=== PATIENT | female | born 1975 | race African-American/Black ===

== ENCOUNTER 2019-04-13 11:36 | Emergency (ER) | payer OTHER, SELFPAY ==
--- NOTE | ~2019-04-13 | CT_ITS ---
EXAMINATION: CT brain wo con EXAM DATE: 04/13/2019 12:35 INDICATION: Left-sided paresthesia and headache. Dizziness. TECHNIQUE: Spiral CT of the head was performed without contrast. Axial, coronal and sagittal images were reviewed. The dose-length product (DLP) for this examination was 605.33 mGy-cm. The exposure w as tailored according to patient size, and iterative reconstruction (ASIR) was used as additional dos e reduction technique. Comparison is made to prior examination from 03/28/2015. FINDINGS: There is no acute intraparenchymal hemorrhage. No evidence of intraparenchymal brain mass lesion. No evidence of acute infarction. There is no mass effect or midline shift. The ventricles are normal in size. There are no extra-axial collections. There are no acute calvarial fractures. T he orbits are unremarkable. Soft tissue is unremarkable. The visualized sinuses and mastoid air elizabeth ls are well aerated. IMPRESSION: 1. Normal head CT examination. Reviewed, dictated and finalized at location B. UTIVE CHEF
--- NOTE | ~2019-04-13 | XR_ITS ---
EXAMINATION: XR chest 2V EXAM DATE: 04/13/2019 12:55 INDICATION: Visual problems. TECHNIQUE: Frontal and lateral projections of the chest obtained and reviewed. There is no prior franci dy for comparison. FINDINGS: The lungs are clear. There are no pleural effusions. The cardiomediastinal silhouette is within normal limits. There is no pneumothorax suspected. The bones and soft tissues are unremarkab le. There are cholecystectomy clips. IMPRESSION: Normal chest x-ray exam. Reviewed, dictated and finalized at location B. 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
[2019-04-13 11:40] VITALS: BP 198/127; PULSE 92; RESP 18; TEMP 36.3; O2SAT 100
--- NOTE | 2019-04-13 11:57 | ED.NEUROSD ---
HPI - Neuro Symptoms/Deficit General Chief Complaint: Neuro Symptoms/Deficit Stated Complaint: Dizzy Time Seen by Provider: 04/13/19 11:48 Source: patient and RN notes reviewed Mode of arrival: ambulatory Limitations: no limitations History of Present Illness HPI Narrative: Pt is a 43 y/o female who presents to the ED with c/o feeling funny starting this morning. She notes that she began feeling dizzy while driving to work this morning. Pt states that she later developed a lt sided headache and blurred vision while at work. She notes that her heart began racing soon after these symptoms started. Pt also reports tingling in her hands, numbness in the lt side of her face, and difficulty swallowing, but denies any CP or vomiting. She states that she was able to drive to the ED and walk in under her own power. Pt notes that her grandson has recently had a cold, and states that she has had recent sinus/throat congestion. She notes that her father suffered from a CVA, and states that she is concerned she may be currently having a stroke. Onset (ago): hour(s) (several) History of same: No Quality: numb and tingling Associated symptoms: headaches (lt sided) and other (dizziness; numbness in lt side of face; tingling in hands; palpitations; difficulty swallowing; blurry vision; sinus/throat congestion) Related Data Home Medications Medication Instructions Recorded Confirmed lorazepam 04/13/19 oxycodone-acetaminophen 04/13/19 Allergies Allergy/AdvReac Type Severity Reaction Status Date / Time levofloxacin Allergy Unknown Verified 03/05/18 09:40 Review of Systems Review of Systems: Narrative: CONSTITUTIONAL: Denies fever, chills, or sweats. EYES: Denies redness or discharge. Reports blurry vision. ENT: Denies rhinorrhea, sore throat, or otalgia. Reports difficulty swallowing and sinus/throat congestion. CARDIOVASCULAR: Denies chest pain or edema. Reports palpitations. RESPIRATORY: Denies cough or dyspnea. GASTROINTESTINAL: Denies abdominal pain, nausea, vomiting, or diarrhea. NEUROLOGIC: Reports lt sided headache, numbness in lt side of face, tingling in hands, and dizziness. Denies weakness. All systems reviewed & are unremarkable except as noted in HPI and below PMFSH Past Medical History Medical History History of frequent headaches UTI (urinary tract infection) Surgical History Surgical History History of hysterectomy Hx of cholecystectomy Hx of tubal ligation Family History Family History (Updated 04/13/19 @ 12:16 by Demetri Dimas) Father Hypertension Family history of coronary artery disease Family history of cardiovascular disease Cerebrovascular accident Mother Hypertension Sibling Family history of malignant neoplasm of breast in first degree relative Other Family history of arthritis Social History Social History Smoking status: Never smoker Alcohol intake: never Comments PCP is Dr. Smith. Exam Narrative: Exam Narrative: GENERAL: Tearful, well-nourished, and in no acute distress. HEAD: Normocephalic, atraumatic. EYES: PERRLA and EOMI. ENT: Nares clear, no rhinorrhea or epistaxis. Mucous membranes moist. NECK: Supple. CHEST: Clear to auscultation. No respiratory distress. HEART: Regular rate and rhythm. No murmur heard. Normal peripheral pulses. ABDOMEN: Soft, nontender, nondistended, normal active bowel sounds. EXTREMITIES: Normal range of motion. No edema. SKIN: Warm, dry, no rash. Neuro: Finger to nose intact bilaterally. EOMs intact without nystagmus. No facial droop/asymmetry noted bilaterally. Grimace intact. Intact sensation in face. Hearing intact bilaterally. Shoulder shrug intact. Strength 5/5 bilateral upper extremities. Strength 5/5 bilateral lower extremities. Reflexes 2+ patellar. Heel to daugherty intact bilaterally. Romberg negative. Amb
--- NOTE | 2019-04-13 12:02 | ECG_ITS ---
Measurements Intervals [place] Rate: 57 P: 48 [place]: 167 QRS: 3 QRSD: 78 T: 0 QT: 418 QTc: 410 Interpretive Statements SINUS BRADYCARDIA WITH MARKED SINUS ARRHYTHMIA POSSIBLE LEFT ATRIAL ENLARGEMENT BORDERLINE ST ABNORMALITY- INFERIOR LEADS BORDERLINE ECG Electronically Signed On 04-13-2019 14:08:09 [facility] [employer] by Helio Amos D.O.
[2019-04-13] MEDS: SODIUM CHLORIDE 0.9% IV 1,000 ML 999 ML IV CONT (12:19)
[2019-04-13] MEDS: ASPIRIN 325 MG TABLET PO (12:19)
[2019-04-13 12:47] LABS: Basophils Percent Auto 0.3 % (0.2-1.2); Eosinophils Absolute Auto 0.1 K/mm3 (0-0.3); Eosinophils Percent Auto 0.8 % (0-4.4); Hemoglobin 12.8 g/dL (12.0-15.0); Immature Granulocyte Absolute 0.01 K/mm3 (0.00-0.031); Immature Granulocyte Percent A 0.2 % (0-0.5); Lymphocytes Absolute Auto 1.43 K/mm3 (0.9-3.2); Lymphocytes Percent Auto 22.6 % (18.3-44.2); Mean Corpuscular Hemoglobin 27.7 pg (26-34); Mean Corpuscular Volume 86.6 fl (80-100); Mean Platelet Volume 9.9 fl (7.4-10.4); Monocytes Absolute Auto 0.4 K/mm3 (0.1-0.6); Monocytes Percent Auto 5.5 % (2.6-8.5); Neutrophils Absolute Auto 4.5 K/mm3 (1.3-6.7); Neutrophils Percent Auto 70.6 % (45.5-73.1); Platelet Count Result 326 k/mm3 (150-375); Red Blood Count 4.62 M/mm3 (4.2-5.4); Red Cell Distribution Width 14.3 % (11.5-14.5); White Blood Count 6.3 K/mm3 (4.5-10.0)
[2019-04-13 12:58] LABS: INR 0.9
[2019-04-13 12:59] LABS: Partial Thromboplastin Time 28.1 SECONDS (22.3-36.8)
[2019-04-13 13:00] LABS: Blood Urea Nitrogen 13 mg/dL (7-17); Calcium 9.2 mg/dL (8.4-10.2); Carbon Dioxide 28 mmol/L (22-30); Chloride 101 mmol/L (98-107); Estimated CRCL calculation 99 ml/min; Estimated Glomerular Filt Rate > 60; Glucose 85 mg/dL (65-105); Potassium 3.4 mmol/L (3.4-5.0); Sodium 138 mmol/L (137-145)
[2019-04-13 13:01] VITALS: BP 132/81; PULSE 60; RESP 17; O2SAT 100
[2019-04-13 13:11] LABS: Troponin I < 0.012 ng/mL (0.000-0.034)
[2019-04-13 14:01] VITALS: BP 126/81; PULSE 58; RESP 10; O2SAT 99
[2019-04-13 15:01] VITALS: BP 134/78; PULSE 57; RESP 16; O2SAT 100
== END 2019-04-13 15:30 | disposition home or self-care (01) ==
PROVIDERS: Emergency Provider Emergency Medicine; PCP Emergency Medicine
DX: G45.9 Transient cerebral ischemic attack, unspecified (principal); Z87.440 Personal history of urinary (tract) infections; R00.1 Bradycardia, unspecified; R94.31 Abnormal electrocardiogram [ECG] [EKG]
CPT/HCPCS: 36415; 70450; 71046; 80048; 84484; 85025; 85610; 85730; 93005; 96360; 99284; A9270; J7030

== ENCOUNTER 2019-05-14 15:07 | Outpatient (CLI) | payer OTHER, SELFPAY ==
--- NOTE | 2019-05-14 | ECHO_ITS ---
Patient Info Name: Apoorva Harry Age: 44 years : 1975 Gender: Female Ht: 64 in Wt: 262 lbs BSA: 2.38 m2 HR: 71 bpm BP: 120 / 81 mmHg Technical Quality: Good Exam Date: 05/14/2019 3:40 PM Exam Location: [facility] Patient Status: Outpatient Admit Date: 05/14/2019 Staff Ordering Physician: Santana Smith MD Nightclub Manager: Enedina Washington RDCS Attending Provider: Santana Smith MD Referring Physician: Luis FITZPATRICK; Exam Type: CA echo doppler color flow Study Info Indications - ABN EKG Complete two-dimensional, color flow and Doppler transthoracic echocardiogram is performed. Summary 1. Left ventricular chamber dimension is normal. 2. Left ventricular systolic function is normal, estimated at 60-65%. 3. The left ventricular diastolic function is normal. 4. E/e' 6 is not elevated. 5. There is trace mitral valve regurgitation. 6. There is trace tricuspid valve regurgitation. 7. No pulmonary hypertension, estimated pulmonary arterial systolic pressure is 27 mmHg. Left Ventricle E/e' 6 is not elevated. Left ventricular chamber dimension is normal. Left ventricular systolic function is normal, estimated at 60-65%. The left ventricular diastolic function is normal. Right Ventricle Right ventricular chamber dimension is normal. Right ventricular systolic function is normal. Left Atria Left atrial chamber dimension is normal. Right Atria Right atrial chamber dimension is normal. Aortic Valve The aortic valve is trileaflet. There is no aortic valve stenosis. There is no aortic valve regurgitation. Pulmonic Valve There is no pulmonic regurgitation. Mitral Valve There is no mitral valve stenosis. There is trace mitral valve regurgitation. Tricuspid Valve There is trace tricuspid valve regurgitation. No pulmonary hypertension, estimated pulmonary arterial systolic pressure is 27 mmHg. Pericardium/Pleural There is no pericardial effusion. Inferior Vena Cava Normal inferior vena cava with >50% collapse upon inspiration consistent with normal right atrial pressure, 5 mmHg. Aorta The aortic root size at the sinus of Valsalva is normal. Left Ventricular Outflow Tract Name Value Normal LVOT 2D LVOT Diameter 2.0 cm LVOT Doppler LVOT Peak Gradient 4 mmHg LVOT Mean Gradient 3 mmHg LVOT VTI 22 cm LVOT VTI/AV VTI Ratio 0.9 LVOT Stroke Volume 71 ml LVOT CO 14.3 l/min LVOT CI 6.0 l/min/m2 Pulmonic Valve Name Value Normal PV Doppler PV Peak Gradient 3 mmHg Mitral Valve Name Value
== END 2019-05-14 15:08 | disposition home or self-care (01) ==
PROVIDERS: PCP Emergency Medicine; Visit Provider Emergency Medicine
DX: R94.31 Abnormal electrocardiogram [ECG] [EKG] (principal)
CPT/HCPCS: 93306

== ENCOUNTER 2019-10-26 14:00 | Emergency (ER) | payer OTHER, SELFPAY ==
--- NOTE | ~2019-10-26 | XR_ITS ---
XR chest 1V portable DATE: 10/26/2019 15:04 INDICATION: Palpitations. Weakness. TECHNIQUE: Portable AP chest on 10/26/2019 at 1504 hours COMPARISON: 04/13/2019 PA and lateral chest FINDINGS: Normal heart size. No hilar or mediastinal enlargement. No pulmonary infiltrate or consolid ation, pleural effusion or pulmonary vascular congestion or pneumothorax. There is degenerative spurring and mild dextro scoliosis of the thoracolumbar spine. IMPRESSION: No active cardiopulmonary disease Reviewed, dictated and finalized at location A.
--- NOTE | ~2019-10-26 | CT_ITS ---
EXAMINATION: CTA brain carotid EXAM DATE: 10/26/2019 16:14 INDICATION: Slurred speech. TECHNIQUE: Noncontrast head CT. Spiral CTA of the carotid arteries was performed with intravenous i njection 100 cc of Omnipaque 350. Axial, coronal, sagittal reformatted images reviewed. Additional r eformatted images created on dedicated 3-D workstation. NASCET comparable standard used to assess th e degree of arterial stenosis. Spiral CT angiogram cerebral arteries performed with the same intrave nous injection of contrast. Source images of the brain CTA transferred to dedicated workstation for 3 -D rotational image creation. Coronal, sagittal maximum intensity pixel images also reviewed. The d ose-length product (DLP) for this examination was 1617.11 mGy-cm. The exposure was tailored accordi ng to patient size, and iterative reconstruction (ASIR) was used as additional dose reduction techniq ue. Comparison is made to prior examination from 04/13/2019. FINDINGS: There is no carotid plaque or stenosis on either side. There is no carotid or vertebral ba silar arterial dissection or fibromuscular dysplasia. There are no cerebral artery aneurysms. There i s symmetric cerebral artery arborization. The sagittal, transverse and sigmoid sinuses enhance normal ly, no venous sinus thrombosis. Internal cerebral veins also enhance normally. There is no acute intraparenchymal hemorrhage. No evidence of intraparenchymal brain mass lesion. N o evidence of acute infarction. There is no mass effect or midline shift. There is no obstructive hyd rocephalus suspected. There are no extra-axial collections. There are no calvarial acute fractures. Incidental note made of mildly enlarged appearing symmetric extraocular muscles with sparing of the s uperior rectus. Possible thyroid associated orbitopathy. Consider checking thyroid functions. IMPRESSION: 1. No cervical arterial dissection or cerebral artery aneurysm. No carotid stenosis. 2. Borderline enlarged, symmetric extraocular muscle size, possible thyroid associated orbitopathy. Reviewed, dictated and finalized at location A. IMPRESSION: 1. No cervical arterial dissection or cerebral artery aneurysm. No carotid nan nosis. 2. Borderline enlarged, symmetric extraocular muscle size, possible thyroid as sociated orbitopathy.
[2019-10-26 14:11] VITALS: BP 165/87; PULSE 100; RESP 18; O2SAT 100
--- NOTE | 2019-10-26 14:16 | ECG_ITS ---
Measurements Intervals [place] Rate: 102 P: 51 [place]: 157 QRS: -1 QRSD: 81 T: 25 QT: 339 QTc: 442 Interpretive Statements SINUS TACHYCARDIA POSSIBLE LEFT ATRIAL ENLARGEMENT LEFT VENTRICULAR HYPERTROPHY AND ST-T CHANGE INFERIOR INFARCT, AGE INDETERMINATE BORDERLINE ST ABNORMALITY- HIGH LATERAL LEADS ABNORMAL ECG Electronically Signed On 10-26-2019 14:26:25 CDT by Helio Amos D.O.
[2019-10-26 15:04] LABS: Basophils Percent Auto 0.2 % (0.2-1.2); Eosinophils Absolute Auto 0.1 K/mm3 (0-0.3); Eosinophils Percent Auto 0.9 % (0-4.4); Hematocrit 37.6 % (37.0-47.0); Hemoglobin 12.4 g/dL (12.0-15.0); Immature Granulocyte Absolute 0.02 K/mm3 (0.00-0.031); Immature Granulocyte Percent A 0.2 % (0-0.5); Lymphocytes Absolute Auto 1.31 K/mm3 (0.9-3.2); Lymphocytes Percent Auto 15.3 % (18.3-44.2); Mean Corpuscular Hemoglobin 28.1 pg (26-34); Mean Corpuscular Volume 85.3 fl (80-100); Mean Platelet Volume 10.2 fl (7.4-10.4); Monocytes Absolute Auto 0.4 K/mm3 (0.1-0.6); Monocytes Percent Auto 4.6 % (2.6-8.5); Neutrophils Absolute Auto 6.7 K/mm3 (1.3-6.7); Neutrophils Percent Auto 78.8 % (45.5-73.1); Platelet Count Result 240 k/mm3 (150-375); Red Blood Count 4.41 M/mm3 (4.2-5.4); White Blood Count 8.6 K/mm3 (4.5-10.0)
--- NOTE | 2019-10-26 15:05 | ED.ARRPALP ---
HPI - Arrhythmia/Palpitations General Chief Complaint: Arrhythmia/Palpitations Stated Complaint: dizziness/heart racing Time Seen by Provider: 10/26/19 14:18 Source: patient Mode of arrival: ambulatory Limitations: no limitations History of Present Illness HPI narrative: This patient is 44 year old female who present for evaluation of episodes of heart racing. Patient states she was preparing to make something to eat when she developed shaking all over. She also felt her heart racing and dizziness. She states then developed epigastric abdominal pain. 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 Amos, and she was told to perform some vagal manuveurs. She did not feel any better so she came to the ER. Her states that during this episode she appeared to be stuttering her speech for 2 minutes PAtient had no focal weakness. She denies chest pain or sob. She was started on metoprolol 25 mg last month after she had a holter monitor in place. She has also been started on lorazepam as she has previous similar episodes thought to be panic attacks. Related Data Home Medications Medication Instructions Recorded Confirmed irbesartan 150 mg tablet 150 mg PO DAILY 09/06/19 09/15/19 lorazepam 1 mg tablet 1 mg PO DAILY PRN 09/06/19 09/15/19 oxycodone-acetaminophen 10 mg-325 1 tablet PO Q6H PRN 09/06/19 09/15/19 mg tablet topiramate 50 mg tablet 50 mg PO DAILY tablet 09/06/19 09/15/19 Allergies Allergy/AdvReac Type Severity Reaction Status Date / Time levofloxacin Allergy Unknown Unknown Verified 09/15/19 11:23 Review of Systems Review of Systems: All systems reviewed & are unremarkable except as noted in HPI and below Constitutional: Constitutional: Denies chills and Denies fever(s) ENT: Reports dizziness Cardiovascular: Cardiovascular: Denies chest pain and Reports rapid heart rate Respiratory: Respiratory: Denies cough and Denies dyspnea Gastrointestinal: Gastrointestinal: Reports abdominal pain, Denies diarrhea, Denies nausea and Denies vomiting Psychiatric: Psychiatric: Reports anxiety PMFSH Family History Family History (Updated 04/13/19 @ 12:16 by Demetri Dimas) Father Hypertension Family history of coronary artery disease Family history of cardiovascular disease Cerebrovascular accident Mother Hypertension Sibling Family history of malignant neoplasm of breast in first degree relative Other Family history of arthritis Social History Social History Smoking status: Never smoker Alcohol intake: never Exam Const: General: no acute distress and alert Orientation/consciousness: patient oriented x3 HENMT: Head: normocephalic and atraumatic Ears: TM's normal bilaterally Face and sinus: sinuses nontender and face symmetric Mouth: Yes Normal oral and palatal mucosa present, Yes lip normal and Yes oropharynx normal Throat: tonsils normal and uvula midline Eyes: Conjunctivae: conjunctivae normal Pupils: Equal, round and reactive pupils present EOM: EOMs intact bilaterally Neck: Neck: no lymphadenopathy Chest: Chest palpation & inspection: normal inspection of the chest Resp: Effort & Inspection: normal respiratory effort, no retractions and no use of accessory muscles Auscultation: clear to auscultation bilaterally Cardio: Rate: regular rate Rhythm: regular rhythm Heart sounds: no murmurs GI: Inspection: non-distended GI Palp: Yes Soft to palpation, No Tenderness to palpation present (GI), No Guarding due to palpation present (GI) and No Rigid due to palpation Auscultation: normal bowel sounds Back/Spine/Pelvis: Back: no CVA tenderness Skin: General skin exam: normal color Rashes: no rashes Neuro: General: patient oriented x3, moves all extremities, no meningeal signs, no focal motor deficits and CN's II-XI intact bilaterally Cranial nerves: Yes Nystagmus not present Speech: normal speech Gait exam (Neuro): Norm
[2019-10-26 15:08] LABS: Alanine Aminotransferase 15 U/L (4-35); Albumin Level 4.4 g/dL (3.5-5.1); Alkaline Phosphatase 58 U/L (38-126); Anion Gap 9 mmol/L (8-16); Aspartate Amino Transferase 23 U/L (14-36); Bilirubin,Total 0.4 mg/dL (0.2-1.3); Blood Urea Nitrogen 9 mg/dL (7-17); Calcium 9.4 mg/dL (8.4-10.2); Carbon Dioxide 25 mmol/L (22-30); Chloride 101 mmol/L (98-107); Estimated CRCL calculation 78 ml/min; Estimated Glomerular Filt Rate 60; Glucose 114 mg/dL (65-105); Lipase 77 U/L (23-300); Potassium 3.7 mmol/L (3.4-5.0); Sodium 135 mmol/L (137-145)
[2019-10-26 15:12] LABS: Prothrombin Time 12.7 Seconds (11.1-14.7)
[2019-10-26 15:13] LABS: Partial Thromboplastin Time 26.8 SECONDS (22.3-36.8)
[2019-10-26 15:19] LABS: Troponin I < 0.012 ng/mL (0.000-0.034)
[2019-10-26 16:27] VITALS: BP 132/82; PULSE 61; RESP 14; O2SAT 100
[2019-10-26 17:18] VITALS: BP 126/73; PULSE 64; RESP 13; O2SAT 100
[2019-10-26 18:33] VITALS: BP 121/78; PULSE 64; RESP 18; O2SAT 99
== END 2019-10-26 18:34 | disposition home or self-care (01) ==
PROVIDERS: Emergency Provider General Practice; PCP Emergency Medicine
DX: R00.2 Palpitations (principal); F98.5 Adult onset fluency disorder; R00.0 Tachycardia, unspecified; R94.31 Abnormal electrocardiogram [ECG] [EKG]; I51.7 Cardiomegaly
CPT/HCPCS: 36415; 70496; 70498; 71045; 80053; 83690; 83735; 84443; 84484; 85025; 85610; 85730; 93005; 99284; Q9967

== ENCOUNTER 2020-03-01 13:40 | Outpatient (CLI) | payer OTHER, SELFPAY ==
--- NOTE | ~2020-03-01 | MM_ITS ---
EXAMINATION: MM screening cassidy BI w demetri HISTORY: Screening mammogram, family history of breast cancer in her sister. TECHNIQUE: Craniocaudal and mediolateral oblique 3-D tomosynthesis images were obtained and synthetic 2-D images were generated. CAD analysis was submitted and interpreted. COMPARISON: 10/15/2018, 03/05/2018, 01/08/2018, 11/20/2016 BREAST PARENCHYMAL COMPOSITION: There are scattered areas of fibroglandular density. FINDINGS: There is no evidence of suspicious mass, calcification, or architectural distortion to sugg est malignancy in either breast. There has been no suspicious interval change. IMPRESSION: 1. No mammographic evidence of malignancy. 2. Recommend routine screening mammography in one year. BI-RADS Category 1: Negative Reviewed, dictated and finalized at location A. ELECTRICIAN
== END 2020-03-01 13:41 | disposition home or self-care (01) ==
LOC: ANHIMG 13:41
PROVIDERS: PCP Emergency Medicine; Visit Provider Emergency Medicine
DX: Z12.31 Encounter for screening mammogram for malignant neoplasm of breast (principal)
CPT/HCPCS: 77063; 77067

== ENCOUNTER → 2020-04-22 06:47 | Outpatient (CLI) | payer OTHER, SELFPAY ==
[2020-04-23 00:17] LABS: SARS-CoV-2 RNA PCR Negative
== END ==
PROVIDERS: PCP Emergency Medicine; Visit Provider Emergency Medicine
DX: B34.9 Viral infection, unspecified (principal); Z20.822 Contact with and (suspected) exposure to COVID-19
CPT/HCPCS: C9803; U0003; U0005

== ENCOUNTER 2020-06-12 14:31 | Emergency (ER) | payer OTHER, SELFPAY ==
--- NOTE | ~2020-06-12 | XR_ITS ---
EXAMINATION: XR chest 2V DATE: 06/12/2020 19:24 INDICATION: Lightheadedness. TECHNIQUE: Frontal and lateral views of the chest were obtained. COMPARISON: Chest single view 10/26/2019 FINDINGS: The chest demonstrates clear lungs without pneumonia, pleural effusion, or pneumothorax. Th e heart size is normal. Surgical clips in the right upper quadrant are likely from cholecystectomy. IMPRESSION: 1. No acute cardiopulmonary disease. Reviewed, dictated and finalized at location A.
--- NOTE | ~2020-06-12 | CT_ITS ---
EXAMINATION: CT brain wo con DATE: 06/12/2020 19:09 INDICATION: Right-sided headache. Dizziness. TECHNIQUE: Computed tomography (CT) of the head was performed without intravenous contrast. The mA wa s adjusted according to patient size. Iterative reconstruction technique was employed. The dose-lengt h product was 605.33 mGy-cm. COMPARISON: Head CT 10/26/2019 FINDINGS: There is no intracranial hemorrhage, acute infarction, or abnormal intracranial mass lesion . The ventricles are normal in size. The paranasal sinuses are clear. The mastoid air cells are jamie l. IMPRESSION: 1. Normal brain. Reviewed, dictated and finalized at location A. IMPRESSION: 1. Normal brain.
[2020-06-12 15:31] VITALS: BP 142/83; PULSE 84; RESP 16; TEMP 36.1; O2SAT 100
[2020-06-12 16:42] LABS: Basophils Percent Auto 0.4 % (0.2-1.2); Eosinophils Absolute Auto 0.1 K/mm3 (0-0.3); Eosinophils Percent Auto 1.2 % (0-4.4); Hematocrit 39.1 % (37.0-47.0); Hemoglobin 12.7 g/dL (12.0-15.0); Immature Granulocyte Absolute 0.03 K/mm3 (0.00-0.031); Immature Granulocyte Percent A 0.3 % (0-0.5); Lymphocytes Percent Auto 17.1 % (18.3-44.2); Mean Corpuscular HGB Conc 32.5 g/dl (32-36); Mean Corpuscular Hemoglobin 28.2 pg (26-34); Mean Corpuscular Volume 86.7 fl (80-100); Mean Platelet Volume 9.4 fl (7.4-10.4); Monocytes Absolute Auto 0.5 K/mm3 (0.1-0.6); Neutrophils Absolute Auto 7.1 K/mm3 (1.3-6.7); Platelet Count Result 299 k/mm3 (150-375); Red Blood Count 4.51 M/mm3 (4.2-5.4); Red Cell Distribution Width 14.2 % (11.5-14.5); White Blood Count 9.4 K/mm3 (4.5-10.0)
[2020-06-12 17:13] LABS: Erythrocyte Sedimentation Rate 25 mm/hr (0-20)
[2020-06-12 18:41] VITALS: BP 141/91; PULSE 73; RESP 20; O2SAT 99
--- NOTE | 2020-06-12 18:50 | ECG_ITS ---
Measurements Intervals [place] Rate: 62 P: 23 [place]: 167 QRS: 2 QRSD: 76 T: -6 QT: 395 QTc: 402 Interpretive Statements SINUS RHYTHM WITH SINUS ARRHYTHMIA LOW QRS VOLTAGE IN PRECORDIAL LEADS BORDERLINE ST-T WAVE ABNORMALITY- INFERIOR LEADS BORDERLINE ECG Electronically Signed On 06-13-2020 7:05:26 CDT by Helio Amos D.O.
--- NOTE | 2020-06-12 19:09 | ED.HA ---
HPI - Headache General Chief Complaint: Headache Stated Complaint: headache x1 week Time Seen by Provider: 06/12/20 18:35 Source: patient Mode of arrival: ambulatory Limitations: no limitations History of Present Illness HPI Narrative: This is a 45 year old female that presents to the ER for headache x 1 week. Reports left sided headache that is pounding in nature. Reports she does have history of migraines. Also reports lightheadedness. She took an oxycodone for headache with little relief. Denies fever, stiff neck, chest pain, shortness of breath, vomiting, numbness or weakness. Related Data Home Medications Medication Instructions Recorded Confirmed irbesartan 150 mg tablet 150 mg PO DAILY 09/06/19 12/15/19 lorazepam 1 mg tablet 1 mg PO DAILY PRN 09/06/19 12/15/19 oxycodone-acetaminophen 10 mg-325 1 tablet PO Q6H PRN 09/06/19 12/15/19 mg tablet topiramate 50 mg tablet 50 mg PO DAILY tablet 09/06/19 12/15/19 Allergies Allergy/AdvReac Type Severity Reaction Status Date / Time levofloxacin Allergy Unknown Unknown Verified 12/15/19 10:07 Review of Systems Review of Systems: Narrative: CONSTITUTIONAL: Denies fever EYES: Denies visual changes CARDIOVASCULAR: Denies chest pain, or edema. RESPIRATORY: Denies dyspnea. GASTROINTESTINAL: Denies vomiting NEUROLOGIC: Reports headache. Denies numbness, or weakness. All systems reviewed & are unremarkable except as noted in HPI and below PMFSH Past Medical History Medical History (Updated 06/12/20 @ 21:10 by Nuha Renee PA-C) History of frequent headaches UTI (urinary tract infection) Surgical History Surgical History History of hysterectomy Hx of cholecystectomy Hx of tubal ligation Family History Family History (Updated 04/13/19 @ 12:16 by Demetri Dimas) Father Hypertension Family history of coronary artery disease Family history of cardiovascular disease Cerebrovascular accident Mother Hypertension Sibling Family history of malignant neoplasm of breast in first degree relative Other Family history of arthritis Social History Social History Smoking status: Never smoker Alcohol intake: never Exam Narrative: Exam Narrative: GENERAL: Well-appearing, obese, and in no acute distress. HEAD: Normocephalic, atraumatic. EYES: PERRLA and EOMI. ENT: Nares clear, no rhinorrhea or epistaxis. Mucous membranes moist. Oropharynx without tonsillar hypertrophy exudate or other lesions. Bilateral TMs pearly medina non-bulging NECK: Supple. No adenopathy or masses. No carotid bruits or JVD CHEST: Clear to auscultation. No respiratory distress. No wheezes rales or rhonchi HEART: Regular rate and rhythm. No murmur heard. Normal peripheral pulses. EXTREMITIES: Normal range of motion. No edema. Strength equal in bilateral upper and lower extremities (5/5) SKIN: Warm, dry, no rash. NEURO: No focal deficits. Alert and oriented x3. Cranial nerves II through XII grossly intact. Normal [id number] PSYCH: Normal mood and affect Course Vital Signs Vital signs: Vital Signs Temperature 97 F L 06/12/20 15:31 Pulse Rate 84 06/12/20 15:31 Respiratory Rate 16 06/12/20 15:31 Blood Pressure 142/83 H 06/12/20 15:31 Pulse Oximetry 100 06/12/20 15:31 Temperature 97 F L 06/12/20 15:31 Pulse Rate 63 06/12/20 20:46 Respiratory Rate 20 06/12/20 18:41 Blood Pressure 120/81 06/12/20 20:46 Pulse Oximetry 99 06/12/20 18:41 MDM - Headache MDM Narrative Medical decision making narrative: Patient presents the emergency department with headache. Was also reporting dizziness. Does have history of migraines. She is afebrile and nontoxic-appearing. She is neurologically intact. CBC and metabolic panel without concerning findings. CT scan of the brain is normal and chest x-ray without acute cardiopulmonary findings. EKG without co
[2020-06-12 19:22] LABS: Anion Gap 5 mmol/L (8-16); Blood Urea Nitrogen 13 mg/dL (7-17); Calcium 9.1 mg/dL (8.4-10.2); Carbon Dioxide 29 mmol/L (22-30); Chloride 104 mmol/L (98-107); Estimated CRCL calculation 77 ml/min; Estimated Glomerular Filt Rate > 60; Glucose 94 mg/dL (65-105); Potassium 4.6 mmol/L (3.4-5.0); Sodium 138 mmol/L (137-145)
[2020-06-12] MEDS: diphenhydrAMINE HCl INJ 50 MG/ML VIAL 25 MG IV PUSH (19:51)
[2020-06-12] MEDS: METOCLOPRAMIDE HCL INJ 10 MG/2 ML VIAL IV PUSH (19:52)
[2020-06-12] MEDS: KETOROLAC 30 MG/ML VIAL (*BKC) IV PUSH (19:52)
[2020-06-12] MEDS: SODIUM CHLORIDE 0.9% IV 1,000 ML 999 ML IV CONT (19:52)
[2020-06-12 20:42] VITALS: BP 128/66; PULSE 61
[2020-06-12 20:43] VITALS: BP 123/62; PULSE 68
[2020-06-12 20:46] VITALS: BP 120/81; PULSE 63
[2020-06-12 21:27] VITALS: BP 136/81; PULSE 69; RESP 16; O2SAT 100
== END 2020-06-12 21:31 | disposition home or self-care (01) ==
PROVIDERS: Emergency Medicine; Physician Assistant; Emergency Provider Emergency Medicine; PCP Emergency Medicine
DX: R51.9 Headache, unspecified (principal); Z87.440 Personal history of urinary (tract) infections
CPT/HCPCS: 36415; 70450; 71046; 80048; 85025; 85652; 86140; 93005; 96361; 96365; 96375; 99284; J0131; J1200; J1885; J2765; J7030

== ENCOUNTER 2021-03-10 17:51 | Emergency (ER) | payer OTHER, SELFPAY ==
[2021-03-10 18:01] VITALS: BP 128/86; PULSE 75; RESP 16; TEMP 35.8; O2SAT 99
[2021-03-10 20:23] VITALS: BP 121/73; PULSE 78; RESP 18; O2SAT 99
[2021-03-10 20:26] LABS: Basophils Percent Auto 0.3 % (0.2-1.2); Hemoglobin 13.9 g/dL (12.0-15.0); Lymphocytes Absolute Auto 1.14 K/mm3 (0.9-3.2); Lymphocytes Percent Auto 34.5 % (18.3-44.2); Mean Corpuscular HGB Conc 33.1 g/dl (32-36); Mean Corpuscular Hemoglobin 28.4 pg (26-34); Mean Corpuscular Volume 85.7 fl (80-100); Monocytes Absolute Auto 0.4 K/mm3 (0.1-0.6); Monocytes Percent Auto 11.2 % (2.6-8.5); Neutrophils Absolute Auto 1.8 K/mm3 (1.3-6.7); Platelet Count Result 202 k/mm3 (150-375); Red Cell Distribution Width 14.1 % (11.5-14.5); White Blood Count 3.3 K/mm3 (4.5-10.0)
[2021-03-10] MEDS: MORPHINE SULFATE (*CRX) 4 MG/ML INJ IV PUSH (20:26)
[2021-03-10] MEDS: ONDANSETRON INJ 4 MG/2 ML VIAL IV PUSH (20:27)
[2021-03-10 21:01] LABS: Alanine Aminotransferase 39 U/L (4-35); Albumin Level 4.5 g/dL (3.5-5.1); Alkaline Phosphatase 63 U/L (38-126); Anion Gap 5 mmol/L (8-16); Aspartate Amino Transferase 46 U/L (14-36); Bilirubin,Total 0.4 mg/dL (0.2-1.3); Blood Urea Nitrogen 8 mg/dL (7-17); Calcium 9.3 mg/dL (8.4-10.2); Carbon Dioxide 30 mmol/L (22-30); Chloride 100 mmol/L (98-107); Estimated CRCL calculation 85 ml/min; Estimated Glomerular Filt Rate > 60; Glucose 96 mg/dL (65-110); Lipase 140 U/L (23-300); Potassium 3.6 mmol/L (3.4-5.0); Sodium 135 mmol/L (137-145)
--- NOTE | 2021-03-10 21:33 | ED.GENADULT ---
HPI - General Adult General Chief complaint: Abdominal Pain Stated complaint: chills/abd pain Time Seen by Provider: 03/10/21 20:03 History of Present Illness HPI narrative: Patient is a 45-year-old female who presents ER with epigastric discomfort. Ongoing for the last 2 days. Loss of appetite and reports everything tastes like rocks. She believes she is lost small as well. No vomiting or diarrhea. Pain is not worsened with eating or drinking. Occasional chills. Not vaccinated against Covid. No known exposures. Related Data Home Medications Medication Instructions Recorded Confirmed irbesartan 150 mg tablet 150 mg PO DAILY 09/06/19 01/01/21 lorazepam 1 mg tablet 1 mg PO DAILY PRN 09/06/19 01/01/21 oxycodone-acetaminophen 10 mg-325 1 tablet PO Q6H PRN 09/06/19 01/01/21 mg tablet topiramate 50 mg tablet 50 mg PO DAILY tablet 09/06/19 01/01/21 Allergies Allergy/AdvReac Type Severity Reaction Status Date / Time levofloxacin Allergy Unknown Unknown Verified 02/19/21 15:10 Review of Systems Review of Systems: All systems reviewed & are unremarkable except as noted in HPI and below Constitutional: Constitutional: Reports chills, Denies fever(s) and Denies weakness ENT: Denies nasal congestion and Denies sore throat Comments: Loss of taste and smell Cardiovascular: Cardiovascular: Denies chest pain and Denies radiating jaw, neck or arm pain Gastrointestinal: Gastrointestinal: Reports abdominal pain, Denies diarrhea, Reports nausea and Denies vomiting PMF Past Medical History Medical History (Updated 03/10/21 @ 22:44 by Fidencio Jack MD) BMI greater than 40 History of frequent headaches Left knee DJD Left knee pain UTI (urinary tract infection) Surgical History Surgical History History of hysterectomy Hx of cholecystectomy Hx of tubal ligation Family History Family History Father Hypertension Family history of coronary artery disease Family history of cardiovascular disease Cerebrovascular accident Mother Hypertension Sibling Family history of malignant neoplasm of breast in first degree relative Other Family history of arthritis Social History Social History Smoking status: Never smoker Alcohol intake: never Exam Narrative: GENERAL: Well-appearing, well-nourished, and in no acute distress. HEAD: Normocephalic, atraumatic. CHEST: Clear to auscultation. No respiratory distress. HEART: Regular rate and rhythm. Normal peripheral pulses. ABDOMEN: Soft, nontender, nondistended. EXTREMITIES: Normal range of motion. No edema. NEURO: Alert and oriented x3. PSYCH: Normal mood and affect. Course Course Emergency Course: Patient feels improved with antiemetics and morphine. Swabbeds for Covid. Patient without reproducible tenderness in the abdomen. Patient has no flank pain or urinary symptoms that are concerning for kidney stone. Discharge home. Vital Signs Vital signs: Vital Signs Temperature 96.5 F L 03/10/21 18:01 Pulse Rate 75 03/10/21 18:01 Respiratory Rate 16 03/10/21 18:01 Blood Pressure 128/86 03/10/21 18:01 Pulse Oximetry 99 03/10/21 18:01 Temperature 96.5 F L 03/10/21 18:01 Pulse Rate 78 03/10/21 20:23 Respiratory Rate 18 03/10/21 20:23 Blood Pressure 121/73 03/10/21 20:23 Pulse Oximetry 99 03/10/21 20:23 Medical Decision Making Vital Signs Vital Signs: Vital Signs Temperature 96.5 F L 03/10/21 18:01 Pulse Rate 75 03/10/21 18:01 Respiratory Rate 16 03/10/21 18:01 Blood Pressure 128/86 03/10/21 18:01 Pulse Oximetry 99 03/10/21 18:01 Temperature 96.5 F L 03/10/21 18:01 Pulse Rate 78 03/10/21 20:23 Respiratory Rate 18 03/10/21 20:23 Blood Pressure 121/73 03/10/21 20:23 Pulse Oximetry 99 03/10/21 20:23 Lab Data Result diagra
[2021-03-10 21:37] LABS: Add Urine Microscopic? YES; Appearance Urine Clear (Clear); Bilirubin Urine Negative (Negative); Blood Urine Negative (Negative); Color Urine Yellow (Yellow); Glucose Urine UA Negative (Negative); Ketones Urine Negative (Negative); Leukocyte Esterase Ur Negative LEU/UL (Negative); Mucus Urine Few /lpf; Nitrate Urine Negative (Negative); Protein Urine 1+ mg/dL (Negative); Specific Grav Ur 1.028 (1.001-1.035); Squamous Epithelial Cell Urine Few /hpf (Few); WBC Urine 0-3 /hpf
[2021-03-10 23:17] VITALS: BP 132/78; PULSE 80; RESP 16; O2SAT 99
[2021-03-11 17:04] LABS: SARS-CoV-2 RNA PCR Positive
== END 2021-03-10 23:19 | disposition home or self-care (01) ==
PROVIDERS: Emergency Provider Emergency Medicine; PCP Emergency Medicine
DX: U07.1 COVID-19 (principal)
CPT/HCPCS: 36415; 80053; 81001; 81025; 83690; 85025; 86769; 96374; 96375; 99284; C9803; J2270; J2405; U0003; U0005

== ENCOUNTER 2021-06-06 09:39 | Outpatient (CLI) | payer OTHER, SELFPAY ==
--- NOTE | ~2021-06-06 | MM_ITS ---
EXAMINATION: MM screening cassidy BI w demetri HISTORY: Screening mammogram TECHNIQUE: Craniocaudal and mediolateral oblique 3-D tomosynthesis images were obtained and synthetic 2-D images were generated. CAD analysis was submitted and interpreted. COMPARISON: 03/01/2020 bilateral screening mammogram 10/15/2018 and 03/05/2018 diagnostic right mammogram and limited right breast ultrasound 01/08/2018, 11/20/2016 bilateral screening mammogram examinations BREAST PARENCHYMAL COMPOSITION: There are scattered areas of fibroglandular density. FINDINGS: There is no evidence of suspicious mass, calcification, or architectural distortion to sugg est malignancy in either breast. There has been no suspicious interval change. IMPRESSION: 1. No mammographic evidence of malignancy. 2. Recommend routine screening mammography in one year. BI-RADS Category 1: Negative Reviewed, dictated and finalized at location A.
== END 2021-06-06 09:40 | disposition home or self-care (01) ==
LOC: ANHIMG 09:41
PROVIDERS: PCP Emergency Medicine; Visit Provider Emergency Medicine
DX: Z12.31 Encounter for screening mammogram for malignant neoplasm of breast (principal)
CPT/HCPCS: 77063; 77067

== ENCOUNTER 2022-01-30 08:15 | Outpatient (CLI) | payer BC, OTHER, SELFPAY ==
[2022-01-30 09:10] LABS: Alanine Aminotransferase 19 U/L (6-35); Albumin Level 4.4 g/dL (3.5-5.1); Alkaline Phosphatase 62 U/L (38-126); Anion Gap 8 mmol/L (8-16); Aspartate Amino Transferase 21 U/L (14-36); Bilirubin,Total 0.4 mg/dL (0.2-1.3); Blood Urea Nitrogen 10 mg/dL (7-17); Calcium 9.1 mg/dL (8.4-10.2); Carbon Dioxide 26 mmol/L (22-30); Chloride 105 mmol/L (98-107); Cholesterol 219 mg/dL (0-200); Estimated Glomerular Filt Rate > 60; Glucose 95 mg/dL (65-110); HDL Direct 68 mg/dL; Sodium 139 mmol/L (137-145); Triglycerides 100 mg/dL (<150)
[2022-01-30 09:21] LABS: LDL Cholesterol Direct 86 mg/dL
== END 2022-01-30 08:16 | disposition home or self-care (01) ==
LOC: ANHLAB 08:16
PROVIDERS: PCP Emergency Medicine; Visit Provider Internal Medicine Cardiovascular Disease
DX: I10 Essential (primary) hypertension (principal)
CPT/HCPCS: 36415; 80053; 80061

== ENCOUNTER 2022-02-21 09:41 | Outpatient (CLI) | payer BC, OTHER, SELFPAY ==
--- NOTE | 2022-02-21 09:43 | EST_ITS ---
Patient Info Name: Apoorva Harry Age: 46 years : 1975 Gender: Female Ht: 64 in Wt: 260 lbs BSA: 2.37 m2 Exam Date: 02/21/2022 10:03 AM Exam Location: [facility] Stress Patient Status: Outpatient Admit Date: 02/21/2022 Staff Ordering Physician: Helio Amos DO Attending Provider: Helio Amos DO Exercise Technologist: Ann Saez RDCS Exercise Physician: Helio Amos DO Exam Type: CA stress test treadmill Study Info Indications R00.2 - Palpitations A treadmill exercise stress test was performed. Summary 1. 1. Negative Mani exercise stress test for ischemic ST changes by ECG criteria. 2. 2. Reduced functional capacity, achieving 7 METs of workload. 3. 3. Baseline hypertension with hypertensive response to exercise. 4. 4. Appropriate HR response to exercise. 5. 5. Appropriate HR recovery at 1 minute post exercise. 6. 6. No imaging with stress testing. 7. 7. Patient informed of the above results. Protocol: Mani Stress ECG Details Stage: REST Duration (min): 0 min : 46 sec Speed (mph): 0.0 Grade (%): 0 HR (bpm): 59 SBP (mmHg): 156 DBP (mmHg): 80 METS: --- Stage: REST Duration (min): 3 min : 8 sec Speed (mph): 0.0 Grade (%): 0 HR (bpm): 85 SBP (mmHg): 156 DBP (mmHg): 80 METS: --- Stage: STAGE 1 Duration (min): 1 min : 0 sec Speed (mph): 1.7 Grade (%): 10 HR (bpm): 116 SBP (mmHg): 156 DBP (mmHg): 80 METS: --- Stage: STAGE 1 Duration (min): 2 min : 0 sec Speed (mph): 1.7 Grade (%): 10 HR (bpm): 126 SBP (mmHg): 156 DBP (mmHg): 80 METS: --- Stage: STAGE 1 Duration (min): 3 min : 0 sec Speed (mph): 1.7 Grade (%): 10 HR (bpm): 136 SBP (mmHg): 156 DBP (mmHg): 80 METS: --- Stage: STAGE 2 Duration (min): 1 min : 0 sec Speed (mph): 2.5 Grade (%): 12 HR (bpm): 148 SBP (mmHg): 156 DBP (mmHg): 80 METS: --- Stage: STAGE 2 Duration (min): 2 min : 0 sec Speed (mph): 2.5 Grade (%): 12 HR (bpm): 152 SBP (mmHg): 208 DBP (mmHg): 69 METS: --- Stage: STAGE 2 Duration (min): 2 min : 0 sec Speed (mph): 2.5 Grade (%): 12 HR (bpm): 152 SBP (mmHg): 208 DBP (mmHg): 69 METS: --- Stage: RECOVERY Duration (min): 0 min : 59 sec Speed (mph): 0.0 Grade (%): 0 HR (bpm): 106 SBP (mmHg): 177 DBP (mmHg): 87 METS: --- Stage: RECOVERY Duration (min): 1 min : 59 sec Speed (mph): 0.0 Grade (%): 0 HR (bpm): 99 SBP (mmHg): 177 DBP (mmHg): 87 METS: --- Stage: RECOVERY Duration (min): 2 min : 59 sec Speed (mph): 0.0 Grade (%): 0 HR (bpm): 107 SBP (mmHg): 153 DBP (mmHg): 83 METS: --- Stage: RECOVERY Duration (min): 3 min : 59 sec Speed (mph): 0.0 Grade (%): 0 HR (bpm): 97 SBP (mmHg): 153 DBP (mmHg): 83 METS: --- Stage:
== END 2022-02-21 09:42 | disposition home or self-care (01) ==
LOC: ANHCARD 09:43
PROVIDERS: PCP Emergency Medicine; Visit Provider Internal Medicine Cardiovascular Disease
DX: R00.2 Palpitations (principal)
CPT/HCPCS: 93017

== ENCOUNTER 2022-09-26 07:26 | Outpatient (CLI) | payer BC, OTHER, SELFPAY ==
--- NOTE | ~2022-09-26 | MM_ITS ---
EXAMINATION: MM screening cassidy BI w demetri HISTORY: Screening mammogram TECHNIQUE: Craniocaudal and mediolateral oblique 3-D tomosynthesis images were obtained and synthetic 2-D images were generated. CAD analysis was submitted and interpreted. COMPARISON: 06/06/2021, 03/01/2020 bilateral screening mammogram examinations BREAST PARENCHYMAL COMPOSITION: There are scattered areas of fibroglandular density. FINDINGS: There is no evidence of suspicious mass, calcification, or architectural distortion to sugg est malignancy in either breast. There has been no suspicious interval change. IMPRESSION: 1. No mammographic evidence of malignancy. 2. Recommend routine screening mammography in one year. BI-RADS Category 1: Negative Reviewed, dictated and finalized at location A.
== END 2022-09-26 07:27 | disposition home or self-care (01) ==
LOC: ANHIMG 07:27
PROVIDERS: PCP Emergency Medicine; Visit Provider Emergency Medicine
DX: Z12.31 Encounter for screening mammogram for malignant neoplasm of breast (principal)
CPT/HCPCS: 77063; 77067

== ENCOUNTER 2023-07-28 07:31 | Emergency (ER) | payer BC, OTHER, SELFPAY ==
--- NOTE | ~2023-07-28 | US_ITS ---
EXAMINATION: US venous doppler [facility] DATE: 07/28/2023 08:23 INDICATION: Lower limb swelling TECHNIQUE: Grayscale ultrasound images without and with compression and Doppler ultrasound images of the left lower extremity veins were obtained. COMPARISON: FINDINGS: The visualized portions of left common femoral vein, profunda (deep) femoral vein, femoral vein, popl iteal vein, peroneal veins, posterior tibial veins, gastrocnemius vein and greater saphenous vein are patent. IMPRESSION: 1. No deep venous thrombosis in the left lower limb. Reviewed, dictated and finalized at location B.
--- NOTE | ~2023-07-28 | XR_ITS ---
EXAMINATION: XR chest 2V DATE: 07/28/2023 08:11 INDICATION: Shortness of breath. Dizziness and chest pressure. TECHNIQUE: PA and lateral views of the chest were obtained. COMPARISON: Chest radiograph dated 06/12/2020 FINDINGS: The lungs remain clear with no focal airspace opacities, pulmonary edema, pleural effusion or pneumot horax. The cardiomediastinal silhouette is normal. Mild thoracic spondylosis. Cholecystectomy clips r ight upper quadrant. IMPRESSION: 1. No acute cardiopulmonary disease. Reviewed, dictated and finalized at location B.
[2023-07-28 07:31] VITALS: BP 129/79; PULSE 94; RESP 16; TEMP 36.8; O2SAT 100
--- NOTE | 2023-07-28 07:45 | ECG_ITS ---
SEE SCANNED COPY FOR CONFIRMED REPORT MTDD
[2023-07-28 08:16] LABS: Basophils Percent Auto 0.9 % (0.2-1.2); Eosinophils Absolute Auto 0.1 K/mm3 (0-0.3); Eosinophils Percent Auto 2.1 % (0-4.4); Hematocrit 41.8 % (37.0-47.0); Hemoglobin 13.2 g/dL (12.0-15.0); Lymphocytes Percent Auto 38.9 % (18.3-44.2); Mean Corpuscular HGB Conc 31.6 g/dl (32-36); Mean Corpuscular Volume 88.6 fl (80-100); Mean Platelet Volume 9.9 fl (7.4-10.4); Monocytes Absolute Auto 0.3 K/mm3 (0.1-0.6); Monocytes Percent Auto 6.4 % (2.6-8.5); Neutrophils Absolute Auto 2.3 K/mm3 (1.3-6.7); Neutrophils Percent Auto 51.7 % (45.5-73.1); Platelet Count Result 222 k/mm3 (150-375); Red Blood Count 4.72 M/mm3 (4.2-5.4); Red Cell Distribution Width 14.1 % (11.5-14.5); White Blood Count 4.4 K/mm3 (4.5-10.0)
--- NOTE | 2023-07-28 08:17 | ED.SOB ---
HPI - SOB/Dyspnea General Chief Complaint: Arrhythmia/Palpitations Stated Complaint: sob, Time Seen by Provider: 07/28/23 07:33 Source: patient, EMS, RN notes reviewed and old records reviewed Mode of arrival: EMS Limitations: no limitations History of Present Illness HPI Narrative: This is a 48 year old female with history of hypertension, PSVT, anxiety who presents for evaluation of shortness of breath. She states this morning she woke up to get ready for work. She states she woke up with more left knee pain than normal. She chronically has knee pain. She also reports left arm didn't feel right. She reports walking around to see if her symptoms would improve and she noticed that her heart was racing. Then she developed shortness of breath. She take lorazepam and sat down to see if her symptoms would improve, and her called 911. EMS reports patient had a pulse that felt irregular and they saw PVCs on the monitor. PAtient reports her symptoms have now resolved. On review of her chart, she has history of SVT and she was being followed by Dr. Amos for SVT. She was also taking metoprolop at that time. Related Data Home Medications Medication Instructions Recorded Confirmed irbesartan 150 mg tablet 150 mg PO DAILY 09/06/19 01/30/22 lorazepam 1 mg tablet (Ativan) 1 mg PO DAILY PRN 09/06/19 01/30/22 oxycodone-acetaminophen 10 mg-325 1 tablet PO Q6H PRN 09/06/19 01/30/22 mg tablet (Percocet) topiramate 50 mg tablet (Topamax) 50 mg PO DAILY 09/06/19 01/30/22 Allergies Allergy/AdvReac Type Severity Reaction Status Date / Time levofloxacin Allergy Unknown Unknown Verified 07/28/23 07:44 Review of Systems Constitutional: Constitutional: Denies weakness Cardiovascular: Cardiovascular: Denies syncope, Reports rapid heart rate, Denies irregular heart rhythm, Reports leg edema (left) and Reports dyspnea Respiratory: Respiratory: Denies chest congestion, Denies hemoptysis, Denies excessive phlegm production and Reports dyspnea Gastrointestinal: Gastrointestinal: Denies abdominal pain, Denies hematochezia, Denies diarrhea and Denies vomiting Genitourinary: Genitourinary: Denies hematuria and Denies dysuria Musculoskeletal: Musculoskeletal: Reports arthralgias (left knee pain chronic), Denies joint swelling, Denies loss of height and Denies muscle weakness Neurologic: Reports dizziness, Denies syncope, Denies focal weakness and Denies weakness PMFSH Past Medical History Medical History BMI greater than 40 History of frequent headaches Left knee DJD Left knee pain Right shoulder pain UTI (urinary tract infection) Surgical History Surgical History History of hysterectomy Hx of cholecystectomy Hx of tubal ligation Family History Family History Father Hypertension Family history of coronary artery disease Family history of cardiovascular disease Cerebrovascular accident Mother Hypertension Sibling Family history of malignant neoplasm of breast in first degree relative Other Family history of arthritis Social History Social History Smoking status: Never smoker Alcohol intake: never Substance use: never Living arrangements: with family Gender identity (if verbalized by the patient): Female Exam Const: General: no acute distress and alert Nutritional Appearance: well nourished Orientation/consciousness: patient oriented x3 Limitations: no limitations HENMT: Head: normal to inspection Eyes: EOM: EOMs intact bilaterally Resp: Effort & Inspection: normal respiratory effort Auscultation: clear to auscultation bilaterally Cardio: Rate: regular rate Rhythm: regular rhythm Heart sounds: no murmurs GI: GI Palp: Yes Soft to palpation, No Tenderness to palpation prese
[2023-07-28 08:26] LABS: Alanine Aminotransferase 25 U/L (6-35); Albumin Level 4.8 g/dL (3.5-5.1); Alkaline Phosphatase 66 U/L (38-126); Anion Gap 7 mmol/L (4-12); Aspartate Amino Transferase 32 U/L (14-36); Bilirubin,Total 0.8 mg/dL (0.2-1.3); Blood Urea Nitrogen 11 mg/dL (7-17); Carbon Dioxide 28 mmol/L (22-30); Chloride 102 mmol/L (98-107); Estimated Glomerular Filt Rate > 60; Glucose 82 mg/dL (65-110); Magnesium 2.2 mg/dL (1.6-2.3); Potassium 3.5 mmol/L (3.4-5.0); Sodium 137 mmol/L (137-145)
[2023-07-28 08:27] LABS: Prothrombin Time 13.9 Seconds (11.1-14.7)
[2023-07-28 08:28] LABS: Partial Thromboplastin Time 28.4 Seconds (22.3-36.8)
[2023-07-28 08:36] LABS: D Dimer 0.39 ug/mL (<0.48)
[2023-07-28 08:38] LABS: NT Pro B Type Natriuretic Pept 68 pg/mL (19.9-100); Troponin I < 0.012 ng/mL (0.000-0.034)
[2023-07-28 09:15] VITALS: BP 117/85; PULSE 61; RESP 16; O2SAT 100
[2023-07-28 10:45] VITALS: BP 103/76; PULSE 56; RESP 16; O2SAT 97
[2023-07-28 11:23] VITALS: BP 113/71; PULSE 60; RESP 16; O2SAT 100
[2023-07-28 11:24] VITALS: PULSE 60
[2023-07-28 11:56] LABS: Troponin I < 0.012 ng/mL (0.000-0.034)
[2023-07-28 12:25] VITALS: BP 112/79; PULSE 60; RESP 16; O2SAT 100
== END 2023-07-28 12:35 | disposition home or self-care (01) ==
PROVIDERS: Emergency Provider General Practice; PCP Emergency Medicine
DX: R00.2 Palpitations (principal); M25.562 Pain in left knee; G89.29 Other chronic pain; I10 Essential (primary) hypertension; F41.9 Anxiety disorder, unspecified; M17.12 Unilateral primary osteoarthritis, left knee; Z87.440 Personal history of urinary (tract) infections; Z90.710 Acquired absence of both cervix and uterus; Z90.49 Acquired absence of other specified parts of digestive tract; R94.31 Abnormal electrocardiogram [ECG] [EKG]
CPT/HCPCS: 36415; 71046; 80053; 83735; 83880; 84484; 85025; 85380; 85610; 85730; 93005; 93971; 99284

== ENCOUNTER 2024-04-12 15:22 | Outpatient (CLI) | payer BC, SELFPAY ==
[2024-04-12 15:54] LABS: Basophils Percent Auto 0.3 % (0.2-1.2); Eosinophils Absolute Auto 0.1 K/mm3 (0-0.3); Eosinophils Percent Auto 0.7 % (0-4.4); Hematocrit 39.3 % (37.0-47.0); Hemoglobin 12.8 g/dL (12.0-15.0); Immature Granulocyte Absolute 0.02 K/mm3 (0.00-0.031); Immature Granulocyte Percent A 0.3 % (0-0.5); Lymphocytes Absolute Auto 1.45 K/mm3 (0.9-3.2); Lymphocytes Percent Auto 21.7 % (18.3-44.2); Mean Corpuscular HGB Conc 32.6 g/dl (32-36); Mean Corpuscular Hemoglobin 28.9 pg (26-34); Mean Corpuscular Volume 88.7 fl (80-100); Mean Platelet Volume 9.7 fl (7.4-10.4); Monocytes Absolute Auto 0.3 K/mm3 (0.1-0.6); Monocytes Percent Auto 4.9 % (2.6-8.5); Neutrophils Absolute Auto 4.8 K/mm3 (1.3-6.7); Neutrophils Percent Auto 72.1 % (45.5-73.1); Platelet Count Result 192 k/mm3 (150-375); Red Blood Count 4.43 M/mm3 (4.2-5.4); White Blood Count 6.7 K/mm3 (4.5-10.0)
[2024-04-12 15:56] LABS: Add Urine Microscopic? NO; Appearance Urine Clear (Clear); Bilirubin Urine Negative (Negative); Blood Urine Negative (Negative); Color Urine Yellow (Yellow); Glucose Urine UA Negative (Negative); Ketones Urine Trace mg/dL (Negative); Leukocyte Esterase Ur Negative LEU/UL (Negative); Nitrate Urine Negative (Negative); Protein Urine Negative (Negative); Specific Grav Ur 1.033 (1.001-1.035); Urobilinogen Urine 0.2 mg/dL (<2.0); pH Urine 5.5 (5.0-9.0)
[2024-04-12 16:09] LABS: Albumin Level 4.4 g/dL (3.5-5.1); Anion Gap 6 mmol/L (4-12); Blood Urea Nitrogen 11 mg/dL (7-17); Calcium 9.3 mg/dL (8.4-10.2); Carbon Dioxide 29 mmol/L (22-30); Chloride 102 mmol/L (98-107); Estimated Glomerular Filt Rate > 60; Glucose 75 mg/dL (65-110); Potassium 4.3 mmol/L (3.4-5.0); Sodium 137 mmol/L (137-145)
--- OUTSIDE RECORDS SUMMARY | 2024-04-12 16:14 | XMS_ITS | Continuity of Care Document ---
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 Name Role Phone Santana Smith MD Unavailable Unavailable Allergies, Adverse Reactions, Alerts Substance Reaction Status Criticality levofloxacin Active No Information Medications Medication Instructions Dosage Effective Dates (start - stop) Status Comments Ativan 1 mg tablet take 1 tablet by oral route every day at night as needed - Active PRN for anxiety, avoid driving or operate machines Percocet 10 mg-325 mg tablet take 1 tablet by oral route every 6 hours as needed as needed 1.00 tablet - Active PRN for pain, avoid driving or operate machines naloxone 0.4 mg/mL injection syringe inject 1 milliliter by IM route over once, may repeat at 2 to 3 minute intervals as needed as needed - Active PRN for OD Procedures Procedure Date OFFICE/OUTPATIENT VISIT, EST OFFICE/OUTPATIENT VISIT, EST PREV VISIT, EST, AGE 40-64 OFFICE/OUTPATIENT VISIT, EST OFFICE/OUTPATIENT VISIT, EST OFFICE/OUTPATIENT VISIT, EST OFFICE/OUTPATIENT VISIT, EST OFFICE/OUTPATIENT VISIT, EST OFFICE/OUTPATIENT VISIT, EST OFFICE/OUTPATIENT VISIT, EST OFFICE/OUTPATIENT VISIT, EST OFFICE/OUTPATIENT VISIT, EST OFFICE/OUTPATIENT VISIT, EST OFFICE/OUTPATIENT VISIT, EST OFFICE/OUTPATIENT VISIT, EST OFFICE/OUTPATIENT VISIT, EST OFFICE/OUTPATIENT VISIT, EST OFFICE/OUTPATIENT VISIT, EST OFFICE/OUTPATIENT VISIT, EST OFFICE/OUTPATIENT VISIT, EST OFFICE/OUTPATIENT VISIT, EST PREV VISIT, EST, AGE 40-64 Sep- OFFICE/OUTPATIENT VISIT, EST OFFICE/OUTPATIENT VISIT, EST OFFICE/OUTPATIENT VISIT, EST OFFICE/OUTPATIENT VISIT, EST OFFICE/OUTPATIENT VISIT, EST OFFICE/OUTPATIENT VISIT, EST OFFICE/OUTPATIENT VISIT, EST OFFICE/OUTPATIENT VISIT, EST OFFICE/OUTPATIENT VISIT, EST OFFICE/OUTPATIENT VISIT, EST OFFICE/OUTPATIENT VISIT, EST OFFICE/OUTPATIENT VISIT, EST OFFICE/OUTPATIENT VISIT, EST -2021 PREV VISIT, EST, AGE 40-64 OFFICE/OUTPATIENT VISIT, EST OFFICE/OUTPATIENT VISIT, EST OFFICE/OUTPATIENT VISIT, EST OFFICE/OUTPATIENT VISIT, EST OFFICE/OUTPATIENT VISIT, EST OFFICE/OUTPATIENT VISIT, EST OFFICE/OUTPATIENT VISIT, EST OFFICE/OUTPATIENT VISIT, EST OFFICE/OUTPATIENT VISIT, EST OFFICE/OUTPATIENT VISIT, EST OFFICE/OUTPATIENT VISIT, EST OFFICE/OUTPATIENT VISIT, EST OFFICE/OUTPATIENT VISIT, EST OFFICE/OUTPATIENT VISIT, EST OFFICE/OUTPATIENT VISIT, EST OFFICE/OUTPATIENT VISIT, EST OFFICE/OUTPATIENT VISIT, EST OFFICE/OUTPATIENT VISIT, EST OFFICE/OUTPATIENT VISIT, EST OFFICE/OUTPATIENT VISIT, EST OFFICE/OUTPATIENT VISIT, EST PREV VISIT, EST, AGE 40-64 OFFICE/OUTPATIENT VISIT, EST OFFICE/OUTPATIENT VISIT, EST OFFICE/OUTPATIENT VISIT, EST OFFICE/OUTPATIENT VISIT, EST OFFICE/OUTPATIENT VISIT, EST OFFICE/OUTPATIENT VISIT, EST OFFICE/OUTPATIENT VISIT, EST OFFICE/OUTPATIENT VISIT, EST OFFICE/OUTPATIENT VISIT, EST OFFICE/OUTPATIENT VISIT, EST OFFICE/OUTPATIENT VISIT, EST OFFICE/OUTPATIENT VISIT, EST PREV VISIT, EST, AGE 40-64 OFFICE/OUTPATIENT VISIT, EST OFFICE/OUTPATIENT VISIT, EST OFFICE/OUTPATIENT VISIT, EST OFFICE/OUTPATIENT VISIT, EST OFFICE/OUTPATIENT VISIT, EST OFFICE/OUTPATIENT VISIT, EST OFFICE/OUTPATIENT VISIT, EST OFFICE/OUTPATIENT VISIT, EST OFFICE/OUTPATIENT VISIT, EST OFFICE/OUTPATIENT VISIT, EST OFFICE/OUTPATIENT VISIT, EST OFFICE/OUTPATIENT VISIT, EST OFFICE/OUTPATIENT VISIT, EST OFFICE/OUTPATIENT VISIT, EST OFFICE/OUTPATIENT VISIT, EST OFFICE/OUTPATIENT VISIT, EST PREV VISIT, EST, AGE 40-64 OFFICE/OUTPATIENT VISIT, EST OFFICE/OUTPATIENT VISIT, EST OFFICE/OUTPATIENT VISIT, EST OFFICE/OUTPATIENT VISIT, EST OFFICE/OUTPATIENT VISIT, EST OFFICE/OUTPATIENT VISIT, EST OFFICE/OUTPATIENT VISIT, EST PREV VISIT, EST, AGE 40-64 OFFICE/OUTPATIENT VISIT, EST OFFICE/OUTPATIENT VISIT, EST OFFICE/OUTPATIENT VISIT, EST OFFICE/OUTPATIENT VISIT, EST OFFICE/OUTPATIENT VISIT, EST OFFICE/OUTPATIENT VISIT, EST OFFICE/OUTPATIENT VISIT, EST OFFICE/OUTPATIENT VISIT, EST OFFICE/OUTPATIENT VISIT, EST OFFICE/OUTPATIENT VISIT, EST OFFICE/OUTPATIENT VISIT, EST OFFICE/OUTPATIENT VISIT, EST OFFICE/OUTPATIENT VISIT, EST PREV VISIT, EST, AGE 40-64 OFFICE/OUTPATIENT VISIT, EST OFFICE/OUTPATIENT VISIT, EST OFFICE/OUTPATIENT VISIT, EST OFFICE/OUTPATIENT VISIT, EST OFFICE/OUTPATIENT VISIT, EST OFFICE/OUTPATIENT VISIT, EST PREV VISIT, EST, AGE 40-64 OFFICE/OUTPATIENT VISIT, EST OFFICE/OUTPATIENT VISIT, EST OFFICE/OUTPATIENT VISIT, EST OFFICE/OUTPATIENT VISIT, EST OFFICE/OUTPATIENT VISIT, EST PREV VISIT, EST, AGE 18-39 OFFICE/OUTPATIENT VISIT, EST OFFICE/OUTPATIENT VISIT, EST OFFICE/OUTPATIENT VISIT, NEW Advance Directives Directive Yes / No Effective Date File Name No Information Encounters Encounter Description Practice Location Reason(s) For Visit Diagnoses Date Provider Providers Copied on Encounter OFFICE/OUTPA TIENT VISIT, [facility], [address], [address], [place] tel:[phone] [facility] pain (chief complaint)in somnia1 (chief complaint) Chronic pain syndromeGeneraliz ed anxiety disorder - 5 Luis Dillon. [address], [address] , [place]. tel:[phone] OFFICE/OUTPA TIENT VISIT, [facility], [address], [address], [place] tel:[phone] [facility] pain (chief complaint)in somnia1 (chief complaint) Generalized anxiety disorderChronic pain syndrome 4 Luis Dillon. [address], [place], [place], [address] , [place]. tel:[phone] PREV VISIT, EST, AGE 40-64 [facility] [place], [address], [place], [place], [address], [place] tel:[phone] [facility] physical (chief complaint) Encounter for general adult medical examination without abnormal findings 4 Luis Dillon. [address], [place], [place], [address] , [place]. tel:[phone] OFFICE/OUTPA TIENT VISIT, EST [facility] [place], [address], [place], [place], [address], [place] tel:[phone] [facility] pain (chief complaint) Primary OA of left kneeGeneralized anxiety disorder Dec- 4 Luis Dillon. [address], [place], [place], [address] , [place]. tel:[phone] OFFICE/OUTPA TIENT VISIT, EST [facility] [place], [address], [place], [place], [address], [place] tel:[phone] [facility] pain (chief complaint)an xiety1 (chief complaint) Primary OA of left kneeGeneralized anxiety disorder 4 Luis Dillon. [address], [place], [place], [address] , [place]. tel:[phone] OFFICE/OUTPA TIENT VISIT, EST [facility] [place], [address], [place], [place], [address], [place] tel:[phone] [facility] pain (chief complaint)an xiety1 (chief complaint) Generalized anxiety disorderPrimary OA of left knee Nov- 4 Luis Dillon. [address], [place], [place], [address] , [place]. tel:[phone] OFFICE/OUTPA TIENT VISIT, [facility], [address], [place], [place], [address], [place] tel:[phone] [facility] [place] pain (chief complaint)an xiety1 (chief complaint)ashley mbago1 (chief complaint) Generalized anxiety disorderEncntr screen mammogram for malignant neoplasm of breastPrimary OA of left kneeLumbago with sciatica, left side 4 Luis Dillon. [address], [place], [place], [address] , [place]. tel:[phone] OFFICE/OUTPA TIENT VISIT, [facility], [address], [place], [place], [address], [place] tel:[phone] [facility] [place] pain (chief complaint)an xiety1 (chief complaint) Generalized anxiety disorderPrimary OA of left knee 4 Luis Dillon. [address], [place], [place], [address] , [place]. tel:[phone] OFFICE/OUTPA TIENT VISIT, [facility], [address], [place], [place], [address], [place] tel:[phone] [facility] vein1 (chief complaint)pa in (chief complaint)an xiety1 (chief complaint) Primary OA of left kneeGeneralized anxiety disorderAsymptoma tic varicose veins of legEncntr screen mammogram for malignant neoplasm of breast 4 Luis Santana. [address], [place], [place], [address] , [place]. tel:[phone] OFFICE/OUTPA TIENT VISIT, [facility], [address], [place], [place], [address], [place] tel:[phone] [facility] [place] pain (chief complaint)an xiety1 (chief complaint) Primary OA of left kneeGeneralized anxiety disorder 4 Luis Santana. [address], [place], [place], [address] , [place]. tel:[phone] OFFICE/OUTPA TIENT VISIT, [facility], [address], [place], [place], [address], [place] tel:[phone] [facility] [place] knee pain1 (chief complaint)an xiety1 (chief complaint)ba ck pain1 (chief complaint) Primary OA of left kneeGeneralized anxiety disorderMuscle spasm of back Jun-2 4 Luis Dillon. [address], [place], [place], [address] , [place]. tel:[phone] OFFICE/OUTPA TIENT VISIT, [facility], [address], [place], [place], [address], [place] tel:[phone] [facility] pain (chief complaint)in somnia1 (chief complaint)ba ck pain1 (chief complaint) Chronic pain syndromeGeneraliz ed anxiety disorderMuscle spasm of backEncounter for screening for malignant neoplasm of colon Jun-0 4 Luis Dillon. [address], [place], [place], [address] , [place]. tel:[phone] OFFICE/OUTPA TIENT VISIT, [facility], [address], [place], [place], [address], [place] tel:[phone] [facility] [place] knee pain1 (chief complaint)in somnia1 (chief complaint)we ight loss1 (chief complaint)ba ck pain1 (chief complaint) Chronic pain syndromeGeneraliz ed anxiety disorderMuscle spasm of backAbnormal weight loss Apr- 4 Luis Dillon. [address], [place], [place], [address] , [place]. tel:[phone] OFFICE/OUTPA TIENT VISIT, [facility], [address], [place], [place], [address], [place] tel:[phone] [facility] pain (chief complaint)an xiety1 (chief complaint) Chronic pain syndromeGeneraliz ed anxiety disorder Mar- 4 Luis Dillon. [address], [place], [place], [address] , [place]. tel:[phone] OFFICE/OUTPA TIENT VISIT, [facility], [address], [place], [place], [address], [place] tel:[phone] [facility] pain (chief complaint)ba ck pain1 (chief complaint)an xiety1 (chief complaint) Chronic pain syndromeGeneraliz ed anxiety disorderMuscle spasm of back 0 4 Luis Dillon. [address], [place], [place], [address] , [place]. tel:[phone] OFFICE/OUTPA TIENT VISIT, [facility], [address], [place], [place], [address], [place] tel:[phone] [facility] pain (chief complaint)pa in (chief complaint)an xiety1 (chief complaint) Chronic pain syndromeGeneraliz ed anxiety disorder 3 Luis Dillon. [address], [place], [place], [address] , [place]. tel:[phone] OFFICE/OUTPA TIENT VISIT, [facility], [address], [place], [place], [address], [place] tel:[phone] [facility] pain (chief complaint)in somnia1 (chief complaint) Chronic pain syndromeGeneraliz ed anxiety disorder 3 Luis Dillon. [address], [place], [place], [address] , [place]. tel:[phone] OFFICE/OUTPA TIENT VISIT, [facility], [address], [place], [place], [address], [place] tel:[phone] [facility] pain (chief complaint) Chronic pain syndrome 3 Luis Dillon. [address], [place], [place], [address] , [place]. tel:[phone] OFFICE/OUTPA TIENT VISIT, [facility], [address], [place], [place], [address], [place] tel:[phone] [facility] pain (chief complaint)in somnia1 (chief complaint)we ight loss1 (chief complaint)GE RD1 (chief complaint) Abnormal weight lossChronic pain syndromePrimary insomniaGERD w/o esophagitisExcess brad and redundant skin and subcutaneous tissue 3 Luis Hutchinson [address], [place], [place], [address] , [place]. tel:[phone] OFFICE/OUTPA TIENT VISIT, EST [facility] [place], [address], [place], [place], [address], [place] tel:[phone] [facility] [place] GERD1 (chief complaint)in somnia1 (chief complaint)pa in1 (chief complaint)we ight loss1 (chief complaint) Abnormal weight lossChronic pain syndromeGeneraliz ed anxiety disorderGERD w/o esophagitisBariat cayetano surgery status 3 Luis Hutchinson [address], [place], [place], [address] , [place]. tel:[phone] OFFICE/OUTPA TIENT VISIT, EST [facility] [place], [address], [place], [place], [address], [place] tel:[phone] [facility] [place] insomnia1 (chief complaint)kn ee pain1 (chief complaint)GE RD1 (chief complaint)sk in flap1 (chief complaint) Chronic pain syndromeAbnormal weight lossGERD w/o esophagitisGenera lized anxiety disorderInconclus brad mammogram 3 Luis Hutchinson [address], [place], [place], [address] , [place]. tel:[phone] PREV VISIT, EST, AGE 40-64 [facility] [place], [address], [place], [place], [address], [place] tel:[phone] [facility] [place] physical (chief complaint) Encounter for general adult medical exam w abnormal findingsAbnormal weight lossGERD w/o esophagitisProtei nuriaTension headacheChronic pain syndromeGeneraliz ed anxiety disorder 3 Luis Dillon. [address], [place], [place], [address] , [place]. tel:[phone] OFFICE/OUTPA TIENT VISIT, [facility], [address], [place], [place], [address], [place] tel:[phone] [facility] [place] insomnia1 (chief complaint)pa in (chief complaint)pr oteinuria1 (chief complaint)we ight loss1 (chief complaint) ProteinuriaAbnorm al weight lossChronic pain syndromePrimary insomniaGERD w/o esophagitis Mitch-0 3 Luis Dillon. [address], [place], [place], [address] , [place]. tel:[phone] OFFICE/OUTPA TIENT VISIT, [facility], [address], [place], [place], [address], [place] tel:[phone] [facility] [place] GERD (chief complaint)GE RD1 (chief complaint)in somnia1 (chief complaint)pa in1 (chief complaint)we ight loss1 (chief complaint) Chronic pain syndromeAbnormal weight lossPrimary insomniaGERD w/o esophagitisBariat cayetano surgery status 3 Luis Dillon. [address], [place], [place], [address] , [place]. tel:[phone] OFFICE/OUTPA TIENT VISIT, [facility], [address], [place], [place], [address], [place] tel:[phone] [facility] [place] weight loss1 (chief complaint)in somnia1 (chief complaint)kn ee pain1 (chief complaint)HT N (chief complaint)GE RD1 (chief complaint) GERD w/o esophagitisBariat cayetano surgery statusChronic pain syndromePrimary insomniaEssential (primary) hypertensionEncou nter for oth screening for malignant neoplasm of breast Jun-0 3 Luis Dillon. [address], [place], [place], [address] , [place]. [phone] OFFICE/OUTPA TIENT VISIT, [facility], [address], [place], [place], [address], [place] tel:[phone] [facility] [place] HTN (chief complaint)in somnia1 (chief complaint)ch ronic pain1 (chief complaint)he adache1 (chief complaint) Essential (primary) hypertensionMigra ine without aura, not intractable, without status migrainosusPrimar y insomniaBariatric surgery statusChronic pain syndrome 3 Luis Dillon. [address], [place], [place], [address] , [place]. tel:[phone] OFFICE/OUTPA TIENT VISIT, [facility], [address], [place], [place], [address], [place] tel:[phone] [facility] [place] HTN (chief complaint)an xiety1 (chief complaint)pa in (chief complaint)H pylori1 (chief complaint) H. pylori as the cause of diseases classified elsewhereMigraine without aura, not intractable, without status migrainosusPrimar y insomniaEssential (primary) hypertensionAbnor mal weight gain 3 Luis Dillon. [address], [place], [place], [address] , [place]. tel:[phone] OFFICE/OUTPA TIENT VISIT, [facility], [address], [place], [place], [address], [place] tel:[phone] [facility] [place] pain (chief complaint)an xiety1 (chief complaint)H pylori1 (chief complaint) Primary insomniaMigraine without aura, not intractable, without status migrainosusAbnorm al weight gainH. pylori as the cause of diseases classified elsewhere 3 Luis Dillon. [address], [place], [place], [address] , [place]. tel:[phone] OFFICE/OUTPA TIENT VISIT, [facility], [address], [place], [place], [address], [place] tel:[phone] [facility] [place] HTN (chief complaint)HT N (chief complaint)pa in1 (chief complaint) Essential (primary) hypertensionMigra ine without aura, not intractable, without status migrainosusPrimar y insomniaAbnormal weight gain 2 Luis Dillon. [address], [place], [place], [address] , [place]. tel:[phone] OFFICE/OUTPA TIENT VISIT, [facility], [address], [place], [place], [address], [place] tel:[phone] [facility] [place] headache1 (chief complaint)in somnia1 (chief complaint)HT N (chief complaint) Primary insomniaMigraine without aura, not intractable, without status migrainosusEssent ial (primary) hypertensionAbnor mal weight gain 2 Luis Dillon. [address], [place], [place], [address] , [place]. tel:[phone] OFFICE/OUTPA TIENT VISIT, [facility], [address], [place], [place], [address], [place] tel:[phone] [facility] [place] headache1 (chief complaint)in somnia1 (chief complaint) Primary insomniaMigraine without aura, not intractable, without status migrainosus 2 Luis Dillon. [address], [place], [place], [address] , [place]. tel:[phone] OFFICE/OUTPA TIENT VISIT, [facility], [address], [place], [place], [address], [place] tel:[phone] [facility] headache1 (chief complaint)in somnia1 (chief complaint) Migraine without aura, not intractable, without status migrainosusPrimar y insomniaAbnormal weight gain 2 Luis Dillon. [address], [place], [place], [address] , [place]. tel:[phone] OFFICE/OUTPA TIENT VISIT, [facility], [address], [place], [place], [address], [place] tel:[phone] [facility] headache1 (chief complaint)in somnia1 (chief complaint)HT N (chief complaint)we ight gain1 (chief complaint) Primary insomniaMigraine without aura, not intractable, without status migrainosusAbnorm al weight gainEssential (primary) hypertension 2 Luis Hutchinson [address], [place], [place], [address] , [place]. tel:[phone] OFFICE/OUTPA TIENT VISIT, EST [facility] [place], [address], [place], [place], [address], [place] tel:[phone] [facility] [place] headache1 (chief complaint)in somnia1 (chief complaint) Migraine without aura, not intractable, without status migrainosusPrimar y insomnia 2 Luis Hutchinson [address], [place], [place], [address] , [place]. tel:[phone] PREV VISIT, EST, AGE 40-64 [facility] [place], [address], [place], [place], [address], [place] tel:[phone] [facility] [place] physical (chief complaint) Encounter for general adult medical examination without abnormal findings 2 Luis Hutchinson [address], [place], [place], [address] , [place]. tel:[phone] OFFICE/OUTPA TIENT VISIT, EST [facility] [place], [address], [place], [place], [address], [place] tel:[phone] [facility] headache1 (chief complaint)sh oulder pain1 (chief complaint)in somnia1 (chief complaint) Pain in right shoulderInsomniaM igraine 2 Lusi Hutchinson [address], [place], [place], [address] , [place]. tel:[phone] OFFICE/OUTPA TIENT VISIT, EST [facility] [place], [address], [place], [place], [address], [place] tel:[phone] [facility] pain (chief complaint)in somnia1 (chief complaint)sh oulder1 (chief complaint)HT N (chief complaint) Pain in right shoulderEssential (primary) hypertensionPrima ry insomniaMigraine without aura, not intractable, without status migrainosus Jun- 2 Luis Dillon. [address], [place], [place], [address] , [place]. tel:[phone] OFFICE/OUTPA TIENT VISIT, [facility], [address], [place], [place], [address], [place] tel:[phone] [facility] pain1 (chief complaint)in somnia1 (chief complaint)sh oulder pain1 (chief complaint) MigraineInsomniaP ain in right shoulder May-3 2 Luis Dillon. [address], [place], [place], [address] , [place]. tel:[phone] OFFICE/OUTPA TIENT VISIT, [facility], [address], [address], [place] tel:[phone] [facility] [place] headache1 (chief complaint)in somnia1 (chief complaint) InsomniaMigraine May-0 2 Luis Dillon. [address], [place], [place], [address] , [place]. tel:[phone] OFFICE/OUTPA TIENT VISIT, [facility], [address], [address], [place] tel:[phone] [facility] [place] shoulder pain1 (chief complaint)he adache1 (chief complaint)in somnia1 (chief complaint) MigraineInsomniaP ain in right shoulder Feb-0 2 Luis Dillon. [address], [place], [place], [address] , [place]. tel:[phone] OFFICE/OUTPA TIENT VISIT, [facility], [address], [place], [place], [address], [place] tel:[phone] [facility] [place] COVID1 (chief complaint)he adache1 (chief complaint)in somnia1 (chief complaint) MigraineInsomniaC OVID-19Encounter for oth screening for malignant neoplasm of breast 2 Luis Dillon. [address], [place], [place], [address] , [place]. tel:[phone] OFFICE/OUTPA TIENT VISIT, [facility], [address], [place], [address], [place] tel:[phone] [facility] [facility] headache1 (chief complaint)in somnia1 (chief complaint) MigraineInsomnia 1 Luis Dillon. [address], [place], [place], [address] , [place]. tel:[phone] OFFICE/OUTPA TIENT VISIT, [facility], [address], [place], [place], [address], [place] tel:[phone] [facility] headache1 (chief complaint)in somnia1 (chief complaint)hT N (chief complaint)we ight1 (chief complaint) MigraineGeneraliz ed anxiety disorderEssential (primary) hypertensionPain in left kneeObesity 1 Luis Dillon. [address], [place], [place], [address] , [place]. tel:[phone] OFFICE/OUTPA TIENT VISIT, [facility], [address], [place], [place], [address], [place] tel:[phone] [facility] headache1 (chief complaint)in somnia1 (chief complaint) InsomniaMigraine 1 Luis Dillon. [address], [place], [place], [address] , [place]. tel:[phone] OFFICE/OUTPA TIENT VISIT, [facility], [address], [place], [place], [address], [place] tel:[phone] [facility] headache1 (chief complaint)in somnia1 (chief complaint)HT N (chief complaint) MigraineInsomniaE ssential (primary) hypertensionAbnor mal weight gain 1 Luis Dillon. [address], [place], [place], [address] , [place]. tel:[phone] OFFICE/OUTPA TIENT VISIT, [facility], [address], [place], [place], [address], [place] tel:[phone] [facility] [place] headache1 (chief complaint)in somnia1 (chief complaint) MigraineInsomnia 1 Luis Dillon. [address], [place], [place], [address] , [place]. tel:[phone] OFFICE/OUTPA TIENT VISIT, [facility], [address], [address], [place] tel:[phone] [facility] headache1 (chief complaint)an xiety1 (chief complaint)sl eep apnea1 (chief complaint)we ight gain1 (chief complaint) Abnormal weight gainGeneralized anxiety disorderMigraineS leep apnea 1 Luis Hutchinson [address], [address], [place], [place], [address] , [place]. tel:[phone] OFFICE/OUTPA TIENT VISIT, [facility], [address] [place], [address], [place] tel:[phone] [facility] headache1 (chief complaint)an xiety1 (chief complaint) Generalized anxiety disorderMigraine 1 Luis Dillon. [address], [place], [place], [address] , [place]. tel:[phone] OFFICE/OUTPA TIENT VISIT, [facility], [address] [place], [address], [place] tel:[phone] [facility] headache1 (chief complaint)an xiety1 (chief complaint)HT N (chief complaint) MigraineGeneraliz ed anxiety disorderEssential (primary) hypertension 1 Luis Dillon. [address], [place], [place], [address] , [place]. tel:[phone] OFFICE/OUTPA TIENT VISIT, [facility], [address], [place], [place], [address], [place] tel:[phone] [facility] [place] headache1 (chief complaint)an xiety1 (chief complaint)he adache1 (chief complaint)pa lpitation1 (chief complaint) MigraineGeneraliz ed anxiety disorderPalpitati ons 1 Luis Dillon. [address], [place], [place], [address] , [place]. tel:[phone] OFFICE/OUTPA TIENT VISIT, [facility], [address], [place], [place], [address], [place] tel:[phone] [facility] [place] facial rash (chief complaint) Allergic contact eczema 1 Luis Dillon. [address], [place], [place], [address] , [place]. tel:[phone] OFFICE/OUTPA TIENT VISIT, [facility], [address], [place], [place], [address], [place] tel:[phone] [facility] [place] headache1 (chief complaint)an xiety1 (chief complaint) MigraineGeneraliz ed anxiety disorder 1 Luis Dillon. [address], [place], [place], [address] , [place]. tel:[phone] OFFICE/OUTPA TIENT VISIT, [facility], [address], [place], [place], [address], [place] tel:[phone] [facility] [place] headache1 (chief complaint)an xiety1 (chief complaint) Generalized anxiety disorderMigraine 1 Luis Dillon. [address], [place], [place], [address] , [place]. tel:[phone] OFFICE/OUTPA TIENT VISIT, [facility], [address], [place], [place], [address], [place] tel:[phone] [facility] [place] sob (chief complaint) Viral infectionDyspnea 1 Luis Dillon. [address], [place], [place], [address] , [place]. tel:[phone] OFFICE/OUTPA TIENT VISIT, EST [facility] [place], [address], [place], [place], [address], [place] tel:[phone] [facility] [place] headache1 (chief complaint)an xiety1 (chief complaint)HT N (chief complaint) MigraineGeneraliz ed anxiety disorderEssential (primary) hypertension 1 Luis Dillon. [address], [place], [place], [address] , [place]. tel:[phone] OFFICE/OUTPA TIENT VISIT, EST [facility] [place], [address], [place], [place], [address], [place] tel:[phone] [facility] [place] headache1 (chief complaint)an xiety1 (chief complaint) Generalized anxiety disorderMigraine 0 Luis Dillon. [address], [place], [place], [address] , [place]. tel:[phone] PREV VISIT, EST, AGE 40-64 [facility] [place], [address], [place], [place], [address], [place] tel:[phone] [facility] [place] physical (chief complaint) Encounter for general adult medical examination without abnormal findings 0 Luis Dillon. [address], [place], [place], [address] , [place]. tel:[phone] OFFICE/OUTPA TIENT VISIT, EST [facility] [place], [address], [place], [place], [address], [place] tel:[phone] [facility] headache1 (chief complaint)an xiety1 (chief complaint)sl eep apnea1 (chief complaint) MigraineGeneraliz ed anxiety disorderSleep apnea 0 Luis Dillon. [address], [place], [place], [address] , [place]. tel:[phone] OFFICE/OUTPA TIENT VISIT, [facility], [address], [place], [place], [address], [place] tel:[phone] [facility] headache1 (chief complaint)an xiety1 (chief complaint)sl eep apnea1 (chief complaint)ma mmo (chief complaint) MigraineSleep apneaGeneralized anxiety disorderEncounter for oth screening for malignant neoplasm of breast 0 Lius Dillon. [address], [place], [place], [address] , [place]. tel:[phone] OFFICE/OUTPA TIENT VISIT, [facility], [address], [place], [place], [address], [place] tel:[phone] [facility] [place] palpitation1 (chief complaint)he adache1 (chief complaint)sl eep apnea1 (chief complaint)an xiety1 (chief complaint) Sleep apneaPalpitations MigraineEssential (primary) hypertensionGener alized anxiety disorder 0 Luis Dillon. [address], [place], [place], [address] , [place]. tel:[phone] OFFICE/OUTPA TIENT VISIT, [facility], [address], [place], [place], [address], [place] tel:[phone] [facility] [place] palpitation1 (chief complaint)sl eep apnea1 (chief complaint)an xiety1 (chief complaint)he adache1 (chief complaint) MigraineSleep apneaPalpitations Generalized anxiety disorder 0 Luis Dillon. [address], [place], [place], [address] , [place]. tel:[phone] Referring Provider: Santana Smith [address], [place], [place], [address]. tel:[phone] OFFICE/OUTPA TIENT VISIT, [facility], [address], [place], [place], [address], [place] tel:[phone] [facility] headache1 (chief complaint)an xiety1 (chief complaint)sl eep apnea1 (chief complaint)pa lpitation1 (chief complaint) Sleep apneaPalpitations Generalized anxiety disorderMigraine 0 Luis Dillon. [address], [place], [place], [address] , [place]. tel:[phone] Referring Provider: Jayy Mclean [address], [place], [place], [address]. tel:[phone] OFFICE/OUTPA TIENT VISIT, [facility], [address], [place], [place], [address], [place] tel:[phone] [facility] [place] headache1 (chief complaint)an xiety1 (chief complaint)sl eep apnea1 (chief complaint)pa lpitation1 (chief complaint) HeadacheSleep apneaGeneralized anxiety disorderPalpitati onsEssential (primary) hypertension 0 Luis Dillon. [address], [place], [place], [address] , [place]. tel:[phone] Referring Provider: Jayy Mclean [address], [place], [place], [address]. tel:[phone] OFFICE/OUTPA TIENT VISIT, [facility], [address], [place], [place], [address], [place] tel:[phone] [facility] [place] headache1 (chief complaint)an xiety1 (chief complaint)sl eep apnea (chief complaint)HT N (chief complaint) HeadacheEssential (primary) hypertensionGener alized anxiety disorderSleep apnea Jun-3 0 Luis Dillon. [address], [place], [place], [address] , [place]. tel:[phone] Referring Provider: Jayy Mclean [address], [place], [place], [address]. tel:[phone] OFFICE/OUTPA TIENT VISIT, [facility], [address], [place], [place], [address], [place] tel:[phone] [facility] [place] anxiety1 (chief complaint)he adache1 (chief complaint) Generalized anxiety disorderHeadacheF atigue May-3 0 Luis Hutchinson [address], [place], [place], [address] , [place]. tel:[phone] Referring Provider: Jayy Mclean [address], [place], [place], [address]. tel:[phone] OFFICE/OUTPA TIENT VISIT, [facility], [address], [place], [place], [address], [place] tel:[phone] [facility] [place] anxiety1 (chief complaint)he adache1 (chief complaint)EK G (chief complaint)HT N (chief complaint) Essential (primary) hypertensionHeada cheAbnormal electrocardiogram [ECG] [EKG]Generalized anxiety disorder May-0 0 Luis Hutchinson [address], [place], [place], [address] , [place]. tel:[phone] Referring Provider: Jayy Mclean [address], [place], [place], [address]. tel:[phone] OFFICE/OUTPA TIENT VISIT, [facility], [address], [place], [place], [address], [place] tel:[phone] [facility] [place] TIA1 (chief complaint)HT N (chief complaint)an xiety1 (chief complaint)fa tigue1 (chief complaint) MigraineGeneraliz ed anxiety disorderEssential (primary) hypertensionSleep apneaAbnormal EKG Apr-0 0 Luis Hutchinson [address], [place], [place], [address] , [place]. tel:[phone] Referring Provider: Jayy Mclean [address], [place], [place], [address]. tel:[phone] OFFICE/OUTPA TIENT VISIT, [facility], [address], [place], [place], [address], [place] tel:[phone] [facility] [place] chronic pain1 (chief complaint)an xiety1 (chief complaint) Generalized anxiety disorderHeadache Mar- 0 Luis Dillon. [address], [place], [place], [address] , [place]. tel:[phone] Referring Provider: Jayy Mclean [address], [place], [place], [address]. tel:[phone] OFFICE/OUTPA TIENT VISIT, EST [facility] [place], [address], [place], [place], [address], [place] tel:[phone] [facility] [place] physical (chief complaint)an xiety1 (chief complaint) Essential (primary) hypertensionGener alized anxiety disorderHeadache Feb- 9 Luis Dillon. [address], [place], [place], [address] , [place]. tel:[phone] Referring Provider: Jayy Mclean [address], [place], [place], [address]. tel:[phone] PREV VISIT, EST, AGE 40-64 [facility] [place], [address], [place], [place], [address], [place] tel:[phone] [facility] [place] PHysical (chief complaint) Encntr for general adult medical exam w/o abnormal findings 9 Luis Dillon. [address], [place], [place], [address] , [place]. tel:[phone] Referring Provider: Jayy Mclean [address], [place], [place], [address]. tel:[phone] OFFICE/OUTPA TIENT VISIT, EST [facility] [place], [address], [place], [place], [address], [place] tel:[phone] [facility] [place] knee pain1 (chief complaint)HT N (chief complaint)he adache1 (chief complaint)in somnia1 (chief complaint) Body mass index (BMI) 45.0-49.9, adultEssential (primary) hypertensionGener alized anxiety disorderHeadacheC hondromalacia patellae, left knee 9 Luis Hutchinson [address], [place], [place], [address] , [place]. tel:[phone] Referring Provider: Jayy Mclean [address], [place], [place], [address]. tel:[phone] OFFICE/OUTPA TIENT VISIT, [facility], [address], [place], [place], [address], [place] tel:[phone] [facility] [place] pain1 (chief complaint)HT N (chief complaint)he adache1 (chief complaint)an xiety1 (chief complaint) Generalized anxiety disorderHeadacheC hondromalacia patellae, left kneeEssential (primary) hypertension Nov-0 9 Luis Dillon. [address], [place], [place], [address] , [place]. tel:[phone] Referring Provider: Jayy Mclean [address], [place], [place], [address]. tel:[phone] OFFICE/OUTPA TIENT VISIT, [facility], [address], [place], [place], [address], [place] tel:[phone] [facility] [place] HTN (chief complaint)br east (chief complaint)pa in1 (chief complaint)an xiety1 (chief complaint) HeadacheInconclus brad mammogramEssentia l (primary) hypertensionGener alized anxiety disorderBody mass index (BMI) 45.0-49.9, adult Oct-0 9 Luis Hope [address], [place], [place], [address] , [place]. tel:[phone] Referring Provider: Jayy Mclean [address], [place], [place], [address]. tel:[phone] OFFICE/OUTPA TIENT VISIT, [facility], [address], [place], [place], [address], [place] tel:[phone] [facility] [place] knee pain1 (chief complaint)HT N (chief complaint) Essential (primary) hypertensionChond romalacia patellae, left knee Sep- 9 Luis Dillon. [address], [place], [place], [address] , [place]. tel:[phone] Referring Provider: Santana Smith [address], [place], [place], [address]. tel:[phone] OFFICE/OUTPA TIENT VISIT, [facility], [address], [place], [place], [address], [place] tel:[phone] [facility] [place] headache1 (chief complaint)an xiety1 (chief complaint)br east1 (chief complaint) HeadacheGeneraliz ed anxiety disorderInconclus brad mammogram 0 9 Luis Dillon. [address], [place], [place], [address] , [place]. tel:[phone] Referring Provider: Jayy Mclean [address], [place], [place], [address]. tel:[phone] OFFICE/OUTPA TIENT VISIT, [facility], [address], [place], [place], [address], [place] tel:[phone] [facility] [place] headache1 (chief complaint)in somnia1 (chief complaint)si nus1 (chief complaint) Body mass index (BMI) 45.0-49.9, adultGeneralized anxiety disorderHeadacheA cute sinusitis 9 Luis Dillon. [address], [place], [place], [address] , [place]. tel:[phone] Referring Provider: Jayy Mclean [address], [place], [place], [address]. tel:[phone] OFFICE/OUTPA TIENT VISIT, [facility], [address], [place], [place], [address], [place] tel:[phone] [facility] [place] flank pain1 (chief complaint)in somnia1 (chief complaint)he adache (chief complaint)he adache1 (chief complaint)HT N (chief complaint) Body mass index (BMI) 45.0-49.9, adultHeadacheEsse ntial (primary) hypertensionAbdom inal painGeneralized anxiety disorder 9 Luis Dillon. [address], [place], [place], [address] , [place]. tel:[phone] Referring Provider: Jayy Mclean [place], [address]. tel:[phone] OFFICE/OUTPA TIENT VISIT, [facility], [address] [address], [place] tel:[phone] [facility] [place] flank pain1 (chief complaint)HT N1 (chief complaint)pa inocencia attacks1 (chief complaint) Generalized anxiety disorderAbdominal painEssential (primary) hypertension Apr-1 8-201 9 Luis Dillon. [address] [facility] [place], [address] , [place]. tel:[phone] Referring Provider: Jayy Mclean [place], [place], [address]. tel:[phone] OFFICE/OUTPA TIENT VISIT, [facility], [address] [place], [address], [place] tel:[phone] [facility] [place] anxiety1 (chief complaint)kn ee pain1 (chief complaint)he adache1 (chief complaint)pr oteinuria1 (chief complaint) Body mass index (BMI) 45.0-49.9, adultGeneralized anxiety disorderHeadacheP roteinuriaPain in left knee Apr-0 5-201 9 Luis Dillon. [address] [facility] [place], [address] , [place]. tel:[phone] Referring Provider: Jayy Mclean [facility] [address], [place], [place], [address]. tel:[phone] OFFICE/OUTPA TIENT VISIT, [facility], [address] [place], [address], [place] tel:[phone] [facility] [place] headache1 (chief complaint)pr oteinuria1 (chief complaint)HT N (chief complaint)kn ee pain1 (chief complaint) Body mass index (BMI) 45.0-49.9, adultProteinuriaE ssential (primary) hypertensionHeada chePain in left kneeInconclusive mammogram 9 Luis Dillon. [address], [place], [place], [address] , [place]. tel:[phone] Referring Provider: Santana Smith, [address], [place], [place], [address]. tel:[phone] OFFICE/OUTPA TIENT VISIT, [facility], [address], [place], [place], [address], [place] tel:[phone] [facility] [place] anxiety1 (chief complaint)he adache1 (chief complaint)HT N (chief complaint)kn ee pain1 (chief complaint) Body mass index (BMI) 45.0-49.9, adultHeadacheGene ralized anxiety disorderEssential (primary) hypertensionPain in left knee Fe 9 Luis Dillon. [address], [place], [place], [address] , [place]. tel:[phone] Referring Provider: Santana Smith, [address], [place], [place], [address]. tel:[phone] OFFICE/OUTPA TIENT VISIT, [facility], [address], [address], [place] tel:[phone] [facility] sick1 (chief complaint)An xiety 1 (chief complaint)he adache1 (chief complaint)pr oteinuria1 (chief complaint) Essential (primary) hypertensionAnemi aHeadacheAcute upper respiratory infection, unspecifiedInconc lusive mammogramProteinu riaGeneralized anxiety disorder 9 Luis Dillon. [address], [place], [place], [address] , [place]. tel:[phone] Referring Provider: Santana Smith, [address] [facility] [address], [place], [place], [address]. tel:[phone] OFFICE/OUTPA TIENT VISIT, [facility], [address], [address], [place] tel:[phone] [facility] [place] anxiety1 (chief complaint)he adache1 (chief complaint)an emia1 (chief complaint) Body mass index (BMI) 45.0-49.9, adultHeadacheGene ralized anxiety disorderInconclus brad mammogramAnemia 8 Luis Dillon. [address], [place], [place], [address] , [place]. [phone] Referring Provider: Jayy Mclean [address], [place], [place], [address]. tel:[phone] OFFICE/OUTPA TIENT VISIT, [facility], [address], [place], [place], [address], [place] [phone] [facility] [place] Anxiety1 (chief complaint)ma mmo1 (chief complaint)he adache1 (chief complaint)kn ee pain1 (chief complaint) Body mass index (BMI) 45.0-49.9, adultInconclusive mammogramPain in left kneeGeneralized Anxiety DisorderHeadache 8 Luis Dillon. [address], [place], [place], [address] , [place]. [phone] Referring Provider: Jayy M[address], [place], [place], [address]. tel:[phone] OFFICE/OUTPA TIENT VISIT, [facility], [address], [place], [place], [address], [place] tel:[phone] [facility] [place] headache1 (chief complaint)ba ck pain1 (chief complaint)an xiety1 (chief complaint)hy sterectomy1 (chief complaint) HeadacheGeneraliz ed anxiety disorderLumbagoBo dy mass index (BMI) 45.0-49.9, adultAcquired absence of uterus 8 Luis Hutchinson [address], [place], [place], [address] , [place]. [phone] Referring Provider: Jayy Mclean [address], [place], [place], [address]. tel:[phone] OFFICE/OUTPA TIENT VISIT, EST [facility] [place], [address], [place], [place], [address], [place] tel:[phone] [facility] chronic pain1 (chief complaint)an xiety1 (chief complaint)fi broid1 (chief complaint)lo w back pain1 (chief complaint) HeadacheSubmucous leiomyoma of uterusGeneralized anxiety disorderLumbago 201 8 Luis Dillon. [address], [place], [place], [address] , [place]. tel:[phone] Referring Provider: Jayy Mclean [address], [place], [place], [address]. tel:[phone] PREV VISIT, EST, AGE 40-64 [facility] [place], [address], [place], [place], [address], [place] tel:[phone] [facility] PHysical (chief complaint) Encounter for general adult medical exam w abnormal findingsHeadacheA nemiaGeneralized anxiety disorderLumbagoSu bmucous leiomyoma of uterusEssential (primary) hypertension 8 Luis Dillon. [address], [place], [place], [address] , [place]. tel:[phone] Referring Provider: Jayy Mclean [address], [place], [place], [address]. tel:[phone] OFFICE/OUTPA TIENT VISIT, EST [facility] [place], [address], [place], [place], [address], [place] tel:[phone] [facility] [place] headache1 (chief complaint)an xiety1 (chief complaint) HeadacheGeneraliz ed anxiety disorder 8 Luis Hutchinson [address], [place], [place], [address] , [place]. tel:[phone] Referring Provider: Jayy Mclean [address], [place], [place], [address]. tel:[phone] OFFICE/OUTPA TIENT VISIT, [facility], [address], [place], [place], [address], [place] tel:[phone] [facility], [place], [facility] headache1 (chief complaint)an xiety1 (chief complaint) HeadacheGeneraliz ed anxiety disorder 8 Luis Dillon. [address], [place], [place], [address] , [place]. tel:[phone] Referring Provider: Santana Smith, [address], [place], [place], [address]. tel:[phone] OFFICE/OUTPA TIENT VISIT, [facility], [address], [place], [place], [address], [place] tel:[phone] [facility] [place] headache1 (chief complaint) Body mass index (BMI) 45.0-49.9, adultHeadache 8 Luis Dillon. [address], [place], [place], [address] , [place]. tel:[phone] Referring Provider: Jayy Mclean [address], [place], [place], [address]. tel:[phone] OFFICE/OUTPA TIENT VISIT, [facility], [address], [place], [place], [address], [place] tel:[phone] [facility] [place] neck pain1 (chief complaint)an xiety1 (chief complaint)po lyuria1 (chief complaint)HT N (chief complaint) Essential (primary) hypertensionHeada cheGeneralized anxiety disorderPolyuria 8 Luis Dillon. [address], [place], [place], [address] , [place]. tel:[phone] Referring Provider: Jayy Mclean [address], [place], [place], [address]. tel:[phone] OFFICE/OUTPA TIENT VISIT, [facility], [address], [place], [place], [address], [place] tel:[phone] [facility] [place] anxiety1 (chief complaint)he adache1 (chief complaint)si nus (chief complaint) Generalized anxiety disorderHeadacheA cute upper respiratory infection, unspecified Nov-0 9-201 7 Luis Dillon. [address], [place], [place], [address] , [place]. tel:[phone] Referring Provider: Jayy Mclean [address], [place], [place], [address]. tel:[phone] OFFICE/OUTPA TIENT VISIT, EST [facility] [place], [address], [place], [place], [address], [place] tel:[phone] [facility] [place] renal lesion (chief complaint)he adache1 (chief complaint)an xiety1 (chief complaint)an emia1 (chief complaint) AnemiaHeadacheEnt erocolitis due to Clostridium difficileGenerali zed anxiety disorder Luis Hutchinson [address], [place], [place], [address] , [place]. [phone] Referring Provider: Jayy Mclean [address] [facility], [place], [place], [address]. tel:[phone] PREV VISIT, EST, AGE 40-64 [facility] [place], [address], [place], [place], [address], [place] tel:[phone] [facility] [place] Physical (chief complaint) Encounter for general adult medical exam w abnormal findingsAbdominal painAnemiaHeadach e Luis Hutchinson [address], [address], [place], [place], [address] , [place]. tel:[phone] Referring Provider: Jayy Mclean [address], [place], [place], [address]. tel:[phone] OFFICE/OUTPA TIENT VISIT, EST [facility] [place], [address], [place], [place], [address], [place] tel:[phone] [facility] [place] anemia1 (chief complaint)fi broid (chief complaint)he adache1 (chief complaint) AnemiaSubmucous leiomyoma of uterus 7 Luis Hutchinson [address], [place], [place], [address] , [place]. tel:[phone] Referring Provider: Jayy Mclean [address], [place], [place], [address]. tel:[phone] OFFICE/OUTPA TIENT VISIT, [facility], [address], [place], [place], [address], [place] tel:[phone] [facility] [place] C diff (chief complaint)an xiety1 (chief complaint)he adache1 (chief complaint)fi broid (chief complaint) Enterocolitis due to Clostridium difficileSubmucou s leiomyoma of uterusHeadacheGen eralized anxiety disorder 7 Luis Dillon. [address], [place], [place], [address] , [place]. tel:[phone] Referring Provider: Jayy Mclean [address], [place], [place], [address]. tel:[phone] OFFICE/OUTPA TIENT VISIT, [facility], [address], [place], [place], [address], [place] tel:[phone] [facility] [place] fibroid1 (chief complaint)co litis1 (chief complaint)re anl infarct1 (chief complaint) ColitisSubmucous leiomyoma of uterusKidney infarct 7 Luis Dillon. [address], [place], [place], [address] , [place]. tel:[phone] Referring Provider: Jayy Mclean [address], [place], [place], [address]. tel:[phone] OFFICE/OUTPA TIENT VISIT, [facility], [address], [place], [place], [address], [place] tel:[phone] [facility] [place] right flank pain1 (chief complaint) ColitisHypokalemi aLeukocytosisKidn ey infarct 7 Luis Dillon. [address], [place], [place], [address] , [place]. tel:[phone] Referring Provider: Jayy Mclean [address], [place], [place], [address]. tel:[phone] OFFICE/OUTPA TIENT VISIT, [facility], [address], [place], [place], [address], [place] tel:[phone] [facility] [place] anemia1 (chief complaint)he adache1 (chief complaint)ax illary lymph (chief complaint)an xiety1 (chief complaint) Hidradenitis suppurativaHeadac heGeneralized anxiety disorderAnemia 7 Luis Dillon. [address], [place], [place], [address] , [place]. [phone] Referring Provider: [address], [place], [place], [address]. tel:[phone] OFFICE/OUTPA TIENT VISIT, [facility], [address], [place], [place], [address], [place] tel:[phone] [facility] [place] Anemia1 (chief complaint)he adache1 (chief complaint)ab d pain1 (chief complaint) Anemia, unspecifiedHeadac heBody mass index (BMI) 40.0-44.9, adultGeneralized anxiety disorder 7 Luis Dillon. [address], [place], [place], [address] , [place]. [phone] Referring Provider: Jayy Mclean [address], [place], [place], [address]. tel:[phone] OFFICE/OUTPA TIENT VISIT, [facility], [address], [place], [place], [address], [place] [phone] [facility] [place] abd pain (chief complaint)an xiety1 (chief complaint) Abdominal painGeneralized anxiety disorderBody mass index (BMI) 45.0-49.9, adult 6 Luis Hope [address], [place], [place], [address] , [place]. [phone] Referring Provider: Jayy Mclean [address], [place], [place], [address]. tel:[phone] OFFICE/OUTPA TIENT VISIT, [facility], [address] [place], [address], tel:[phone] [facility] [place] anxiety1 (chief complaint)dy sphagia1 (chief complaint)EK G (chief complaint)ed ema1 (chief complaint) Generalized anxiety disorderDysphagia Abnormal electrocardiogram [ECG] [EKG]Essential (primary) hypertension 6 Luis Dillon. [address], [place], [place], [address] , [place]. [phone] Referring Provider: Santana Smith [address] [place] [address] [place], [address]. tel:[phone] OFFICE/OUTPA TIENT VISIT, [facility], [address] [place], [address], tel:[phone] [facility] [place] dysphagia1 (chief complaint)he adache1 (chief complaint)ne ck pain1 (chief complaint)ek g (chief complaint) Abnormal electrocardiogram [ECG] [EKG]HeadacheGene ralized Anxiety DisorderDysphagia 6 Luis Dillon. [address], [facility], [place], [place], [address] , [place]. [phone] Referring Provider: Jayy Mclean [facility] A, [place], [place], [address]. tel:[phone] OFFICE/OUTPA TIENT VISIT, [facility], [address] [place], [address], [place] tel:[phone] [facility] [place] dysphagia1 (chief complaint)ca rotid stenosis (chief complaint)an emia1 (chief complaint) DysphagiaStenosis of right carotid arteryAnemia 6 Luis Dillon. [address], [place], [place], [address] , [place]. [phone] Referring Provider: Santana Smith [address] [facility] A, [place], [place], [address]. tel:[phone] OFFICE/OUTPA TIENT VISIT, EST [facility] [place], [address], [place], [place], [address], [place] tel:[phone] [facility] [place] panic (chief complaint)pa nic1 (chief complaint) Panic attackHeadache 6 Luis Dillon. [address], [place], [place], [address] , [place]. tel:[phone] Referring Provider: Santana Smith, [address], [place], [place], [address]. tel:[phone] OFFICE/OUTPA TIENT VISIT, [facility], [address], [place], [place], [address], [place] tel:[phone] [facility] [place] headache1 (chief complaint)an emia1 (chief complaint)lo w D (chief complaint)HT N (chief complaint) HeadacheVitamin D deficiency, unspecifiedAnemia Essential (primary) hypertension 6 Luis Dillon. [address], [place], [place], [address] , [place]. tel:[phone] Referring Provider: Jayy Mclean [address], [place], [place], [address]. tel:[phone] PREV VISIT, EST, AGE 40-64 [facility] [place], [address], [place], [place], [address], [place] tel:[phone] [facility] [place] Physical (chief complaint) Encntr for general adult medical exam w/o abnormal findings 6 Luis Dillon. [address], [place], [place], [address] , [place]. tel:[phone] Referring Provider: Jayy Mclean [address], [place], [place], [address]. tel:[phone] OFFICE/OUTPA TIENT VISIT, [facility], [address], [place], [place], [address], [place] tel:[phone] [facility] anxiety1 (chief complaint)he adache (chief complaint) HeadacheGeneraliz ed anxiety disorder 0 6 Luis Hutchinson [address], [place], [place], [address] , [place]. tel:[phone] Referring Provider: Jayy [address], [place], [place], [address]. tel:[phone] OFFICE/OUTPA TIENT VISIT, [facility], [address], [address], [place] tel:[phone] [facility] [place] flank pain (chief complaint)he adache (chief complaint) Dietary surveillance and counselingFlank painHeadacheHemat uria 5 Luis Hutchinson [address], [place], [place], [address] , [place]. tel:[phone] Referring Provider: Jayy Mclean [facility] A, [place], [place], [address]. tel:[phone] OFFICE/OUTPA TIENT VISIT, [facility], [address], [place], [place], [address], [place] tel:[phone] [facility] [place] Obesity (chief complaint)he adache (chief complaint)he maturia (chief complaint)vi tamin D (chief complaint) Dietary surveillance and counselingOther nonspecific findings on examination of urineHeadacheObes ityVitamin deficiency 5 Luis Hutchinson [address], [place], [place], [address] , [place]. tel:[phone] Referring Provider: Jayy Mclean [address], [place], [place], [address]. tel:[phone] OFFICE/OUTPA TIENT VISIT, [facility], [address] [place], [address], [place] tel:[phone] [facility] [place] pelvic pain (chief complaint)SHANICE L (chief complaint) Dietary surveillance and counselingUnspeci fied symptom associated with female genital organsOther and unspecified ovarian cystHEMATURIA NOSHypokalemia 5 Luis Hutchinson [address], [place], [place], [address] , [place]. tel:[phone] Referring Provider: Jay[address], [place], [place], [address]. tel:[phone] OFFICE/OUTPA TIENT VISIT, EST [facility] [place], [address], [place], [place], [address], [place] tel:[phone] [facility] [place] sick (chief complaint)pn eumonia (chief complaint)an xiety (chief complaint)ch est pain (chief complaint) Dietary surveillance and counselingViral Infection, UnspecifiedChest Pain, UnspecifiedGenera lized anxiety disorder May- 5 Luis Dillon. [address], [place], [place], [address] , [place]. tel:[phone] Referring Provider: Jayy Mclean [facility] A, [place], [place], [address]. tel:[phone] OFFICE/OUTPA TIENT VISIT, [facility], [address], [place], [place], [address], [place] tel:[phone] [facility] [place] low vitamin D (chief complaint)he adache (chief complaint)ob esity (chief complaint)ar m pain (chief complaint) Dietary surveillance and counselingUnspeci fied vitamin d deficiencyObesity HeadachePain in limb 5 Luis Hutchinson [address], [place], [place], [address] , [place]. tel:[phone] Referring Provider: Jayy [address], [place], [place], [address]. tel:[phone] PREV VISIT, EST, AGE 40-64 [facility] [place], [address], [place], [place], [address], [place] tel:[phone] [facility] [place] hematuria (chief complaint)he adache (chief complaint)ob esity (chief complaint) Dietary surveillance and counselingRoutine Medical ExamRoutine Medical Exam 5 Luis Hutchinson [address], [place], [place], [address] , [place]. tel:[phone] Referring Provider: Jayy Mclean [address], [place], [place], [address]. tel:[phone] OFFICE/OUTPA TIENT VISIT, [facility], [address], [place], [place], [address], [place] tel:[phone] [facility] [place] arm pain (chief complaint)he adache (chief complaint) Dietary surveillance and counselingHeadach ePain in joint involving shoulder region 4 Luis Dillon. [address], [place], [place], [address] , [place]. [phone] Referring Provider: Jayy Mclean [address], [place], [place], [address]. tel:[phone] OFFICE/OUTPA TIENT VISIT, [facility], [address], [place], [place], [address], [place] tel:[phone] [facility] [place] anemia (chief complaint)he adache (chief complaint)ad renal nodule (chief complaint) AnemiaDietary surveillance and counselingHeadach eOther specified disorders of adrenal glands Nov- 4 Luis Dillon. [address], [place], [place], [address] , [place]. [phone] Referring Provider: Jayy Mclean [address], [place], [place], [address]. tel:[phone] OFFICE/OUTPA TIENT VISIT, [facility], [address], [place], [place], [address], [place] tel:[phone] [facility] [place] headache (chief complaint)ad renal nodule (chief complaint)Ashley ng nodule (chief complaint) Dietary surveillance and counselingHeadach eOther specified disorders of adrenal glandsSwelling, mass, or lump in chestHypertension , Unspecified 4 Luis Dillon. [address], [place], [place], [address] , [place]. [phone] Referring Provider: Santana Smith [address], [place], [place], [address]. tel:[phone] OFFICE/OUTPA TIENT VISIT, EST [facility] [place], [address], [place], [place], [address], [place] tel:[phone] [facility] [place] headache (chief complaint)ch est pain (chief complaint) Dietary surveillance and counselingHeadach eChest Pain, Unspecified 4 Luis Dillon. [address], [place], [place], [address] , [place]. tel:[phone] Referring Provider: Jayy Mclean [address], [place], [place], [address]. tel:[phone] OFFICE/OUTPA TIENT VISIT, EST [facility] [place], [address], [place], [place], [address], [place] tel:[phone] [facility] headahe (chief complaint)ch est pain (chief complaint) Chest Pain, UnspecifiedPain in joint involving lower legHeadacheDietar y surveillance and counseling 4 Luis Dlilon. [address], [place], [place], [address] , [place]. tel:[phone] Referring Provider: Jayy [address], [place], [place], [address]. tel:[phone] PREV VISIT, EST, AGE 18-39 [facility] [place], [address], [place], [place], [address], [place] tel:[phone] [facility] gallbladder diseaese (chief complaint)PH ysical (chief complaint) Dietary surveillance and counselingRoutine Medical ExamRoutine Medical Exam 0 3 Luis Dillon. [address], [place], [place], [address] , [place]. [phone] Referring Provider: Jayy Mclean [address], [place], [place], [address]. tel:[phone] OFFICE/OUTPA TIENT VISIT, EST [facility] [place], [address], [place], [place], [address], [place] tel:[phone] [facility] [place] abdominal pain (chief complaint)he adache (chief complaint)ea r pain (chief complaint) Dietary surveillance and counselingAbdomin al PainHeadacheOther acute otitis externaHypertensi on, Unspecified 3 Luis Dillon. [address], [place], [place], [address] , [place]. tel:[phone] Referring Provider: Santana Smith, [address], [place], [place], [address]. tel:[phone] OFFICE/OUTPA TIENT VISIT, [facility], [address], [place], [place], [address], [place] tel:[phone] [facility] [place] headache (chief complaint)ab dominal pain (chief complaint) Dietary surveillance and counselingHeadach eOther acute otitis externaDisturbanc e of skin sensationLump or mass in breast 3 Luis Dillon. [address], [place], [place], [address] , [place]. tel:[phone] Referring Provider: Jayy Mclean [address], [place], [place], [address]. tel:[phone] OFFICE/OUTPA TIENT VISIT, [facility], [address], [place], [place], [address], [place] tel:[phone] [facility] [place] headache (chief complaint) HeadacheDietary surveillance and counselingDisturb ance of skin sensationSyncope and collapse 3 Luis Dillon. [address], [place], [place], [address] , [place]. tel:[phone] Referring Provider: Jayy Mclean [facility], [place], [place], [address]. tel:[phone] Family History Family Member Type Diagnosis Age At Onset Mother Problem (finding) Hypertension Father Problem (finding) Coronary artery disease 70 Father Problem (finding) Hypertension Payers Payer name Insurance type Covered libertarian ID Authoriza tion(s) No Information Social History Type Description Quantity Date Captured Comments Alcohol Use Details Caffeine Use Details Unknown Tobacco Use Status Never smoked tobacco 2024 Smoking Status Never smoker Sex Female Vital Signs Date / Time: Height Weight BMI Pulse Rate Blood Pressure Temperature Respiratory Rate Body Surface Area Head Circumference BMI percentile Pulse Ox Inhaled Ox 9:53 AM 64.00 in 201.00 lbs 34.5 0 kg/m eter (2) Chief Complaint And Reason For Visit From encounter dated '03/26/2024 09:50'. pain (chief complaint). Description: pt has chronic left knee pain Pt denies any injury Pt c/o intermittent left knee swelling. pt saw ortho and was told that she is bone on bone and she was recommend injection and PT. Pt takes pain meds PRN. Pt has not started physical therapy yet. Pt had left knee injection but only helped several weeks. Pt is seeing ortho insomnia1 (chief complaint). Description: Pt has chronic anxiety and insomnia Pt takes ativan qhs PRn and doing ok. Pt denies any depression or any suicidal or homicidal thought Pt denies any crying spells Plan Of Treatment Date Type Action Status Goal Pap/HPV testing. Due on due Goal Influenza vaccine. Due on due Goal Depression screening. Due on due Goal Tdap. Due on due Goal Sigmoidoscopy. Due on due Goal FOBT. Due on due Goal Td vaccine. Due on 25 due Goal Lipid panel. Due on 025 due Goal Lipid panel. Due on 024 due Goal Td vaccine. Due on 24 due Goal FOBT. Due on due Goal Pap/HPV testing. Due on due Goal Influenza vaccine. Due on due Goal Depression screening. Due on due Goal Tdap. Due on due Goal Sigmoidoscopy. Due on due Goal Tdap. Due on due Goal Depression screening. Due on due Goal Influenza vaccine. Due on due Goal Pap/HPV testing. Due on due Goal FOBT. Due on due Goal Td vaccine. Due on due Goal Lipid panel. Due on due Goal Sigmoidoscopy. Due on due Goal Tdap. Due on due Goal Depression screening. Due on due Goal Influenza vaccine. Due on Oc due Goal Pap/HPV testing. Due on due Goal FOBT. Due on due Goal Td vaccine. Due on due Goal Lipid panel. Due on due Goal Sigmoidoscopy. Due on due Goal Tdap. Due on due Goal Depression screening. Due on due Goal Influenza vaccine. Due on Oc due Goal Pap/HPV testing. Due on due Goal FOBT. Due on due Goal Td vaccine. Due on due Goal Lipid panel. Due on due Goal Sigmoidoscopy. Due on due Goal Tdap. Due on due Goal Depression screening. Due on due Goal Influenza vaccine. Due on due Goal Pap/HPV testing. Due on due Goal FOBT. Due on due Goal Td vaccine. Due on due Goal Lipid panel. Due on due Goal Sigmoidoscopy. Due on due Goal Tdap. Due on due Goal Depression screening. Due on due Goal Influenza vaccine. Due on due Goal Pap/HPV testing. Due on due Goal FOBT. Due on due Goal Td vaccine. Due on due Goal Lipid panel. Due on due Goal Sigmoidoscopy. Due on due Goal Lipid panel. Due on due Goal Td vaccine. Due on due Goal FOBT. Due on due Goal Pap/HPV testing. Due on due Goal Influenza vaccine. Due on due Goal Depression screening. Due on due Goal Tdap. Due on due Goal Sigmoidoscopy. Due on due Goal Sigmoidoscopy. Due on due Goal Lipid panel. Due on due Goal Td vaccine. Due on due Goal FOBT. Due on due Goal Pap/HPV testing. Due on due Goal Influenza vaccine. Due on due Goal Depression screening. Due on due Goal Tdap. Due on due Goal Tdap. Due on due Goal Depression screening. Due on due Goal Influenza vaccine. Due on due Goal Pap/HPV testing. Due on due Goal Sigmoidoscopy. Due on due Goal Lipid panel. Due on due Goal Td vaccine. Due on due Goal FOBT. Due on due Goal FOBT. Due on due Goal Td vaccine. Due on due Goal Lipid panel. Due on due Goal Tdap. Due on due Goal Depression screening. Due on due Goal Influenza vaccine. Due on due Goal Pap/HPV testing. Due on due Goal Sigmoidoscopy. Due on due Goal Pap/HPV testing. Due on due Goal Influenza vaccine. Due on due Goal Depression screening. Due on due Goal Tdap. Due on due Goal Lipid panel. Due on due Goal Td vaccine. Due on due Goal FOBT. Due on due Goal Sigmoidoscopy. Due on due Goal FOBT. Due on due Goal Td vaccine. Due on due Goal Lipid panel. Due on due Goal Tdap. Due on due Goal Depression screening. Due on due Goal Influenza vaccine. Due on due Goal Pap/HPV testing. Due on due Goal Sigmoidoscopy. Due on due Goal Pap/HPV testing. Due on due Goal Influenza vaccine. Due on due Goal Depression screening. Due on due Goal Tdap. Due on due Goal Lipid panel. Due on due Goal Td vaccine. Due on due Goal Td vaccine. Due on due Goal Lipid panel. Due on due Goal Tdap. Due on due Goal Depression screening. Due on due Goal Influenza vaccine. Due on due Goal Pap/HPV testing. Due on due Goal Td vaccine. Due on due Goal Lipid panel. Due on due Goal Tdap. Due on due Goal Depression screening. Due on due Goal Influenza vaccine. Due on due Goal Pap/HPV testing. Due on due Goal Pap/HPV testing. Due on due Goal Influenza vaccine. Due on due Goal Depression screening. Due on due Goal Tdap. Due on due Goal Td vaccine. Due on due Goal Lipid panel. Due on due Goal Tdap. Due on due Goal Depression screening. Due on due Goal Influenza vaccine. Due on due Goal Pap/HPV testing. Due on due Goal Td vaccine. Due on due Goal Lipid panel. Due on due Goal Td vaccine. Due on due Goal Lipid panel. Due on due Goal Pap/HPV testing. Due on due Goal Influenza vaccine. Due on due Goal Depression screening. Due on due Goal Tdap. Due on due Goal Lipid panel. Due on due Goal Td vaccine. Due on due Goal Pap/HPV testing. Due on due Goal Influenza vaccine. Due on due Goal Depression screening. Due on due Goal Tdap. Due on due Goal Influenza vaccine. Due on due Goal Pap/HPV testing. Due on due Goal Td vaccine. Due on due Goal Lipid panel. Due on due Goal Tdap. Due on due Goal Depression screening. Due on due Goal Depression screening. Due on due Goal Tdap. Due on due Goal Influenza vaccine. Due on due Goal Pap/HPV testing. Due on due Goal Td vaccine. Due on due Goal Lipid panel. Due on due Goal Lipid panel. Due on due Goal Td vaccine. Due on due Goal Depression screening. Due on due Goal Tdap. Due on due Goal Influenza vaccine. Due on due Goal Pap/HPV testing. Due on due Goal Pap/HPV testing. Due on due Goal Influenza vaccine. Due on due Goal Lipid panel. Due on due Goal Td vaccine. Due on due Goal Depression screening. Due on due Goal Tdap. Due on due Goal Tdap. Due on due Goal Depression screening. Due on due Goal Pap/HPV testing. Due on due Goal Influenza vaccine. Due on due Goal Lipid panel. Due on due Goal Td vaccine. Due on due Goal Tdap. Due on due Goal Depression screening. Due on due Goal Pap/HPV testing. Due on due Goal Influenza vaccine. Due on due Goal Td vaccine. Due on due Goal Lipid panel. Due on due Goal Lipid panel. Due on due Goal Td vaccine. Due on due Goal Tdap. Due on due Goal Depression screening. Due on due Goal Pap/HPV testing. Due on due Goal Influenza vaccine. Due on due Goal Influenza vaccine. Due on due Goal Pap/HPV testing. Due on due Goal Lipid panel. Due on due Goal Td vaccine. Due on due Goal Tdap. Due on due Goal Depression screening. Due on due Goal Depression screening. Due on due Goal Tdap. Due on due Goal Td vaccine. Due on due Goal Lipid panel. Due on due Goal Influenza vaccine. Due on due Goal Pap/HPV testing. Due on due Goal Depression screening. Due on due Goal Tdap. Due on due Goal Td vaccine. Due on due Goal Lipid panel. Due on due Goal Influenza vaccine. Due on due Goal Pap/HPV testing. Due on due Goal Td vaccine. Due on due Goal Lipid panel. Due on due Goal Influenza vaccine. Due on Oc due Goal Pap/HPV testing. Due on due Goal Tdap. Due on due Goal Depression screening. Due on due Goal Depression screening. Due on due Goal Tdap. Due on due Goal Td vaccine. Due on due Goal Lipid panel. Due on due Goal Influenza vaccine. Due on due Goal Pap/HPV testing. Due on due Goal Lipid panel. Due on due Goal Influenza vaccine. Due on due Goal Pap/HPV testing. Due on due Goal Td vaccine. Due on due Goal Depression screening. Due on due Goal Tdap. Due on due Goal Tdap. Due on due Goal Depression screening. Due on due Goal Lipid panel. Due on due Goal Influenza vaccine. Due on due Goal Pap/HPV testing. Due on due Goal Td vaccine. Due on due Goal Lipid panel. Due on due Goal Depression screening. Due on due Goal Tdap. Due on due Goal Influenza vaccine. Due on due Goal Pap/HPV testing. Due on due Goal Td vaccine. Due on due Goal Td vaccine. Due on due Goal Pap/HPV testing. Due on due Goal Influenza vaccine. Due on due Goal Lipid panel. Due on due Goal Depression screening. Due on due Goal Tdap. Due on due Goal Td vaccine. Due on due Goal Pap/HPV testing. Due on due Goal Influenza vaccine. Due on due Goal Lipid panel. Due on due Goal Tdap. Due on due Goal Depression screening. Due on due Goal Depression screening. Due on due Goal Tdap. Due on due Goal Td vaccine. Due on due Goal Pap/HPV testing. Due on due Goal Influenza vaccine. Due on due Goal Lipid panel. Due on due Goal Depression screening. Due on due Goal Tdap. Due on due Goal Td vaccine. Due on due Goal Pap/HPV testing. Due on due Goal Influenza vaccine. Due on due Goal Lipid panel. Due on due Goal Lipid panel. Due on due Goal Influenza vaccine. Due on due Goal Pap/HPV testing. Due on due Goal Depression screening. Due on due Goal Tdap. Due on due Goal Td vaccine. Due on due Goal Td vaccine. Due on due Goal Lipid panel. Due on due Goal Influenza vaccine. Due on due Goal Pap/HPV testing. Due on due Goal Depression screening. Due on due Goal Tdap. Due on due Goal Tdap. Due on due Goal Depression screening. Due on due Goal Pap/HPV testing. Due on due Goal Influenza vaccine. Due on due Goal Td vaccine. Due on due Goal Lipid panel. Due on due Goal Tdap. Due on due Goal Depression screening. Due on due Goal Pap/HPV testing. Due on due Goal Influenza vaccine. Due on due Goal Td vaccine. Due on due Goal Lipid panel. Due on due Goal Lipid panel. Due on due Goal Td vaccine. Due on due Goal Tdap. Due on due Goal Depression screening. Due on due Goal Pap/HPV testing. Due on due Goal Influenza vaccine. Due on due Goal Td vaccine. Due on due Goal Lipid panel. Due on due Goal Tdap. Due on due Goal Depression screening. Due on due Goal Pap/HPV testing. Due on due Goal Influenza vaccine. Due on due Goal Influenza vaccine. Due on due Goal Pap/HPV testing. Due on due Goal Depression screening. Due on due Goal Tdap. Due on due Goal Td vaccine. Due on due Goal Lipid panel. Due on due Goal Lipid panel. Due on due Goal Td vaccine. Due on due Goal Influenza vaccine. Due on due Goal Pap/HPV testing. Due on due Goal Depression screening. Due on due Goal Tdap. Due on due Goal Tdap. Due on due Goal Lipid panel. Due on due Goal Td vaccine. Due on due Goal Influenza vaccine. Due on due Goal Pap/HPV testing. Due on due Goal Depression screening. Due on due Goal Depression screening. Due on due Goal Pap/HPV testing. Due on due Goal Influenza vaccine. Due on due Goal Td vaccine. Due on due Goal Lipid panel. Due on due Goal Tdap. Due on due Goal Depression screening. Due on due Goal Pap/HPV testing. Due on due Goal Influenza vaccine. Due on due Goal Td vaccine. Due on due Goal Lipid panel. Due on due Goal Tdap. Due on due Goal Depression screening. Due on due Goal Pap/HPV testing. Due on due Goal Influenza vaccine. Due on due Goal Td vaccine. Due on due Goal Lipid panel. Due on due Goal Tdap. Due on due Goal Depression screening. Due on due Goal Pap/HPV testing. Due on due Goal Influenza vaccine. Due on due Goal Td vaccine. Due on due Goal Lipid panel. Due on due Goal Tdap. Due on due Goal Depression screening. Due on due Goal Pap/HPV testing. Due on due Goal Influenza vaccine. Due on due Goal Td vaccine. Due on due Goal Lipid panel. Due on due Goal Tdap. Due on due Goal Tdap. Due on due Goal Lipid panel. Due on due Goal Td vaccine. Due on due Goal Influenza vaccine. Due on due Goal Pap/HPV testing. Due on due Goal Depression screening. Due on due Goal Tdap. Due on due Goal Lipid panel. Due on due Goal Td vaccine. Due on due Goal Influenza vaccine. Due on due Goal Pap/HPV testing. Due on due Goal Depression screening. Due on due Goal Depression screening. Due on due Goal Pap/HPV testing. Due on due Goal Influenza vaccine. Due on due Goal Td vaccine. Due on due Goal Lipid panel. Due on due Goal Tdap. Due on due Goal Tdap. Due on due Goal Lipid panel. Due on due Goal Td vaccine. Due on due Goal Influenza vaccine. Due on due Goal Pap/HPV testing. Due on due Goal Depression screening. Due on due Goal Tdap. Due on due Goal Lipid panel. Due on due Goal Td vaccine. Due on due Goal Influenza vaccine. Due on Oc due Goal Pap/HPV testing. Due on due Goal Depression screening. Due on due Goal Tdap. Due on due Goal Lipid panel. Due on due Goal Td vaccine. Due on due Goal Influenza vaccine. Due on due Goal Pap/HPV testing. Due on due Goal Depression screening. Due on due Goal Tdap. Due on due Goal Lipid panel. Due on due Goal Td vaccine. Due on due Goal Influenza vaccine. Due on due Goal Pap/HPV testing. Due on due Goal Depression screening. Due on due Goal Depression screening. Due on due Goal Pap/HPV testing. Due on due Goal Influenza vaccine. Due on due Goal Td vaccine. Due on due Goal Lipid panel. Due on due Goal Tdap. Due on due Goal Tdap. Due on due Goal Depression screening. Due on due Goal Pap/HPV testing. Due on due Goal Influenza vaccine. Due on due Goal Td vaccine. Due on due Goal Lipid panel. Due on due Goal Tdap. Due on due Goal Lipid panel. Due on due Goal Td vaccine. Due on due Goal Influenza vaccine. Due on Ma due Goal Pap/HPV testing. Due on due Goal Depression screening. Due on due Goal Depression screening. Due on due Goal Pap/HPV testing. Due on due Goal Influenza vaccine. Due on Ap due Goal Td vaccine. Due on due Goal Lipid panel. Due on due Goal Tdap. Due on due Goal Depression screening. Due on due Goal Pap/HPV testing. Due on due Goal Influenza vaccine. Due on due Goal Td vaccine. Due on due Goal Lipid panel. Due on due Goal Tdap. Due on due Goal Depression screening. Due on due Goal Pap/HPV testing. Due on due Goal Influenza vaccine. Due on due Goal Td vaccine. Due on due Goal Lipid panel. Due on due Goal Tdap. Due on due Goal Depression screening. Due on due Goal Pap/HPV testing. Due on due Goal Influenza vaccine. Due on due Goal Td vaccine. Due on due Goal Lipid panel. Due on due Goal Tdap. Due on due Goal Depression screening. Due on due Goal Pap/HPV testing. Due on due Goal Influenza vaccine. Due on due Goal Td vaccine. Due on due Goal Lipid panel. Due on due Goal Tdap. Due on due Goal Special diet education compl eted Goal Tdap. Due on due Goal Lipid panel. Due on due Goal Td vaccine. Due on due Goal Influenza vaccine. Due on due Goal Pap/HPV testing. Due on due Goal Depression screening. Due on due Goal Tdap. Due on due Goal Lipid panel. Due on due Goal Td vaccine. Due on due Goal Influenza vaccine. Due on due Goal Pap/HPV testing. Due on due Goal Depression screening. Due on due Goal Lipid panel. Due on due Goal Td vaccine. Due on due Goal Influenza vaccine. Due on due Goal Pap/HPV testing. Due on due Goal Depression screening. Due on due Goal Tdap. Due on due Goal Special diet education compl eted Goal Lipid panel. Due on due Goal Td vaccine. Due on due Goal Influenza vaccine. Due on due Goal Pap/HPV testing. Due on due Goal Depression screening. Due on due Goal Tdap. Due on due Goal Special diet education compl eted Goal Tdap. Due on due Goal Depression screening. Due on due Goal Pap/HPV testing. Due on due Goal Influenza vaccine. Due on due Goal Td vaccine. Due on due Goal Lipid panel. Due on due Goal Special diet education compl eted Goal Tdap. Due on due Goal Depression screening. Due on due Goal Pap/HPV testing. Due on due Goal Influenza vaccine. Due on due Goal Td vaccine. Due on due Goal Lipid panel. Due on due Goal Special diet education compl eted Goal Influenza vaccine. Due on due Goal Pap/HPV testing. Due on due Goal Depression screening. Due on due Goal Tdap. Due on due Goal Lipid panel. Due on due Goal Td vaccine. Due on due Goal Special diet education compl eted Goal Influenza vaccine. Due on due Goal Pap/HPV testing. Due on due Goal Depression screening. Due on due Goal Tdap. Due on due Goal Lipid panel. Due on due Goal Td vaccine. Due on due Goal Special diet education compl eted Goal Tdap. Due on due Goal Lipid panel. Due on due Goal Td vaccine. Due on due Goal Influenza vaccine. Due on Ma due Goal Pap/HPV testing. Due on due Goal Depression screening. Due on due Goal Special diet education compl eted Goal Depression screening. Due on due Goal Pap/HPV testing. Due on due Goal Influenza vaccine. Due on due Goal Td vaccine. Due on due Goal Lipid panel. Due on due Goal Tdap. Due on due Goal Special diet education compl eted Goal Depression screening. Due on due Goal Pap/HPV testing. Due on due Goal Influenza vaccine. Due on due Goal Td vaccine. Due on due Goal Lipid panel. Due on due Goal Tdap. Due on due Goal Special diet education compl eted Goal Depression screening. Due on due Goal Pap/HPV testing. Due on due Goal Influenza vaccine. Due on due Goal Td vaccine. Due on 19 due Goal Lipid panel. Due on due Goal Tdap. Due on due Goal Special diet education compl eted Goal Depression screening. Due on due Goal Pap/HPV testing. Due on due Goal Influenza vaccine. Due on due Goal Td vaccine. Due on due Goal Lipid panel. Due on due Goal Tdap. Due on due Goal Special diet education compl eted Goal Tdap. Due on due Goal Lipid panel. Due on due Goal Td vaccine. Due on due Goal Influenza vaccine. Due on due Goal Pap/HPV testing. Due on due Goal Depression screening. Due on due Goal Special diet education compl eted Goal Depression screening. Due on due Goal Pap/HPV testing. Due on due Goal Influenza vaccine. Due on due Goal Td vaccine. Due on 18 due Goal Lipid panel. Due on due Goal Tdap. Due on due Goal Special diet education compl eted Goal Tdap. Due on due Goal Depression screening. Due on due Goal Pap/HPV testing. Due on due Goal Influenza vaccine. Due on due Goal Td vaccine. Due on due Goal Lipid panel. Due on due Goal Special diet education compl eted Goal Tdap. Due on due Goal Lipid panel. Due on due Goal Td vaccine. Due on due Goal Influenza vaccine. Due on Oc due Goal Pap/HPV testing. Due on due Goal Depression screening. Due on due Goal Special diet education compl eted Goal Depression screening. Due on due Goal Pap/HPV testing. Due on due Goal Influenza vaccine. Due on due Goal Td vaccine. Due on due Goal Lipid panel. Due on due Goal Tdap. Due on due Goal Special diet education compl eted Goal Depression screening. Due on due Goal Pap/HPV testing. Due on due Goal Influenza vaccine. Due on due Goal Td vaccine. Due on due Goal Lipid panel. Due on due Goal Tdap. Due on due Goal Special diet education compl eted Goal Special diet education compl eted Goal Depression screening. Due on due Goal Pap/HPV testing. Due on due Goal Influenza vaccine. Due on due Goal Td vaccine. Due on 18 due Goal Lipid panel. Due on due Goal Tdap. Due on due Goal Special diet education compl eted Goal Influenza vaccine. Due on due Goal Pap/HPV testing. Due on due Goal Depression screening. Due on due Goal Tdap. Due on due Goal Td vaccine. Due on 18 due Goal Lipid panel. Due on due Goal Prescribed dietary intake co mpleted Goal Lipid panel. Due on due Goal Td vaccine. Due on 18 due Goal Tdap. Due on due Goal Depression screening. Due on due Goal Pap/HPV testing. Due on due Goal Influenza vaccine. Due on due Goal Prescribed dietary intake co mpleted Goal Pap/HPV testing. Due on due Goal Depression screening. Due on due Goal Tdap. Due on due Goal Td vaccine. Due on 18 due Goal Depression screening. Due on due Goal Pap/HPV testing. Due on due Goal Tdap. Due on due Goal Td vaccine. Due on due Goal Depression screening. Due on due Goal Tdap. Due on due Goal Td vaccine. Due on due Goal Pap/HPV testing. Due on due Goal Pap/HPV testing. Due on due Goal Depression screening. Due on due Goal Tdap. Due on due Goal Td vaccine. Due on due Goal Tdap. Due on due Goal Pap/HPV testing. Due on due Goal Depression screening. Due on due Goal Td vaccine. Due on due Goal Depression screening. Due on due Goal Tdap. Due on due Goal Td vaccine. Due on due Goal Pap/HPV testing. Due on due Goal Pap/HPV testing. Due on due Goal Td vaccine. Due on due Goal Depression screening. Due on due Goal Tdap. Due on due Goal Pap/HPV testing. Due on due Goal Tdap. Due on due Goal Td vaccine. Due on due Goal Depression screening. Due on due Goal Pap/HPV testing. Due on due Goal Td vaccine. Due on due Goal Tdap. Due on due Goal Depression screening. Due on due Goal Pap/HPV testing. Due on due Goal Td vaccine. Due on 17 due Goal Depression screening. Due on due Goal Tdap. Due on due Goal Pap/HPV testing. Due on due Goal Td vaccine. Due on 16 due Goal Tdap. Due on due Goal Depression screening. Due on due Goal Tdap. Due on due Goal Depression screening. Due on due Goal Pap/HPV testing. Due on due Goal Td vaccine. Due on due Goal Pap/HPV testing. Due on due Goal Depression screening. Due on due Goal Tdap. Due on due Goal Td vaccine. Due on due Goal Pap/HPV testing. Due on due Goal Tdap. Due on due Goal Depression screening. Due on due Goal Td vaccine. Due on due Goal Pap/HPV testing. Due on due Goal Tdap. Due on due Goal Td vaccine. Due on due Goal Depression screening. Due on due Goal Tdap. Due on due Goal Pap/HPV testing. Due on due Goal Td vaccine. Due on due Goal Depression screening. Due on due Goal Td vaccine. Due on 16 due Goal Tdap. Due on due Goal Depression screening. Due on due Goal Pap/HPV testing. Due on due Goal Tdap. Due on due Goal Pap/HPV testing. Due on due Goal Td vaccine. Due on 16 due Goal Mammogram. Due on 6 due Goal Depression screening. Due on due Goal Td vaccine. Due on 15 due Goal Depression screening. Due on due Goal Tdap. Due on due Goal Mammogram. Due on due Goal Pap/HPV testing. Due on due Goal Mammogram. Due on 5 due Goal Depression screening. Due on due Goal Pap/HPV testing. Due on due Goal Td vaccine. Due on 15 due Goal Tdap. Due on due Goal Special diet education compl eted Referral Ordered: YANNA HADLEY -[facility] : Orthopaedic Surgery (related to Primary OA of left knee) ordered Referral Referred To: YANNA HADLEY [address], [place], [id number] Ordered: Referrals: [facility] : Orthopaedic Surgery. YANNA HADLEY. Evaluate and treat ordered Referral Ordered: Marcus Person -[facility] : Plastic Surgery (related to Muscle spasm of back) ordered Referral Referred To: Marcus Person [address], [id number] Ordered: Referrals: [facility] : Plastic Surgery. Marcus Person. Evaluate and treat ordered Referral Ordered: William Key -[facility] : Plastic Surgery (related to Excessive and redundant skin and subcutaneous tissue) ordered Referral Referred To: William Key [address] [place], [place], [phone] Ordered: Referrals: [facility] : Plastic Surgery. William Key. Evaluate and treat ordered Referral Ordered: Gerard Guajardo -[facility] : Surgery (related to Abnormal weight loss) ordered Referral Referred To: Gerard Guajardo [address] [place], [place], [id number] Ordered: Referrals: [facility] : Surgery. Gerard Guajardo. Evaluate and treat ordered Referral Ordered: Surgery (related to Abnormal weight gain) ordered Referral Ordered: Referrals: Surgery. Evaluate and treat ordered Referral Ordered: US EXAM, EXTREMITY Right shoulder ordered Referral Referred To: Anil JI, [facility]
[place] [address] [address] [place], [place], [id number] Ordered: Referrals: Anil JI, [facility]. Evaluate and treat ordered Referral Referred To: Frankie Kang [address] [place], [phone] Ordered: Referrals: Frankie Kang. Evaluate and treat ordered Referral Ordered: Cardiology (related to Palpitations) ordered Referral Ordered: Referrals: Cardiology. Evaluate and treat ordered Referral Ordered: SLEEP STUDY, ATTENDED ordered Referral Ordered: DOPPLER ECHO EXAM, HEART ordered Referral Ordered: Frankie Kang -[facility] : Orthopaedic Surgery (related to Chondromalacia patellae, left knee) ordered Referral Ordered: MAMMOGRAM, ONE BREAST ordered Referral Ordered: CT ABDOMEN&PELVIS W/CONTRAST ordered Referral Ordered: Frankie Kang -[facility] : Orthopaedic Surgery (related to Pain in left knee) ordered Referral Ordered: KNEE XRAY, 4 OR MORE VIEWS Left ordered Referral Referred To: Frankie Kang [address] [place], [place] [id number] Ordered: Referrals: [facility] : Orthopaedic Surgery. Frankie Kang. Evaluate and treat ordered Referral Ordered: MAMMOGRAM, ONE BREAST Right ordered Referral Ordered: LUMBAR XRAY AP AND LAT ONLY ordered Referral Ordered: CT ABDOMEN W/DYE ordered Referral Ordered: Carmen Scott (related to Submucous leiomyoma of uterus) ordered Referral Referred To: Carmen Scott [address] [place], [phone] Ordered: Referrals: Carmen Scott. Evaluate and treat ordered Referral Ordered: Urology (related to Kidney infarct) ordered Referral Ordered: Referrals: Urology. Evaluate and treat ordered Referral Ordered: Jose F Watson (related to Dysphagia) ordered Referral Ordered: ESOPHAGRAM (BARIUM SWALLOW) ordered Referral Referred To: Jose F Watson [address] [place], [id number] Ordered: Referrals: Jose F Watson. Evaluate and treat ordered Referral Ordered: US CAROTID ordered Referral Ordered: COLONOSCOPY AND BIOPSY ordered Referral Ordered: MAMMOGRAM, SCREENING ordered Referral Ordered: US, PELVIC (NONOBSTETRIC); ordered Referral Ordered: CARDIOVASCULAR STRESS TEST ordered Referral Ordered: US VENOUS DOPPLER ordered Referral Ordered: [facility] (related to Abdominal Pain) ordered Referral Ordered: Otolaryngology (related to Other acute otitis externa) ordered Referral Ordered: Referral: Otolaryngology. Evaluate and treat. ordered Referral Ordered: Referral: [facility]. Evaluate and treat. ordered Referral Ordered: NUC MED HIDA (HEPATOBILIARY) SCAN ordered Referral Ordered: CT ABDOMEN W/O & W/DYE ordered Referral Ordered: MRI BRAIN W/O & W/DYE ordered Appointment Apoorva Harry BOOKED History Of Present Illness Encounter Date Complaint History Of Prese nt Illness pain pt has chronic l eft knee pain Pt denies any injury Pt c/o intermittent left knee swelling. pt saw ortho and was told that she is bone on bone and she was recommend injection and PT. Pt takes pain meds PRN. Pt has not started physical therapy yet. Pt had left knee injection but only helped several weeks. Pt is seeing ortho insomnia1 Pt has chronic a nxiety and insomnia Pt takes ativan qhs PRn and doing ok. Pt denies any depression or any suicidal or homicidal thought Pt denies any crying spells pain pt has chronic l eft knee pain Pt denies any injury Pt c/o intermittent left knee swelling. pt saw ortho and was told that she is bone on bone and she was recommend injection and PT. Pt takes pain meds PRN. Pt has not started physical therapy yet. Pt had left knee injection but only helped several weeks. Pt has tonny with ortho next week insomnia1 Pt has chronic a nxiety and insomnia Pt takes ativan qhs PRn and doing ok. Pt denies any depression or any suicidal or homicidal thought Pt denies any crying spells physical Pt needs annual physical Pt has chronic anxiety Pt denies any depression or any suicidal or homicidal thought. Pt takes ativan PRN and doing ok.. Pt has chronic left knee pain. Pt takes percocet PRN for pain. Pt is seeing ortho Pt is seeing breast specialist and will have breast reduction surgery soon Pt otherwise feels well Pt denies any complaints pain Pt has chronic k nee pain and anxiety pt needs FMLA form completed Pt sees doctor 1-2 per month. 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 Pt states that sometimes her pain is preventing her from work efficiency anxiety1 Pt has chronic a nxiety and insomnia Pt takes ativan qhs PRn and doing ok. Pt denies any depression or any suicidal or homicidal thought Pt denies any crying spells pain pt has chronic l eft knee pain Pt denies any injury Pt c/o intermittent left knee swelling. pt saw ortho and was told that she is bone on bone and she was recommend injection and PT. Pt takes pain meds PRN. Pt has not started physical therapy yet. Pt had left knee injection but only helped several weeks. pain pt has chronic l eft knee pain Pt denies any injury Pt c/o intermittent left knee swelling. pt saw ortho and was told that she is bone on bone and she was recommend injection and PT. Pt takes pain meds PRN. Pt has not started physical therapy yet. Pt had left knee injection but only helped several weeks. anxiety1 Pt has chronic a nxiety and insomnia Pt takes ativan qhs PRn and doing ok. Pt denies any depression or any suicidal or homicidal thought Pt denies any crying spells lumbago1 Pt c/o intermitt ent low back pain towards left side with sciatica down to left hip area for several months Pt denies any injury. Pt c/o sharp pain. Pt does sit for her job all day .Pt states that the pain seems getting better with some movement and stretching. pain pt has chronic l eft knee pain Pt denies any injury Pt c/o intermittent left knee swelling. pt saw ortho and was told that she is bone on bone and she was recommend injection and PT. Pt takes pain meds PRN. Pt has not started physical therapy yet. Pt had left knee injection but only helped several weeks. anxiety1 Pt has chronic a nxiety and insomnia Pt takes ativan qhs PRn and doing ok. Pt denies any depression or any suicidal or homicidal thought Pt denies any crying spells anxiety1 Pt has chronic a nxiety and insomnia Pt takes ativan qhs PRn and doing ok. Pt denies any depression or any suicidal or homicidal thought Pt denies any crying spells pain pt has chronic l eft knee pain Pt denies any injury Pt c/o intermittent left knee swelling. pt saw ortho and was told that she is bone on bone and she was recommend injection and PT. Pt takes pain meds PRN pain pt has chronic l eft knee pain Pt denies any injury Pt c/o intermittent left knee swelling. Pt saw ortho 3 years ago and she received knee injection which helped slightly Pt does have severe chondromalacia around left knee. pt states that her left knee pain is getting worse. Pt denies any redness or warmth or injury. Pt has tonny with ortho in two weeks vein1 Pt notices inter mittent dark superficial vein on left lateral lower leg for several months ,Pt denies any pain or bleeding. Pt denies any leg edema. Pt denies any calf pain anxiety1 Pt has chronic a nxiety and insomnia Pt takes ativan qhs PRn and doing ok. Pt denies any depression or any suicidal or homicidal thought Pt denies any crying spells anxiety1 Pt has chronic a nxiety and insomnia Pt takes ativan qhs PRn and doing ok. Pt denies any depression or any suicidal or homicidal thought Pt denies any crying spells pain pt has chronic l eft knee pain Pt denies any injury Pt c/o intermittent left knee swelling. Pt saw ortho 3 years ago and she received knee injection which helped slightly Pt does have severe chondromalacia around left knee. pt states that her left knee pain is getting worse. Pt denies any redness or warmth or injury. Pt has not heard from ortho yet back pain1 Pt states that l eft SI joint pain improved with celebrex .Pt denies any sciatica or any loss of bowel or bladder control or saddle area paresthesia knee pain1 pt has chronic l eft knee pain Pt denies any injury Pt c/o intermittent left knee swelling. Pt saw ortho 3 years ago and she received knee injection which helped slightly Pt does have severe chondromalacia around left knee. pt states that her left knee pain is getting worse. Pt denies any redness or warmth or injury anxiety1 Pt has chronic a nxiety and insomnia Pt takes ativan qhs PRn and doing ok. Pt denies any depression or any suicidal or homicidal thought Pt denies any crying spells back pain1 Pt c/o left SI j oint pain on and off for 3 months pt denies any injury Pt denies any sciatica .Pt denies any loss of bowel or bladder control. Pt states that sitting too long hurts worse. Pt denies waking up at night with pain Pt denies any nighttime pain Pt denies waking up at night with pain Pt denies any injury Pt c/o sharp and crampy pain. Pt denies any neuropathy insomnia1 Pt has chronic a nxiety and insomnia Pt takes ativan qhs PRn and doing ok. Pt denies any depression or any suicidal or homicidal thought Pt denies any crying spells pain Pt has left knee pain due to arthritis and cartilage issue. Pt does not want knee replacement now. Pt takes percocet PRN for knee pain Pt still has knee pain. Pt failed NSAID. pt sees ortho knee pain1 Pt has left knee pain due to arthritis and cartilage issue. Pt does not want knee replacement now. Pt takes percocet PRN for knee pain Pt still has knee pain. Pt failed NSAID. pt sees ortho insomnia1 Pt has chronic a nxiety and insomnia Pt takes ativan qhs PRn and doing ok. Pt denies any depression or any suicidal or homicidal thought Pt denies any crying spells weight loss1 Pt is s/p gastri c sleeve and she lost weight. her weight loss has plateaued Pt denies any change of bowel. pt denies any blood in stool. Her last normal colonoscopy was 2016 back pain1 Pt c/o midback p ain Pt has large breast and is in the process of discussing with surgeon for breast reduction surgery. Pt will start PT first. Pt denies any worsening pain pain Pt has left knee pain due to arthritis and cartilage issue. Pt does not want knee replacement now. Pt takes percocet PRN for knee pain Pt still has knee pain. Pt failed NSAID anxiety1 Pt has chronic a nxiety and insomnia Pt takes ativan qhs PRn and doing ok. Pt denies any depression or any suicidal or homicidal thought Pt denies any crying spells back pain1 pt also has mid back pain from large breast and she is considering breast reduction surgery Pt c/o pressure pain around T spine and to her shoulder and neck area. Pt has tonny with plastic surgeon pain Pt has left knee pain due to arthritis and cartilage issue. Pt does not want knee replacement now. Pt takes percocet PRN for knee pain Pt still has knee pain. anxiety1 Pt has chronic a nxiety and insomnia Pt takes ativan qhs PRn and doing ok. Pt denies any depression or any suicidal or homicidal thought Pt denies any crying spells pain Pt has left knee pain due to arthritis and cartilage issue. Pt does not want knee replacement now. Pt takes percocet PRN for knee pain Pt still has knee pain pain anxiety1 Pt has chronic a nxiety and insomnia Pt takes ativan qhs PRn and doing ok. Pt denies any depression or any suicidal or homicidal thought Pt denies any crying spells pain Pt has left knee pain due to arthritis and cartilage issue. Pt does not want knee replacement now. Pt takes percocet PRN for knee pain Pt still has knee pain insomnia1 Pt has chronic a nxiety and insomnia Pt takes ativan qhs PRn and doing ok. Pt denies any depression or any suicidal or homicidal thought Pt denies any crying spells pain Pt has left knee pain due to arthritis and cartilage issue. Pt does not want knee replacement now. Pt takes percocet PRN for knee pain. 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 Pt wants to discuss surgery to remove the skin .Pt states that excessive skin causes skin to be itching and irritable. pain Pt has left knee pain due to arthritis and cartilage issue. Pt does not want knee replacement now. Pt takes percocet PRN for knee pain Pt still has knee pain insomnia1 Pt has chronic a nxiety and insomnia Pt takes ativan qhs PRn and doing ok. Pt denies any depression or any suicidal or homicidal thought Pt denies any crying spells GERD1 Pt denies any GE RD. Pt had benign EGD Pt is off PPI pain1 Pt has left knee pain due to arthritis and cartilage issue. Pt does not want knee replacement now. Pt takes percocet PRN for knee pain Pt still has knee pain GERD1 Pt denies any ge rd symptoms. pt is s/p gastric sleeve. Pt told me she had negative EGD prior to surgery. Pt just followed up with bariatric surgeon and was told to stop omeprazole. Pt denies any abd pain weight loss1 Pt has been losi ng weight post sleeve surgery. Pt just saw her bariatric surgeon and was told to eat more carbs. Pt denies any nausea, vomiting Pt states she has some stomach upset if she eats too much insomnia1 Pt has chronic a nxiety and insomnia Pt takes ativan qhs PRn and doing ok. Pt denies any depression or any suicidal or homicidal thought Pt denies any crying spells GERD1 Pt denies any GE RD Pt has been taking omeprazole post gastric sleeve Pt had negative EGD prior to surgery. Pt has tonny with bariatric surgeon in 2 weeks. Pt denies any abd pain. Pt states that she still feels full very quickly when she eats skin flap1 Pt has been havi ng some skin flap both upper arm after weight los surgery. Pt wants it fixed. Pt has been losing too much weight too quickly post sleeve insomnia1 Pt has chronic a nxiety and insomnia Pt takes ativan qhs PRn and doing ok. Pt denies any depression or any suicidal or homicidal thought Pt denies any crying spells knee pain1 Pt has left knee pain due to arthritis and cartilage issue. Pt does not want knee replacement now. Pt takes percocet PRN for knee pain Pt still has knee pain physical Pt needs annual physical. Pt has insomnia and anxiety. Pt takes ativan qhs PRN and doing ok. Pt denies any depression or any suicidal or homicidal thought Pt denies any crying spells Pt has chronic knee pain Pt takes percocet PRN and doing ok Pt c/o tension type of headache for several days Pt lizbeth any head injury or waking up at night with headache Pt denies any nausea, vomiting ,vision change, Pt denies any head injury or waking up at night with headache Pt lost 70 pounds sine gastric sleeve surgery 6 months ago. Pt denies any GI issue Pt tolerating food ok. Pt denies any abd pain. proteinuria1 Pt has proteinur ia pt denies any urinary symptoms weight loss1 Pt is s/p gastri c sleeve and she continues to lose weight Pt denies any nausea, vomiting Pt has occasional GERD when she eats spicy food. insomnia1 Pt has chronic a nxiety and insomnia Pt takes ativan qhs PRn and doing ok. Pt denies any depression or any suicidal or homicidal thought Pt denies any crying spells pain Pt has left knee pain due to arthritis and cartilage issue. Pt does not want knee replacement now. Pt takes percocet PRN for knee pain Pt still has knee pain weight loss1 Pt has been losi ng weight since sleeve surgery .Pt doing ok Pt is on vitamin supplement Pt denies any nausea, vomiting GERD GERD1 Pt has chronic G ERD since bariatric surgery. Pt is on omeprazole Pt had EGD done prior to surgery and was ok except for h pylori which she was treated with confirmed test of cure afterward by surgeon Pt has daily GERD without omeprazole . insomnia1 Pt has chronic a nxiety and insomnia Pt takes ativan qhs PRn and doing ok. pain1 Pt has left knee pain due to arthritis and cartilage issue. Pt does not want knee replacement now. Pt takes percocet PRN for knee pain Pt still has knee pain HTN Pt has been off toprol and irbesartan and her bp is very normal along with weight loss. Pt denies any headache or chest pain GERD1 Pt has been havi ng mild GERD since the surgery pt is taking omeprazole daily and b12 and MVI now Pt doing ok with meds. weight loss1 Pt has been losi ng weight since gastric sleeve two months ago Pt denies any abdominal pain, nausea, early satiety, vomiting, change of bowel, etc. Pt feels well overall since the weight loss insomnia1 Pt has chronic a nxiety and insomnia Pt takes ativan qhs PRn and doing ok. knee pain1 Pt has left knee pain due to arthritis and cartilage issue. Pt does not want knee replacement now. Pt takes percocet PRN for knee pain HTN Pt has history o f HTN Pt was taking metoprolol and irbesartan but she stopped metoprolol one month ago on her own and she is taking irbesartan still. her bp is ok Pt has been losing weight since gastric sleeve surgery two weeks ago. Pt denies any palpitation or chest pain insomnia1 Pt has chronic i nsomnia pt takes ativan qhs PRN and doing ok .Pt needs refilled chronic pain1 pt has chronic l eft knee pain Pt has severe chondromalacia. Pt is seeing ortho and she was told to do knee replacement but she does not want to do knee replacement yet. Pt takes percocet PRn for pain headache1 Pt has history o f headache. Pt has not been having headache Pt denies any head injury or waking up at night with headache HTN Pt has HTN. pt t akes irbesartan and metoprolol but she has not been taking irbesartan for 2-3 days Pt states that she forgot .her bp is borderline high Pt denies any chest gisela or worsening headache anxiety1 Pt has chronic a nxiety and insomnia. Pt doing ok with ativan qhs PRn Pt denies any depression or any suicidal thought .Pt denies any crying spells pain Pt has chronic s tress induced migraine headache .Pt doing ok with topamax . Pt takes percocet PRn for headache. Pt has headache on average once per week Pt denies any acute headache. Pt denies any worsening headache Pt denies any head injury or waking up at night with headache H pylori1 Pt has h pylori s/p triple therapy pt denies any abd pain or GERD Pt had benign EGD which was ok recently. Pt did do urea breath test last month which was negative for h pylori anxiety1 Pt has chronic a nxiety and insomnia. Pt doing ok with ativan qhs PRn Pt denies any depression or any suicidal thought .Pt denies any crying spells pain Pt has chronic s tress induced migraine headache .Pt doing ok with topamax . Pt takes percocet PRn for headache. Pt has headache on average once per week Pt denies any acute headache. Pt denies any worsening headache Pt denies any head injury or waking up at night with headache H pylori1 Pt had EGD done which showed H pylori. Pt was treated with amoxicillin and clarithromycin and omeprazole. Pt denies any GERD or abd pain. HTN Pt has chronic a nxiety and insomnia. Pt doing ok with ativan qhs PRn Pt denies any depression or any suicidal thought .Pt denies any crying spells pain1 Pt has chronic s tress induced migraine headache .Pt doing ok with topamax . Pt takes percocet PRn for headache. Pt has headache on average once per week Pt denies any acute headache. Pt denies any worsening headache Pt denies any head injury or waking up at night with headache HTN Pt has HTN pt ta kes irbesartan and metoprolol and his bp is ok. Pt denies any chest pain or headache insomnia1 Pt has chronic a nxiety and insomnia. Pt doing ok with ativan qhs PRn Pt denies any depression or any suicidal thought .Pt denies any crying spells HTN Pt has HTN .Pt t akes metoprolol and irbesartan Pt denies any chest pain Pt has occasional palpitation Pt is seeing cardiology and she had benign holter per patient and echo. headache1 Pt has chronic s tress induced migraine headache .Pt doing ok with topamax . Pt takes percocet PRn for headache. Pt has headache on average once per week Pt denies any acute headache. Pt denies any worsening headache Pt denies any head injury or waking up at night with headache headache1 Pt has chronic s tress induced migraine headache .Pt doing ok with topamax . Pt takes percocet PRn for headache. Pt has headache on average once per week Pt denies any acute headache. Pt denies any worsening headache Pt denies any head injury or waking up at night with headache insomnia1 Pt has chronic a nxiety and insomnia. Pt doing ok with ativan qhs PRn Pt denies any depression or any suicidal thought .Pt denies any crying spells insomnia1 Pt has chronic a nxiety and insomnia. Pt doing ok with ativan qhs PRn Pt denies any depression or any suicidal thought .Pt denies any crying spells headache1 Pt has chronic s tress induced migraine headache .Pt doing ok with topamax . Pt takes percocet PRn for headache. Pt has headache on average once per week Pt denies any acute headache. Pt denies any worsening headache Pt denies any head injury or waking up at night with headache headache1 Pt has chronic s tress induced migraine headache .Pt doing ok with topamax . Pt takes percocet PRn for headache. Pt has headache on average once per week Pt denies any acute headache. Pt denies any worsening headache Pt denies any head injury or waking up at night with headache insomnia1 Pt has chronic a nxiety and insomnia. Pt doing ok with ativan qhs PRn Pt denies any depression or any suicidal thought .Pt denies any crying spells HTN Pt takes irbesar [place] and metoprolol and her bp is borderline today Pt denies any chest pain weight gain1 Pt has been gain ing more weight. Pt failed diet and exercise. Pt is ready for weight loss surgery. insomnia1 Pt has chronic a nxiety and insomnia. Pt doing ok with ativan qhs PRn Pt denies any depression or any suicidal thought .Pt denies any crying spells headache1 Pt has chronic s tress induced migraine headache .Pt doing ok with topamax . Pt takes percocet PRn for headache. Pt has headache on average once per week Pt denies any acute headache. Pt denies any worsening headache Pt denies any head injury or waking up at night with headache physical Pt needs annual physical. Pt has chronic migraine headache. Pt had normal brain MRi. Pt has migraine headache 1-2 per week, usually triggers by stress. Pt takes topamax and percocet PRN. Pt failed imitrex. Pt denies any head injury or waking up at night with headache. Pt denies worsening headache. Pt has chronic anxiety and insomnia Pt takes ativan qhs PRn and doing ok Pt denies any snoring. Pt does have sleep apnea but she does not want to use CPAP. Pt also has HTN. Pt takes metoprolol and irbesartan and her bp is stable. Pt denies any acute new complaints . headache1 Pt has chronic s tress induced migraine headache .Pt doing ok with topamax . Pt takes percocet PRn for headache. Pt has headache on average once per week Pt denies any acute headache. Pt denies any worsening headache Pt denies any head injury or waking up at night with headache shoulder pain1 Pt has chronic r ight shoulder pain Pt has rotator cuff tear. Pt denies any redness, warmth or swelling Pt denies any radiculopathy or right arm weakness. Pt has tonny with dr. Jorge Luis noyola. insomnia1 Pt has chronic a nxiety and insomnia. Pt doing ok with ativan qhs PRn Pt denies any depression or any suicidal thought .Pt denies any crying spells pain Pt has chronic s tress induced migraine headache .Pt doing ok with topamax . Pt takes percocet PRn for headache. Pt has headache on average once per week Pt denies any acute headache. Pt denies any worsening headache Pt denies any head injury or waking up at night with headache insomnia1 Pt has chronic a nxiety and insomnia. Pt doing ok with ativan qhs PRn Pt denies any depression or any suicidal thought .Pt denies any crying spells shoulder1 Pt has chronic r ight shoulder pain Pt notices worsening pain with movement. Pt denies any injury Pt saw ortho and she supposes to do MRi of right shoulder. Pt did do ultrasound of right shoulder. Pt did receive injection of her left knee which helps . Pt denies any radiculopathy, Pt denies any neck pain HTN Pt has HTN Pt ta kes irbesartan and metoprolol Pt denies any chest pain or palpitation insomnia1 Pt has chronic a nxiety and insomnia. Pt doing ok with ativan qhs PRn Pt denies any depression or any suicidal thought .Pt denies any crying spells shoulder pain1 Pt c/o persisten t right shoulder pain. Pt notices radiation of pain down to right arm. Pt denies any neck pain Pt denies any right hand numbness and tingling Pt denies any weakness. Pt has tonny with ortho in two weeks. Pt denies any cold extremity pain1 Pt has chronic s tress induced migraine headache .Pt doing ok with topamax . Pt takes percocet PRn for headache. Pt has headache on average once per week Pt denies any acute headache. Pt denies any worsening headache Pt denies any head injury or waking up at night with headache headache1 Pt has chronic s tress induced migraine headache .Pt doing ok with topamax . Pt takes percocet PRn for headache. Pt has headache on average once per week Pt denies any acute headache. Pt denies any worsening headache Pt denies any head injury or waking up at night with headache insomnia1 Pt has chronic a nxiety and insomnia. Pt doing ok with ativan qhs PRn Pt denies any depression or any suicidal thought .Pt denies any crying spells headache1 Pt has chronic s tress induced migraine headache .Pt doing ok with topamax . Pt takes percocet PRn for headache. Pt has headache on average once per week Pt denies any acute headache. Pt denies any worsening headache Pt denies any head injury or waking up at night with headache insomnia1 Pt has chronic a nxiety and insomnia. Pt doing ok with ativan qhs PRn Pt denies any depression or any suicidal thought .Pt denies any crying spells shoulder pain1 Pt c/o right maribeth ulder pain for 5 months Pt denies any injury Pt lizbeth any deformity, swelling, redness or warmth. Pt notices worsening pain with shoulder movement. Pt denies any neck pain or radiculopathy. Pt denies any right upper extremity numbness or tingling or weakness COVID1 Pt was diagnosed with COVID on 03/10/21 and she started to have symptoms on 03/04/21. Pt had nausea, cough ,sob and fever, etc .Pt went to [facility] on 03/10[facility]21 and was tested positive .Pt has been symptoms free for 5 ays ago. Pt denies any fever, cough, sob, headache, GIs symptoms etc .Pt is not vaccinated ,Pt denies any loss of taste and smell headache1 Pt has chronic s tress induced migraine headache .Pt doing ok with topamax . Pt takes percocet PRn for headache. Pt has headache on average once per week Pt denies any acute headache. Pt denies any worsening headache Pt denies any head injury or waking up at night with headache insomnia1 Pt has chronic a nxiety and insomnia. Pt doing ok with ativan qhs PRn Pt denies any depression or any suicidal thought .Pt denies any crying spells headache1 Pt has temporal headache from stress .Pt doing ok with topamax . Pt takes percocet PRn for headache. Pt has headache on average once per week Pt denies any acute headache. Pt denies any worsening headache Pt denies any head injury or waking up at night with headache insomnia1 Pt has chronic a nxiety and insomnia. Pt doing ok with ativan qhs PRn Pt denies any depression or any suicidal thought .Pt denies any crying spells headache1 Pt has temporal headache from stress .Pt doing ok with topamax . Pt takes percocet PRn for headache. Pt has headache on average once per week Pt denies any acute headache. Pt denies any worsening headache Pt denies any head injury or waking up at night with headache insomnia1 Pt has chronic a nxiety and insomnia. Pt doing ok with ativan qhs PRn Pt denies any depression or any suicidal thought .Pt denies any crying spells hTN Pt has HTN .Pt t akes irbesartan and metoprolol and her bp is ok at home .Pt denies any chest pain. her bp is around 130/70 weight1 Pt is obese .Pt has chronic left knee pain Pt seen ortho in the past and she had MRi done which showed chondromalacia. Pt has not been able to lose weight. Pt denies any knee redness, warmth or swelling. Pt c/o worsening left knee pain recently insomnia1 Pt has chronic a nxiety and insomnia. Pt doing ok with ativan qhs PRn Pt denies any depression or any suicidal thought .Pt denies any crying spells headache1 Pt has temporal headache from stress .Pt doing ok with topamax . Pt takes percocet PRn for headache. Pt has headache on average once per week Pt denies any acute headache. Pt denies any worsening headache Pt denies any head injury or waking up at night with headache insomnia1 Pt has chronic a nxiety and insomnia. Pt doing ok with ativan qhs PRn Pt denies any depression or any suicidal thought .Pt denies any crying spells headache1 Pt has temporal headache from stress .Pt doing ok with topamax . Pt takes percocet PRn for headache. Pt has headache on average once per week Pt denies any acute headache. Pt denies any worsening headache Pt denies any head injury or waking up at night with headache HTN Pt has HTN Pt ta kes irbesartan and metoprolol Pt denies any chest pain or headache .Pt has not been checking her bp at home. headache1 Pt has temporal headache from stress .Pt doing ok with topamax . Pt takes percocet PRn for headache. Pt has headache on average once per week Pt denies any acute headache. Pt denies any worsening headache Pt denies any head injury or waking up at night with headache insomnia1 Pt has chronic a nxiety and insomnia. Pt doing ok with ativan qhs PRn Pt denies any depression or any suicidal thought .Pt denies any crying spells headache1 Pt has temporal headache from stress .Pt doing ok with topamax . Pt takes percocet PRn for headache. Pt has headache on average once per week Pt denies any acute headache. Pt denies any worsening headache Pt denies any head injury or waking up at night with headache weight gain1 pt is morbidly o bese Pt is non-committal to weight loss surgery and she keeps insisting on diet and exercise for the past 5 years but she has been only gaining weight. Pt is sedentary despite stating that she tries to exercise. Pt rarely exercise. 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 Pt states that she tried multiple different masks and she just could not tolerate it and she is off cpap now. Pt feels mild fatigue anxiety Pt has chronic a nxiety and insomnia. Pt doing ok with ativan qhs PRn Pt denies any depression or any suicidal thought .Pt denies any crying spells headache1 Pt has temporal headache from stress .Pt doing ok with topamax . Pt takes percocet PRn for headache. Pt has headache on average once per week Pt denies any acute headache. anxiety Pt has chronic a nxiety and insomnia. Pt doing ok with ativan qhs PRn Pt denies any depression or any suicidal thought .Pt denies any crying spells headache1 Pt has temporal headache from stress .Pt doing ok with topamax . Pt takes percocet PRn for headache. Pt has headache on average once per week Pt denies any acute headache. anxiety1 Pt has chronic a nxiety and insomnia. Pt doing ok with ativan qhs PRn Pt denies any depression or any suicidal thought .Pt denies any crying spells HTN Pt has HTN Pt ta kes irbesartan and metoprolol and her bp is around 130/70 at home Pt denies any chest pain headache1 Pt has temporal headache from stress .Pt doing ok with topamax . Pt takes percocet PRn for headache. Pt has headache on average once per week Pt denies any acute headache. anxiety1 Pt has chronic a nxiety and insomnia. Pt doing ok with ativan qhs PRn Pt denies any depression or any suicidal thought .Pt denies any crying spells headache1 Pt recently went to ER due to persistent headache x one week Pt states that she has not been drinking much fluid and she feels dehydrated. Pt denies any head injury or waking up at night with headache, Pt also feels mild dizziness ,Pt went to ER and lab and head CT and chest x ray were all normal, Pt was given migraine cocktail and sent home. Pt states that she is doing ok now. Pt is back to her baseline. Pt also felt some dizziness as well which resolved also palpitation1 Pt has intermitt ent palpitation, PT is seeing cardiology Pt is on metoprolol Pt just had follow up with cardiology and was told everything ok. Pt has sleep apnea but is noncompliant with cpap. Pt denies any palpitation while on metoprolol facial rash Pt c/o acute ons et of itching facial rash around chin and perioral area cheek since 3 days ago. Pt bought some disposable face mask and she wore the face mask for the first time and she noticed the onset of the rash shortly afterward. Pt denies any sore throat or any difficulty with swallowing or breathing PT denies any drooling. Pt denies any fever Pt has been applying neosporin and steroid cream to the area without any improvement. Pt also notices mild swelling around cheek area. Pt has not wore the same mask since the onset of the rash anxiety Pt has chronic a nxiety and insomnia. Pt doing ok with ativan qhs PRn Pt denies any depression or any suicidal thought .Pt denies any crying spells headache Pt has temporal headache from stress .Pt doing ok with topamax . Pt takes percocet PRn for headache. Pt has headache on average once per week Pt denies any acute headache. 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 anxiety Pt has chronic a nxiety and insomnia. Pt doing ok with ativan qhs PRn Pt denies any depression or any suicidal thought .Pt denies any crying spells headache1 Pt has temporal headache from stress .Pt doing ok with topamax . Pt takes percocet PRn for headache. Pt has headache on average once per week Pt denies any acute headache. sob Pt c/o sob with mild dry cough x 4-5 days. Pt denies any fever Pt feels loss of taste but no loss of smell. Pt has sinus congestion. Pt just came back from [place] with plane ride .Pt denies any sick contact anxiety1 Pt has chronic a nxiety and insomnia. Pt doing ok with ativan qhs PRn Pt denies any depression or any suicidal thought .Pt denies any crying spells HTN Pt has HTn. Pt t akes irbesartan and metoprolol her bp is ok. headache1 Pt has temporal headache from stress .Pt doing ok with topamax . Pt takes percocet PRn for headache. Pt has headache on average once per week Pt denies any acute headache. headache1 Pt has temporal headache from stress .Pt doing ok with topamax . Pt takes percocet PRn for headache. Pt has headache on average once per week Pt denies any acute headache. anxiety1 Pt has chronic a nxiety and insomnia. Pt doing ok with ativan qhs PRn Pt denies any depression or any suicidal thought .Pt denies any crying spells physical Pt needs annual physical pt has chronic stress headache Pt takes topamax and percocet PRN Pt has headache 1-2 per week. Pt has anxiety and insomnia ,Pt takes ativan qhs PRn and doing ok. Pt is noncompliant with sleep apnea. Pt has HTn .Pt takes irbesartan and metoprolol. pt sees cardiology .Pt denies any chest pain or palpitation. Pt denies any other complaints headache1 Pt has temporal headache from stress .Pt doing ok with topamax . Pt takes percocet PRn for headache. Pt has headache on average once per week Pt denies any acute headache. anxiety1 Pt has chronic a nxiety and insomnia. 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 anxiety1 Pt has chronic a nxiety and insomnia. Pt doing ok with ativan qhs PRn Pt denies any depression or any suicidal thought .Pt denies any crying spells headache1 Pt has temporal headache from stress .Pt doing ok with topamax . Pt takes percocet PRn for headache. Pt has headache on average once per week Pt denies any acute headache. Pt takes percocet PRn for headache. Pt has headache 1-2 per week but mild. Pt needs topamax refill palpitation1 Pt has palpation . Pt recently had acute episode of palpitation and heart racing while in the kitchen and she had some stutter of speech Pt went to ER and her BP was high and she had negative CTA of brain and her BP was high also Pt had negative lab and she was sent home. 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 Pt does feel fatigue anxiety1 Pt has insomnia and anxiety and she takes ativan qhs PRN and doing ok ,PT denies any depression or any suicidal or homicidal thought. Pt denies any crying spells . headache1 Pt has temporal headache from stress .Pt doing ok with topamax . Pt takes percocet PRn for headache. Pt has headache on average once per week Pt denies any acute headache. Pt takes percocet PRn for headache. Pt has headache 1-2 per week but mild palpitation1 Pt went to see c ardiology for palpitation Pt wakes up in the middle of the night several times due to palpitation .Pt was started on toprol by cardiology and she has not had anymore palpitations. pt had benign cardiac echo recently. 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 anxiety1 Pt has insomnia and anxiety and she takes ativan qhs PRN and doing ok ,PT denies any depression or any suicidal or homicidal thought. Pt denies any crying spells . headache1 Pt has temporal headache from stress .Pt doing ok with topamax . Pt takes percocet PRn for headache. Pt has headache on average once per week Pt denies any acute headache. 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 pt has cpap set up soon with [facility]. palpitation1 Pt has intermitt ent palpitation . Pt has mild chest pain. Pt denies any exertional chest pain Pt denies any acute chest pain. Pt denies any sob anxiety1 Pt has insomnia and anxiety and she takes ativan qhs PRN and doing ok ,PT denies any depression or any suicidal or homicidal thought. Pt denies any crying spells . headache1 Pt has temporal headache from stress .Pt doing ok with topamax . Pt takes percocet PRn for headache. Pt has headache on average once per week Pt denies any acute headache. Pt takes percocet PRn for headache palpitation1 Pt recently felt acute onset of chest pain and palpitation last week Pt states that she feels burning sensation around her chest area .Pt denies any sob. Pt went to [facility] and had negative EKG and had some scans and lab work and was normal. Pt was sent home with panic attacks. Pt does feel stressed out and she has frequent panic attacks. Pt denies any dizziness. Pt denies any acute palpitation or chest pain. Pt denies any exertional chest pain or palpitation anxiety1 Pt has insomnia and anxiety and she takes ativan qhs PRN and doing ok ,PT denies any depression or any suicidal or homicidal thought. Pt denies any crying spells . 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 Pt takes percocet PRn for headache. Pt has headache on average once per week Pt denies any acute headache. Pt takes percocet PRn for headache headache1 Pt has temporal headache from stress .Pt doing ok with topamax . Pt takes percocet PRn for headache. Pt has headache on average once per week Pt denies any acute headache anxiety1 Pt has insomnia and anxiety and she takes ativan qhs PRN and doing ok ,PT denies any depression or any suicidal or homicidal thought sleep apnea Additional infor milagros: Pt just had sleep study done yesterday. HTN Pt has HTN. Pt t akes irbesartan. His BP is 130/80 at home. headache1 Pt has chronic s tress headache pt take percocet PRN for pain and doing ok pt failed multiple migraine meds. pt denies any head injury or waking up at night with headache. Pt is on topamax. Pt states that headache is not as severe and is less frequent. Pt has headache 1-2 per week anxiety1 Pt has chronic a nxiety and insomnia Pt takes ativan qhs PRN and doing ok Pt failed SSRI. Pt denies any suicidal or homicidal thought. pt doing ok currently anxiety1 Pt has chronic a nxiety and insomnia Pt takes ativan qhs PRN and doing ok Pt failed SSRI. Pt denies any depression. Pt denies any suicidal or homicidal thought. pt doing ok currently headache1 Pt has chronic s tress headache pt take percocet PRN for pain and doing ok pt failed multiple migraine meds. pt denies any head injury or waking up at night with headache. Pt states that topamax is helping her headache EKG Pt had cardiac e cho done which is benign HTN Pt has HTn. Pt s tarted irbesartan last month. her BP is ok today pt tolerating irbesartan ok Pt denies any dizziness, chest pain TIA1 Pt recently went to ER due to acute onset of dizziness, blurred vision on left side, and some left hand numbness and tingling while driving to work about 7 days ago Pt denies any chest pain. Pt feels slightly sob also. pt went to Er and had negative head CT and troponin. EKG showed sinus bradycardia with sinus arrhythmia with possible left atrial enlargement. Pt was sent home with diagnosis of TIA. Pt states that she has throbbing headache on left side of face and scalp since ER visit. Pt states that she has headache all day now. Pt does have chronic migraine which has the same quality but usually goes away but this one has not completely gone away yet .pt denies any chest pain. Pt has mild nausea with photophobia currently ,Pt denies any head injury Pt denies waking up at night with headache, Pt denies any weakness. Pt notices mild persistent left 4th and 5th finger numbness since last week. pt denies any palpitation. Pt denies any speech problem.. Pt denies any facial droop or numbness .Pt states that she still notice mild blurred vision on left eye. Pt denies any facial pain or tingling HTN Pt has HTN Pt de nies any chest pain. Pt is noncompliant with BP med anxiety1 Pt has chronic a nxiety and insomnia Pt takes ativan qhs PRN and doing ok Pt failed SSRI. Pt denies any suicidal or homicidal thought fatigue1 Pt c/o chronic f atigue Pt snores at night Pt does have headache in the morning. chronic pain1 Pt has chronic s tress headache pt take percocet PRN for pain and doing ok pt failed multiple migraine meds. pt denies any head injury or waking up at night with headache anxiety1 Pt has insomnia with anxiety Pt denies any depression or any suicidal thought Pt denies any crying spells. Pt doing ok with ativan , Pt denies any snoring or any trouble with breathing at night physical Pt has chronic s tress headache pt take percocet PRN for pain and doing ok pt failed multiple migraine meds. pt denies any head injury or waking up at night with headache anxiety1 Pt has insomnia with anxiety Pt denies any depression or any suicidal thought Pt denies any crying spells. Pt doing ok with ativan , Pt denies any snoring or any trouble with breathing at night PHysical PT needs annual physical. Pt has chronic headache ,Pt takes percocet PRN Pt failed multiple prophylactic meds. Pt had normal brain MRI. Pt has headache 1-2 per week due to stress and tension. Pt has insomnia and anxiety. Pt takes ativan qhs PRN. Pt doing ok. Pt has chronic severe left knee pain Pt has tonny with ortho [facility] soon Pt failed injections. Pt does not want knee replacement. Pt denies any other complaints, Pt has not been taking hctz Pt denies any edema ,Her BP is stable knee pain1 Pt has chronic s evere left knee pain Pt notices left knee swelling intermittently pt failed PT and injection Pt colon not want knee replacement yet. Pt has 7/10 pain Pt denies any redness or warmth HTN pt has HTn pt ta kes HCTZ and her BP is ok headache1 Pt has chronic s tress headache pt take percocet PRN for pain and doing ok pt failed multiple migraine meds. insomnia1 Pt has insomnia with anxiety Pt denies any depression or any suicidal thought Pt denies any crying spells. Pt doing ok with ativan , Pt denies any snoring or any trouble with breathing at night pain1 Pt c/o chronic l eft knee pain with intermittent swelling Pt had knee injection x 3 shots to help with rebuilding the cartilage which did not help at all. Pt states that she has left knee pain continuously, worse when she on her feet Pt has 6/10 sharp pain, pt does not want knee replacement Pt denies any redness or warmth of the knee headache1 Pt has chronic h eadache. Pt has stress related headache. Pt takes percocet PRn for headache Pt denies any head injury or worsening headache. Pt denies waking up at night with headache pt failed amitriptyline and topamax and imitrex. Pt denies any acute headache HTN Pt has HTn. Pt t akes hctz but she forgot to take it day. Pt did not check her BP while on HCTZ. Pt denies any chest pain or worsening headache anxiety1 Pt has chronic a nxiety and insomnia, Pt takes ativan qhs PRn and doing ok pt denies any depression or any suicidal thought. Pt denies any crying spells. pain1 Pt has chronic h eadache. Pt has stress related headache. Pt takes percocet PRn for headache Pt denies any head injury or worsening headache. Pt denies waking up at night with headache pt failed amitriptyline and topamax and imitrex. Pt denies any acute headache anxiety1 Pt has anxiety a nd insomnia. Pt denies any snoring or any trouble with breathing at night. Pt takes ativan qhs PRn and doing ok. Pt denies any depression or any suicidal thought breast Additional infor mation: Pt had normal breast mammo and ultrasound. Pt denies any breast nodule or mass or pain or discoloration or nipple discharge. HTN Pt has mild hTN. Pt denies any chest pain. Pt denies any edema knee pain1 Pt has chronic l eft knee pain. 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 Pt is limping around all the time. Pt denies any recent injury or redness or warmth Pt already got steroid injection by ortho and she will get hyalgan injection soon Pt has sharp 6/10 pain, especially when she walks. pt denies any calf pain. HTN Pt has HTN pt de nies any chest pain or headache headache1 Pt has chronic h eadache. Pt denies any acute headache. Pt denies any worsening headache. Pt denies any head injury or waking up at night with headache. Pt takes percocet PRN for headache Pt has headache 2-3 per week, due to stress anxiety1 Pt has chronic a nxiety and insomnia. Pt takes ativan qhs PRn and doing ok. Pt denies any depression or any suicidal or homicidal thought Pt denies any crying spells breast1 Pt denies any br east issue. Pt denies any breast pain, nipple discharge, discoloration. Pt needs follow up mammo headache1 Pt has migraine headache and stress related headache, PT denies any head injury or waking up at night with headache pt failed prophylactic meds Pt takes percocet PRN. Pt has headache 2-3 per week. Pt denies any acute headache insomnia1 Pt has chronic i nsomnia and anxiety, Pt denies any depression or any suicidal thought Pt denies any crying spells. Pt takes ativan qhs PRN and dong ok. Pt denies any snoring or any trouble with breathing at night sinus1 Pt c./o sinus co ngestion, sinus pain, without nasal drainage for one week Pt denies any sore throat, coughing pt denies any ear pain Pt denies any sinus headache flank pain1 Pt c/o intermitt ent right flank pain for several weeks. Pt notices radiating pain to right lower back. Pt states that positional change causes sharp pain. Pt denies any UTi symptoms her UA was normal. Her Ct scan was normal. Pt denies any worsening pain. insomnia1 pt has mild inso mnia and anxiety. Pt denies any depression or any suicidal thought. Pt denies any crying spells. Pt states that ativan is helping her to calm down at night and sleep better. headache headache1 Pt has chronic s tress induced headache Pt denies any worsening headache Pt denies any acute headache Pt denies any head injury or waking up at night with headache. HTN Her BP is ok tod ay. Pt denies any chest pain panic attacks1 Pt has intermitt ent panic attacks. Pt does not want to take SSRis. Pt used to take benzo. Pt denies any depression or any suicidal thought. Pt tried and failed multiple SSRIs flank pain1 Pt c/o right fla nk pain on and off for two months Pt c/o sharp pain, worse with movement. Pt denies any fever, chill, nausea, vomiting. Pt notices urinary frequency for two weeks. Pt denies any burning. Pt denies any urgency. Pt denies any back pain. pt denies any loss of bladder control. Pt denies any loss of bladder control HTN1 Pt has HTn Pt de nies any chest pain or headache anxiety1 Pt has mild anxi ety and depression Pt no longer take paxil. pt states that she is dealing with her mood ok now .Her mom recently so she is going through some grieving process now. Pt denies any suicidal or homicidal thought knee pain1 Pt has chronic l eft Knee pain. Pt has arthritis .Pt denies any redness or swelling Pt denies any injury Pt is seeing ortho now and will get injection soon. Pt is doing PT now headache1 Pt has chronic h eadache. Pt failed multiple prophylactic meds. Pt failed imitrex. Pt takes percocet PRn. Pt denies any acute headache Pt denies any worsening headache Pt denies waking up at night with headache proteinuria1 Pt denies any UT i symptoms. her urine albumin is normal headache1 Pt has chronic n onspecific headache. Pt denies any head injury . Pt denies any worsening headache. Pt failed imitrex, amitriptyline, propranolol, and topamax. pt denies any acute headache. Pt denies waking up at night with headache proteinuria1 Pt has proteinur ia. Pt denies any UTI symptoms HTN Pt has mild HTN today. Pt denies any chest pain or headache knee pain1 Pt has chronic l eft knee pain Pt denies any worsening pain Pt notices mild swelling. Pt denies any erythema or warmth. Pt had MRI done which showed chondromalacia. Pt will do PT. Pt does NOT want injection. Ortho told her no surgery. Pt needs to lose weight anxiety1 Pt has chronic a nxiety and depression Pt takes paxil and doing better. Pt denies any suicidal or homicidal thought. Pt states that 20 mg paxil is helping her mood better. pt denies any crying spells headache1 Pt has chronic s tress headache Pt has normal MRI of brain Pt denies any acute headache Pt denies any waking up at night with headache Pt denies any worsening headache Pt states that her headache is throbbing and pressure and is stress related. Pt has headache 2-3 per week. Pt failed topamax, amitriptyline and imitrex in the past .Pt denies head injury HTN Pt has borderlin e HTn. Pt denies any chest pain. pt has intermittent elevated HTN in the past. Pt filed propranolol in the past knee pain1 Pt has arthritis on left knee with chondromalacia. Pt will have injection by ortho soon .Pt denies any worsening pain proteinuria1 Patient has mild protein in her urine. Patient denies any UTI symptoms. sick1 Patient complain ed of mild sinus congestion, sore throat, productive coughing with clear phlegm mild ear pain for about a week. Patient denies any fever or chills patient denies any recent travel. Patient denies any sick contact. Patient denies any GI issue. 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 Her mom just recently. Patient has been having crying spells. Patient has been having anxiety attack. Patient denies any suicidal homicidal thoughts. Patient stated that Resonant Vibes has not been working really well for her depression and anxiety. Patient took several leftover Klonopin spell she is out now. headache1 Patient has boarding room fixer inocencia nonspecific headache. Patient had normal brain MRI. Patient has stress and tension type headache. Patient failed amitriptyline and Topamax. Patient also failed Imitrex. Patient takes Percocet as needed for headache. Patient has headache 2to 3 times per week. Patient denies any acute headache. 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 Patient denies any suicidal homicidal thoughts. Patient denies any crying spells. Pt states that lexapro is not helping her symptoms. headache1 Patient has boarding room fixer inocencia nonspecific headaches. Patient had normal brain MRI. Patient complained of frequent throbbing headache without nausea or photophobia. Patient states that her headaches are related to stress. Patient has been taking ibuprofen without improvement. Patient denies any head injury or we have at night with headache. Patient denies any acute headache. anemia1 Pt has history o f anemia. Pt had normal colonoscopy. Pt denies any GI bleeding Pt did have fibroid with heavy period. Pt is s/p hysterectomy recently. mammo1 Pt has abnormal mammogram. Pt has right breat mass. Pt denies any breast issue. Pt denies any palpable mass. Pt denies any breast discoloration or nipple drainage knee pain1 Pt c/o left knee pain and swelling for two weeks. pt denies any injury. Pt is able to walk ok. Pt c/o pain which is worse with walking or bending. Pt denies any redness or warmth. headache1 Pt has chronic h eadache. Pt takes percocet PRN. Pt states that her daughter accidently threw percocet to the toilet two weeks ago. Pt has not had any opioid for two weeks. Her UDS failed to show any percocet, instead, ultram showed up again. Pt denies using ultram Anxiety1 Pt has chronic a nxiety and depression. Pt takes lexapro and klonopin PRN and doing ok. Pt denies any suicidal thought and homicidal thought headache1 Pt has chronic s tress induced headache Pt denies any worsening headache Pt denies any head injury Pt denies waking up at night with headache. 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 Pt denies any head injury Pt denies waking up at night with headache back pain1 Pt denies any lo w back pain anymore Pt did not do x rays anxiety1 Pt has chronic a nxiety and depression Pt takes Lexapro and Klonopin PRN and doing ok. Pt denies any suicidal or homicidal thought hysterectomy1 Pt is s/p partia l hysterectomy. Pt used to have heavy bleeding from fibroid. chronic pain1 Pt has chronic t ension headache. Pt denies any head injury Pt denies any worsening headache Pt denies waking up at night with headache anxiety1 Pt has chronic a nxiety and depression Pt takes lexapro and Klonopin and doing ok. Pt states that lexapro does improve her mood Pt denies any suicidal or homicidal thought .Pt denies any crying spells fibroid1 Pt recently had partial hysterectomy Pt has pain around the surgical site. Pt was just released from hospital yesterday. Pt denies any fever, chill low back pain1 Pt has low back pain Pt has not done x ray yet. Pt denies any sciatica or any loss of bladder control PHysical Pt needs annual physical Pt has chronic anxiety and depression Pt took one day of lexapro and stopped it stating it made her feel weird Pt is on klonopin Pt takes percocet PRN for headache. Pt has stress headache. Pt has pressure and dull headache. Pt has headache 2-3 per week pt denies any head injury Pt denies waking up at night with headache Pt also has low back pain for several months Pt denies any injury Pt denies any sciatica or any loss of bladder control. Pt has intermittent sharp pain low back area Pt will have hysterectomy soon due to fibroid. Pt denies any leg numbness. Pt needs surgical clearance. headache1 Pt has chronic i ntermittent stress induced headache. Pt failed topamax and amitriptyline and imitrex. Pt failed propranolol. Pt denies any acute headache. Pt has headache 1-2 per week. Pt has tension and throbbing headache. Pt takes percocet PRn for headache anxiety1 Pt has chronic a nxiety pt denies any depression or any suicidal thought pt denies any crying spells. Pt takes klonopin PRN and doing ok headache1 Pt has tension h eadache. Pt failed prophylactic. Pt failed imitrex. Pt takes percocet PRN for headache. and doing ok. Pt has headache 1-2 per week. Pt denies any head injury. Pt denies waking up at night with headache. Pt denies any worsening headache anxiety1 Pt has chronic a nxiety. Pt denies any depression or any suicidal thought. Pt denies any crying spells. Pt failed SSRI in the past headache1 Pt has chronic s tress headache. Pt had negative headache work up. Pt states that when her father recently. the hospice nurse left some norco for her. Pt feels stressed out with worsening headache so she took some norco along with percocet. Pt states that she will NEVER do that again. Pt denies any respiratory suppression. neck pain1 Pt c/o tension t ype of headache for the past week. Pt denies any injury Pt feels tension pain from right side neck radiating to all her headache. Pt feels throbbing headache with photophobia and nausea. Pt denies any head injuryk. Pt denies waking up at night with headahe anxiety1 Pt has chronic a nxiety. Pt denies any depression or any suicidal thought Pt take klonpin PRn. Pt denies any suicidal or homicidal thought. Pt denies any cyring spells. polyuria1 Pt states that s he has been having polyuria for one week Pt denies any burning or urgency. Pt denies any flank pain HTN Pt has mild HTn today. Pt deneis any chest pain. Pt has chornic intermitent headache. anxiety1 Pt has chronic a nxiety, Pt denies any depression or any suicidal thought Pt takes klonopin PRN and doing ok. Pt denies any suicidal thought. Pt denies any cyring spells headache1 Pt has chronic i ntermittent headache. Pt denies any acute headache. Pt had benign brain MRi. Pt failed topamax and propranolol. Pt has headahce 2-3 per month. Pt c/o throbbing headache sinus Pt c/o mild sinu s congestion, sore throat, ear pain for 2-3 days. Pt denies any sinus drainage. Pt denies any acute headache. Pt denies any chest pain. Pt feels subjective sob since she has diffiuclty breathing through her nose renal lesion Pt had repeat ab dominal Ct done and renal lesion resolved. Pt denies any abdominal pain headache1 Pt has intermitt ent headache. Pt takes percocet PRN for headache. Pt failed prophylactic meds. Pt has migraine like headache. Pt denies any acute headache anxiety1 Pt has chornic a nxiety Pt denies any depression or any suicidal thought. Pt denies any cyring spells. Pt takes klonpin PRN and doing ok anemia1 Pt no longer ane sandrita. Pt has mildly low iron. Pt has bleeding fibroid Pt just seen [facility] and she will get IUD soon. Pt had negative colonosocpy. Pt denies any abd pain Physical Pt needs annual physical. Pt has chronic intermittent headahe Pt failed prophylactic meds. Pt has migraine vs stress induced headahce. Pt failed imitrex topamax, propranolol ,etc. Pt has headahce 2-3 per months, usually induced by stress. Pt denies any acute headache. Pt c/o recurrent right flank pain for 4 weeks. Pt denies any injury. Pt notices sharp and dullache. Pt denies any UTI symptoms Pt has right kidney lesion which is being followed up urology but she has trouble making follow up appointment. Pt denies any fever, chill. Pt denies any other complaints anemia1 Pt had mild anem ia Pt had mild anemia last year but her later lab did not show anemia. Pt denies any nauea, vomiting, abd pain Pt denies any GERD> pt had colonospcy done last year but never did EGD Pt just got a call from GI about the EGD now. Pt wants to know if she can skip it. fibroid pt has uterine f iboid. Pt has appointment to discuss fibroid with [facility] in one week. Pt has some heavy bleeding headache1 pt takes pecocet PRN No change in headache. No acute headache C diff pt had c diff re cently. Pt was treated with vancomycin and she no longer has diarrhea or abd pain. Pt doing ok now anxiety1 Pt has chronic a nxiety. Pt denies any depression or anys uicidal thought Pt is off propranolol and klonpin PRN. Pt denies any crying spells headache1 Pt has recurrent headache. Pt failed imitrex. Pt takes percocet PRN and doing ok Pt denies any acute headache fibroid Pt has uterine f ibroid. Pt has irregular menstrual bleeding. Pt told me she never got a c all from [facility] reanl infarct1 Pt denies any ab d pain or flank pain Pt needs repeat Ct soon. Pt denies any UTI symptoms colitis1 Pt has colitis. Pt took augmentin and flagyl and her abd pain resolved. Pt denies any blood in stool. Pt did not do the c diff toxin yet. Pt still has mild nonbloody diarrhea fibroid1 Pt has fibroid a nd she needs to have hysterectomy and she was told she needs surgical clearance. Pt does have some excessive bleeding. Pt is mildly anemic. Pt has mild pelvic pain. Pt has pain with intercouse Pt was [place] [facility] [place] [facility] is not comfortable with it. Pt wants to see doctor somewhere for surgery right flank pain1 Pt c/o right f lank pain for one week. Pt went to ER and she was found to have mild leukocytosis and also low KCL. Pt has been having intermittent vomiting and nonbloody diarrhea. Pt had CT which showed right pyelo vs renal infarct. Pt had normal urine test in ER. Pt was given augmentin but not helping her pain. Pt feels feverish and chilll. Pt has 9/10 right flank pain. Pt also has colitis. Pt just had normal colonosopcy recently anemia1 Pt has chronic a nemia. Pt states that she has heavy period Pt had negative colonosocpy recently. Pt has not done EGD yet pt denies any GI blood loss headache1 Pt has headache. Pt has migraine headache. pt has throbbing headache. Pt denies any head injury. Pt has photophobia and nausea with headache. Pt has headache daily. Pt had normal MRI of brain. axillary lymph Pt has painful n odule both axillay area for 5 days Pt c/o pain and itching Pt notices white drainage from the area. . Pt denies any fever anxiety1 Pt has chronic a nxiety Pt denies any depression or any suicidal thought. pt denies any crying spells Anemia1 Pt has mild anem ia. Pt still has not done EGD and colonoscopy yet. Pt has heavy period and she is seeing seed cleaner for it. Pt denies any dizziness. headache1 Pt has chronic h eadache. Pt had normal MRi. Pt failed topamax and amitriptyline. Pt failed imitrex. Pt thinks that she has stress headache. Pt denies any head injury. Pt denies any worsenign headache. Pt denies waking up at night with headache abd pain1 Pt has some righ t side abd pain Pt has appointment with GI tomorrow Pt denies any worsening pain. Pt needs endoscopy. Pt may have IBS abd pain Pt c/o intermitt ent right upper quadrant pain radiating to right flank and side for one month. Pt c/o pain daily. Pt c/o sharp pain. Pt states that sometimes the pain is throbbing. Pt denies any nausea, vomiting, diarrhea. Pt denies any GERD symptoms. Pt denies any fever. Pt feels some chillls. Pt notices urinary frequency for 2 weeks. Pt denies any dysuria anxiety1 Pt has chronic a nxiety. Pt denies any depression or any suicidal thought. Pt denies any crying spells. anxiety1 Pt has chronic a nxiety Pt denies any deprssion or any suicidal thought. Pt takes buspar and klonpin and doing ok. Pt denies any cyring spells. dysphagia1 Pt denies any GE RD or dysphagia. Pt is off omeprazole. Pt doing ok. Pt is noncompliant with EGD and colonoscpy EKG Pt denies any ch est pain. Pt seen Dr. Amos and she is started on pravastatin. Pt had another EKG and was ok per pt at cardiology office. Pt told me she went to Dr. Castorena office and was told they dont take her insurance. edema1 Pt has mild LE e julio sometimes. Pt denies any SOB. Pt denies any calf pain dysphagia1 pt feels somethi ng around throat area and dysphagia. pt is taking omeprazole and feeling slighlty better. Esophagram is normal headache1 Pt has chronic m igraine headache pt takes percocet PRN for now. Pt denies any wrosening pain neck pain1 Pt has neck pain and some burning feeling posterior neck radiating to her saclp for 3 days. Pt denies any injury. Pt denies any radiculopathy ekg Pt has abnormal EKG Pt has chest pain intermittently Nonexertional. Pt feels sharp pain here and there. Pt had negative cardiac stres test several years ago. dysphagia1 Pt has been havi ng dysphagia for two weeks. pt states that she has difficulty swallowing liquid and solid food. Pt denies any chest pain. pt statse that she feels that her throat is closing up sometimes Pt states that buspar did not help with any of her headache or anxiety. Pt states that klopin did help but made her drowsy. carotid stenosis Pt has 50-69% s tenosis on right carotid side and less than 50 on left side Pt denies any unilateral weakness or numnbess. anemia1 Pt has anemia. P t will have EGD and colonoscopy next week panic panic1 Pt was at work t wo weeks ago and felt sudden onset of burning feeling around left side neck, difficulty with swallowing, difficulty with breathing, finger tingling and numbness on left side only Pt denies any headache or any vision problem. Pt deneis any speech problem. Pt was rushed to ER and she had lab done which was normal. Pt did have normal eKG also. Pt was told she had panic attacks and sent home with klonpin Pt tired klonpin which helps her feels calm. Pt states that above episode occured 3 more times during last week. pt states that the episodes is not related to activity. Pt took klonpin when it occured and it did help Pt denies any depression or any suicial or homicidal thought. Pt denies any chest pain. Pt denies feeling anxiety or depression headache1 Pt has chronic m igraine headache. Pt has headache 1-2 per week. Pt denies any worsening headache. Pt takes percocet PRN and doing ok. Pt denies any worsening headahce, NO head injury anemia1 Pt has mild anem ia. Pt denies any urinary or bowel bleeding. Pt does have heavy period. Pt denies any GI complaints low D Pt has low D Pt denies any history of fracture HTN Pt has HTN. Pt d enies any chest pain or worsening headahe Physical Pt needs annual physical. Pt has intermittent migraine headache and she takes percocet for it. Pt has headache 2-3 per week but not as bad. Pt failed prophylactic meds. Pt denies photophobia or nausea with headache. Pt feels more headahe during stress at work. Pt denies any injury. Pt c/o right flank pain for 4 weeks. Pt feels sharp pain, worse when lying down. Pt states that when she sits for time, she notices throbbing. Pt denies sciatica, Pt denies any back pain. Pt denies any UTI symptoms Pt just had [facility] exam which was ok per patient. Pt tried flexeril but did not help. Pt denies any other complaints anxiety1 Pt has chronic a nxiety. Pt denies any depression or any suicidal thought. Pt states that valum is helping her with relaxation and muscle tension. headache Additional infor mation: Pt has chornic headache, throbbing in nature. Pt has headache 2-3 per months. Pt denies change in quality of headache. Pt takes percocet for headache. Pt failed prophylactic meds. NO acute headache. flank pain Associated sympt oms include back pain. Pertinent negatives include diarrhea, dysuria, fever, hematuria, urinary frequency and vomiting. Additional information: Pt has sharp intermittent right flank pain for at least 6 months. Pt has pain about 5 times per week. Pt states that the pain is sharp and worse with certain movement Pt was evaluated by [facility] and no ovarian or [facility] issue. Pt denie any radiation of pain. headache Pertinent negati ves include memory loss or vomiting. Additional information: Pt has intermittent headache, throbbing and sharp pain on top of head for at least several years. Pt has headache 2-3 per week. Pt has photophobia and nauea with headache. No heada injury. Amitriptyline is not working. Obesity Additional infor mation: Pt is obese. Pt only takes phentemrine here and there Pt feels more energy. Pt denies any worsening headahe. Pt only takes phentermine here and there. Not daily .Pt denies any chest pain. headache Pertinent negati ves include memory loss or vomiting. Additional information: Pt has chronic intermittent headache. No worsening headache. Pt takes percocet PRN for headache. Pt has headahe twicer per week. Amtiriptyline qhs did help. hematuria Pt has hematuria . Pt denies any UTI symptoms vitamin D Pt has low vitam in D. Instructions Date Instruction Additional Infor barbiemichael Special diet education Related t o Body mass index (BMI) 45.0-49.9, adult Special diet education Related t o Body mass index (BMI) 45.0-49.9, adult Increase activity. Related to Es sential (primary) hypertension Follow a low sodium diet. Relate d to Essential (primary) hypertension Special diet education Related t o Body mass index (BMI) 45.0-49.9, adult Increase physical activity Relat ed to Generalized anxiety disorder Weight management Related to Gen eralized anxiety disorder Special diet education Related t o Body mass index (BMI) 45.0-49.9, adult Increase physical activity Relat ed to Headache Weight management Related to Hea dache Follow a low sodium diet. Relate d to Essential (primary) hypertension Special diet education Related t o Body mass index (BMI) 45.0-49.9, adult Increase activity. Related to Es sential (primary) hypertension Special diet education Related t o Body mass index (BMI) 45.0-49.9, adult Weight management Related to Hea dache Weight management Related to Gen eralized anxiety disorder Special diet education Related t o Body mass index (BMI) 45.0-49.9, adult Increase physical activity Relat ed to Generalized anxiety disorder Special diet education Related t o Body mass index (BMI) 45.0-49.9, adult Increase physical activity Relat ed to Headache Weight management Related to Hea dache Medications as instructed Relate d to Abdominal pain Special diet education Related t o Body mass index (BMI) 45.0-49.9, adult Medications as instructed Relate d to Abdominal pain Special diet education Related t o Body mass index (BMI) 45.0-49.9, adult Increase physical activity Relat ed to Generalized anxiety disorder Weight management Related to Gen eralized anxiety disorder Special diet education Related t o Body mass index (BMI) 45.0-49.9, adult Increase physical activity Relat ed to Proteinuria Weight management Related to Pro teinuria Special diet education Related t o Body mass index (BMI) 45.0-49.9, adult Increase physical activity Relat ed to Headache Weight management Related to Hea dache Special diet education Related t o Body mass index (BMI) 45.0-49.9, adult Follow a low sodium diet. Relate d to Essential (primary) hypertension Special diet education Related t o Body mass index (BMI) 45.0-49.9, adult Increase physical activity Relat ed to Headache Weight management Related to Hea dache Special diet education Related t o Body mass index (BMI) 45.0-49.9, adult Increase physical activity Relat ed to Inconclusive mammogram Weight management Related to Inc onclusive mammogram Special diet education Related t o Body mass index (BMI) 40.0-44.9, adult Increase physical activity Relat ed to Generalized anxiety disorder Weight management Related to Gen eralized anxiety disorder Increase physical activity Relat ed to Headache Weight management Related to Hea dache Special diet education Related t o Body mass index (BMI) 45.0-49.9, adult Special diet education Related t o Body mass index (BMI) 45.0-49.9, adult Increase physical activity Relat ed to Encounter for general adult medical exam w abnormal findings Weight management Related to Enc ounter for general adult medical exam w abnormal findings Special diet education Related t o Body mass index (BMI) 45.0-49.9, adult Special diet education Related t o Body mass index (BMI) 45.0-49.9, adult Increase physical activity Relat ed to Headache Weight management Related to Hea dache Prescribed dietary intake Relate d to Body mass index (BMI) 45.0-49.9, adult Weight management Related to Hea dache Prescribed dietary intake Relate d to Body mass index (BMI) 45.0-49.9, adult Increase physical activity Relat ed to Headache Weight management Related to Hea dache Prescribed Activity and Exercise Education Related to Dietary Surveillance and Counseling Prescribed Diet Educ ation/Lifestyle Education Regarding Diet Related to Dietary Surveillance and Counseling Increase activity. Related to Es sential (primary) hypertension Follow a low sodium diet. Relate d to Essential (primary) hypertension Prescribed Activity and Exercise Education Related to Dietary Surveillance and Counseling Prescribed Diet Educ ation/Lifestyle Education Regarding Diet Related to Dietary Surveillance and Counseling Increase physical activity Relat ed to Generalized anxiety disorder Weight management Related to Gen eralized anxiety disorder Prescribed Activity and Exercise Education Related to Dietary Surveillance and Counseling Prescribed Diet Educ ation/Lifestyle Education Regarding Diet Related to Dietary Surveillance and Counseling Increase physical activity Relat ed to Anemia Weight management Related to Ane yony Prescribed Activity and Exercise Education Related to Dietary Surveillance and Counseling Prescribed Diet Educ ation/Lifestyle Education Regarding Diet Related to Dietary Surveillance and Counseling Increase physical activity Relat ed to Dietary surveillance and counseling Weight management Related to tary surveillance and counseling Prescribed Activity and Exercise Education Related to Dietary Surveillance and Counseling Prescribed Diet Educ ation/Lifestyle Education Regarding Diet Related to Dietary Surveillance and Counseling Prescribed Activity and Exercise Education Related to Dietary Surveillance and Counseling Prescribed Diet Educ ation/Lifestyle Education Regarding Diet Related to Dietary Surveillance and Counseling Prescribed Activity and Exercise Education Related to Dietary Surveillance and Counseling Prescribed Diet Educ ation/Lifestyle Education Regarding Diet Related to Dietary Surveillance and Counseling Prescribed Activity and Exercise Education Related to Dietary Surveillance and Counseling Prescribed Diet Educ ation/Lifestyle Education Regarding Diet Related to Dietary Surveillance and Counseling Prescribed Activity and Exercise Education Related to Dietary Surveillance and Counseling Prescribed Diet Educ ation/Lifestyle Education Regarding Diet Related to Dietary Surveillance and Counseling Prescribed Activity and Exercise Education Related to Dietary Surveillance and Counseling Prescribed Diet Educ ation/Lifestyle Education Regarding Diet Related to Dietary Surveillance and Counseling Prescribed Activity and Exercise Education Related to Dietary Surveillance and Counseling Prescribed Diet Educ ation/Lifestyle Education Regarding Diet Related to Dietary Surveillance and Counseling Prescribed Activity and Exercise Education Related to Dietary Surveillance and Counseling Prescribed Diet Educ ation/Lifestyle Education Regarding Diet Related to Dietary Surveillance and Counseling Prescribed Activity and Exercise Education Related to Dietary Surveillance and Counseling Prescribed Diet Educ ation/Lifestyle Education Regarding Diet Related to Dietary Surveillance and Counseling Prescribed Activity and Exercise Education Related to Dietary Surveillance and Counseling Prescribed Diet Educ ation/Lifestyle Education Regarding Diet Related to Dietary Surveillance and Counseling Prescribed Activity and Exercise Education Related to Dietary Surveillance and Counseling Prescribed Diet Educ ation/Lifestyle Education Regarding Diet Related to Dietary Surveillance and Counseling Prescribed Activity and Exercise Education Related to Dietary Surveillance and Counseling Prescribed Diet Educ ation/Lifestyle Education Regarding Diet Related to Dietary Surveillance and Counseling Prescribed Activity and Exercise Education Related to Dietary Surveillance and Counseling Prescribed Diet Educ ation/Lifestyle Education Regarding Diet Related to Dietary Surveillance and Counseling Prescribed Activity and Exercise Education Related to Dietary Surveillance and Counseling Prescribed Diet Educ ation/Lifestyle Education Regarding Diet Related to Dietary Surveillance and Counseling Prescribed Activity and Exercise Education Related to Dietary Surveillance and Counseling Prescribed Diet Educ ation/Lifestyle Education Regarding Diet Related to Dietary Surveillance and Counseling Prescribed activity/ exercise education Related to Dietary surveillance and counseling Special diet education Related t o Dietary surveillance and counseling Physical activity counseling Rel ated to Dietary surveillance counseling Decrease caloric intake Related to Dietary surveillance counseling Physical activity counseling Rel ated to Dietary surveillance counseling Decrease caloric intake Related to Dietary surveillance counseling Physical activity counseling Rel ated to Dietary surveillance counseling Decrease caloric intake Related to Dietary surveillance counseling Physical activity counseling Rel ated to Dietary surveillance counseling Decrease caloric intake Related to Dietary surveillance counseling Dietary counseling Related to Di etary surveillance counseling Decrease caloric intake Related to Dietary surveillance counseling Dietary counseling Related to Di etary surveillance counseling Decrease caloric intake Related to Dietary surveillance counseling Dietary counseling Related to Di etary surveillance counseling Decrease caloric intake Related to Dietary surveillance counseling Dietary counseling Related to Di etary surveillance counseling Decrease caloric intake Related to Dietary surveillance counseling Decrease caloric intake Related to Dietary surveillance counseling Dietary counseling Related to Di etary surveillance counseling Dietary counseling Related to Di etary surveillance counseling Decrease caloric intake Related to Dietary surveillance counseling Dietary counseling Related to Di etary surveillance counseling Decrease caloric intake Related to Dietary surveillance counseling Dietary counseling Related to Di etary surveillance counseling Decrease caloric intake Related to Dietary surveillance counseling Dietary counseling Related to Di etary surveillance counseling Decrease caloric intake Related to Dietary surveillance counseling Assessments Type Assessment Date assessment Chronic pain syndrome assessment Generalized anxiety disorder Mar Mental Status Date Cognitive Assessment Orientation - Cushman ed to time, place, person, situation.
--- OUTSIDE RECORDS SUMMARY | 2024-04-12 16:14 | XMS_ITS | Clinical Summary ---
Author Organization [facility] Address [address] [place] [address]. 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 Role Phone Unavailable Primary Care Provider Unavailabl e Social History Tobacco Use Types Packs/Day Years Used Date Smoking Tobacco: Never Assessed Comments Unknown Sex and Gender Information Value Date Recorded Sex Assigned at Not on file Legal Sex Female 8:10 PM CDT Gender Identity Not on file Sexual Orientation Not on file Plan of Treatment Health Maintenance Due Date Last Done Comments Cervical Cancer Screening Pa p Smear (Age 30 to 64) Every 3 Years 1973 Colorectal Cancer Screening Colonoscopy (10 Years) 1973 Annual Physical 1976 Hepatitis C 1991 DTaP, Tdap and Td Vaccines ( 1 - Tdap) 1992 Hepatitis B Vaccines (1 of 3 - 19+ 3-dose series) 1992 Cervical Cancer Screening Pa p with HPV Testing (Age 30 to 64) Every 5 Years 2003 Cervical Cancer Screening with HPV 2003 Mammogram Screening 2013 Zoster Vaccines (1 of 2) 2023 COVID-19 Vaccine ( - 2023-2 5 season) 2023 Influenza Adult (#1) 2023 Meningococcal B Vaccine Aged Out No l onger eligible based on patient's age to complete this topic Meningococcal Vaccine Aged Out No nova yin eligible based on patient's age to complete this topic Pneumococcal Vaccine: Pediat rics (0 to 5 Years) and At-Risk Patients (6 to 64 Years) Aged Out No longer eligible b ased on patient's age to complete this topic RSV Immunizations Under 20 Months Aged Out No longer eligible based on patient's age to complete this topic
--- OUTSIDE RECORDS SUMMARY | 2024-04-12 16:14 | XMS_ITS | Patient Health Summary ---
Author Organization [facility] Address [address] [place] [address] Care Team Providers Care Obstetrics Gyn Name Role Phone Santana Smith MD Primary Care Provider [phone] Note from [facility],non-owned Affiliates and Associated Physician Practices is amultiple site organization consisting of ambulatory clinics and hospital sitesin [place], [place], [place] and [place]. This disclosure is being madepursuant to the Care Everywhere program and may not contain all information available regarding this patient. Last updated 17.[facility] Allergies * Levofloxacin(Urticaria) -Medium Criticality Medications * Be aware that medications may not be up to date on this document. Alwaysverify current medications with the patient. * LORazepam (ATIVAN) 1 MG tablet(Started 11/22/2020) Take 1 (one) tablet by mouth nightly as needed for Anxiety * oxyCODONE, immediate release, (Roxicodone) 10 MG tablet Take 1 (one) tablet by mouth every 6 hours as needed for Pain Active Problems Problem Noted Date Diagnosed Date Tachyarrhythmia 08/07/2019 Anxiety states 08/07/2019 Chest pain 08/07/2019 Panic attack 08/07/2019 Morbid obesity 08/07/2019 Cyst of ovary 12/04/2017 Uterine leiomyoma 12/04/2017 Encounter for gynecological examination without abnormal finding 05/14/2017 Submucous leiomyoma of uterus 11/16/2016 Occlusion and stenosis of right carotid artery 0 11/16/2016 Well woman exam with routine gynecological exam 11/14/2016 Hidradenitis suppurativa 11/07/2016 Ischemia and infarction of kidney 11/07/2016 Abnormal uterine and vaginal bleeding, unspecifi ed 11/07/2016 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 Essential (primary) hypertension 11/07/2016 Noninfective gastroenteritis and colitis 017 Abnormal electrocardiogram 11/07/2016 Generalized anxiety disorder 11/07/2016 Mass of breast 11/07/2016 Anemia 11/07/2016 Body mass index (BMI) of 40.0-44.9 in adult 10/16 Abnormal uterine bleeding 11/07/2016 Intramural, submucous, and subserous leiomyoma o f uterus Social History Tobacco Use Types Packs/Day Years Used Date Smoking Tobacco: Never Passive Smoke Exposure: Never Smokeless Tobacco: Never Tobacco Cessation:Counseling Given: Not Answered Alcohol Use Standard Drinks/Week Comments No 0 (1 standard drink = 0.6 oz pur e alcohol) Overall Financial Resource Strain (CARDIA) Answe r Date Recorded How hard is it for you to pa y for the very basics like food, housing, medical care, and heating? Not hard at all 04/30/2022 [facility] of Occupat ional Health - Occupational Stress Questionnaire Answer Date Recorded Do you feel stress - tense, restless, nervous, or anxious, or unable to sleep at night because your mind is troubled all the time - these days? Not at all 04/30/2022 Hunger Vital Sign Answer Date Recorded Within the past 12 months, y ou worried that your food would run out before you got the money to buy more. Never true 04/30/19 23 Within the past 12 months, t he food you bought just didn't last and you didn't have money to get more. Never true 04/30/2022 PRAPARE - Transportation Answer Date Re corded In the past 12 months, has l ack of transportation kept you from medical appointments or from getting medications? No 04/17 In the past 12 months, has l ack of transportation kept you from meetings, work, or from getting things needed for daily living? No 04/30/2022 Housing Stability Vital Sign Answer Kahlil e Recorded In the last 12 months, was t here a time when you were not able to pay the mortgage or rent on time? No 04/30/2022 In the last 12 months, how many places have you lived? 1 04/30/2022 In the last 12 months, was t here a time when you did not have a steady place to sleep or slept in a jail (including now)? No 04/30/2022 Sex and Gender Information Value Date Recorded Sex Assigned at Not on file Gender Identity Not on file Sexual Orientation Not on file Last Filed Vital Signs Vital Sign Reading Time Taken Comments Blood Pressure 116/82 06/23/2023 10:06 AM CDT Pulse 79 06/23/2023 10:06 AM CDT Temperature 36.6 ??C (97.9 ??F) 06/23/2023 10:06 AM C DT Respiratory Rate 18 11/01/2022 11:38 AM CDT Oxygen Saturation 99% 06/23/2023 10:06 AM CDT Inhaled Oxygen Concentration - - Weight 86.2 kg (190 lb) 10/24/2023 3:57 PM CDT Height 162.6 cm (5' 4 ) 10/24/2023 3:57 PM CDT Body Mass Index 32.61 10/24/2023 3:57 PM CDT Procedures * MAMMO BILAT SCREENING W KAILEY(Performed 10/24/2023) Performed for Macromastia * WET PREP - POINT OF CARE (AMB) [facility](Performed 05/22/2023) Performed for Well woman exam with routine gynecological exam * WET PREP - POINT OF CARE (AMB) [facility](Performed 02/28/2023) Performed for BV (bacterial vaginosis) * FUNGUS ALEKS - POINT OF CARE (AMB) [facility](Performed 02/28/2023) Performed for BV (bacterial vaginosis) * SURESWAB VAGINOSIS/VAGINITIS PLUS(Performed 02/28/2023) Performed for BV (bacterial vaginosis) * VITAMIN B1(Performed 12/04/2022) * VITAMIN D 25-HYDROXY(Performed 12/04/2022) * VITAMIN B12(Performed 12/04/2022) * CBC W/O DIFFERENTIAL(Performed 12/04/2022) * COMPREHENSIVE METABOLIC PANEL(Performed 12/04/2022) * FL UGI SERIES(Performed 05/01/2022) Performed for S/P laparoscopic sleeve gastrectomy * VITAMIN D 25-HYDROXY(Performed 05/01/2022) * CBC W AUTO DIFFERENTIAL(Performed 05/01/2022) * BASIC METABOLIC PANEL (CALCIUM TOTAL)(Performed 05/01/2022) * GLUCOSE - POINT OF CARE(Performed 04/30/2022) * GLUCOSE - POINT OF CARE(Performed 04/30/2022) * ENDOTRACHEAL TUBE NOTE(Performed 04/30/2022) * ID LAP SLEEVE GASTRECTOMY(Performed 04/30/2022) * GLUCOSE - POINT OF CARE(Performed 04/30/2022) * POTASSIUM BLOOD(Performed 04/30/2022) Performed for Preop examination * HELICOBACTER PYLORI UREA BREATH TEST(Performed 2022) Performed for H. pylori infection * EKG 12-LEAD(Performed 04/16/2022) Performed for Preop examination * VITAMIN B12(Performed 04/16/2022) Performed for Preop examination * VITAMIN B1(Performed 04/16/2022) Performed for Preop examination * COMPREHENSIVE METABOLIC PANEL(Performed 04/16/2022) Performed for Preop examination * CBC W AUTO DIFFERENTIAL(Performed 04/16/2022) Performed for Preop examination * HELICOBACTER PYLORI UREASE (STL)(Performed 03/01/2022) Performed for Diagnosis deferred * EGD(Performed 03/01/2022) * ID ED EGD FLEX TRANSORAL DX(Performed 03/01/2022) * FL UGI SERIES(Performed 01/23/2022) Performed for Morbid obesity (HCC), Preop examination * CULTURE URINE(Performed 02/01/2021) Performed for Urinary frequency * T3 FREE(Performed 08/07/2019) Performed for Tachyarrhythmia, Anxiety states * T4 FREE(Performed 08/07/2019) Performed for Tachyarrhythmia, Anxiety states * TROPONIN I(Performed 08/07/2019) * URINE MICROSCOPIC ONLY REFLEX TO CULTURE(Performed 08/07/2019) * URINE DRUG SCREEN IMMUNOASSAY(Performed 08/07/2019) * URINALYSIS REFLEX MICROSCOPIC REFLEX CULTURE(Performed 08/07/2019) * TSH(Performed 08/07/2019) Performed for Tachyarrhythmia, Chest pain, unspecified type * TROPONIN I(Performed 08/07/2019) * CT ANGIO CHEST PULM EMBOLISM(Performed 08/07/2019) Performed for Chest pain, unspecified type * XR CHEST 1VW PORTABLE(Performed 08/07/2019) Performed for Chest pain, unspecified type * DRUG SCREEN TOX LIMITED BLD PNL 3 INHOUSE(Performed 08/06/2019) * PT PTT PANEL(Performed 08/06/2019) * D-DIMER(Performed 08/06/2019) * COMPREHENSIVE METABOLIC PANEL(Performed 08/06/2019) * B-TYPE NATRIURETIC PEPTIDE(Performed 08/06/2019) * TROPONIN I(Performed 08/06/2019) * CBC W AUTO DIFFERENTIAL(Performed 08/06/2019) * EKG 12-LEAD(Performed 08/06/2019) Performed for Chest pain, unspecified type * C. TRACHOMATIS + N. GONORRHOEAE + TRICH SHARMAINE(Performed 04/05/2019) Performed for Acute vaginitis * WET PREP - POINT OF CARE (AMB) [facility](Performed 04/05/2019) Performed for Acute vaginitis * CARDIAC RHYTHM STRIP ORDER(Performed 11/27/2017) * BASIC METABOLIC PANEL (CALCIUM TOTAL)(Performed 11/26/2017) Performed for Abnormal uterine bleeding * CBC W AUTO DIFFERENTIAL(Performed 11/26/2017) Performed for Abnormal uterine bleeding * PATHOLOGY TISSUE EXAM (STL)(Performed 11/25/2017) Performed for Diagnosis unknown * ENDOTRACHEAL TUBE NOTE(Performed 11/25/2017) * CYSTOSCOPY (FLEXIBLE/RIGID)(Performed 11/25/2017) Performed for Diagnosis unknown * LAPAROSCOPIC SALPINGECTOMY(Performed 11/25/2017) Performed for Diagnosis unknown * LAPAROSCOPIC TOTAL HYSTERECTOMY (TLH)(Performed 11/25/2017) Performed for Diagnosis unknown * HCG URINE QUALITATIVE - POCT (IP) INTERFACED(Performed 11/25/2017) * HCG URINE QUAL POCT NOTIFICATION(Performed 11/25/2017) Performed for Preop examination * TYPE + SCREEN PANEL(Performed 11/19/2017) Performed for Pre-op testing * HGB HCT PANEL(Performed 11/19/2017) Performed for Pre-op testing * US TRANSVAGINAL NON OB(Performed 07/30/2017) Performed for Intramural leiomyoma of uterus * ID US PELVIC NONOB REAL-TIME IMG COMPLETE(Performed 07/30/2017) Performed for Intramural leiomyoma of uterus * IMAGING/RADIOLOGY/XRAY RESULTS ORDER(Performed 07/30/2017) * WET PREP - POINT OF CARE (AMB) [facility](Performed 07/21/2017) Performed for BV (bacterial vaginosis) * CHLAMYDIA + GC + TRICH DNA AMPL(Performed 07/21/2017) Performed for BV (bacterial vaginosis) * PAP IMAGE-GUIDED W HPV(Performed 05/08/2017) * WET PREP - POINT OF CARE (AMB) [facility](Performed 05/08/2017) * TRICHOMONAS - POINT OF CARE (AMB) [facility](Performed 05/08/2017) * PATHOLOGY/GENETICS HISTORICAL-ONBASE(Performed 05/08/2017) * PATHOLOGY TISSUE(Performed 11/28/2016) * PATHOLOGY TISSUE(Performed 11/28/2016) * PATHOLOGY/GENETICS HISTORICAL-ONBASE(Performed 11/28/2016) * CBC W AUTO DIFFERENTIAL(Performed 11/07/2016) * EKG 12-LEAD(Performed 11/05/2012) * US PELVIS COMPLETE(Performed 10/23/2012) * US TRANSVAGINAL NON OB(Performed 10/23/2012) * CT ABDOMEN PELVIS WO CONTRAST(Performed 10/23/2012) * CT ANGIO CHEST PULM EMBOLISM(Performed 10/23/2012) * XR CHEST 1VW PORTABLE(Performed 10/23/2012) * HCG BLOOD QUALITATIVE(Performed 10/23/2012) * HCG URINE QUALITATIVE - POCT (IP) [facility](Performed 10/23/2012) * URINALYSIS W/MICROSCOPIC NO CULTURE(Performed 10/23/2012) * ERYTHROCYTE SEDIMENTATION RATE(Performed 10/23/2012) * TROPONIN I(Performed 10/23/2012) * CK + CKMB PANEL(Performed 10/23/2012) * COMPREHENSIVE METABOLIC PANEL(Performed 10/23/2012) * D-DIMER(Performed 10/23/2012) * CBC W AUTO DIFFERENTIAL(Performed 10/23/2012) Results * MAMMO BILAT SCREENING W KAILEY (10/24/2023 3:57 PM CDT) Anatomical Region Laterality Modality Breast Bilateral Mammography 10/30/2023 7:35 AM CDT Impressions 10/30/2023 8:52 AM CDT : ??No mammographic evidence of malignancy. RECOMMENDATION: ?? 1. Screening mammography in one year, pending no interval breast concerns. 2. Consultation in the [facility] Breast [facility] High Risk [facility], given the elevated lifetime risk of developing breast cancer greater than 20%. Should she wish to schedule a consultation, the phone number [phone]. 3. Annual screening breast MRI is recommended, given the elevated lifetime risk of breast cancer of greater than 20%, according to the [place] [employer] guidelines, and can be alternated at 6 month intervals with mammography or performed at the time of screening mammography. This can be managed by the High-Risk Breast Clinic. Patient will receive the examination results by lay letter. OVERALL ASSESSMENT: ??BI-RADS CATEGORY 1: NEGATIVE. Report dictated by Prieto Tavera M.D. (radiology scheduler) 10/30/2023 7:37 AM Alexei Rosales M.D. and Angle Wisdom M.D. also participated in the interpretation of this study. ?? I, Francesca Martin MD have personally reviewed and interpreted this examination/study. > Interpreting Provider: Francesca Martin MD on 10/30/2023 8:52 AM Narrative 10/30/2023 8:52 AM CDT EXAMINATIONS: ??BILATERAL DIGITAL SCREENING MAMMOGRAM AND BILATERAL BREAST TOMOSYNTHESIS LOCATION: [facility] EXAM DATE: ??10/24/2023 HISTORY: ??Screening. Family history of breast cancer in her sister and also in her maternal and paternal grandmothers. RISK ASSESSMENT CALCULATION: Patient completed a breast cancer risk assessment during her appointment 10/24/2023. ??Based upon the information she provided and her mammographic breast density, her lifetime risk of developing breast cancer is 21% ??(Average Risk <15%; Intermediate / Moderate Risk 15-19%; High Risk > 20%). Given the elevated lifetime risk of breast cancer greater than 20%, consultation in the [facility] High Risk [facility] is recommended. The phone number is [phone]. The [place] Cancer [employer] recommends annual screening breast MRI in addition to mammograms for women who have a 20% or greater lifetime risk of developing breast cancer. This can be managed through the high risk breast clinic. Risk assessment based upon the Tyrer-Cuzick v8 model. By the NCCN guidelines and family history of breast cancer, consideration of genetic testing is recommended. COMPARISON: Compare with prior mammograms from [facility] dated 01/08/2018, 06/06/2021 and 09/26/2022. TECHNIQUE: Tomosynthesis (3D) and reconstructed synthetic 2-D images acquired and reviewed in the bilateral craniocaudal and mediolateral oblique projections. ??A total of 4 images obtained. ??Transpara AI was utilized in the interpretation. ?? BREAST PARENCHYMAL COMPOSITION: Category B: There are scattered areas of fibroglandular density. FINDINGS: ??There are no suspicious findings or evidence of malignancy on mammography. There is no significant change from the prior. ?? Marcus Person MD MAMMO ORDERABLES * WET PREP - POINT OF CARE (AMB) [facility] (05/22/2023 3:09 PM BOOM MASTER) Only the most recent of5 resultswithin the time period is included. pH Wet Prep na [facility] [address] Yeast Wet Prep no [facility] [address] Trichomonas Wet Prep No Clue Cells Seen [facility] [address] Bacteria Wet Prep no [facility] [address] Whiff Test no [facility] [address] BODY FLUID SPECIMEN / Unknown 05/22/2023 3:09 PM BOOM MASTER Radha Jiménez MD LAB - POINT OF CARE ORDERABLES [facility] [address] [place] [address], [facility] [phone] * FUNGUS ALEKS - POINT OF CARE (AMB) [facility] (02/28/2023 3:53 PM BOOM MASTER) ALEKS Prep No [facility] [address] Fluid BODY FLUID SPECIMEN / Unknown 02/28/2023 3:53 PM BOOM MASTER Mark Lu MD LAB - POINT OF CARE ORDERABLES Performing Organization Address City/[facility]/ZIP Co de Phone Number [facility] [address] [place] [address], [facility] [phone] * (ABNORMAL) SURESWAB VAGINOSIS/VAGINITIS PLUS (02/28/2023 3:00 PM BOOM MASTER) Pathologist [facility] Sureab Bacterial Vaginosis POSITIVE(A) NEGATIVE [facility] Kaye species NOT DETECTED NOT DETECTED [facility] Kaye glabrata SHARMAINE NOT DETECTED NOT DETECTED [facility] Comment: Kaye species C. albicans, C. tropicalis, C. parapsilosis, and/or C. dubliniensis can be detected, but not differentiated, in the Kaye spp. result. Trichomonas vaginalis TMA DETECTED(A) NOT DETECTED [facility] Chlamydia trachomatis RNA NOT DETECTED NOT DETECTED [facility] GC RNA NOT DETECTED NOT DETECTED [facility] Comment: For additional information, please refer to https://education.Bass Manager/faq/RNX607 (This link is being provided for information/ educational purposes only.) Test Performed at: [facility] [address] [facility] [place] ??[phone] THALIA ANN MD Microbiology VAGINAL SWAB / Unknown 02/28/2023 3:00 PM BOOM MASTER 03/01/2023 7:16 AM BOOM MASTER Mark Lu MD LAB - MICROBIOLOGY O RDERABLES [facility] [address] [place] [address] * VITAMIN B1 (12/04/2022 12:48 PM CDT) Only the most recent of2 resultswithin the time period is included. [facility] Vitamin B1 Whole Blood 126 78 - 185 nmol/L [facility] Comment: (Note) Vitamin supplementation within 24 hours prior to blood draw may affect the accuracy of the results. This test was developed and its analytical performance characteristics have been determined by [employer]. It has not been cleared or approved by FDA. This assay has been validated pursuant to the CLIA regulations and is used for clinical purposes. [facility] [address] [address],[address] [facility] [address] Estelle Duran MD Test Performed at: [facility] [address] [address] [address] [place], [place] ??[phone] ESTELLE DURAN MD 12/04/2022 12:4 8 PM CDT 12/04/2022 12:50 PM CDT Carmen Escobar Alex FRUIT PRESERVER-INSPECTOR REPAIRER LAB - [facility] СВЕТЛАНА ORDERABLES Performing Organization Address [facility] de Phone Number [facility] [address] [place] [address] * VITAMIN D 25-HYDROXY (12/04/2022 12:48 PM CDT) Only the most recent of2 resultswithin the time period is included. Pathologist [facility] Vitamin D, 25 Hydroxy 62 30 - 100 ng/mL [facility] Comment: Vitamin D Status ? 25-OH Vitamin D: Deficiency: ?<20 ng/mL Insufficiency: ? 20 - 29 ng/mL Optimal: ? > or = 30 ng/mL For 25-OH Vitamin D testing on patients on D2-supplementation and patients for whom quantitation of D2 and D3 fractions is required, the QuestAssureD(TM) 25-OH VIT D, (D2,D3), LC/MS/MS is recommended: order code 87017 (patients >2yrs). See Note 1 Note 1 For additional information, please refer to http://education.haystagg/faq/UEB958 (This link is being provided for informational/ educational purposes only.) Test Performed at: [facility] [id number] [place] [address] ??[phone] THALIA ANN MD 12/04/2022 12:4 8 PM CDT 12/04/2022 12:50 PM CDT Carmen Escobar Alex FRUIT PRESERVER-INSPECTOR REPAIRER LAB - [place] СВЕТЛАНА ORDERABLES Performing Organization Address [facility] Co de Phone Number [facility] [address] [place] [address] * CBC W/O DIFFERENTIAL (12/04/2022 12:48 PM CDT) Pathologist [facility] White Blood Cell Count 5.3 3.8 - 10.8 Thousand/u L [facility] RBC 4.56 3.80 - 5.10 Million/uL [facility] Hemoglobin 12.8 11.7 - 15.5 g/dL [facility] Hematocrit 39.4 35.0 - 45.0 % [facility] MCV 86.4 80.0 - 100.0 fL [facility] MCH 28.1 27.0 - 33.0 pg [facility] MCHC 32.5 32.0 - 36.0 g/dL [facility] RDW 14.4 11.0 - 15.0 % [facility] Platelet Count 261 140 - 400 Thousand/u L [facility] MPV 10.5 7.5 - 12.5 fL [facility] Comment: Test Performed at: [facility] ??[phone] THALIA ANN MD 12/04/2022 12:4 8 PM CDT 12/04/2022 12:50 PM CDT Carmen Luz Johnson FRUIT PRESERVER-INSPECTOR REPAIRER LAB - HEM ATOLOGY ORDERABLES [address] [address] * COMPREHENSIVE METABOLIC PANEL (12/04/2022 12:48 PM CDT) Only the most recent of4 resultswithin the time period is included. Glucose 76 65 - 99 mg/dL [facility] Comment: ? Fasting reference interval BUN 14 7 - 25 mg/dL [facility] Creatinine 0.90 0.50 - 0.99 mg/dL [facility] eGFR by Cystatin C 78 > OR = 60 mL/min/1. 73m2 [facility] BUN/Creatinine Ratio SEE NOTE: (calc) [facility] Comment: ?? Not Reported: BUN and Creatinine are within ?? reference range. ? Sodium 141 135 - 146 mmol/L [facility] Potassium 3.9 3.5 - 5.3 mmol/L [facility] Chloride 101 98 - 110 mmol/L [facility] CO2 32 20 - 32 mmol/L [facility] Calcium 9.8 8.6 - 10.2 mg/dL [facility] Protein Total 7.2 6.1 - 8.1 g/dL [facility] Albumin 4.5 3.6 - 5.1 g/dL [facility] Globulin Total 2.7 1.9 - 3.7 g/dL (calc) [facility] Albumin/Globulin Ratio 1.7 1.0 - 2.5 (calc) [facility] Bilirubin Total 0.5 0.2 - 1.2 mg/dL [facility] Alkaline Phosphatase 57 31 - 125 U/L [facility] AST 15 10 - 35 U/L [facility] ALT 13 6 - 29 U/L [facility] Comment: Test Performed at: [facility] ??[phone] THALIA ANN MD 12/04/2022 12:4 8 PM CDT 12/04/2022 12:50 PM CDT Carmen Johnson APRN-INSPECTOR REPAIRER LAB - [place] СВЕТЛАНА ORDERABLES Performing Organization Address City/[facility] Co de Phone Number [address] [address] * VITAMIN B12 (12/04/2022 12:48 PM CDT) Only the most recent of2 resultswithin the time period is included. Vitamin B12 564 200 - 1100 pg/mL [facility] Comment: Test Performed at: [facility] [address] [address] [place] ??[phone] THALIA ANN MD 12/04/2022 12:4 8 PM CDT 12/04/2022 12:50 PM CDT [facility]en [facility] LAB - [place] СВЕТЛАНА ORDERABLES Performing Organization Address [facility] Co de Phone Number [address] [address] * FL UGI SERIES WO KUB (05/01/2022 8:25 AM BOOM MASTER) Only the most recent of2 resultswithin the time period is included. Anatomical Region Laterality Modality Abdomen Radiographic Devorah ging 05/01/2022 9:33 AM BOOM MASTER Narrative 05/01/2022 9:35 AM BOOM MASTER Examination: Water-soluble upper GI. Indication for examination: Postop gastric sleeve surgery. Following oral administration of water-soluble contrast, there is passage of contrast from the esophagus, through the gastric sleeve and into the duodenum. No obstruction is identified. No leak is identified. Fluoroscopy time 31 seconds. 6 radiographic images were obtained.. Conclusion: Status post gastric sleeve surgery. No leak identified. > Interpreting Provider: Estelle Wallace MD on 05/01/2022 9:35 AM Procedure Note Estelle Wallace MD - 05/01/2022 Examination: Water-soluble upper GI. Indication for examination: Postop gastric sleeve surgery. Following oral administration of water-soluble contrast, there ispassage of contrast from the esophagus, through the gastric sleeve and into the duodenum. No obstruction is identified. No leak is identified. Fluoroscopy time 31 seconds. 6 radiographic images were obtained.. Conclusion: Status post gastric sleeve surgery. No leak identified. > Interpreting Provider: Estelle Wallace MD on 05/01/2022 9:35 AM Kelvin Pringle MD FLUOROSCOPY ORDERABL ES * (ABNORMAL) CBC W AUTO DIFFERENTIAL (05/01/2022 2:04 AM BOOM MASTER) Only the most recent of6 resultswithin the time period is included. WBC 9.3 4.4 - 10.7 x10E9/L 05/01/2022 2:22 AM BOOM MASTER [facility] WBC Corrected 05/01/2022 2:22 AM BOOM MASTER [facility] RBC 4.46 3.80 - 5.20 x10E12/L 05/01/2022 2:22 AM BOOM MASTER [facility] Hemoglobin 12.6 12.0 - 15.6 gm/dL 05/01/2022 2:22 AM BOOM MASTER [facility] Hematocrit 37.7 35.9 - 45.5 % 05/01/2022 2:22 AM BOOM MASTER [facility] MCV 84.5 80.7 - 98.3 fl 05/01/2022 2:22 AM BOOM MASTER [facility] MCH 28.3 26.7 - 34.0 pg 05/01/2022 2:22 AM BOOM MASTER [facility] MCHC 33.4 30.8 - 35.9 gm/dL 05/01/2022 2:22 AM BOOM MASTER [facility] Platelet Count 313 153 - 416 x10E9/L 05/01/2022 2:22 AM BOOM MASTER [facility] RDW-CV 13.9 12.1 - 14.9 % 05/01/2022 2:22 AM [facility] MPV 9.9 9.4 - 12.9 fl 05/01/2022 2:22 AM [facility] Neutrophils % 79.0(H) 44.0 - 73.0 % 05/01/2022 2:22 AM [facility] Lymphocytes % 12.9(L) 20.0 - 43.0 % 05/01/2022 2:22 AM BOOM MASTER [facility] Monocytes % 7.5 5.0 - 13.0 % 05/01/2022 2:22 AM [facility] Eosinophils % 0.1 0.0 - 6.0 % 05/01/2022 2:22 AM [facility] Basophils % 0.2 0.0 - 2.0 % 05/01/2022 2:22 AM [facility] Immature Granulocytes 0.3 0 - 1 % 05/01/2022 2:22 AM [facility] Neutrophil Absolute 7.34(H) 2.01 - 7.14 x10E9/L 05/01/2022 2:22 AM [facility] Lymphocytes Absolute 1.20 1.07 - 3.94 x10E9/L 05/01/2022 2:22 AM [facility] Monocytes Absolute 0.70 0.26 - 1.07 x10E9/L 05/01/2022 2:22 AM [facility] Eosinophils Absolute 0.01 0 - 0.47 x10E9/L 05/01/2022 2:22 AM [facility] Basophils Absolute 0.02 0 - 0.08 x10E9/L 05/01/2022 2:22 AM [facility] Immature Granulocytes Absolute 0.03 0.00 - 0.06 x10E9/L 05/01/2022 2:22 AM [facility] nRBC Auto 0 /100 WBC 05/01/2022 2:22 AM [facility] Blood BLOOD SPECIMEN / Unknown Venipuncture / Unknown 05/01/2022 2:04 AM BOOM MASTER 05/01/2022 2:18 AM BOOM MASTER Kelvin Pringle MD LAB - HEMATOLOGY ORD ERABLES [facility] [address] [place] [address] * (ABNORMAL) BASIC METABOLIC PANEL (CALCIUM TOTAL) (05/01/2022 2:04 AM BOOM MASTER) Only the most recent of2 resultswithin the time period is included. Glucose 125(H) 70 - 105 mg/dL 05/01/2022 3:11 AM [facility] Sodium 136 136 - 145 mmol/L 05/01/2022 3:11 AM [facility] Potassium 4.1 3.5 - 5.1 mmol/L 05/01/2022 3:11 AM [facility] Chloride 106 98 - 107 mmol/L 05/01/2022 3:11 AM [facility] CO2 22(L) 23 - 31 mmol/L 05/01/2022 3:11 AM [facility] Calcium 9.1 8.4 - 10.4 mg/dL 05/01/2022 3:11 AM [facility] Anion Gap 8 8 - 18 mmol/L 05/01/2022 3:11 AM [facility] BUN 8 7 - 18.7 mg/dL 05/01/2022 3:11 AM [facility] Creatinine 0.91 0.57 - 1.11 mg/dL 05/01/2022 3:11 AM [facility] eGFR by CKD-EPI 77(L) >=90 mL/min/1.7 3 m2 05/01/2022 3:11 AM [facility] Blood BLOOD SPECIMEN / Unknown Venipuncture / Unknown 05/01/2022 2:04 AM BOOM MASTER 05/01/2022 2:19 AM BOOM MASTER Kelvin Pringle MD LAB - CHEMISTRY DEANNA ESPINOSA [facility] [address] [place], [place] [id number] * (ABNORMAL) GLUCOSE - POINT OF CARE (04/30/2022 11:17 PM BOOM MASTER) Only the most recent of3 resultswithin the time period is included. Glucose WB/POC 135(H) 70 - 106 mg/dL 04/30/2022 11:26 PM BOOM MASTER [facility] Specimen Type Cap Fingerstick 2022 11:26 PM BOOM MASTER [facility] Blood BLOOD SPECIMEN / Unknown 04/30/2022 11:17 PM BOOM MASTER 04/30/2022 11:26 PM BOOM MASTER Kelvin Pringle MD LAB - POINT OF CARE ORDERABLES [facility] [address] [place] [address] * ETT LINE PERFORMABLE (04/30/2022 7:35 AM BOOM MASTER) Narrative Leonel Glass APRN-CRNA - 04/30/2022 7:35 AM BOOM MASTER Leonel Glass APRN-CRNA ? 04/30/2022 ??7:45 AM Endotracheal Tube Placement: ? Patient Location: OR. Intubation Event Date/Time: ??04/30/2022 7:35 AM Procedure: intubation ([address]). Procedure Section: ?? Sedation: under general anesthesia. Indications for Airway Management: ??anesthesia Induction: standard IV Patient Position: ??supine Mask Ventilation: easy. Blade Type: [place] Blade Size: 2 Laryngoscopy View: grade 1 (full cords) Intubation Adjuncts: stylet Tube: endotracheal tube Placement: oral Tube type: cuff - inflated Tube Size (MM): 7 Depth of Insertion (CM): 20 Measured From: teeth Cuff volume (mL): ??8 Cuff Inflated With: air Number of Attempts: 1. Placement Verified By: direct visualization, bilateral breath sounds, chest auscultation and CO2 monitor Tube secured with: ??adhesive tape. Dentition unchanged? ??Yes Difficult Airway? ??No. Procedure Start Time: 04/30/2022 7:35 AM. Staff Section ? Anesthesia Provider: Leonel Glass APRN-CRNA, Performed the procedure Adam Up MD GENERAL ANESTHESIA O RDERABLES * POTASSIUM BLOOD (04/30/2022 6:28 AM BOOM MASTER) [facility] Potassium 3.5 3.5 - 5.1 mmol/L 04/30/2022 6:47 AM BOOM MASTER [facility] Blood BLOOD SPECIMEN / Unknown Venipuncture / Unknown 04/30/2022 6:28 AM BOOM MASTER 04/30/2022 6:34 AM BOOM MASTER Kelvin Pringle MD LAB - CHEMISTRY DEANNA ESPINOSA [facility] [address] [place] [address] * HELICOBACTER PYLORI UREA BREATH TEST (2022 12:36 PM BOOM MASTER) Helicobacter pylori Breath Negative Negative [facility] ACCOUNT BILL Microbiology BREATH / Unknown 2022 12:36 PM BOOM MASTER 2022 Narrative Resulting Agency Comment Lab Testing performed at: [facility] [address] [facility] ??[facility] [id number] Vidhi Young APRN-INSPECTOR REPAIRER LAB - MICROB IOLOGY ORDERABLES Performing Organization Address City/[facility] Co de Phone Number [facility] ACCOUNT BILL [address] [place] [address] * EKG 12-LEAD (04/16/2022 2:56 PM BOOM MASTER) Only the most recent of3 resultswithin the time period is included. Ventricular Rate 59 BPM [facility] Atrial Rate 59 BPM [facility] P-R Interval 164 ms [facility] QRS Duration ms 80 ms [facility] Q-T Interval ms 422 ms [facility] QTC Calculation (Bezet) 417 ms [facility] Calculated P [place] 35 degrees [facility] Calculated T [place] 19 degrees [facility] Interpretation EKG Sinus bradycardia Minimal voltage criteria for LVH, may be normal variant ( R in aVL ) Cannot rule out Inferior infarct , age undetermined Abnormal ECG Confirmed by KIA JI, DANIELLE ([id number]) on 04/17/2022 9:06:21 PM [facility] 04/16/2022 2:56 PM BOOM MASTER 04/17/2022 9:06 PM BOOM MASTER Kelvin Pringle MD ECG ORDERABLES Performing Organization Address City/[facility] Co de Phone Number [facility] * (ABNORMAL) HELICOBACTER PYLORI UREASE (STL) (03/01/2022 9:42 AM BOOM MASTER) Helicobacter pylori Urease Initial Positive( A) Negative 03/01/2022 3:12 PM BOOM MASTER [facility] Helicobacter pylori Urease Final Positive( A) Negative 03/01/2022 3:12 PM BOOM MASTER [facility] Microbiology GASTRIC ANTRAL BIOPSY SPECIMEN / Unknown Collection / Unknown 03/01/2022 9:42 AM BOOM MASTER 03/01/2022 1:54 PM BOOM MASTER Kelvin Pringle MD LAB - MICROBIOLOGY O RDERABLES Performing Organization Address [facility] Co de Phone Number [facility] [address] [place] [id number] * EGD (03/01/2022 9:16 AM BOOM MASTER) Report Endoscopy POC _ Patient Name: Apoorva Forman ? Procedure Date: 03/01/2022 9:16 AM ? Date of : 1975 ? Admit Type: Outpatient Age: 46 ? Gender: Female Attending MD: Kelvin Pringle MD ? _ Procedure: ? Upper GI endoscopy Indications: ? Heartburn, Preoperative assessment for bariatric ? surgery to treat morbid obesity Providers: ? Kelvin Pringle MD (Doctor) Referring MD: ?Santana Smith MD (Referring MD) Medicines: ? Propofol per Anesthesia Complications: ? No immediate complications. _ Estimated Blood Loss: ? Estimated blood loss: none. Procedure: ? Pre-Anesthesia Assessment: ? - Prior to the procedure, a History and Physical was ? performed, and patient medications and allergies were ? reviewed. The patient's tolerance of previous ? anesthesia was also reviewed. The risks and benefits ? of the procedure and the sedation options and risks ? were discussed with the patient. All questions were ? answered, and informed consent was obtained. Prior ? Anticoagulants: The patient has taken no previous ? anticoagulant or antiplatelet agents. ASA Grade ? Assessment: II - A patient with mild systemic disease. ? After reviewing the risks and benefits, the patient ? was deemed in satisfactory condition to undergo the ? procedure. ? After obtaining informed consent, the endoscope was ? passed under direct vision. Throughout the procedure, ? the patient's blood pressure, pulse, and oxygen ? saturations were monitored continuously. The Endoscope ? was introduced through the mouth, and advanced to the ? second part of duodenum. The upper GI endoscopy was ? accomplished without difficulty. The patient tolerated ? the procedure well. ? Findings: ? The examined esophagus was normal. ? Localized moderate inflammation characterized by erosions and linear ? erosions was found in the gastric antrum. Biopsies were taken with a ? cold forceps for NANCY. ? The duodenal bulb, first portion of the duodenum and second portion of ? the duodenum were normal. _ ? Impression: ?- Normal esophagus. ? - Gastritis. Biopsied. ? - Normal duodenal bulb, first portion of the duodenum ? and second portion of the duodenum. Recommendation: ?- Await pathology results. ? - Discharge patient to home. ? - Resume previous diet. ? Procedure Code(s): ? --- Professional --- ? 20013, Esophagogastroduo denoscopy, flexible, transoral; with biopsy, ? single or multiple ? --- Technical --- ? 87438, Esophagogastroduo denoscopy, flexible, transoral; with biopsy, ? single or multiple Diagnosis Code(s): ? --- Professional --- ? K29.70, Gastritis, unspecified, without bleeding ? R12, Heartburn ? Z01.818, Encounter for other preprocedural examination ? E66.01, Morbid (severe) obesity due to excess calories ? --- Technical --- ? K29.70, Gastritis, unspecified, without bleeding ? R12, Heartburn ? Z01.818, Encounter for other preprocedural examination ? E66.01, Morbid (severe) obesity due to excess calories CPT copyright 2019 [employer]. All rights reserved. The codes documented in this report are preliminary and upon guide alpine review may be revised to meet current compliance requirements. __ Kelvin Pringle MD 03/01/2022 9:56:25 AM Number of Addenda: 0 Note Initiated On: 03/01/2022 9:16 AM [facility] 03/01/2022 9:16 AM BOOM MASTER Narrative Procedure Note Kelvin Pringle MD - 03/01/2022 9:57 AM CST PLAN: - f/u biopsy results - No follow up post procedure office appointment necessary, continue withpreoperative plan Kelvin Pringle MD Kelvin Pringle MD GI PROCEDURE ORDERAB LES [facility] [place] [address] * CULTURE URINE (02/01/2021 11:57 AM BOOM MASTER) Culture [facility] Comment: ??CULTURE, URINE, ROUTINE ?Micro Number: ?[id number] ??Test Status: ? Final ??Specimen Source: ?? Urine ??Specimen Quality: ??Adequate ??Result: ?No Growth Test Performed at: [facility] ??[id number] THALIA ANN MD Urine URINE SPECIMEN OBTAINED BY CLEAN CATCH PROCEDURE / Unknown 02/01/2021 11:57 AM BOOM MASTER 02/02/2021 12:19 AM BOOM MASTER Radha Jiménez MD LAB - MICROBIOLOGY O RDLYUBOV Performing Organization Address [facility] Co de Phone Number [address] [address] * TROPONIN I (08/07/2019 6:36 AM CDT) Only the most recent of4 resultswithin the time period is included. Troponin I <0.010 <0.038 ng/mL 08/07/2019 7:01 AM CDT [facility] Blood BLOOD SPECIMEN / Unknown Venipuncture / Unknown 08/07/2019 6:36 AM CDT 08/07/2019 6:38 AM CDT Gato Malave MD LAB - CHEMISTRY DEANNA ESPINOSA Performing Organization Address [facility] de Phone Number [facility] [address] [place] [address] * T3 FREE (08/07/2019 6:36 AM CDT) T3 Free 3.16 1.71 - 3.71 pg/mL 08/07/2019 12:32 PM CDT [facility] Blood BLOOD SPECIMEN / Unknown Venipuncture / Unknown 08/07/2019 6:36 AM CDT 08/07/2019 6:38 AM CDT Ismael Oconnell MD LAB - CHEMISTRY DEANNA ESPINOSA Performing Organization Address [facility] Co de Phone Number [facility] [address] [place] [address] * T4 FREE (08/07/2019 6:36 AM CDT) T4 Free 0.95 0.70 - 1.48 ng/dL 08/07/2019 7:17 AM CDT [facility] Blood BLOOD SPECIMEN / Unknown Venipuncture / Unknown 08/07/2019 6:36 AM CDT 08/07/2019 6:38 AM CDT Ismael Oconnell MD LAB - CHEMISTRY ORDDiego ESPINOSA Performing Organization Address [facility]/ZIP Co de Phone Number [facility] [address] [place] [address] * URINE MICROSCOPIC ONLY REFLEX TO CULTURE (08/07/2019 4:07 AM CDT) Reflex Status Culture not indicated 08/07/2019 4:30 AM CDT [facility] RBC UA 0-2 None Seen, 0-2, 3-5 # /hpf 08/07/2019 4:30 AM CDT [facility] WBC UA 0-5 None Seen, 0-5 # /hpf 08/07/2019 4:30 AM CDT [facility] Bacteria UA None Seen None Seen 08/07/2019 4:30 AM CDT [facility] Squamous Epithelial Cells 3-5 None Seen, 0-2, 3-5 /hpf 08/07/2019 4:30 AM CDT [facility] Mucus UA 1+ /LPF 08/07/2019 4:30 AM CDT [facility] Urine URINE SPECIMEN OBTAINED BY CLEAN CATCH PROCEDURE / Unknown Collection / Unknown 08/07/2019 4:07 AM CDT 08/07/2019 4:11 AM CDT Narrative [facility] - 08/07/2019 4:30 AM CDT Gato Malave MD LAB - URINALYSIS ORD ERABLES [facility] [address] [place] [address] * (ABNORMAL) URINALYSIS REFLEX MICROSCOPIC REFLEX CULTURE (08/07/2019 4:07 AM CDT) Color UA Yellow Straw, Yellow 08/07/2019 4:16 AM CDT [facility] Clarity UA Clear Clear 08/07/2019 4:16 AM CDT [facility] Glucose UA Negative Negative 08/07/2019 4:16 AM CDT [facility] Bilirubin UA Negative Negative 08/07/2019 4:16 AM CDT [facility] Ketone UA Negative Negative 08/07/2019 4:16 AM CDT [facility] Specific [place] UA 1.039(H) 1.005 - 1.030 08/07/2019 4:16 AM CDT [facility] Blood UA 1+(A) Negative 08/07/2019 4:16 AM CDT [facility] pH UA 6.0 5.0 - 8.0 pH 08/07/2019 4:16 AM CDT [facility] Protein UA Negative Negative 08/07/2019 4:16 AM CDT [facility] Urobilinogen UA Negative Negative mg/dL 08/07/2019 4:16 AM CDT [facility] Nitrite UA Negative Negative 08/07/2019 4:16 AM CDT [facility] Leukocyte UA Negative Negative 08/07/2019 4:16 AM CDT [facility] Urine Microscopy Urine microscopy to follow 08/07/2019 4:16 AM CDT [facility] Reflex Status Culture not indicated 08/07/2019 4:16 AM CDT [facility] Urine URINE SPECIMEN OBTAINED BY CLEAN CATCH PROCEDURE / Unknown Collection / Unknown 08/07/2019 4:07 AM CDT 08/07/2019 4:11 AM CDT Narrative [facility] - 08/07/2019 4:16 AM CDT Gato Malave MD LAB - URINALYSIS ORD ERABLES [facility] [address] [place] [address] * (ABNORMAL) DRUG SCREEN TOX URINE PANEL (08/07/2019 4:07 AM CDT) Amphetamines Screen Urine Not detected Not detected 08/07/2019 4:28 AM CDT [facility] Barbiturates Screen Urine Not detected Not detected 08/07/2019 4:28 AM CDT [facility] Benzodiazepines Screen Urine Not detected Not detected 08/07/2019 4:28 AM CDT [facility] Cannabinoids Screen Urine Detected(A) Not detected 08/07/2019 4:28 AM CDT [facility] Cocaine Screen Urine Not detected Not detected 08/07/2019 4:28 AM CDT [facility] Fentanyl Urine Not detected Not detected 08/07/2019 4:28 AM CDT [facility] Methadone Screen Urine Not detected Not detected 08/07/2019 4:28 AM CDT [facility] Opiate Screen Urine Detected(A) Not detected 08/07/2019 4:28 AM CDT [facility] Phencyclidine Screen Urine Not detected Not detected 08/07/2019 4:28 AM CDT [facility] Urine URINE / Unknown Collection / Unknown 08/07/2019 4:07 AM CDT 08/07/2019 4:11 AM CDT Narrative [facility] - 08/07/2019 4:28 AM CDT This drug screen is designed for MEDICAL purposes only. It is not to be used for legal purposes, including but not limited to worker's comp, police investigations, occupational issues, child custody, etc. ??Any positive result is only presumptive and must be confirmed with a separate confirmatory test ordered by the physician. Drug Screening Test Cutoff Values: AMPHETAMINES ?1000 ng/mL BARBITURATES ? 200 ng/mL BENZODIAZEPINES ?200 ng/mL CANNABINOIDS(THC) ?? 50 ng/mL COCAINE ?300 ng/mL FENTANYL ? 1 ng/mL METHADONE ?300 ng/mL OPIATES ?300 ng/mL PHENCYCLIDINE(PCP) ??25 ng/mL Gato Malave MD LAB - URINE CHEMISTR Y ORDERABLES [facility] [address] [place] [address] * (ABNORMAL) TSH (08/07/2019 3:11 AM CDT) TSH 0.0890(L) 0.35 - 4.94 uIU/mL 08/07/2019 4:57 AM CDT [facility] Blood BLOOD SPECIMEN / Unknown Venipuncture / Unknown 08/07/2019 3:11 AM CDT 08/07/2019 3:28 AM CDT Gato Malave MD LAB - CHEMISTRY DEANNA ESPINOSA [facility] Organization Address City/State/ZIP Co de Phone Number [facility] [address] [place] [address] * CT CHEST PE (08/07/2019 2:03 AM CDT) Only the most recent of2 resultswithin the time period is included. Anatomical Region Laterality Modality Chest Computed Tomogra phy 08/07/2019 9:05 AM CDT Impressions 08/07/2019 9:13 AM CDT No evidence pulmonary embolus. Minimal emphysematous changes. *Reading Radiologist: Ania Shepard on 08/07/2019 at 9:13 AM Narrative 08/07/2019 9:[address] CHEST WITH CONTRAST INDICATION: Chest pain, positive d-dimer TECHNIQUE: The CT scan of the chest is carried out during the administration of ??71 ?? cc of Isovue-370 ?utilizing the special pulmonary embolus technique. Preliminary report was provided by [facility]. FINDINGS: The CT scan of the chest is negative for pulmonary embolus. No focal filling defects are identified to suggest acute pulmonary embolus. There is no enlarged mediastinal, hilar or axillary adenopathy. No definite infiltrate is noted. Mild emphysematous changes are seen left lower lobe. Limited images of the upper abdomen show small hypoattenuating lesions of the liver presumably cystic but not further characterize. Osseous structures are unremarkable. Procedure Note Ania Shepard MD - 08/07/2019 CT CHEST WITH CONTRAST INDICATION: Chest pain, positive d-dimer TECHNIQUE: The CT scan of the chest is carried out during the administration of 71 cc of Isovue-370 utilizing the special pulmonary embolus technique. Preliminary report was provided by [facility]. FINDINGS: The CT scan of the chest is negative for pulmonary embolus. No focal filling defects are identified to suggest acute pulmonary embolus. There is no enlarged mediastinal, hilar or axillary adenopathy. No definite infiltrate is noted. Mild emphysematous changes are seen left lower lobe. Limited images of the upper abdomen show small hypoattenuating lesions of the liver presumably cystic but not further characterize. Osseous structures are unremarkable. IMPRESSION No evidence pulmonary embolus. Minimal emphysematous changes. *Reading Radiologist: Ania Shepard on 08/07/2019 at 9:13 [address] Malave MD CT ORDERABLES * XR CHEST 1VW PORTABLE (08/07/2019 12:01 AM CDT) Only the most recent of2 resultswithin the time period is included. Anatomical Region Laterality Modality Chest Radiographic Devorah ging 08/07/2019 9:18 AM CDT Impressions 08/07/2019 9:19 AM CDT No acute disease. *Reading Radiologist: Ania Shepard on 08/07/2019 at 9:19 AM Narrative 08/07/2019 9:19 AM CDT [facility] Portable Chest Indication: Chest pain and rapid heart rate, shortness of breath Findings: A single portable view of the chest shows the lungs are clear. Mediastinal contour and heart size are within normal limits. Pulmonary vascularity is unremarkable. Procedure Note Ania Shepard MD - 08/07/2019 AP Portable Chest Indication: Chest pain and rapid heart rate, shortness of breath Findings: A single portable view of the chest shows the lungs are clear. Mediastinal contour and heart size are within normal limits. Pulmonary vascularity is unremarkable. IMPRESSION No acute disease. *Reading Radiologist: Ania Shepard on 08/07/2019 at 9:19 AM Gato Malave MD DIAGNOSTIC IMAGING O RDERABLES * (ABNORMAL) DRUG SCREEN TOX LIMITED BLD PNL 3 INHOUSE (08/06/2019 11:55 PM CDT) Acetaminophen <3.0(L) 10.0 - 30.0 ug/mL 08/07/2019 12:30 AM CDT [facility] Ethanol <10.0 <10 mg/dL 08/07/2019 12:30 AM CDT [facility] Salicylate <5.0(L) 15.0 - 30.0 mg/dL 08/07/2019 12:30 AM CDT [facility] Blood BLOOD SPECIMEN / Unknown Venipuncture / Unknown 08/06/2019 11:55 PM CDT 08/06/2019 11:58 PM CDT Narrative [facility] - 08/07/2019 12:30 AM CDT [facility] ACETAMINOPHEN COMMENT Critical values: 4 Hours Post Ingestion: Critical value ?? > 200 ??g/mL 12 Hours Post Ingestion: Critical value ??> ??50 ??g/mL For acute ingestion, please refer to Acetaminophen nomogram to determine the ??risk of toxicity ??based on time since ingestion and acetaminophen level (see link provided). Note the nomogram disclaimer. WARNING: Assessing the potential toxicity of an acetaminophen level on a standard risk nomogram must take into consideration many factors including any uncertainty of the time since ingestion or the possibility of other medications that may alter the peak level. Contact the [facility] at or reserved for healthcare professionals to assist you in evaluating potentially toxic acetaminophen levels. Gato Malave MD LAB - CHEMISTRY DEANNA ESPINOSA [facility] Organization Address City/State/ZIP Co de Phone Number [facility] [address] [place] [address] * PT PTT PANEL (08/06/2019 11:55 PM CDT) PT 12.8 12.1 - 14.8 sec 08/07/2019 12:11 AM CDT [facility] INR 1.0 0.9 - 1.1 08/07/2019 12:11 AM CDT [facility] PTT 23.0 23.0 - 38.4 sec 08/07/2019 12:11 AM CDT [facility] Blood BLOOD SPECIMEN / Unknown Venipuncture / Unknown 08/06/2019 11:55 PM CDT 08/06/2019 11:58 PM CDT Narrative [facility] - 08/07/2019 12:11 AM CDT Conventional Warfarin Anticoagulant Therapy: INR Reference Range: ??2.0-3.0 Intensive Warfarin Anticoagulant Therapy: INR Reference Range: ? 2.5-3.5 Heparin Therapeutic Range for PTT: ??71.0 - 109.0 seconds. Gato Malave MD LAB - COAGULATION OR DERABLES Performing Organization Address [facility] Co de Phone Number [facility] [id number] [place] [address] * (ABNORMAL) D-DIMER (08/06/2019 11:55 PM CDT) Only the most recent of2 resultswithin the time period is included. D-Dimer 0.58(H) 0.27 - 0.50 ug/mL FEU 08/07/2019 12:13 AM CDT [facility] Blood BLOOD SPECIMEN / Unknown Venipuncture / Unknown 08/06/2019 11:55 PM CDT 08/06/2019 11:58 PM CDT Narrative [facility] - 08/07/2019 12:13 AM CDT In the absence of clinical symptoms, a value less than or equal to 0.5 mcg/mL FEU significantly decreases the probability of PE/DVT (negative predictive value >95%). 1 mcg/ml FEU = 1 Fibrinogen Equivalent Unit (approximates 0.5 mcg/mL of D- dimer). Gato Malave MD LAB - COAGULATION OR DERABLES Performing Organization Address [facility] de Phone Number [facility] [address] [place] [phone] * B-TYPE NATRIURETIC PEPTIDE (08/06/2019 11:55 PM CDT) Pathologist [facility] BNP <10 <=100 pg/mL 08/07/2019 12:30 AM CDT [facility] Blood BLOOD SPECIMEN / Unknown Venipuncture / Unknown 08/06/2019 11:55 PM CDT 08/06/2019 11:58 PM CDT Gato Malave MD LAB - CHEMISTRY DEANNA ESPINOSA Performing Organization Address [facility] Co de Phone Number [facility] [address] [place] [phone] * C. TRACHOMATIS + N. GONORRHOEAE + TRICH SHARMAINE (04/05/2019 4:12 PM BOOM MASTER) Chlamydia Trachomatis SHARMAINE Not Detected Not Detected 04/07/2019 4:40 PM [facility] Neisseria Gonorrhoeae SHARMAINE Not Detected Not Detected 04/07/2019 4:40 PM [facility] Trichomonas Vaginalis SHARMAINE Not Detected Not Detected 04/07/2019 4:40 PM [facility] Microbiology ENTIRE VAGINA / Unknown 04/05/2019 4:12 PM BOOM MASTER 04/06/2019 12:11 PM BOOM MASTER Narrative [facility] - 04/07/2019 4:40 PM BOOM MASTER This analysis was performed using Gen-Probe Aptima Combo 2 and Gen-Probe Aptima Assay. These methodologies are U.S. FDA approved for Chlamydia trachomatis, Neisseria gonorrhoeae testing for urine and urogenital swabs from men and women, and cervical cells submitted in ThinPrep vials. Performance characteristics of testing for Trichomonas vaginalis on specimens using the Gen-Probe Aptima Trichomonas vaginalis Assay on the [place] system and rectal and pharyngeal swabs with Gen-Probe Aptima combo 2 were determined by the Molecular Diagn[facility] Laboratory at [facility]. ??They have not been cleared or approved by the U.S Food and Drug Administration (FDA). ??The FDA has determined that such clearance approval is not necessary. ??This test is used for clinical purposes and should not be regarded as investigational or for research. ??This laboratory is certified under the Clinical Laboratory Improvements Amendments of 1988 (CLIA 1988), as qualified to perform high complexity laboratory testing. Adela Gongora MD LAB - MICROB IOLOGY ORDERABLES [facility] [address] [facility] [address] [facility] [place], [place] [address] [phone] * CARDIAC RHYTHM STRIP ORDER (11/27/2017 11:58 PM CDT) Narrative 11/27/2017 11:58 PM CDT Ordered by an unspecified provider. Scanned Document CARDIAC SERVICES ORD ERABLES * GROSS + MICRO EXAM (STL) (11/25/2017 10:36 AM CDT) Case Report Surgical Pathology Report ? Case: [id number] ? Authorizing Provider: ??Adela Gongora, Collected: ? 11/25/2017 10:36 AM ? MD ? Ordering Location: ? [facility] ? Received: ?11/25/2017 01:18 PM ? Pathologist: ? Tata Harris MD ? Specimen: ?Uterus w Cervix ? 11/26/2017 12:39 PM CDT [facility] Final Diagnosis 1. Uterus with cervix, total hysterectomy morcellation: -- Cervix with squamous metaplasia -- Secretory endometrium -- Myometrium with multiple leiomyomata -- Uterine serosa with focal adhesions PA/ 11/26/2017 12:39 PM CDT [facility] Gross Description Received in one formalin-filled container, labeled with the patient's name, Apoorva Forman, and uterus with cervix, is a morcellated uterus, weighing 750 grams and measuring 20 x 18 x 7.0 cm in aggregate. An ectocervix is identified, measuring 3.1 cm in diameter, with a cervical os measuring 0.4 cm in diameter. The endometrium measures 0.1 cm thick. The myometrium is involved by multiple whorled white-dalton masses. The serosal surface shows adhesions. Sections are submitted as follows: A1 and A2 - Cervix. A3 and A4 - Endomyometrium. A5 and A6 - Uterine serosa. A7 and A8 - Sections of whorled white-dalton mass. GORGE/tc 11/26/2017 12:39 PM [facility] Microscopic Description There is no evidence of atypia, or malignancy. SD/sm 11/26/2017 12:39 PM T [facility] Disclaimer All histochemical and/or immunohistochemical results are interpreted with controls that demonstrate appropriate staining reactions before reporting results. Note on use of immunocytochemistry reagents: This test was developed and its performance characteristic determined by [facility], Department of Laboratory Medicine. It has not been cleared or approved by the U.S. Food and Drug Administration (FDA). The FDA has determined that such clearance or approval is not necessary. The test is used for clinical purpose. It should not be regarded as investigational or for research. This laboratory is certified to perform high complexity testing. 11/26/2017 12:39 PM T [facility] Embedded Images 11/26/2017 12:39 PM T [facility] Pathology/Cytolo gy SPECIMEN FROM UTERINE CERVIX OBTAINED BY HYSTERECTOMY / Unknown 11/25/2017 10:36 AM CDT 11/25/2017 1:18 PM CDT Adela Gongora MD LAB - PATHOL OGY/CYTOLOGY ORDERABLES [facility] [address] [place] [address] * ENDOTRACHEAL TUBE NOTE (11/25/2017 10:22 AM CDT) Narrative Jillian Ferrer MD - 11/25/2017 10:22 AM CDT Arturo Hong APRN-FAMILY MEDICINE CHAIR ? 11/25/2017 ??8:09 AM Endotracheal Tube Placement: ? Patient Location: OR. Intubation Event Date/Time: ??11/25/2017 7:40 AM Procedure: intubation (65100). Procedure Section: ?? Sedation: IV sedation. Indications for Airway Management: ??airway protection Pretreatment: 100% O2. Induction: standard IV Patient Position: ??sniffing Mask Ventilation: easy. Blade Type: Suzanna Blade Size: 3 Laryngoscopy View: grade 1 (full cords) Device: endotracheal tube Placement: oral Tube type: cuff - inflated Tube Size (FR): 7 Depth of Insertion (CM): 23 Measured From: teeth Cuff volume (mL): ??6 Cuff Inflated With: air Number of Attempts: 1. Placement Verified By: direct visualization, bilateral breath sounds, chest auscultation, CO2 monitor and CO2 detector Tube secured with: ??adhesive tape. Difficult Airway? ??No. Procedure Start Time: 11/25/2017 7:40 AM. Staff Section ?? Anesthesia Provider: ARTURO HONG, Zulema Provider #1: JILLIAN FERRER. Jillian Ferrer MD GENERAL ANESTHESIA O RDERABLES * HCG URINE QUALITATIVE - POCT (IP) INTERFACED (11/25/2017 6:22 AM CDT) HCG Qual Urine Negative Negative 11/25/2017 6:25 AM CDT [facility] Urine URINE / Unknown 11/25/2017 6 :22 AM CDT 11/25/2017 6:25 AM CDT Adela Gongora MD LAB - POINT OF CARE ORDERABLES [facility] [address] [place] [address] * HCG URINE QUAL POCT NOTIFICATION (11/25/2017 6:06 AM CDT) Comment Notification Label Only - See Separate Report 11/25/2017 8:00 AM CDT [facility] Urine URINE / Unknown 11/25/2017 6 :06 AM CDT 11/25/2017 6:06 AM CDT Jillian Ferrer MD LAB - URINALYSIS ORD ERABLES Performing Organization Address City/[facility]/ZIP Co de Phone Number [facility] [address] [place] [address] * TYPE + SCREEN PANEL (11/19/2017 12:46 PM CDT) ABO A 11/19/2017 12:47 PM CDT [facility] Rh Type Positive 11/19/2017 12:47 PM CDT [facility] Comment:History checked. Col lect retype. Antibody Screen Negative 11/19/2017 12:47 PM CDT [facility] Blood Bank BLOOD SPECIMEN / Unknown 11/19/2017 12:46 PM CDT 11/19/2017 10:22 AM CDT Robby Golden MD LAB - BLOOD BANK O RDERABLES Performing Organization Address [facility] Co de Phone Number [facility] [address] [place] [address] * (ABNORMAL) HGB HCT PANEL (11/19/2017 10:23 AM CDT) Hemoglobin 11.6(L) 12.0 - 15.6 gm/dL 11/19/2017 10:31 AM CDT [facility] Hematocrit 36.6 35.9 - 45.5 % 11/19/2017 10:31 AM CDT [facility] Blood BLOOD SPECIMEN / Unknown Venipuncture / Unknown 11/19/2017 10:23 AM CDT 11/19/2017 10:21 AM CDT Adela Gongora MD LAB - HEMATO LOGY ORDERABLES Performing Organization Address City/[facility]/ZIP Co de Phone Number [facility] [address] [place] [address] * ID US PELVIC NONOB REAL-TIME IMG COMPLETE, US TRANSVAGINAL NON OB (07/30/2017 8:08 AM CDT) Only the most recent of2 resultswithin the time period is included. Anatomical Region Laterality Modality Abdomen Ultrasound Narrative 07/30/2017 8:08 AM CDT Agata Lee ? 07/25/2017 ??2:41 PM Documentation in digisonics. Procedure Note Agata Lee - 07/25/2017 2:40 PM CDT Documentation in digisonics. Radha Jiménez MD US ORDERABLES * IMAGING/RADIOLOGY/XRAY RESULTS ORDER (07/30/2017 7:41 AM CDT) Anatomical Region Laterality Modality Other Narrative 07/30/2017 7:41 AM CDT Ordered by an unspecified provider. Scanned Document IMAGING * CHLAMYDIA + GC + TRICH DNA AMPL (07/21/2017) Chlamydia trachomatis RNA NOT DETECTED NOT DETECTED [facility] GC RNA NOT DETECTED NOT DETECTED [facility] Please Note [facility] Comment: This test was performed using the APTIMA COMBO2 Assay ([employer] The analytical performance characteristics of this assay, when used to test SurePath specimens have been determined by [employer]. ?? Trichomonas vaginalis RNA Qualitative NOT DETECTED NOT DETECTED [facility] Comment: This test was performed using the APTIMA(R) Trichomonas vaginalis assay (GenXianguoProbe(R)). For more information on this test, go to: http://education.Mashed Pixel.PNMsoft/faq/Trichomonastma Test Performed at: [facility] [address] [facility] [place] ??[phone] FRANCES OLIVAS DO,MPH Microbiology ENTIRE ENDOCERVIX / Unknown 07/21/2017 07/22/2017 4:08 AM CDT Radha Jiménez MD LAB - MICROBIOLOGY O RDERABLES [facility] [address] [place] [address] * PATHOLOGY/GENETICS HISTORICAL-ONBASE (05/08/2017) Only the most recent of2 resultswithin the time period is included. 05/08/2017 Radha Jiménez MD LAB - CHEMISTRY DEANNA ESPINOSA [facility] [address] * TRICHOMONAS - POINT OF CARE (AMB) [facility] (05/08/2017) Pathologist [facility] Trichomonas POCT n [facility] 05/08/2017 Radha Jiménez MD LAB - POINT OF CARE ORDERABLES Performing Organization Address [facility] Co de Phone Number [facility] [address] [place] [address] * PAP IMAGE-GUIDED LIQUID BASE W HPV (05/08/2017 12:00 AM BOOM MASTER) [facility] Pap Image-Guided Liquid-Based with HPV Accession No: [id number] Specimen:Endocervi alonso ThinPrep Slides:1 SPECIMEN ADEQUACY: SATISFACTORY FOR EVALUATION - Endocervical / Transformation Zone Component Present INTERPRETATION: NEGATIVE FOR INTRAEPITHELIAL LESION OR MALIGNANCY NOTE(S): HPV DIRECT - HPV result to follow in separate report Interpretation performed by Shekhar KIRKPATRICK(ASCP). Electronically signed 05/11/2017 [facility] Endocervical 05/08/2017 05/09/2017 11:35 AM BOOM MASTER Narrative [facility] - 05/12/2017 5:22 AM BOOM MASTER Has mirena iud Radha Jiménez MD LAB - PATHOLOGY/CYTO LOGY ORDERABLES Performing Organization Address [facility]/ZIP Co de Phone Number [facility] [address] [phone] * PATHOLOGY TISSUE (11/28/2016 12:00 AM CDT) Only the most recent of2 resultswithin the time period is included. Pathologist [facility] Surgical Pathology Tissue ACCESSION No: [id number] CLINICAL HISTORY: The patient is a 41-year-old woman with fibroid uterus and menorrhagia. FINAL DIAGNOSIS: Uterus, EMB , biopsy (A): - ??Bleeding pattern endometrium MICROSCOPIC DESCRIPTION AND COMMENT: The case is reviewed in pathology consensus meeting. HG/TF/edk GROSS DESCRIPTION: The specimen is received fixed in formalin in one container labeled with the patient's name, Apoorva Forman and EMB , and consists of multiple soft, brown-dalton tissue fragments with an aggregate measurement of 2.0 x 1.0 x 0.3 cm. ??The specimen is placed in a filter ??bag and submitted entirely in cassette A1. GORGE for TF/edk The performance characteristics of all immunohistochemical and indirect immunofluorescence stains (if any) cited in this report were determined by the Histopathology Laboratory of [facility].?? Some of these tests were developed by our own laboratory and have not been cleared or approved by the US Food and Drug Administration.?The FDA does not require this test to go through premarket FDA review.?These tests are used for clinical purposes. They should not be regarded as investigational or for research.?? This laboratory is certified under the Clinical Laboratory Improvement Amendments (CLIA) as qualified to perform high complexity clinical laboratory testing. This case has been personally reviewed and interpreted by the attending (teaching) pathologist. Final Diagnosis performed by Clement Torre M.D Ph.D. Electronically signed 12/03/2016 [facility] ([facility]) Other (qualifier value) 11/28/2016 11/29/2016 1:15 PM CDT Narrative [facility] ([facility]) - 12/03/2016 7:02 PM CDT Specimen A->Endometrium Carmen Scott MD LAB - PATHOLOGY/C YTOLOGY ORDERABLES [facility] ([facility]) * US PELVIS COMPLETE (10/23/2012 5:53 PM CDT) Anatomical Region Laterality Modality Pelvis Other Impressions 10/26/2012 2:59 PM CDT Impression: 1. No evidence of ovarian torsion. 2. Uterine fibroid. Findings were discussed with Dr. Pandey by Dr. Stone at 5:41 PM on 10/23/2012. This report was approved ??by Marv Francois M.D. ?? on 10/26/2012 2:59 PM . I, Dr. LI DAY M.D. have personally reviewed and interpreted this examination/study. This report was electronically signed by LI DAY M.D. ??on 10/26/2012 2:59 PM . Narrative 10/26/2012 2:59 PM CDT Exam: Transabdominal pelvic sonogram Transvaginal pelvic sonogram Date: 10/23/2012. Reason: Pelvic pain. Concern for left ovarian torsion. Findings: Uterus: 10.5 x 5.8 x 6.2 cm Right ovary: 4.6 x 4.3 x 2.4 cm Left ovary: 2.7 x 1.8-1.6 cm There is no evidence of ovarian torsion. A hypoechoic lesion in the mid uterine segment measuring 1.8 x 1.4 cm likely represents a fibroid. The endometrial bilayer thickness is 2 mm and within normal limits. Right ovarian cysts measure up to 3.0 x 2.1 x 3.1 cm. Free fluid is present in the cul-de-sac. Hypoechogenicities in the region of the cervix likely represent nabothian cysts. Procedure Note Provider, MD Neville - 06/15/2017 Exam: Transabdominal pelvic sonogram Transvaginal pelvic sonogram Date: 10/23/2012. Reason: Pelvic pain. Concern for left ovarian torsion. Findings: Uterus: 10.5 x 5.8 x 6.2 cm Right ovary: 4.6 x 4.3 x 2.4 cm Left ovary: 2.7 x 1.8-1.6 cm There is no evidence of ovarian torsion. A hypoechoic lesion in the miduterine segment measuring 1.8 x 1.4 cm likely represents a fibroid. Theendometrial bilayer thickness is 2 mm and within normal limits. Rightovarian cysts measure up to 3.0 x 2.1 x 3.1 cm. Free fluid is present in the cul-de-sac. Hypoechogenicities in theregion of the cervix likely represent nabothian cysts. IMPRESSION Impression: 1. No evidence of ovarian torsion. 2. Uterine fibroid. Findings were discussed with Dr. Pandey by Dr. Stone at 5:41 PM on10/23/2012. This report was approved by Marv Francois M.D. on 10/26/2012 2:59 PM. I, Dr. LI DAY M.D. have personally reviewed and interpreted thisexamination/study. This report was electronically signed by LI DAY M.D. on 10/26/20122:59 PM . Walt Donohue MD US ORDERABLES * CT ABDOMEN PELVIS WO CONTRAST (10/23/2012 1:39 PM CDT) Anatomical Region Laterality Modality Abdomen, Pelvis Other Impressions 10/23/2012 2:39 PM CDT IMPRESSION: 1. No evidence of PE. 2. Asymmetric enlargement of the right ovary with cysts. Recommend clinical correlation and consider pelvic ultrasound for further evaluation. Ovarian torsion is a consideration if there are symptoms referable to the right pelvis. 3. Fat stranding and nodularity in the subcutaneous tissues in the right upper chest wall superior to the breast. An infectious or posttraumatic process is favored. Clinical followup and followup imaging is recommended to exclude malignancy. 4. A 4 mm right perifissural nodule. A one-year followup chest CT is recommended if the patient is respective such as smoking. 5. No evidence of renal calculus, hydronephrosis or hydroureter. Preliminary findings were discussed with Dr. Donohue by Dr. Wang on 10/23/12 at 1411 hours. I, Dr. ESTELLE JOHNSON M.D. have personally reviewed and interpreted this examination/study. This report was electronically signed by ESTELLE JOHNSON M.D. ??on 10/23/2012 2:39 PM . Narrative 10/23/2012 2:39 PM CDT EXAMINATION: 1. Computed tomography of the chest with contrast 2. CT of the abdomen and pelvis without contrast. DATE: 10/23/2012 HISTORY: chest pain, positive d-dimer TECHNIQUE: Computed tomography of the chest was performed following the uneventful administration of Omnipaque 350 100 ml intravenous contrast according to PE protocol. CT of the abdomen and pelvis was performed without contrast according to standard protocol. COMPARISON: None available FINDINGS: Chest: There is image noise from patient body habitus and suboptimal bolus, however, the study is diagnostic. No filling defects are present in the pulmonary arteries to suggest emboli. The lungs are free of airspace consolidation. ??No pneumothorax or pleural effusion is present. The heart, great vessels, and mediastinum are unremarkable. There is a 4 mm nodule along the minor fissure (series 10 image 32). There is asymmetric fat stranding and nodularity in the subcutaneous tissues in the upper chest wall superior to the breast (series 9 image 28). This region measures up to 4.3 cm in greatest axial dimension. Abdomen and Pelvis: Noncontrast images of the liver and gallbladder appear normal without biliary ductal dilatation. A tiny cyst is incidentally noted at the liver dome measuring 5 mm. Noncontrast images of the spleen, pancreas, and adrenal glands appear normal. No stones are identified in either kidney or along the course of either ureter and no hydronephrosis or hydroureter is seen. The urinary bladder appears normal. There is significant asymmetric enlargement of the right ovary with a 2.3 cm cyst. There is no evidence of significant adjacent fat stranding. Phleboliths and calcifications are noted in the pelvis. No free pelvic fluid is seen. The small and large bowel are normal in caliber without indication of obstruction. The appendix appears unremarkable. No free intraperitoneal air or free fluid is identified. No lymphadenopathy is seen. The abdominal aorta is normal in course and caliber. Bone windows demonstrate no suspicious lytic or blastic lesions. Procedure Note Estelle Johnson MD - 06/15/2017 EXAMINATION: 1. Computed tomography of the chest with contrast 2. CT of the abdomen and pelvis without contrast. DATE: 10/23/2012 HISTORY: chest pain, positive d-dimer TECHNIQUE: Computed tomography of the chest was performed following theuneventful administration of Omnipaque 350 100 ml intravenous contrastaccording to PE protocol. CT of the abdomen and pelvis was performedwithout contrast according to standard protocol. COMPARISON: None available FINDINGS: Chest: There is image noise from patient body habitus and suboptimal bolus,however, the study is diagnostic. No filling defects are present in thepulmonary arteries to suggest emboli. The lungs are free of airspaceconsolidation. No pneumothorax or pleural effusion is present. The heart, great vessels, and mediastinum areunremarkable. There is a 4 mm nodule along the minor fissure (series 10image 32). There is asymmetric fat stranding and nodularity in the subcutaneoustissues in the upper chest wall superior to the breast (series 9 image28). This region measures up to 4.3 cm in greatest axial dimension. Abdomen and Pelvis: Noncontrast images of the liver and gallbladder appear normal withoutbiliary ductal dilatation. A tiny cyst is incidentally noted at the liverdome measuring 5 mm. Noncontrast images of the spleen, pancreas, andadrenal glands appear normal. No stones are identified in either kidney or along the course of eitherureter and no hydronephrosis or hydroureter is seen. The urinary bladderappears normal. There is significant asymmetric enlargement of the rightovary with a 2.3 cm cyst. There is no evidence of significant adjacent fat stranding. Phleboliths andcalcifications are noted in the pelvis. No free pelvic fluid is seen. The small and large bowel are normal in caliber without indication ofobstruction. The appendix appears unremarkable. No free intraperitonealair or free fluid is identified. No lymphadenopathy is seen. The abdominalaorta is normal in course and caliber. Bone windows demonstrate no suspicious lytic or blastic lesions. IMPRESSION IMPRESSION: 1. No evidence of PE. 2. Asymmetric enlargement of the right ovary with cysts. Recommendclinical correlation and consider pelvic ultrasound for furtherevaluation. Ovarian torsion is a consideration if there are symptomsreferable to the right pelvis. 3. Fat stranding and nodularity in the subcutaneous tissues in the rightupper chest wall superior to the breast. An infectious or posttraumaticprocess is favored. Clinical followup and followup imaging is recommendedto exclude malignancy. 4. A 4 mm right perifissural nodule. A one-year followup chest CT isrecommended if the patient is respective such as smoking. 5. No evidence of renal calculus, hydronephrosis or hydroureter. Preliminary findings were discussed with Dr. Donohue by Dr. Wang on 10/23/12at 1411 hours. I, Dr. ESTELLE JOHNSON M.D. have personally reviewed and interpreted thisexamination/study. This report was electronically signed by ESTELLE JOHNSON M.D. on 10/23/20122:39 PM . Walt Donohue MD CT ORDERABLES * HCG BLOOD QUALITATIVE (10/23/2012 11:41 AM CDT) NEGATIVE [facility] Comment:PERFORMED BY: THOMAS BAILEY 10/23/2012 11:4 1 AM CDT 10/23/2012 11:43 AM CDT Az Rodriguez MD LAB - CHEMISTRY DEANNA ESPINOSA [address] [phone] * HCG URINE QUALITATIVE - POCT (IP) [facility] (10/23/2012 11:37 AM CDT) Test Urine neg [facility] Urine specimen (specimen) 10/23/2012 11:37 AM CDT Walt Donohue MD LAB - POINT OF CARE ORDERABLES Performing Organization Address [facility]/ZIP Co de Phone Number [facility] * (ABNORMAL) URINALYSIS W/MICROSCOPIC NO CULTURE (10/23/2012 10:30 AM CDT) Color UA YELLOW STRW,YELLOW [facility] Clarity UA HAZY(A) CLEAR [facility] Specific [place] Urine 1.012 1.001 - 1.030 [facility] pH UA 6.5 5.0 - 8.0 [facility] Protein UA TRACE <20 mg/dL [facility] Glucose UA NEGATIVE NEGATIVE mg/dL [facility] Ketones NEGATIVE NEGATIVE mg/dL [facility] Bilirubin UA NEGATIVE NEGATIVE mg/dL [facility] Blood UA TRACE(A) NEGATIVE [facility] Nitrite UA NEGATIVE NEGATIVE [facility] Leukocyte Esterase NEGATIVE NEGATIVE [facility] Urobilinogen UA < 2.0 <2.0 mg/dL [facility] RBC Urine 3 0 - 8 /HPF [facility] WBC Urine 1 0 - 2 /HPF [facility] Squamous Epithelial Cells UA 5(H) 0 - 1 /HPF [facility] Mucus Urine OCCASIONAL( A) NONE SEEN /LPF [facility] Urine specimen (specimen) 10/23/2012 10:30 AM CDT 10/23/2012 10:46 AM CDT Az Rodriguez MD LAB - URINALYSIS ORD ERABLES Performing Organization Address [facility]/ZIP Co de Phone Number [address] [phone] * (ABNORMAL) ERYTHROCYTE SEDIMENTATION RATE (10/23/2012 10:10 AM CDT) Erythrocyte Sedimentation Rate Westergren 22(H) 0 - 20 MM/HR [facility] Blood specimen (specimen) 10/23/2012 10:10 AM CDT 10/23/2012 12:00 PM CDT Narrative [facility] - 10/23/2012 1:30 PM CDT EPIC ORDER # ARE [id number], [id number], [id number], [id number], [id number] Az Rodriguez MD LAB - HEMATOLOGY ORD ERABLES Performing Organization Address [facility]/[place] [address], [facility] [phone] * CK + CKMB PANEL (10/23/2012 10:10 AM CDT) Pathologist [facility] CK Total 106 30 - 200 Units/L [facility] CK-MB 0.7 0.0 - 6.6 ng/mL [facility] Comment: ? CKMB Reference Range 6.6 ng/mL or greater = Positive For indeterminate results, additional specimen(s) for CKMB, drawn at least one hour apart, may aid diagnosis. Positive CKMB results should be clinically interpreted in combination with total CK serum level. ??In patients without cardiac muscle damage, CKMB (ng/mL) is generally <2.5% of total CK enzyme activity (Units/L). Virtually all patients with acute myocardial infarction have CKMB values 6.6 ng/mL or greater for samples drawn at least 8-12 hours after the onset of chest pain. ??CKMB values generally remain elevated for 2-3 days. 10/23/2012 10:1 0 AM CDT 10/23/2012 12:00 PM CDT Narrative [facility] - 10/23/2012 12:51 PM CDT EPIC ORDER # ARE [id number], [id number] Az Rodriguez MD LAB - CHEMISTRY DEANNA ESPINOSA [facility] Organization Address City/State/ZIP Co de Phone Number [facility] [address] [place] [address] Care Teams Obstetrics Gyn Relationship Specialty Start Date End Date Santana Smith MD [address] [facility] [address] [place] [id number] PCP - General 06/21/14
--- OUTSIDE RECORDS SUMMARY | 2024-04-12 16:14 | XMS_ITS | Referral Summary ---
Author Organization [facility] Address [address] [place] [address] Care Team Providers Care Fast Food Crew Member Name Role Phone Santana Smith MD Primary Care Provider [phone] Source Comments [facility],non-owned Affiliates and Associated Physician Practices is amultiple site organization consisting of ambulatory clinics and hospital sitesin [place], [place], [place] and [place]. This disclosure is being madepursuant to the Care Everywhere program and may not contain all information available regarding this patient. Last updated 17.[facility] Allergies Active Allergy Reactions Criticality Noted Date Comments Levofloxacin Urticaria Medium 06/05/2016 hives Medications * Be aware that medications may not be up to date on this document. Alwaysverify current medications with the patient. Medication Sig Dispensed Refills Start Date End Date Status LORazepam (ATIVAN) 1 MG tablet Take 1 (one) tablet by mouth nightly as needed for Anxiety 11/22/2020 Active oxyCODONE, immediate release, (Roxicodone) 10 MG tablet Take 1 (one) tablet by mouth every 6 hours as needed for Pain Active Active Problems Problem Noted Date Diagnosed Date Tachyarrhythmia 08/07/2019 Anxiety states 08/07/2019 Chest pain 08/07/2019 Panic attack 08/07/2019 Morbid obesity 08/07/2019 Cyst of ovary 12/04/2017 Uterine leiomyoma 12/04/2017 Encounter for gynecological examination without abnormal finding 05/14/2017 Overview (12/18/2020): S/p tlh 01/03 05/04 normal pap neg hpv Mammo: 10/09/15 No STDs. Colonoscopy: 04/11/2016 Submucous leiomyoma of uterus 11/16/2016 Occlusion and stenosis of right carotid artery 0 11/16/2016 Well woman exam with routine gynecological exam 11/14/2016 Overview (07/21/2017): Overview: 05/04 normal pap neg hpv Mammo: 10/09/15 No STDs. Colonoscopy: 04/11/2016 Hidradenitis suppurativa 11/07/2016 Ischemia and infarction of [...] and heating? Not hard at all 04/30/2022 [facility] of Occupat ional Health - Occupational Stress [...] Mass Index 32.61 10/24/2023 3:57 PM CDT Functional Status Functional Status Response Date of Assess ment Is person deaf or have serious hearing difficult y? No 04/30/2022 Is person blind or have serious difficulty seein g? No 04/30/2022 Does person have serious dif ficulty walking/climbing stairs? No 04/30/2022 Does person have difficulty dressing/bathing? No 04/30/2022 Does person have difficulty doing errands alone? No 04/30/2022 Cognitive Status Response Date of Assessm ent Does person have difficulty concentrating/remembering/making decisions? No 04/30/2022 Plan of Treatment Not on file Procedures Procedure Name Priority Date/Time Associated Diagnosis Comments MAMMO BILAT SCREENING W KAILEY Routine 10/24/2023 3:57 PM CDT Macromastia COMPREHENSIVE METABOLIC PANEL 12/04/2022 12:48 PM CDT from Last 3 Months or Most Recently Relevant to Health Maintenance Results * MAMMO BILAT SCREENING W KAILEY (10/24/2023 3:57 PM CDT) Anatomical Region Laterality Modality Breast Bilateral Mammography 10/30/2023 7:35 AM CDT Impressions 10/30/2023 8:52 AM CDT : ??No mammographic evidence of malignancy. RECOMMENDATION: ?? 1. Screening mammography in one year, pending no interval breast concerns. 2. Consultation in the [facility], given the elevated lifetime risk of developing breast cancer greater than 20%. Should she wish to schedule a consultation, the phone number [phone]. 3. Annual screening breast MRI is recommended, given the elevated lifetime risk of breast cancer of greater than 20%, according to the [place] [employer] guidelines, and can be alternated at 6 month intervals with mammography or performed at the time of screening mammography. This can be managed by the High-Risk Breast Clinic. Patient will receive the examination results by lay letter. OVERALL ASSESSMENT: ??BI-RADS CATEGORY 1: NEGATIVE. Report dictated by Prieto Tavera M.D. (residential roofer helper) 10/30/2023 7:37 AM Alexei Rosales M.D. and Angle Wisdom M.D. also participated in the interpretation of this study. ?? I, Francesca Martin MD have personally reviewed and interpreted this examination/study. > Interpreting Provider: Francesca Martin MD on 10/30/2023 8:52 AM Narrative 10/30/2023 8:52 AM CDT EXAMINATIONS: ??BILATERAL DIGITAL SCREENING MAMMOGRAM AND BILATERAL BREAST TOMOSYNTHESIS LOCATION: [facility] EXAM DATE: ??10/24/2023 HISTORY: ??Screening. Family [...] cancer greater than 20%, consultation in the [facility] Breast [facility] High Risk Clinic is recommended. The phone number is [phone]. The [place] [employer] recommends annual screening breast MRI [...] recommended. COMPARISON: Compare with prior mammograms from [facility] dated 01/08/2018, 06/06/2021 and 09/26/2022. TECHNIQUE: Tomosynthesis [...] ?? Marcus Person MD MAMMO ORDERABLES * COMPREHENSIVE METABOLIC PANEL (12/04/2022 12:48 PM CDT) Glucose 76 65 - 99 mg/dL [facility] [...] 29 U/L [facility] Comment: Test Performed at: [email or web address] ??[id number] THALIA ANN MD 12/04/2022 12:4 8 PM CDT 12/04/2022 12:50 PM CDT Carmen Johnson RESEARCH DEVELOPMENT MANAGER-GLASS FINISHER LAB - [place] СВ[facility]ТЛАНА ORDERABLES [address] [address] from Last 3 Months or Most Recently Relevant to Health Maintenance Advance Directives * Full Code (Latest Code Status on File) Date Activated Date Inactivated Comments 04/30/2022 10:22 AM 05/01/2022 4:11 PM * Full Code Date Activated Date Inactivated Comments 11/25/2017 2:05 PM 11/26/2017 4:53 PM Care Teams Fast Food Crew Member Relationship Specialty Start Date End Date Santana Smith MD [address] [facility] [address] [place] [address] PCP - General 06/21/14
--- OUTSIDE RECORDS SUMMARY | 2024-04-12 16:14 | XMS_ITS | Encounter Summary ---
Author Organization [facility] Address [address] [place] [address] Care Team Providers Care Senior Etl Developer Name Role Phone Santana Smith MD Primary Care Provider [phone] Reason for Visit * Reason Onset Date Comments Concerns 02/12/2023 Encounter Details Date Type Department Care Team (Late st Contact Info) Description 02/12/2023 Telephone [facility] - CORPORATE WELLNESS COORDINATOR [address] [address] Radha Jiménez MD [address] [place] [address] Concerns Social History Tobacco Use Types Packs/Day Years Used Date Smoking Tobacco: Never Passive Smoke Exposure: Never Smokeless Tobacco: Never Alcohol Use Standard Drinks/Week Comments No 0 (1 standard drink = 0.6 oz pur e alcohol) Overall Financial Resource Strain (CARDIA) Answe r Date Recorded How hard is it for you to pa y for the very basics like food, housing, medical care, and heating? Not hard at all 04/30/2022 [facility] [place] of Occupat ional Health - Occupational Stress [...] place to sleep or slept in a senior living (including now)? No 04/30/2022 Sex and Gender Information Value Date Recorded Sex Assigned at Not on file Gender Identity Not on file Sexual Orientation Not on file documented as of this encounter Functional Status Functional Status Response Date of [...] person have difficulty concentrating/remembering/making decisions? No 04/30/2022 documented as of this encounter Miscellaneous Notes * Telephone Encounter - Adela Gongora MD - 02/12/2023 2:09 PM RECTANGULAR TANK COOPER agree ANGULAR TANK COOPER * Telephone Encounter - Agata Lugo RN - 02/12/2023 1:41 PM RECTANGULAR TANK COOPER RN called pt. Per pt she has used a new soap and it has now caused a thick discharge and yeast odor. Pt aware of vulvar care guidelines. RN sent in mychart as well and went over baking soda sitz baths. RN sent diflucan to preferred pharmacy. Pt aware if no symptom relief a week after taking tab to call us for an appt. Pt has wwe scheduled 03/2023 ANGULAR TANK COOPER * Telephone Encounter - Danni Acevedo - 02/12/2023 12:48 PM CST Pt states she is wanting to speak with Dr. Jiménez or a nurse about some concerns she is having. She states she used a certain scented body wash and it is not agreeing with her. ANGULAR TANK COOPER documented in this encounter Plan of Treatment Not on file documented as of this encounter Visit Diagnoses Not on filedocumented in this encounter Care Teams Senior Etl Developer Relationship Specialty Start Date End Date Santana Smith MD [address] [address] PCP - General 06/21/14 documented as of this encounter
--- OUTSIDE RECORDS SUMMARY | 2024-04-12 16:14 | XMS_ITS | Clinical Summary ---
Author Organization [facility] Address [address] [place] [address] Care Team Providers Care Logging Truck Driver Name Role Phone Santana Smith MD Primary Care Provider [phone] Source Comments [facility],non-owned Affiliates and Associated Physician Practices is amultiple site organization consisting of ambulatory clinics and hospital sitesin [place], [place], [place] and [place]. This disclosure is being madepursuant to the Care Everywhere program and may not contain all information available regarding this patient. Last updated 17.[facility] Allergies Active Allergy Reactions Criticality Noted Date [...] submucous, and subserous leiomyoma o f uterus Family History Medical History Relation Name Comments CAD (Coronary Artery Disease) Father Cancer - Breast Maternal Grandmother Cancer - Breast Paternal Grandmother Cancer - Breast Sister Relation Name Status Comments Father Maternal Grandmother Mother Paternal Grandmother Sister Social History Tobacco Use Types Packs/Day Years [...] and heating? Not hard at all 04/30/2022 [facility] of Occupat ional Health - Occupational Stress [...] to sleep or slept in a senior care (including now)? No 04/30/2022 Sex and Gender [...] Mass Index 32.61 10/24/2023 3:57 PM CDT Plan of Treatment Health Maintenance Due Date Last Done Comments COLOGUARD (AGES 45-75) - COLON CA SCREENING 1973 COLON MONITORING 1973 COLONOSCOPY - COLON CA SCREENING 1973 CT COLONOGRAPHY - COLON CA SCREENING 1973 Colorectal Cancer Screening 1973 FIT - COLON CA SCREENING 1973 FLEX SIG - COLON CA SCREENING 1973 LIPID TESTING 1973 HIV SCREENING 1988 HEPATITIS C SCREENING 04/15/1991 DTAP/TDAP/TD VACCINES (1 - Tdap) 1992 HEPATITIS B VACCINE (1 of 3 - 19+ 3-dose series) 1992 PNEUMOCOCCAL VACCINE 50+ (1 of 1 - PCV) 2023 ZOSTER VACCINE (1 of 2) 2023 COVID-19 VACCINE (3 - season) 2023 04/23/2021, 03/26/2021 INFLUENZA VACCINE (#1) 2023 DEPRESSION SCREENING 03/17/2024 MAMMOGRAM 10/23/2025 10/24/2023 SCREENING FOR DIABETES 12/04/2025 3, 05/01/2022, 04/30/2022, Additional history exists HIB VACCINE Aged Out No longer eligi ble based on patient's age to complete this topic HPV VACCINE Aged Out No longer eligi ble based on patient's age to complete this topic MENINGOCOCCAL (Group B) VACCINE Aged Out No longer eligible based on patient's age to complete this topic MENINGOCOCCAL VACCINE Aged Out No nova yin eligible based on patient's age to complete this topic Procedures Procedure Name Priority Date/Time Associated Diagnosis [...] interval breast concerns. 2. Consultation in the [facility] High Risk [facility], given the elevated lifetime risk of developing breast cancer greater than 20%. Should she wish to schedule a consultation, the phone number [phone]. 3. Annual screening breast MRI is recommended, given the elevated lifetime risk of breast cancer of greater than 20%, according to the [place] [employer] guidelines, and can be alternated at 6 month intervals with mammography or performed at the time of screening mammography. This can be managed by the High-Risk Breast Clinic. Patient will receive the examination results by lay letter. OVERALL ASSESSMENT: ??BI-RADS CATEGORY 1: NEGATIVE. Report dictated by Prieto Tavera M.D. (radiology assistant) 10/30/2023 7:37 AM Alexei Rosales M.D. and Angle Wisdom M.D. also participated in the interpretation of this study. ?? I, Francesca Martin MD have personally reviewed and interpreted this examination/study. > Interpreting Provider: Francesca Martin MD on 10/30/2023 8:52 AM Narrative 10/30/2023 8:52 AM CDT EXAMINATIONS: ??BILATERAL DIGITAL SCREENING MAMMOGRAM AND BILATERAL BREAST TOMOSYNTHESIS LOCATION: [facility] EXAM DATE: ??10/24/2023 HISTORY: ??Screening. Family history [...] cancer greater than 20%, consultation in the [facility] Breast [facility] High Risk [facility] is recommended. The phone number is [phone]. The [place] [employer] recommends annual screening breast MRI [...] recommended. COMPARISON: Compare with prior mammograms from [facility] dated 01/08/2018, 06/06/2021 and 09/26/2022. [...] mL/min/1. 73m2 [facility] BUN/Creatinine Ratio SEE NOTE: 6 - 22 (calc) [facility] Comment: ?? Not Reported: BUN [...] 29 U/L [facility] Comment: Test Performed at: [facility] ??[id number] THALIA ANN MD 12/04/2022 12:4 8 PM CDT 12/04/2022 12:50 PM CDT Carmen Johnson CREW CALLER-ATTENDING ANESTHESIOLOGIST LAB - [place] СВ[facility]АНА ORDERABLES [facility] [address] [place] [address] from Last 3 Months or Most Recently Relevant to Health Maintenance Advance Directives * Full Code (Latest Code Status on File) Date Activated Date Inactivated Comments 04/30/2022 10:22 AM 05/01/2022 4:11 PM * Full Code Date Activated Date Inactivated Comments 11/25/2017 2:05 PM 11/26/2017 4:53 PM Care Teams Logging Truck Driver Relationship Specialty Start Date End Date Santana Smith MD [address] [facility] [address] [place] [address] PCP - General 06/21/14
--- OUTSIDE RECORDS SUMMARY | 2024-04-12 16:14 | XMS_ITS | Data Portability ---
Author Organization [facility] Address [address] [facility] [place] [address] Assessment Encounter Date Assessment Date Assessment LastModified by Organization Details LastModified Time 08/18/2014 08/18/2014 Seen in er for right sided pain. Had a CT and pelvic U/S. Reviewed u/s results. Right Ovarian cyst, normal endometrial thickness. Discussed repeated 6 week f/u. Not available 08/18/2014 11:53:08 08/26/2014 08/26/2014 Pt. and spouse here for u/s results. Reviewed results. Multiple uterine fibroids. Discussed paris. options. Hyst, Myomectomy,and hormonal mant. Requested surgical consult . Appt for Glenn JI 10-06-2014? Not available 08/26/2014 12:52:13 04/25/2016 04/25/2016 Here with . History of uterine fibroids and heavy painful cycles. C/o inactivity and bedrest for the first few days of onset of cycle. Would like to discussed options to include surgery. Discussed u/s, emb, hormonal mangt. and surgical consult. Pt. to RTC after u/s. Not available 04/25/2016 11:59:42 05/14/2016 05/14/2016 RTC with and grandson for u/s results. Large uterus > 11 cm with multiple myomas with largest being 5.8cm. Discussed management options being hormonal and surgical. Pt. tearful. Offer surgical consult with Madina Elizabeth MD. Appt. obtained for 06-11-2016 @ 10am. Not available 05/14/2016 12:58:40 Plan of Treatment Reminders Order Date Submit Date Provider Last Modified By Organization Details Last Modified Time Details Appointments None recorded. Lab pap, IG + HPV 2016 017 EMILY [facility], [address], [address], [place], [address], 7 20:11:11 different ial, manual, blood [facility] [address], [place], [address], 7 12:09:18 Referral gynecolog ist referral 2016 017 [email or web address] Not available 7 16:33:11 Procedures None recorded. Surgeries None recorded. Imaging mammogram , screening 2014 015 EMILY Not available 5 14:17:11 ultrasoun d, pelvic transvagi nal 2014 015 EMILY Not available 5 11:09:32 US, pelvis, complete - MUST HAVE FULL BLADDER; NO SMALL CHILDREN, ARRIVE 15MINS PRIOR TO SCHEDULED APPT. TIME; IF NOT CAPABLE OF KEEPING THIS APPT. CALL NUMBER ABOVE TO RESCHEDUL E YOUR ULTRA SOUND APPT. 2016 017 EMILY Not available 7 13:00:34 Medication Orders ibuprofen 800 mg tablet 2014 015 [email or web address] [id number], [address] [facility], [place], [place], [id number], 7 12:10:39 Patient TargetsNo targets recorded. 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 4 Not Available [facility] (Lab) [address] [place], [address], 04/25/2016 15:10:30 04/25/19 17 04/25/2016 CBC w/ auto diff hemoglobin 11.6 g/dL 11.5-1 5.5 Not Available [facility] (Lab) [address] [place], [address], 04/25/2016 15:10:30 04/25/19 17 04/25/2016 CBC w/ auto diff hematocrit 37.0 % 36.0-4 8.0 Not Available [facility] (Lab) [address] [place], [address], 04/25/2016 15:10:30 04/25/19 17 04/25/2016 CBC w/ auto diff MCV 82 fL 80-95 Not Available [facility] (Lab) [address] [place], [address], 04/25/2016 15:10:30 04/25/19 17 04/25/2016 CBC w/ auto diff MCH 26 pg 27-32 low Not Available [facility] (Lab) [address] [place], [address], 04/25/2016 15:10:30 04/25/19 17 04/25/2016 CBC w/ auto diff MCHC 31 g/dL 32-36 low Not Available [facility] (Lab) [address] [place], [address], 04/25/2016 15:10:30 04/25/19 17 04/25/2016 CBC w/ auto diff platelets 290 K/uL 155-37 9 Not Available [facility] (Lab) [address], [place], [address], 04/25/2016 15:10:30 04/25/19 17 04/25/2016 CBC w/ auto diff RDW 15.5 % 11.5-1 4.5 high Not Available [facility] (Lab) [address], [place], [address], 04/25/2016 15:10:30 04/25/19 17 04/25/2016 CBC w/ auto diff MPV 10.6 fL 8.9-12 .7 Not Available [facility] (Lab) [address] [place], [address], 04/25/2016 15:10:30 04/25/19 17 04/25/2016 CBC w/ auto diff neutrophils absolute 4.7 K/uL 1.4-7. 0 Not Available [facility] (Lab) [address], [place], [address], 04/25/2016 15:10:30 04/25/19 17 04/25/2016 CBC w/ auto diff lymphs (absolute) 1.2 K/uL 0.7-3. 1 Not Available [facility] (Lab) [address] [place], [address], 04/25/2016 15:10:30 04/25/19 17 04/25/2016 CBC w/ auto diff monocytes (absolute) 0.4 K/uL 0.1-0. 9 Not Available [facility] (Lab) [address] [place], [address], 04/25/2016 15:10:30 04/25/19 17 04/25/2016 CBC w/ auto diff eos (absolute) 0.1 K/uL 0.0-0. 4 Not Available [facility] (Lab) [address] [place], [address], 04/25/2016 15:10:30 04/25/19 17 04/25/2016 CBC w/ auto diff baso (absolute) 0.0 K/uL 0.1-0. 3 low Not Available [facility] (Lab) [address] [place], [address], 04/25/2016 15:10:30 04/25/19 17 04/25/2016 CBC w/ auto diff neut % 74.2 % 40.0-7 4.0 high Not Available [facility] (Lab) [address] [place], [address], 04/25/2016 15:10:30 04/25/19 17 04/25/2016 CBC w/ auto diff lymphs % 18.1 % 14.0-4 6.0 Not Available [facility] (Lab) [address] [place], [address], 04/25/2016 15:10:30 04/25/19 17 04/25/2016 CBC w/ auto diff mono % 5.8 % 4.0-12 .0 Not Available [facility] (Lab) [address] [place], [address], 04/25/2016 15:10:30 04/25/19 17 04/25/2016 CBC w/ auto diff eos % 2 % <=5 Not Available [facility] (Lab) [address] [place], [address], 04/25/2016 15:10:30 04/25/19 17 04/25/2016 CBC w/ auto diff baso % 0.2 % 0.1-1. 1 Not Available [facility] (Lab) [address] [place], [address], 04/25/2016 15:10:30 04/25/19 17 04/29/2016 pap, IG + HPV diagnosis: SPRCS NEGAT KIMBERLI FOR INTRA EPITH ELIAL LESIO N AND MALSCOOBY HOFFMAN . Perfo rmed at: WB Not Available [facility] [address] [facility], [place], [address], 04/29/2016 20:11:11 04/25/19 17 04/29/2016 pap, IG + HPV specimen adequacy: [facility] Satis facto ry for evalu ation . Endoc ervic al and/o r squam ous metap lasti c cells (endo cervi alonso compo nent) are prese nt. Perfo rmed at: WB Not Available [facility] ([facility]) [address] [facility], [place], [address], 04/29/2016 20:11:11 04/25/19 17 04/29/2016 pap, IG + HPV performed by: [facility] Faith Montes , Cytojaxon coates (ASCP ) Perfo rmed at: WB Not Available [facility] (Lab) [address] [facility], [place], [address], 04/29/2016 20:11:11 04/25/19 17 04/29/2016 pap, IG + HPV Pap smear, 1 slide . Perfo rmed at: WB Not Available [facility] [address] [facility], [place], [address], 04/29/2016 20:11:11 04/25/19 17 04/29/2016 pap, IG + HPV note: PAPSMR The Pap smear is a scree tim test desig lv to aid in the detec tion of prosper ligna nt and malig nant condi tions of the uteri ne cervi x. It is not a diagn ostic proce dure and shoul d not be used as the sole means of detec ting cervi alonso cance r. Both false -posi tive and false -nega tive repor ts do occur . . Perfo rmed at: WB Not Available [facility] (Lab) [address] [facility], [place], [address], 04/29/2016 20:11:11 04/25/19 17 04/29/2016 pap, IG + HPV test methodology: IGLPAP This liqui d based ThinP rep(R ) pap test was keysha awan with the use of an image guide munira sommers. Perfo rmed at: WB Not Available [facility] (Lab) [address] [place], [address], 04/29/2016 20:11:11 04/25/19 17 04/29/2016 pap, IG + HPV HPV, high-risk Negati ve negati ve Perfo rmed at: =G Not Available [facility] (Lab) [address] [place], [address], 04/29/2016 20:11:11 04/25/19 17 04/29/2016 pap, IG + HPV HPV, low-risk Negati ve negati ve These HPV tests detec t thirt een high- risk types (16/1 8/31/ 33/35 / 39/45 /51/5 2/56/ 58/59 /68) and five low-r isk types (/ /42/4 344) witho ut diffe renti ation . . Perfo rmed at: =G Not Available [facility] (Lab) [address] [place], [address], 04/29/2016 20:11:11 08/26/19 15 08/23/2014 ultra sound , pelvi c trans vagin al No observ ation record ed. [facility] (Lab) [address] [place], [address], 08/25/2014 14:39:56 08/26/19 15 08/23/2014 ultra sound , pelvi c trans vagin al No observ ation record ed. [facility] (Lab) [address] [place], [address], 08/26/2014 16:44:47 08/27/19 15 08/23/2014 ultra sound , pelvi c trans vagin al No observ ation record ed. [facility] (Rad) [address] [place], [address], 08/26/2014 16:44:47 08/27/19 15 08/23/2014 ultra sound , pelvi c trans vagin al No observ ation record ed. [email or web address] ([facility]) [address] [place], [address], 08/26/2014 16:44:47 10/12/19 15 10/04/2014 mammo gram, scree tim No observ ation record ed. [email or web address] [place], [address], 10/12/2014 13:13:10 10/12/19 15 10/04/2014 mammo gram, scree tim No observ ation record ed. [email or web address] ([facility]) [address] [place], [address], 10/12/2014 13:13:10 05/08/19 17 05/08/2016 US, pelvi s, compl ete TRANSA BDOMIN AL AND TRANSV AGINAL PELVIC ULTRAS OUND: Chief compla int/In dicati on: Irregu lar uterin e bleedi ng. Abnorm al uterin e bleedi ng. Uterin e myomas . COMPAR DONNA: Pelvic ultras ound August 23, 2014. FINDIN GS: On transa bdomin al imagin g the uterus is enlarg ed measur ing 11.5cm in length . Somewh at lobula vern appear ance to the uterus consis tent with myomas . Incomp letely define d solid mass of the uterus measur ing up to 3.9cm consis tent with myoma. 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 Endome trial comple x is not well-d efined . Ovarie s are not seen. To better visual ize myomas and endome trium and to attemp t to visual ize the ovarie s transv aginal imagin g was perfor med. Images reveal cervic al cyst. Solid mass business administration program chair ior aspect of the uterin e body measur ing up to 5.8cm consis tent with a myoma. This has increa sed in size since prior exam. Solid mass anteri or aspect of the uterin e body near the endome trial comple x measur ing up to 2.1cm consis tent with myoma. Solid mass right side of the uterus measur ing up to 4.4cm consis tent with myoma. Left sided solid mass measur ing up to 1.9cm consis tent with myoma. Other smalle r myomas noted. Endome trial comple x is partia lly define d. It measur es 7.6mm. The ovarie s are not seen. IMPRES ENZO: 1. ENLARG EMENT OF THE UTERUS WITH MULTIP LE SOLID MASSES MEASUR ING UP TO 5.8CM CONSIS TENT WITH MYOMAS . THESE MASSES HAVE INCREA SED IN NUMBER AND SIZE SINCE PRIOR EXAM. 2. ENDOME TRIAL COMPLE X IS PARTIA LLY DEFINE D. IT IS NORMAL THICKN ESS MEASUR ING 7.6MM. 3. NABOTH RANDALL CYSTS OF THE CERVIX . 4. OVARIE S ARE NOT VISUAL IZED. 5. NO FREE FLUID. READ BY: LU ENGLISH SIGNED BY: LU ENGLISH Date: 2016 11:54 [facility] (Rad) [address] [place], [address], 05/15/2016 17:17:22 05/08/19 17 05/08/2016 ultra sound , pelvi c trans vagin al TRANSA BDOMIN AL AND TRANSV AGINAL PELVIC ULTRAS OUND: Chief compla int/In dicati on: Irregu lar uterin e bleedi ng. Abnorm al uterin e bleedi ng. Uterin e myomas . COMPAR DONNA: Pelvic ultras ound August 23, 2014. FINDIN GS: On transa bdomin al imagin g the uterus is enlarg ed measur ing 11.5cm in length . Somewh at lobula vern appear ance to the uterus consis tent with myomas . Incomp letely define d solid mass of the uterus measur ing up to 3.9cm consis tent with myoma. 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 Endome trial comple x is not well-d efined . Ovarie s are not seen. To better visual ize myomas and endome trium and to attemp t to visual ize the ovarie s transv aginal imagin g was perfor med. Images reveal cervic al cyst. Solid mass business administration program chair ior aspect of the uterin e body measur ing up to 5.8cm consis tent with a myoma. This has increa sed in size since prior exam. Solid mass anteri or aspect of the uterin e body near the endome trial comple x measur ing up to 2.1cm consis tent with myoma. Solid mass right side of the uterus measur ing up to 4.4cm consis tent with myoma. Left sided solid mass measur ing up to 1.9cm consis tent with myoma. Other smalle r myomas noted. Endome trial comple x is partia lly define d. It measur es 7.6mm. The ovarie s are not seen. IMPRES ENZO: 1. ENLARG EMENT OF THE UTERUS WITH MULTIP LE SOLID MASSES MEASUR ING UP TO 5.8CM CONSIS TENT WITH MYOMAS . THESE MASSES HAVE INCREA SED IN NUMBER AND SIZE SINCE PRIOR EXAM. 2. ENDOME TRIAL COMPLE X IS PARTIA LLY DEFINE D. IT IS NORMAL THICKN ESS MEASUR ING 7.6MM. 3. NABOTH RANDALL CYSTS OF THE CERVIX . 4. OVARIE S ARE NOT VISUAL IZED. 5. NO FREE FLUID. READ BY: LU ENGLISH SIGNED BY: LU ENGLISH Date: 2016 11:54 [facility] (Rad) [address] [place], [address], 05/15/2016 17:17:22 05/16/19 17 05/08/2016 US, pelrubio s, compl ete No observ ation record ed. [email or web address] [facility] (Outpatient Registration [facility] Mam[facility]) [address] [place], [address], 05/16/2016 17:32:39 Result Notes None recorded. Problems Name Problem SNOMED Code Status Onset Date Resolution Date Notes Provider Name and Address Organization Details Recorded Time Cyst of ovary [id number] Active Chloe gonsalez, [facility] 5 12:00:49 Uterine leiomyoma 58706833 Active Chloe gonsalez, [facility] 5 15:00:10 Problem Notes None recorded. Procedures Surgical History Date Name Laterality Status Provider Name and Address Organization Details Recorded Time 04/25/19 17 Date of Last Pap Smear completed Sydnee Garvin MA [facility] 06/03/2016 17:18:19 10/05/19 15 Most Recent Mammogram completed Sydnee Garvin MA [facility] 06/03/2016 17:20:46 03/17/19 15 Cholecystectomy completed Romi Elizabeth [facility] 06/04/2016 12:18:05 03/17/18 97 Tubal Ligation completed Sydnee Garvin MA [facility] 06/04/2016 11:44:31 Imaging Results Imaging Date Name Status LastModified by Organization Details LastModified Time 08/23/2014 ultrasound, pelvic transvaginal completed [address] (Lab) [address] [place], [address], 08/25/2014 14:39:56 08/23/2014 ultrasound, pelvic transvaginal completed [address] (Lab) [address] [place], [address], 08/26/2014 16:44:47 08/23/2014 ultrasound, pelvic transvaginal completed [address] (Rad) [address] [place], [address], 08/26/2014 16:44:47 08/23/2014 ultrasound, pelvic transvaginal completed [address] (Rad) [address] [place], [address], 08/26/2014 16:44:47 10/04/2014 mammogram, screening completed [address] [place], [address], 10/12/2014 13:13:10 10/04/2014 mammogram, screening completed [facility] (Lab) [address] [place], [address], 10/12/2014 13:13:10 05/08/2016 US, pelvis, complete completed [facility] (Rad) [address] [place], [address], 05/15/2016 17:17:22 05/08/2016 ultrasound, pelvic transvaginal completed [facility] (Rad) [address] [facility], [place], [address], 05/15/2016 17:17:22 05/08/2016 US, pelvis, complete completed [facility] (Outpatient Registration & [facility]) [address] [place], [address], 05/16/2016 17:32:39 Procedure Notes None recorded. Medical Equipment None Reported. Allergies Allergen ID Allergen Name Allergen Category Reaction Reaction Severity Criticality Documentation Date Start Date Code Code System Note Provider Name and Address Organization Details Recorded Time [id number] Levaquin medicatio n hives severe Not available 06/04/20162014 74523 2 RxNorm Not Available Not Available Not Available Medications Name Sig Start Date Stop Date Status Note LastModified by Organization Details LastModified Time ibuprofen tab 600mgibuprofe n 06/04 completed Not Available Not Available Not Available metronidazol tab 500mgmetronid azole 06/04 completed Not Available Not Available Not Available amoxicillin cap 500mgamoxicil robina 06/04 completed Not Available Not Available Not Available venlafaxine tab 37.5mgvenlafa xine hcl 06/04 completed Not Available Not Available Not Available azithromycin tab 250mgazithrom ycin 06/04 completed Not Available Not Available Not Available apap/codeine tab 300-30mgaceta minophen/code ine #3 06/04 completed Not Available Not Available Not Available amoxicillin tab 875mgamoxicil robina 06/04 completed Not Available Not Available Not Available amitriptylin tab 75mgamitripty line hcl 06/04 completed Not Available Not Available Not Available jolivette tab 0.35mgjolivet te 06/04 completed Not Available Not Available Not Available amitriptylin tab 25mgamitripty line hcl 06/04 completed Not Available Not Available Not Available cyclobenzapr tab 10mgcyclobenz aprine hcl 06/04 completed Not Available Not Available Not Available oxycod/apap tab 10-325mgoxyco done/acetamin ophen active Not Available Not Available Not Available cyclobenzapri ne 10 mg tablet 06/04 completed Not Available Not Available Not Available ibuprofen 800 mg tablet 2016 active Not Available Not Available Not Avai lable sumatriptan 100 mg tablet 06/04 completed Not Available Not Available Not Available prednisone 20 mg tablet 06/04 completed Not Available Not Available Not Available clonazepam 1 mg tablet active Not Available Not Available No t Available clindamycin HCl 150 mg capsule 06/04 completed Not Available Not Available Not Available sumatriptan 50 mg tablet 06/04 completed Not Available Not Available Not Available metronidazole 500 mg tablet 06/04 completed Not Available Not Available Not Available propranolol 40 mg tablet 06/04 completed Not Available Not Available Not Available methocarbamol 750 mg tablet 06/04 completed Not Available Not Available Not Available pravastatin 10 mg tablet 06/04 completed Not Available Not Available Not Available DOK 100 mg capsule 06/04 completed Not Available Not Available Not Available oxycodone-chip taminophen 10 mg-325 mg tablet 06/04 completed Not Available Not Available Not Available dicyclomine 20 mg tablet 06/04 completed Not Available Not Available Not Available buspirone 7.5 mg tablet 06/04 completed Not Available Not Available Not Available omeprazole 20 mg capsule,delay ed release 06/04 completed Not Available Not Available Not Available hydrochloroth iazide 25 mg tablet 06/04 completed Not Available Not Available Not Available oxycodone-chip taminophen 7.5 mg-325 mg tablet 06/04 completed Not Available Not Available Not Available ondansetron 4 mg disintegratin g tablet 06/04 completed Not Available Not Available Not Available naproxen 500 mg tablet 06/04 completed Not Available Not Available Not Available diazepam 5 mg tablet 06/04 completed Not Available Not Available Not Available amoxicillin 875 mg-potassium clavulanate 125 mg tablet 06/04 completed Not Available Not Available Not Available amoxicillin 500 mg-potassium clavulanate 125 mg tablet 06/04 completed Not Available Not Available Not Available Ortho Micronor 0.35 mg tablet Take 1 tablet every day by oral route for 30 days. 06/04 completed Not Available Not Available Not Available Vitals Date Recorded Body height Body mass index (BMI) Body weight Systolic blood pressure Diastolic blood pressure Provider Name and Address Organization Details Last Updated DateTime 08/18/2014 162.56 cm 46 kg/m2 165434.7 5516 g 120 mm[Hg] 80 mm[Hg] Stacy Beltre MA [facility] 5 11:27:05 Date Recorded Body weight Systolic blood pressure Diastolic blood pressure Provider Name and Address Organization Details Last Updated DateTime 08/26/2014 374992.347 53 g 130 mm[Hg] 70 mm[Hg] Dania Hankins MA [facility] 08/26/2014 12:31:08 Date Recorded Body height Provider Name an d Address Organization Details Last Updated DateTime 04/25/2016 167.64 cm Hugo De Leon MA [facility] 04/25 10:53:01 Date Recorded Body weight Body mass index (BMI) Provider Name and Address Organization Details Last Updated DateTime 04/25/2016 894368.79 g 42.4 kg/m2 Hugo De Leon MA [facility] 04/25/2016 10:58:21 Date Recorded Body height Provider Name an d Address Organization Details Last Updated DateTime 05/14/2016 167.64 cm Medina Gillette [facility] 05/14/19 17 12:09:15 Date Recorded Body weight Body mass index (BMI) Provider Name and Address Organization Details Last Updated DateTime 05/14/2016 654034.64 g 42.4 kg/m2 Medina Gillette [facility] 05/14/2016 12:13:28 Date Recorded Body height Provider Name an d Address Organization Details Last Updated DateTime 06/04/2016 167.64 cm Sydnee ulloa MA [facility] 06/04/2016 11:39:17 Date Recorded Body weight Body mass index (BMI) Provider Name and Address Organization Details Last Updated DateTime 06/04/2016 442928.65 g 41.3 kg/m2 Sydnee Garvin MA [facility] 06/04/2016 11:39:21 Date Recorded Systolic blood pressure Diastolic blood pressure Provider Name and Address Organization Details Last Updated DateTime 04/25/2016 110 mm[Hg] 64 mm[Hg] Hugo De Leon MA [facility] 04/25/2016 10:53:26 Date Recorded Systolic blood pressure Diastolic blood pressure Provider Name and Address Organization Details Last Updated DateTime 05/14/2016 120 mm[Hg] 80 mm[Hg] Longhuberlisa Leta [facility] 05/14/2016 12:13:32 Date Recorded Systolic blood pressure Diastolic blood pressure Provider Name and Address Organization Details Last Updated DateTime 06/04/2016 120 mm[Hg] 80 mm[Hg] Sydnee Garvin MA [facility] 06/04/2016 11:39:26 Social History Question Answer Notes LastModified by Organizat ion Details LastModified Time Tobacco Smoking Status Never Smoker Dania Hankins MA [facility], [facility] 05/10/2014 16:59:17 Do You Have An Advance Directive? No Information not available 06/04/2016 What Is Your Level Of Alcohol Consumption? Occasional Information not available 06/04/2016 Is Blood Transfusion Acceptable In An Emergency? No Information not available 06/04/2016 What Is Your Level Of Caffeine Consumption? None Information not available 06/04/2016 How Much Tobacco Do You Chew? None Information not available 06/04/2016 Are You Currently Employed? Yes Information not available 06/04/2016 What Type Of Diet Are You Following? 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 With Others Information not available 06/04/2016 How Many Children Do You Have? 3 Information not available 06/04/2016 Performs Monthly Self-breast Exam? Yes Information no t available 06/04/2016 Do You Use Protection During Sex? No Information not available 06/04/2016 What Is Your Relationship Status? Information not available 06/04/2016 Seat Belts Used Routinely Yes Information not available 06/04/2016 Are You Sexually Active? Yes Information not available 06/04/2016 General Stress Level Low Information not available 06/04/2016 Do You Use Sunscreen Routinely? No Information not available 06/04/2016 Sex: Unknown Functional Status Question Answer Note LastModified by Organization D etails LastModified Time What is your exercise level? None Information not available 06/04/2016 Mental Status None recorded. Family History Relationship Description Onset Age of this Age Resolved Age Notes LastModified by Organization Details LastModified Time Father No current problems or disability [email or web address] Not available 11/2016 10:53:31 Mother No current problems or disability [email or web address] Not available 11/2016 10:53:31 Mother History of hypertension [email or web address] Not available 10:54:15 Medical History Condition Response Other N High Blood Pressure N Breast Cancer N Thyroid Problems N Kidney or Bladder Problems N GI Problems N Depression N Blood Clots N Lung Disease N Acne N Breast Problem N Eating Disorder N Anemia N Anesthesia Complications N Headaches/Migraines N Anxiety Disorder N Diabetes N Ovarian Cancer N Muscle, Joint, or Bone Problems N Blood Transfusions N Seizures/Epilepsy N Polyps N Infertility N Acid Reflux (GERD) N Cancer N Abuse/Domestic Violence N Asthma N Endometriosis N High Cholesterol N Hepatitis N Liver Disease N Heart Disease N Pre-Eclampsia N Osteoporosis N Gynecological History Statement/Question Response Flow Heavy STIs/STDs N HPV Vaccine N Duration of Flow (days) 4 Most Recent Mammogram 10/04/2014 Age at Menarche 11 Current Control Method Tubal Ligat ion Age at First Child 17 Frequency of Cycle (Q days) 19 Sexually Active? Y Menses Monthly Y Date of Last Pap Smear 04/25/2016 Sexual Problems? N LMP Approximate Obstetrics History GPAL:G 5 P 3 0 2 3 Type Value Full Term 3 Induced 2 Living 3 Total 5 Past Encounters Encounter ID Performer Location Encounter Start Date Encounter Closed Date Diagnosis/Indication Diagnosis SNOMED-CT Code Diagnosis ICD10 Code Diagnosis Note [id number] [facility] ([facility] [address] [place] [address] 05/10/2014 16:33:01 05/10/2014 17:33:59 Uses contraception [id number] [facility] ([facility] [address] [place] [address] 08/18/2014 10:56:05 08/18/2014 12:01:34 Cyst of ovary 53236705 Screening mammography [id number] Chloe Ybarra [facility] ([facility] [address] [place] [address] 08/26/2014 12:15:55 08/26/2014 12:53:02 Uterine leiomyoma [id number] Chloe Ybarra [facility] ([facility] [address] [place] [address] 04/25/2016 10:39:23 04/25/2016 13:32:05 Gynecologic examination 00335966 Z01.419 Uterine leiomyoma 607389 05 D25.9 [id number] [address] [place] [address] 05/14/2016 12:05:46 05/14/2016 13:04:27 Uterine leiomyoma 75916010 D25[id number] [address] 06/04/2016 11:07:08 06/11/2016 07:27:38 Uterine leiomyoma 71185339 D25.9 Discussed medical and surgical management . Discussed conservati on versus removal of ovaries. Handout given. Will return after surgical clearance from primary to schedule surgery. Health Concerns Section Related Observation LastModified by Organization Detai ls LastModified Time None Recorded Concern Status LastModified by Organization Details LastModified Time None Recorded Advance Directives Directive N: Payers Encounter Date Sequence Insurance Name Policy Number Policy Peterson Covered Member ID Peterson Member ID Guarantor Name 08/18/2014 1 [place] [facility] [place] [facility] AID Apoorva Harry [id number] Apoorva Harry 08/26/2014 1 [place] [facility] [place] Apoorva Harry [id number] Apoorva Harry 04/25/2016 1 [facility] PRIOR TO 09/14/2020 (MEDICAID REPLACEMENT - HMO) Apoorva Harry [id number] Apoorva Harry 05/14/2016 1 [facility] PRIOR TO 2020 (MEDICAID REPLACEMENT - HMO) Apoorva Harry [id number] Apoorva Harry 06/04/2016 1 [facility] PRIOR TO 2020 (MEDICAID REPLACEMENT - HMO) Apoorva Harry [id number] Apoorva Harry Notes Date Note Type Note Provider Name and Address Organization Details Recorded Time 06/04/2016 text/html 41 y.o. here as a referral due to uterine fibroids. Had US done with revealed increase size of fibriods. Occasionally has 2 cycles per month. Used ibuprofen for pain in side. Normal H/H in April. Has right sided pain return 3 weeks. Seen in ER and told that pain was due to colitis. Recently completed 2 course of antibiotics and now has diarrhea. JEANA Davis - [facility] 06/11/2016 07:27:26 OBGyn Episode No OBEpisode recorded.
--- OUTSIDE RECORDS SUMMARY | 2024-04-12 16:14 | XMS_ITS | Encounter Summary ---
Author Organization [facility] Address [address] [place] [address] Care Team Providers Care City Comptroller Name Role Phone Santana Smith MD Primary Care Provider [phone] Reason for Visit * Reason Onset Date Comments MEDICATION REFILL 04/01/2023 Encounter Details Date Type Department Care Team (Late st Contact Info) Description 04/01/2023 Refill [facility] [address] [place] [address] Mark Lu MD [address] [facility] [address] [place], [place] [id number] MEDICATION REFILL Social History Tobacco Use Types Packs/Day Years [...] and heating? Not hard at all 04/30/2022 [facility] Occup[facility] ional [facility] - Occupational Stress [...] money to buy more. Never true 04/30/19 Within the past 12 months, t he [...] place to sleep or slept in a prison (including now)? No 04/30/2022 Sex and Gender [...] No 04/30/2022 documented as of this encounter Plan of Treatment Not on file documented as of this encounter Visit Diagnoses Not on filedocumented in this encounter Care Teams City Comptroller Relationship Specialty Start Date End Date Santana Smith MD [address] [place] [address] PCP - General 06/21/14 documented as of this encounter
== END 2024-04-12 15:23 | disposition home or self-care (01) ==
PROVIDERS: PCP Emergency Medicine; Visit Provider Orthopaedic Surgery
DX: R53.83 Other fatigue (principal); I10 Essential (primary) hypertension; Z98.84 Bariatric surgery status; G47.33 Obstructive sleep apnea (adult) (pediatric); Z99.89 Dependence on other enabling machines and devices
CPT/HCPCS: 36415; 80048; 81003; 82040; 85025

== ENCOUNTER 2024-06-01 14:13 | Outpatient (CLI) | payer BC, SELFPAY ==
--- OUTSIDE RECORDS SUMMARY | 2024-06-01 16:03 | XMS_ITS | Continuity of Care Document ---
Author Organization [facility] Address [address] [place] [address] [place] [address] Phone Care Team Providers Care Manifold Builder Name Role Phone Santana Smith MD Unavailable Unavailable Allergies, Adverse Reactions, Alerts Substance Reaction Status Criticality levofloxacin Active No Information Medications Medication Instructions Dosage Effective Dates (start - stop) Status Comments prednisone 20 mg tablet take 3 Tablet by oral route every day 60 MG - Active Percocet 10 mg-325 mg tablet take 1 tablet by oral route every 6 hours as needed as needed 1.00 tablet - Active PRN for pain, avoid driving or operate machines Ativan 1 mg tablet take 1 tablet by oral route every day at night as needed - Active PRN for anxiety, avoid driving or operate machines naloxone 0.4 mg/mL injection syringe inject 1 milliliter by IM route over once, may repeat at 2 to 3 minute intervals as needed as needed - Active PRN for OD Procedures Procedure Date OFFICE/OUTPATIENT VISIT, EST OFFICE/OUTPATIENT VISIT, EST OFFICE/OUTPATIENT [...] EST -2021 PREV VISIT, EST, AGE 40-64 Aug- OFFICE/OUTPATIENT VISIT, EST OFFICE/OUTPATIENT VISIT, EST OFFICE/OUTPATIENT VISIT, EST OFFICE/OUTPATIENT VISIT, EST OFFICE/OUTPATIENT VISIT, EST OFFICE/OUTPATIENT VISIT, EST OFFICE/OUTPATIENT VISIT, EST OFFICE/OUTPATIENT VISIT, EST OFFICE/OUTPATIENT VISIT, EST OFFICE/OUTPATIENT VISIT, EST OFFICE/OUTPATIENT VISIT, EST OFFICE/OUTPATIENT VISIT, EST OFFICE/OUTPATIENT VISIT, EST OFFICE/OUTPATIENT VISIT, EST OFFICE/OUTPATIENT VISIT, EST OFFICE/OUTPATIENT VISIT, EST OFFICE/OUTPATIENT VISIT, EST OFFICE/OUTPATIENT VISIT, EST OFFICE/OUTPATIENT VISIT, EST OFFICE/OUTPATIENT VISIT, EST OFFICE/OUTPATIENT VISIT, EST -2019 PREV VISIT, EST, AGE 40-64 OFFICE/OUTPATIENT VISIT, [...] Providers Copied on Encounter OFFICE/OUTPA TIENT VISIT, EST [facility], [address] [place], [id number], [place] tel:[phone] [facility] pain (chief complaint)an xiety1 (chief complaint)si nus (chief complaint) Acute sinusitisGenerali zed anxiety disorderChronic pain syndrome May-0 5-202 5 Smith Santana. [address] [place], [address] , [place]. tel:[phone] OFFICE/OUTPA TIENT VISIT, EST [facility], [address], [place], [place], [address], [place] tel:[phone] [facility] pain (chief complaint)an xiety1 (chief complaint) Chronic pain syndromeGeneraliz ed anxiety disorder 5 Luis Dillon. [address], [place], [place], [address] , [place]. tel:[phone] OFFICE/OUTPA TIENT VISIT, EST [facility], [address], [place], [place], [address], [place] tel:[phone] [facility] pain (chief complaint)in somnia1 (chief complaint) Chronic pain syndromeGeneraliz ed anxiety disorder 5 Luis Dillon. [address], [place], [place], [address] , [place]. tel:[phone] OFFICE/OUTPA TIENT VISIT, EST [facility], [address], [place], [place], [address], [place] tel:[phone] [facility] pain (chief complaint)in somnia1 (chief complaint) Generalized anxiety disorderChronic pain syndrome 4 Luis Hutchinson [address], [place], [place], [address] , [place]. tel:[phone] PREV VISIT, EST, AGE 40-64 [facility], [address], [place], [place], [address], [place] tel:[phone] [facility] physical (chief complaint) Encounter for general adult medical examination without abnormal findings 4 Luis Dillon. [address], [place], [place], [address] , [place]. tel:[phone] OFFICE/OUTPA TIENT VISIT, EST [facility], [address], [place], [place], [address], [place] tel:[phone] [facility] pain (chief complaint) Primary OA of left kneeGeneralized anxiety disorder 4 Smith Santana. [address], [place], [place], [address] , [place]. tel:[phone] OFFICE/OUTPA TIENT VISIT, [facility] [place], [address], [place], [place], [address], [place] tel:[phone] [facility] pain (chief complaint)an xiety1 (chief complaint) Primary OA of left kneeGeneralized anxiety disorder 4 Smith Santana. [address], [place], [place], [address] , [place]. tel:[phone] OFFICE/OUTPA TIENT VISIT, [facility] [place], [address], [place], [place], [address], [place] tel:[phone] [facility] pain (chief complaint)an xiety1 (chief complaint) Generalized anxiety disorderPrimary OA of left knee 4 Smith Santana. [address], [place], [place], [address] , [place]. tel:[phone] OFFICE/OUTPA TIENT VISIT, [facility] [place], [address], [place], [place], [address], [place] tel:[phone] [facility] pain (chief complaint)an xiety1 (chief complaint)ashley mbago1 (chief complaint) Generalized anxiety disorderEncntr screen mammogram for malignant neoplasm of breastPrimary OA of left kneeLumbago with sciatica, left side 4 Smith Santana. [address], [place], [place], [address] , [place]. tel:[phone] OFFICE/OUTPA TIENT VISIT, [facility] [place], [address], [place], [place], [address], [place] tel:[phone] [facility] pain (chief complaint)an xiety1 (chief complaint) Generalized anxiety disorderPrimary OA of left knee 4 Smith Santana. [address], [place], [address] , [place]. tel:[phone] OFFICE/OUTPA TIENT VISIT, [facility] [place], [address], [place], [place], [address], [place] tel:[phone] [facility] vein1 (chief complaint)pa in (chief complaint)an xiety1 (chief complaint) Primary OA of left kneeGeneralized anxiety disorderAsymptoma tic varicose veins of legEncntr screen mammogram for malignant neoplasm of breast 4 Luis Santana. [address], [place], [address] , [place]. tel:[phone] OFFICE/OUTPA TIENT VISIT, [facility] [place], [address], [place], [place], [address], [place] tel:[phone] [facility] pain (chief complaint)an xiety1 (chief complaint) Primary OA of left kneeGeneralized anxiety disorder 4 Smith Santana. [address], [place], [place], [address] , [place]. tel:[phone] OFFICE/OUTPA TIENT VISIT, [facility] [place], [address], [place], [place], [address], [place] tel:[phone] [facility] knee pain1 (chief complaint)an xiety1 (chief complaint)ba ck pain1 (chief complaint) Primary OA of left kneeGeneralized anxiety disorderMuscle spasm of back Jun- 4 Luis Santana. [address], [place], [place], [address] , [place]. tel:[phone] OFFICE/OUTPA TIENT VISIT, EST [facility], [address], [place], [place], [address], [place] tel:[phone] [facility] pain (chief complaint)in somnia1 (chief complaint)ba ck pain1 (chief complaint) Chronic pain syndromeGeneraliz ed anxiety disorderMuscle spasm of backEncounter for screening for malignant neoplasm of colon 4 Smith Santana. [address], [place], [place], [address] , [place]. tel:[phone] OFFICE/OUTPA TIENT VISIT, [facility] [place], [address], [place], [address], [place] tel:[phone] [facility] knee pain1 (chief complaint)in somnia1 (chief complaint)we ight loss1 (chief complaint)ba ck pain1 (chief complaint) Chronic pain syndromeGeneraliz ed anxiety disorderMuscle spasm of backAbnormal weight loss 4 Smith Santana. [address], [place], [place], [address] , [place]. tel:[phone] OFFICE/OUTPA TIENT VISIT, [facility] [place], [address], [place], [place], [address], [place] tel:[phone] [facility] pain (chief complaint)an xiety1 (chief complaint) Chronic pain syndromeGeneraliz ed anxiety disorder 4 Smith Santana. [address], [place], [place], [address] , [place]. tel:[phone] OFFICE/OUTPA TIENT VISIT, [facility] [place], [address], [place], [place], [address], [place] tel:[phone] [facility] pain (chief complaint)ba ck pain1 (chief complaint)an xiety1 (chief complaint) Chronic pain syndromeGeneraliz ed anxiety disorderMuscle spasm of back 4 Smith Santana. [address], [place], [place], [address] , [place]. tel:[phone] OFFICE/OUTPA TIENT VISIT, [facility] [place], [address], [place], [place], [address], [place] tel:[phone] [facility] pain (chief complaint)pa in (chief complaint)an xiety1 (chief complaint) Chronic pain syndromeGeneraliz ed anxiety disorder 3 Smith Santana. [address], [place], [address] , [place]. tel:[phone] OFFICE/OUTPA TIENT VISIT, [facility] [place], [address], [place], [place], [address], [place] tel:[phone] [facility] pain (chief complaint)in somnia1 (chief complaint) Chronic pain syndromeGeneraliz ed anxiety disorder 3 Luis Hutchinson [address], [place], [place], [address] , [place]. tel:[phone] OFFICE/OUTPA TIENT VISIT, [facility] [place], [address], [place], [place], [address], [place] tel:[phone] [facility] pain (chief complaint) Chronic pain syndrome 3 Luis Hutchinson [address], [address], [place], [place], [address] , [place]. tel:[phone] OFFICE/OUTPA TIENT VISIT, [facility] [place], [address], [place], [place], [address], [place] tel:[phone] [facility] pain (chief complaint)in somnia1 (chief complaint)we ight loss1 (chief complaint)GE RD1 (chief complaint) Abnormal weight lossChronic pain syndromePrimary insomniaGERD w/o esophagitisExcess brad and redundant skin and subcutaneous tissue Nov- 3 Luis Hutchinson [address], [address], [place], [place], [address] , [place]. tel:[phone] OFFICE/OUTPA TIENT VISIT, [facility] [place], [address], [place], [place], [address], [place] tel:[phone] [facility] GERD1 (chief complaint)in somnia1 (chief complaint)pa in1 (chief complaint)we ight loss1 (chief complaint) Abnormal weight lossChronic pain syndromeGeneraliz ed anxiety disorderGERD w/o esophagitisBariat cayetano surgery status 3 Luis Hutchinson [address], [place], [place], [address] , [place]. tel:[phone] OFFICE/OUTPA TIENT VISIT, EST [facility], [address], [place], [address], [place] tel:[phone] [facility] insomnia1 (chief complaint)kn ee pain1 (chief complaint)GE RD1 (chief complaint)sk in flap1 (chief complaint) Chronic pain syndromeAbnormal weight lossGERD w/o esophagitisGenera lized anxiety disorderInconclus brad mammogram 3 Luis Santana. [address], [place], [place], [address] , [place]. tel:[phone] PREV VISIT, EST, AGE 40-64 [facility], [address], [place], [place], [address], [place] tel:[phone] [facility] physical (chief complaint) Encounter for general adult medical exam w abnormal findingsAbnormal weight lossGERD w/o esophagitisProtei nuriaTension headacheChronic pain syndromeGeneraliz ed anxiety disorder 3 Luis Santana. [address], [place], [place], [address] , [place]. tel:[phone] OFFICE/OUTPA TIENT VISIT, EST [facility], [address], [place], [place], [address], [place] tel:[phone] [facility] insomnia1 (chief complaint)pa in (chief complaint)pr oteinuria1 (chief complaint)we ight loss1 (chief complaint) ProteinuriaAbnorm al weight lossChronic pain syndromePrimary insomniaGERD w/o esophagitis 3 Luis Santana. [address], [place], [place], [address] , [place]. tel:[phone] OFFICE/OUTPA TIENT VISIT, EST [facility], [address], [place], [place], [address], [place] tel:[phone] [facility] GERD (chief complaint)GE RD1 (chief complaint)in somnia1 (chief complaint)pa in1 (chief complaint)we ight loss1 (chief complaint) Chronic pain syndromeAbnormal weight lossPrimary insomniaGERD w/o esophagitisBariat cayetano surgery status May-0 3 Luis Hutchinson [address], [address], [place], [place], [address] , [place]. tel:[phone] OFFICE/OUTPA TIENT VISIT, [facility] [place], [address], [place], [place], [address], [place] tel:[phone] [facility] weight loss1 (chief complaint)in somnia1 (chief complaint)kn ee pain1 (chief complaint)HT N (chief complaint)GE RD1 (chief complaint) GERD w/o esophagitisBariat cayetano surgery statusChronic pain syndromePrimary insomniaEssential (primary) hypertensionEncou nter for oth screening for malignant neoplasm of breast Jun-0 3 Luis Hutchinson [address], [address], [place], [place], [address] , [place]. tel:[phone] OFFICE/OUTPA TIENT VISIT, [facility] [place], [address], [place], [address], [place] tel:[phone] [facility] HTN (chief complaint)in somnia1 (chief complaint)ch ronic pain1 (chief complaint)he adache1 (chief complaint) Essential (primary) hypertensionMigra ine without aura, not intractable, without status migrainosusPrimar y insomniaBariatric surgery statusChronic pain syndrome May-0 3 Luis Hutchinson [address], [place], [place], [address] , [place]. tel:[phone] OFFICE/OUTPA TIENT VISIT, [facility] [place], [address], [place], [address], [place] tel:[phone] [facility] HTN (chief complaint)an xiety1 (chief complaint)pa in (chief complaint)H pylori1 (chief complaint) H. pylori as the cause of diseases classified elsewhereMigraine without aura, not intractable, without status migrainosusPrimar y insomniaEssential (primary) hypertensionAbnor mal weight gain 3 Luis Dillon. [address], [place], [place], [address] , [place]. [phone] OFFICE/OUTPA TIENT VISIT, [facility] [place], [address], [place], [place], [address], [place] tel:[phone] [facility] pain (chief complaint)an xiety1 (chief complaint)H pylori1 (chief complaint) Primary insomniaMigraine without aura, not intractable, without status migrainosusAbnorm al weight gainH. pylori as the cause of diseases classified elsewhere 3 Luis Dillon. [address], [place], [address] , [place]. [phone] OFFICE/OUTPA TIENT VISIT, [facility] [place], [address], [place], [place], [address], [place] tel:[phone] [facility] HTN (chief complaint)HT N (chief complaint)pa in1 (chief complaint) Essential (primary) hypertensionMigra ine without aura, not intractable, without status migrainosusPrimar y insomniaAbnormal weight gain 2 Luis Dillon. [address], [place], [place], [address] , [place]. tel:[phone] OFFICE/OUTPA TIENT VISIT, [facility] [place], [address], [address], [place] tel:[phone] [facility] headache1 (chief complaint)in somnia1 (chief complaint)HT N (chief complaint) Primary insomniaMigraine without aura, not intractable, without status migrainosusEssent ial (primary) hypertensionAbnor mal weight gain 2 Luis Dillon. [address], [place], [address] , [place]. tel:[phone] OFFICE/OUTPA TIENT VISIT, [facility] [place], [address], [place], [place], [address], [place] tel:[phone] [facility] headache1 (chief complaint)in somnia1 (chief complaint) Primary insomniaMigraine without aura, not intractable, without status migrainosus 2 Smith Santana. [address], [place], [place], [address] , [place]. tel:[phone] OFFICE/OUTPA TIENT VISIT, [facility] [place], [address], [place], [place], [address], [place] tel:[phone] [facility] headache1 (chief complaint)in somnia1 (chief complaint) Migraine without aura, not intractable, without status migrainosusPrimar y insomniaAbnormal weight gain Nov- 2 Smith Santana. [address], [place], [address] , [place]. tel:[phone] OFFICE/OUTPA TIENT VISIT, [facility] [place], [address], [place], [address], [place] tel:[phone] [facility] headache1 (chief complaint)in somnia1 (chief complaint)HT N (chief complaint)we ight gain1 (chief complaint) Primary insomniaMigraine without aura, not intractable, without status migrainosusAbnorm al weight gainEssential (primary) hypertension 2 Luis Santana. [address], [place], [place], [address] , [place]. tel:[phone] OFFICE/OUTPA TIENT VISIT, [facility] [place], [address], [place], [place], [address], [place] tel:[phone] [facility] headache1 (chief complaint)in somnia1 (chief complaint) Migraine without aura, not intractable, without status migrainosusPrimar y insomnia 2 Smith Santana. [address], [place], [place], [address] , [place]. tel:[phone] PREV VISIT, EST, AGE 40-64 [facility], [address], [place], [place], [address], [place] tel:[phone] [facility] physical (chief complaint) Encounter for general adult medical examination without abnormal findings 2 Luis Dillon. [address], [place], [address] , [place]. tel:[phone] OFFICE/OUTPA TIENT VISIT, EST [facility], [address], [place], [place], [address], [place] tel:[phone] [facility] headache1 (chief complaint)sh oulder pain1 (chief complaint)in somnia1 (chief complaint) Pain in right shoulderInsomniaM igraine 2 Luis Dillon. [address], [place], [place], [address] , [place]. tel:[phone] OFFICE/OUTPA TIENT VISIT, EST [facility], [address], [place], [place], [address], [place] tel:[phone] [facility] pain (chief complaint)in somnia1 (chief complaint)sh oulder1 (chief complaint)HT N (chief complaint) Pain in right shoulderEssential (primary) hypertensionPrima ry insomniaMigraine without aura, not intractable, without status migrainosus 2 Luis Santana. [address], [place], [place], [address] , [place]. tel:[phone] OFFICE/OUTPA TIENT VISIT, EST [facility], [address], [place], [place], [address], [place] tel:[phone] [facility] pain1 (chief complaint)in somnia1 (chief complaint)sh oulder pain1 (chief complaint) MigraineInsomniaP ain in right shoulder May- 2 Luis Dillon. [address], [place], [address] , [place]. tel:[phone] OFFICE/OUTPA TIENT VISIT, [facility] [place], [address], [place], [address], tel:[phone] [facility] headache1 (chief complaint)in somnia1 (chief complaint) InsomniaMigraine 2 Luis Dillon. [address], [place], [address] , [place]. tel:[phone] OFFICE/OUTPA TIENT VISIT, [facility] [place], [address], [address], [place] tel:[phone] [facility] shoulder pain1 (chief complaint)he adache1 (chief complaint)in somnia1 (chief complaint) MigraineInsomniaP ain in right shoulder 2 Luis Dillon. [address], [address] , [place]. tel:[phone] OFFICE/OUTPA TIENT VISIT, [facility] [place], [address] [place], [address], [place] tel:[phone] [facility] COVID1 (chief complaint)he adache1 (chief complaint)in somnia1 (chief complaint) MigraineInsomniaC OVID-19Encounter for oth screening for malignant neoplasm of breast 2 Luis Dillon. [address], [place], [address] , [place]. [phone] OFFICE/OUTPA TIENT VISIT, [facility] [place], [address] [place], [address], [place] tel:[phone] [facility] headache1 (chief complaint)in somnia1 (chief complaint) MigraineInsomnia 1 Luis Dillon. [address], [address] , [place]. tel:[phone] OFFICE/OUTPA TIENT VISIT, [facility] [place], [address] [place], [address], [place] tel:[phone] [facility] headache1 (chief complaint)in somnia1 (chief complaint)hT N (chief complaint)we ight1 (chief complaint) MigraineGeneraliz ed anxiety disorderEssential (primary) hypertensionPain in left kneeObesity 1 Luis Hutchinson [address], [address], [place], [address] , [place]. tel:[phone] OFFICE/OUTPA TIENT VISIT, [facility] [place], [address], [place], [address], [place] tel:[phone] [facility] headache1 (chief complaint)in somnia1 (chief complaint) InsomniaMigraine 1 Luis Hutchinson [address], [address], [place], [address] , [place]. tel:[phone] OFFICE/OUTPA TIENT VISIT, [facility] [place], [address], [place], [address], [place] tel:[phone] [facility] headache1 (chief complaint)in somnia1 (chief complaint)HT N (chief complaint) MigraineInsomniaE ssential (primary) hypertensionAbnor mal weight gain 1 Luis Hutchinson [address], [place], [place], [address] , [place]. tel:[phone] OFFICE/OUTPA TIENT VISIT, [facility] [place], [address], [address], [place] tel:[phone] [facility] headache1 (chief complaint)in somnia1 (chief complaint) MigraineInsomnia 1 Luis Hutchinson [address], [place], [place], [address] , [place]. tel:[phone] OFFICE/OUTPA TIENT VISIT, [facility] [place], [address], [address], [place] tel:[phone] [facility] headache1 (chief complaint)an xiety1 (chief complaint)sl eep apnea1 (chief complaint)we ight gain1 (chief complaint) Abnormal weight gainGeneralized anxiety disorderMigraineS leep apnea 1 Luis Dillon. [address], [address], [place], [place], [address] , [place]. tel:[phone] OFFICE/OUTPA TIENT VISIT, [facility], [place], [facility], [address], [place], [place], [address], [place] tel:[phone] [facility] headache1 (chief complaint)an xiety1 (chief complaint) Generalized anxiety disorderMigraine 1 Luis Dillon. [address], [address], [place], [place], [address] , [place]. tel:[phone] OFFICE/OUTPA TIENT VISIT, [facility] [place], [address], [place], [place], [address], [place] tel:[phone] [facility] headache1 (chief complaint)an xiety1 (chief complaint)HT N (chief complaint) MigraineGeneraliz ed anxiety disorderEssential (primary) hypertension 1 Luis Hutchinson [address], [address], [place], [place], [address] , [place]. tel:[phone] OFFICE/OUTPA TIENT VISIT, [facility] [place], [address], [place], [place], [address], [place] tel:[phone] [facility] headache1 (chief complaint)an xiety1 (chief complaint)he adache1 (chief complaint)pa lpitation1 (chief complaint) MigraineGeneraliz ed anxiety disorderPalpitati ons 1 Luis Dillon. [address], [address], [place], [place], [address] , [place]. tel:[phone] OFFICE/OUTPA TIENT VISIT, [facility] [place], [address] [place], [address], [place] tel:[phone] [facility] facial rash (chief complaint) Allergic contact eczema 1 Luis Dillon. [address], [address], [place], [place], [address] , [place]. tel:[phone] OFFICE/OUTPA TIENT VISIT, [facility] [place], [address], [place], [place], [address], [place] tel:[phone] [facility] headache1 (chief complaint)an xiety1 (chief complaint) MigraineGeneraliz ed anxiety disorder 1 Luis Hutchinson [address], [address], [place], [place], [address] , [place]. [phone] OFFICE/OUTPA TIENT VISIT, [facility] [place], [facility], [address], [place], [place], [address], [place] tel:[phone] [facility] headache1 (chief complaint)an xiety1 (chief complaint) Generalized anxiety disorderMigraine 1 Luis Hutchinson [address], [address], [place], [place], [address] , [place]. tel:[phone] OFFICE/OUTPA TIENT VISIT, [facility] [place], [facility], [address], [place], [place], [address], [place] tel:[phone] [facility] sob (chief complaint) Viral infectionDyspnea 1 Luis Hutchinson [address], [address], [place], [place], [address] , [place]. [phone] OFFICE/OUTPA TIENT VISIT, [facility] [place], [facility], [address], [place], [place], [address], [place] tel:[phone] [facility] headache1 (chief complaint)an xiety1 (chief complaint)HT N (chief complaint) MigraineGeneraliz ed anxiety disorderEssential (primary) hypertension 1 Luis Hutchinson [address], [address], [place], [place], [address] , [place]. [phone] OFFICE/OUTPA TIENT VISIT, [facility] [place], [facility], [address], [place], [place], [address], [place] tel:[phone] [facility] headache1 (chief complaint)an xiety1 (chief complaint) Generalized anxiety disorderMigraine 0 Luis Dillon. [address], [address], [place], [place], [address] , [place]. tel:[phone] PREV VISIT, EST, AGE 40-64 [facility], [address], [place], [place], [address], [place] tel:[phone] [facility] physical (chief complaint) Encounter for general adult medical examination without abnormal findings 0 Luis Dillon. [address], [address], [place], [place], [address] , [place]. tel:[phone] OFFICE/OUTPA TIENT VISIT, EST [facility], [address], [place], [place], [address], [place] [phone] [facility] headache1 (chief complaint)an xiety1 (chief complaint)sl eep apnea1 (chief complaint) MigraineGeneraliz ed anxiety disorderSleep apnea 0 Luis Dillon. [address], [address], [place], [place], [address] , [place]. [phone] OFFICE/OUTPA TIENT VISIT, EST [facility], [address], [place], [place], [address], [place] tel:[phone] [facility] headache1 (chief complaint)an xiety1 (chief complaint)sl eep apnea1 (chief complaint)ma mmo (chief complaint) MigraineSleep apneaGeneralized anxiety disorderEncounter for oth screening for malignant neoplasm of breast 0 Luis Dillon. [address], [address], [place], [place], [address] , [place]. tel:[phone] OFFICE/OUTPA TIENT VISIT, EST [facility], [address], [place], [place], [address], [place] tel:[phone] [facility] palpitation1 (chief complaint)he adache1 (chief complaint)sl eep apnea1 (chief complaint)an xiety1 (chief complaint) Sleep apneaPalpitations MigraineEssential (primary) hypertensionGener alized anxiety disorder 0 Luis Hutchinson [address], [address], [place], [place], [address] , [place]. tel:[phone] OFFICE/OUTPA TIENT VISIT, [facility] [place], [facility], [address], [place], [place], [address], [place] tel:[phone] [facility] palpitation1 (chief complaint)sl eep apnea1 (chief complaint)an xiety1 (chief complaint)he adache1 (chief complaint) MigraineSleep apneaPalpitations Generalized anxiety disorder 0 Luis Hutchinson [address], [address], [place], [place], [address] , [place]. tel:[phone] Referring Provider: Jayy Mclean [address], [place], [place], [address]. tel:[phone] OFFICE/OUTPA TIENT VISIT, [facility] [place], [facility], [address], [place], [place], [address], [place] tel:[phone] [facility] headache1 (chief complaint)an xiety1 (chief complaint)sl eep apnea1 (chief complaint)pa lpitation1 (chief complaint) Sleep apneaPalpitations Generalized anxiety disorderMigraine 0 Luis Hope [address], [place], [place], [address] , [place]. tel:[phone] Referring Provider: Jayy Mclean [address], [place], [place], [address]. tel:[phone] OFFICE/OUTPA TIENT VISIT, [facility] [place], [facility], [address], [place], [place], [address], [place] tel:[phone] [facility] headache1 (chief complaint)an xiety1 (chief complaint)sl eep apnea1 (chief complaint)pa lpitation1 (chief complaint) HeadacheSleep apneaGeneralized anxiety disorderPalpitati onsEssential (primary) hypertension 0 Luis Hutchinson [address], [address], [place], [address] , . tel:[phone] Referring Provider: Jayy Mclean [address], [place], [place], [address]. tel:[phone] OFFICE/OUTPA TIENT VISIT, [facility] [place], [facility], [address], [place], [place], [address], [place] tel:[phone] [facility] headache1 (chief complaint)an xiety1 (chief complaint)sl eep apnea (chief complaint)HT N (chief complaint) HeadacheEssential (primary) hypertensionGener alized anxiety disorderSleep apnea Apr-3 0-202 0 Luis Dillon. [address], [address], [place], [place], [address] , [place]. tel:[phone] Referring Provider: Jayy Mclean [address], [place], [place], [address]. tel:[phone] OFFICE/OUTPA TIENT VISIT, [facility] [place], [facility], [address], [place], [place], [address], [place] tel:[phone] [facility] anxiety1 (chief complaint)he adache1 (chief complaint) Generalized anxiety disorderHeadacheF atigue Mar-3 1- 0 uLis Dillon. [address], [address], [place], [place], [address] , [place]. tel:[phone] Referring Provider: Jayy Mclean [address], [place], [place], [address]. tel:[phone] OFFICE/OUTPA TIENT VISIT, [facility] [place], [facility], [address], [place], [place], [address], [place] tel:[phone] [facility] anxiety1 (chief complaint)he adache1 (chief complaint)EK G (chief complaint)HT N (chief complaint) Essential (primary) hypertensionHeada cheAbnormal electrocardiogram [ECG] [EKG]Generalized anxiety disorder Mar-0 4-202 0 Luis Dillon. [address], [address], [place], [place], [address] , [place]. tel:[phone] Referring Provider: Santana Smith, [address], [place], [place], [address]. tel:[phone] OFFICE/OUTPA TIENT VISIT, [facility] [place], [facility], [address], [place], [place], [address], [place] tel:[phone] [facility] TIA1 (chief complaint)HT N (chief complaint)an xiety1 (chief complaint)fa tigue1 (chief complaint) MigraineGeneraliz ed anxiety disorderEssential (primary) hypertensionSleep apneaAbnormal EKG Feb-0 5-202 0 Luis Dillon. [address], [address], [place], [place], [address] , [place]. tel:[phone] Referring Provider: Santana Smith, [address], [place], [place], [address]. tel:[phone] OFFICE/OUTPA TIENT VISIT, [facility] [place], [facility], [address], [place], [place], [address], [place] tel:[phone] [facility] chronic pain1 (chief complaint)an xiety1 (chief complaint) Generalized anxiety disorderHeadache Boris-0 6-202 0 Luis Dillon. [address], [address], [place], [place], [address] , [place]. tel:[phone] Referring Provider: Santana Smith, [address], [place], [place], [address]. tel:[phone] OFFICE/OUTPA TIENT VISIT, [facility] [place], [facility], [address], [place], [place], [address], [place] tel:[phone] [facility] physical (chief complaint)an xiety1 (chief complaint) Essential (primary) hypertensionGener alized anxiety disorderHeadache Dec-0 3-201 9 Luis Dillon. [address], [address], [place], [place], [address] , [place]. [phone] Referring Provider: Santana Smith [address], [place], [place], [address]. tel:[phone] PREV VISIT, EST, AGE 40-64 [facility], [address], [place], [place], [address], [place] tel:[phone] [facility] PHysical (chief complaint) Encntr for general adult medical exam w/o abnormal findings 9 Luis Dillon. [address], [address], [place], [place], [address] , [place]. tel:[phone] Referring Provider: Santana Smith, [address], [place], [place], [address]. tel:[phone] OFFICE/OUTPA TIENT VISIT, [facility] [place], [facility], [address], [place], [place], [address], [place] tel:[phone] [facility] knee pain1 (chief complaint)HT N (chief complaint)he adache1 (chief complaint)in somnia1 (chief complaint) Body mass index (BMI) 45.0-49.9, adultEssential (primary) hypertensionGener alized anxiety disorderHeadacheC hondromalacia patellae, left knee 9 Luis Dillon. [address], [address], [place], [place], [address] , [place]. tel:[phone] Referring Provider: Jayy Mclean [address], [place], [place], [address]. tel:[phone] OFFICE/OUTPA TIENT VISIT, [facility] [place], [facility], [address], [place], [place], [address], [place] tel:[phone] [facility] pain1 (chief complaint)HT N (chief complaint)he adache1 (chief complaint)an xiety1 (chief complaint) Generalized anxiety disorderHeadacheC hondromalacia patellae, left kneeEssential (primary) hypertension 9 Luis Dillon. [address], [address], [place], [place], [address] , [place]. tel:[phone] Referring Provider: Jayy Mclean [address], [place], [place], [address]. tel:[phone] OFFICE/OUTPA TIENT VISIT, [facility] [place], [facility], [address], [place], [place], [address], [place] tel:[phone] [facility] HTN (chief complaint)br east (chief complaint)pa in1 (chief complaint)an xiety1 (chief complaint) HeadacheInconclus brad mammogramEssentia l (primary) hypertensionGener alized anxiety disorderBody mass index (BMI) 45.0-49.9, adult 9 Luis Dillon. [address], [address], [place], [place], [address] , [place]. [phone] Referring Provider: Jayy Mclean [address], [place], [place], [address]. tel:[phone] OFFICE/OUTPA TIENT VISIT, [facility] [place], [facility], [address], [place], [place], [address], [place] tel:[phone] [facility] knee pain1 (chief complaint)HT N (chief complaint) Essential (primary) hypertensionChond romalacia patellae, left knee 9 Luis Dillon. [address], [place], [place], [address] , [place]. [phone] Referring Provider: Jayy Mclean [address], [place], [place], [address]. tel:[phone] OFFICE/OUTPA TIENT VISIT, [facility] [place], [facility], [address], [place], [place], [address], [place] tel:[phone] [facility] headache1 (chief complaint)an xiety1 (chief complaint)br east1 (chief complaint) HeadacheGeneraliz ed anxiety disorderInconclus brad mammogram 9 Luis Dillon. [address], [place], [place], [address] , [place]. tel:[phone] Referring Provider: Jayy Mclean [address], [place], [place], [address]. tel:[phone] OFFICE/OUTPA TIENT VISIT, [facility] [place], [facility], [address], [place], [place], [address], [place] tel:[phone] [facility] headache1 (chief complaint)in somnia1 (chief complaint)si nus1 (chief complaint) Body mass index (BMI) 45.0-49.9, adultGeneralized anxiety disorderHeadacheA cute sinusitis Mitch-0 5201 9 Luis Dillon. [address], [address], [place], [place], [address] , [place]. [phone] Referring Provider: Santana Smith, [address] [facility], [place], [place], [address]. tel:[phone] OFFICE/OUTPA TIENT VISIT, [facility] [place], [address] [place] [address] [address] [place], [address], tel:[phone] [facility] flank pain1 (chief complaint)in somnia1 (chief complaint)he adache (chief complaint)he adache1 (chief complaint)HT N (chief complaint) Body mass index (BMI) 45.0-49.9, adultHeadacheEsse ntial (primary) hypertensionAbdom inal painGeneralized anxiety disorder 9 Luis Dillon. [address], [facility] [place], [address] , [place]. [phone] Referring Provider: Jayy Mclean [facility] [address], [place], [place], [address]. tel:[phone] OFFICE/OUTPA TIENT VISIT, [facility] [place], [address] [place] [place], [address], [place] tel:[phone] [facility] flank pain1 (chief complaint)HT N1 (chief complaint)pa inocencia attacks1 (chief complaint) Generalized anxiety disorderAbdominal painEssential (primary) hypertension Jun- 9 Luis Dillon. [address], [place], [place], [address] , [place]. [phone] Referring Provider: Jayy Mclean [facility], [place], [place], [address]. tel:[phone] OFFICE/OUTPA TIENT VISIT, [facility] [place], [address], [place], [place], [address], [place] tel:[phone] [facility] anxiety1 (chief complaint)kn ee pain1 (chief complaint)he adache1 (chief complaint)pr oteinuria1 (chief complaint) Body mass index (BMI) 45.0-49.9, adultGeneralized anxiety disorderHeadacheP roteinuriaPain in left knee Jun-0 5- 9 Luis Dillon. [address], [address], [place], [place], [address] , [place]. tel:[phone] Referring Provider: Santana Smith [address], [place], [place], [address]. tel:[phone] OFFICE/OUTPA TIENT VISIT, [facility] [place], [address], [place], [place], [address], [place] tel:[phone] [facility] headache1 (chief complaint)pr oteinuria1 (chief complaint)HT N (chief complaint)kn ee pain1 (chief complaint) Body mass index (BMI) 45.0-49.9, adultProteinuriaE ssential (primary) hypertensionHeada chePain in left kneeInconclusive mammogram 9 Luis Dillon. [address], [place], [place], [address] , [place]. tel:[phone] Referring Provider: Jayy [address], [place], [place], [address]. tel:[phone] OFFICE/OUTPA TIENT VISIT, [facility] [place], [address], [place], [place], [address], [place] tel:[phone] [facility] anxiety1 (chief complaint)he adache1 (chief complaint)HT N (chief complaint)kn ee pain1 (chief complaint) Body mass index (BMI) 45.0-49.9, adultHeadacheGene ralized anxiety disorderEssential (primary) hypertensionPain in left knee Feb-0 8- 9 Luis Dillon. [address], [place], [place], [address] , [place]. tel:[phone] Referring Provider: Jayy Mclean [facility] A, [place], [place], [address]. tel:[phone] OFFICE/OUTPA TIENT VISIT, [facility] [place], [address], [address], [place] tel:[phone] [facility] sick1 (chief complaint)An xiety 1 (chief complaint)he adache1 (chief complaint)pr oteinuria1 (chief complaint) Essential (primary) hypertensionAnemi aHeadacheAcute upper respiratory infection, unspecifiedInconc lusive mammogramProteinu riaGeneralized anxiety disorder 9 Luis Dillon. [address], [place], [place], [address] , [place]. tel:[phone] Referring Provider: Jayy Mclean [place], [address]. tel:[phone] OFFICE/OUTPA TIENT VISIT, [facility] [place], [address], [address], [place] tel:[phone] [facility] anxiety1 (chief complaint)he adache1 (chief complaint)an emia1 (chief complaint) Body mass index (BMI) 45.0-49.9, adultHeadacheGene ralized anxiety disorderInconclus brad mammogramAnemia 8 Luis Dillon. [address], [address], [place], [place], [address] , [place]. tel:[phone] Referring Provider: Jayy Mclean [address], [place], [place], [address]. tel:[phone] OFFICE/OUTPA TIENT VISIT, [facility] [place], [address], [address], [place] tel:[phone] [facility] Anxiety1 (chief complaint)ma mmo1 (chief complaint)he adache1 (chief complaint)kn ee pain1 (chief complaint) Body mass index (BMI) 45.0-49.9, adultInconclusive mammogramPain in left kneeGeneralized Anxiety DisorderHeadache 8 Luis Dillon. [address], [place], [place], [address] , [place]. tel:[phone] Referring Provider: Jayy Mclean [address], [place], [place], [address]. tel:[phone] OFFICE/OUTPA TIENT VISIT, EST [facility], [address], [place], [place], [address], [place] tel:[phone] [facility] headache1 (chief complaint)ba ck pain1 (chief complaint)an xiety1 (chief complaint)hy sterectomy1 (chief complaint) HeadacheGeneraliz ed anxiety disorderLumbagoBo dy mass index (BMI) 45.0-49.9, adultAcquired absence of uterus 8 Luis Dillon. [address], [place], [place], [address] , [place]. tel:[phone] Referring Provider: Jayy [address], [place], [place], [address]. tel:[phone] OFFICE/OUTPA TIENT VISIT, EST [facility], [address], [place], [place], [address], [place] tel:[phone] [facility] chronic pain1 (chief complaint)an xiety1 (chief complaint)fi broid1 (chief complaint)lo w back pain1 (chief complaint) HeadacheSubmucous leiomyoma of uterusGeneralized anxiety disorderLumbago 8 Luis Dillon. [address], [place], [address] , [place]. tel:[phone] Referring Provider: Jayy M[address], [place], [place], [address]. tel:[phone] PREV VISIT, EST, AGE 40-64 [facility], [address], [place], [place], [address], [place] tel:[phone] [facility] PHysical (chief complaint) Encounter for general adult medical exam w abnormal findingsHeadacheA nemiaGeneralized anxiety disorderLumbagoSu bmucous leiomyoma of uterusEssential (primary) hypertension 8 Luis Dillon. [address], [place], [address] , [place]. [phone] Referring Provider: Jayy Mclean [address], [place], [place], [address]. tel:[phone] OFFICE/OUTPA TIENT VISIT, [facility] [place], [address], [place], [place], [address], [place] [phone] [facility] headache1 (chief complaint)an xiety1 (chief complaint) HeadacheGeneraliz ed anxiety disorder 8 Luis Dillon. [address], [place], [place], [address] , [place]. [phone] Referring Provider: Jayy Mclean [address], [place], [place], [address]. tel:[phone] OFFICE/OUTPA TIENT VISIT, [facility] [place], [address], [place], [place], [address], [place] tel:[phone] [facility] headache1 (chief complaint)an xiety1 (chief complaint) HeadacheGeneraliz ed anxiety disorder 8 Luis Dillon. [address], [place], [place], [address] , [place]. [phone] Referring Provider: Jayy Mclean [address], [place], [place], [address]. tel:[phone] OFFICE/OUTPA TIENT VISIT, [facility] [place], [address], [place], [place], [address], [place] tel:[phone] [facility] headache1 (chief complaint) Body mass index (BMI) 45.0-49.9, adultHeadache 8 Luis Dillon. [address], [place], [place], [address] , [place]. tel:[phone] Referring Provider: Jayy Mclean [address], [place], [place], [address]. tel:[phone] OFFICE/OUTPA TIENT VISIT, [facility] [place], [address], [place], [place], [address], [place] [phone] [facility] neck pain1 (chief complaint)an xiety1 (chief complaint)po lyuria1 (chief complaint)HT N (chief complaint) Essential (primary) hypertensionHeada cheGeneralized anxiety disorderPolyuria 8 Luis Dillon. [address], [place], [address] , [place]. tel:[phone] Referring Provider: Jayy Mclean [address], [place], [place], [address]. tel:[phone] OFFICE/OUTPA TIENT VISIT, [facility] [place], [address], [place], [place], [address], [place] tel:[phone] [facility] anxiety1 (chief complaint)he adache1 (chief complaint)si nus (chief complaint) Generalized anxiety disorderHeadacheA cute upper respiratory infection, unspecified 7 Luis Dillon. [address], [place], [address] , [place]. tel:[phone] Referring Provider: Jayy Mclean [address], [place], [place], [address]. tel:[phone] OFFICE/OUTPA TIENT VISIT, [facility], [place], [facility], [address], [place], [place], [address], [place] [phone] [facility] renal lesion (chief complaint)he adache1 (chief complaint)an xiety1 (chief complaint)an emia1 (chief complaint) AnemiaHeadacheEnt erocolitis due to Clostridium difficileGenerali zed anxiety disorder 7 Luis Dillon. [address], [place], [place], [address] , [place]. tel:[phone] Referring Provider: Santana Smith, [address], [place], [place], [address]. tel:[phone] PREV VISIT, EST, AGE 40-64 [facility], [address], [place], [place], [address], [place] tel:[phone] [facility] Physical (chief complaint) Encounter for general adult medical exam w abnormal findingsAbdominal painAnemiaHeadach e Luis Dillon. [address], [place], [place], [address] , [place]. tel:[phone] Referring Provider: Jayy Mclean [address], [place], [place], [address]. tel:[phone] OFFICE/OUTPA TIENT VISIT, [facility], [place], [facility], [address], [place], [place], [address], [place] tel:[phone] [facility] anemia1 (chief complaint)fi broid (chief complaint)he adache1 (chief complaint) AnemiaSubmucous leiomyoma of uterus 7 Luis Dillon. [address], [place], [place], [address] , [place]. tel:[phone] Referring Provider: Jayy Mclean [address], [place], [place], [address]. tel:[phone] OFFICE/OUTPA TIENT VISIT, [facility], [place], [facility], [address], [place], [place], [address], [place] tel:[phone] [facility] Medicine C diff (chief complaint)an xiety1 (chief complaint)he adache1 (chief complaint)fi broid (chief complaint) Enterocolitis due to Clostridium difficileSubmucou s leiomyoma of uterusHeadacheGen eralized anxiety disorder 7 Luis Dillon. [address], [place], [place], [address] , [place]. tel:[phone] Referring Provider: Jayy Mclean [address], [place], [place], [address]. tel:[phone] OFFICE/OUTPA TIENT VISIT, [facility], [place], [facility], [address], [place], [place], [address], [place] tel:[phone] [facility] Medicine fibroid1 (chief complaint)co litis1 (chief complaint)re anl infarct1 (chief complaint) ColitisSubmucous leiomyoma of uterusKidney infarct May- 7 Luis Dillon. [address], [place], [place], [address] , [place]. tel:[phone] Referring Provider: Santana Smith, [address], [place], [place], [address]. tel:[phone] OFFICE/OUTPA TIENT VISIT, [facility], [place], [facility], [address], [place], [place], [address], [place] tel:[phone] [facility] right flank pain1 (chief complaint) ColitisHypokalemi aLeukocytosisKidn ey infarct May- 7 Luis Dillon. [address], [place], [place], [address] , [place]. tel:[phone] Referring Provider: Jayy Mclean [address], [place], [place], [address]. tel:[phone] OFFICE/OUTPA TIENT VISIT, [facility] [place], [facility], [address], [place], [place], [address], [place] tel:[phone] [facility] anemia1 (chief complaint)he adache1 (chief complaint)ax illary lymph (chief complaint)an xiety1 (chief complaint) Hidradenitis suppurativaHeadac heGeneralized anxiety disorderAnemia 7 Luis Dillon. [address], [place], [place], [address] , [place]. tel:[phone] Referring Provider: Santana Smith [address], [place], [place], [address]. tel:[phone] OFFICE/OUTPA TIENT VISIT, [facility] [place], [facility], [address], [place], [place], [address], [place] tel:[phone] [facility] Anemia1 (chief complaint)he adache1 (chief complaint)ab d pain1 (chief complaint) Anemia, unspecifiedHeadac heBody mass index (BMI) 40.0-44.9, adultGeneralized anxiety disorder 7 Luis Dillon. [address], [place], [place], [address] , [place]. tel:[phone] Referring Provider: Jayy Mclean [address], [place], [place], [address]. tel:[phone] OFFICE/OUTPA TIENT VISIT, [facility] [place], [facility], [address], [place], [place], [address], [place] tel:[phone] [facility] abd pain (chief complaint)an xiety1 (chief complaint) Abdominal painGeneralized anxiety disorderBody mass index (BMI) 45.0-49.9, adult 6 Luis Dillon. [address], [place], [place], [address] , [place]. tel:[phone] Referring Provider: Jayy Mclean [address], [place], [place], [address]. tel:[phone] OFFICE/OUTPA TIENT VISIT, [facility] [place], [facility], [address], [place], [place], [address], [place] tel:[phone] [facility] anxiety1 (chief complaint)dy sphagia1 (chief complaint)EK G (chief complaint)ed ema1 (chief complaint) Generalized anxiety disorderDysphagia Abnormal electrocardiogram [ECG] [EKG]Essential (primary) hypertension 6 Luis Dillon. [address], [place], [place], [address] , [place]. tel:[phone] Referring Provider: Jayy Mclean [address], [place], [place], [address]. tel:[phone] OFFICE/OUTPA TIENT VISIT, [facility] [place], [facility], [address], [place], [place], [address], [place] tel:[phone] [facility] dysphagia1 (chief complaint)he adache1 (chief complaint)ne ck pain1 (chief complaint)ek g (chief complaint) Abnormal electrocardiogram [ECG] [EKG]HeadacheGene ralized Anxiety DisorderDysphagia 6 Luis Dillon. [address], [place], [place], [address] , [place]. tel:[phone] Referring Provider: Jayy Mclean [address], [place], [place], [address]. tel:[phone] OFFICE/OUTPA TIENT VISIT, [facility] [place], [facility], [address], [place], [place], [address], [place] tel:[phone] [facility] dysphagia1 (chief complaint)ca rotid stenosis (chief complaint)an emia1 (chief complaint) DysphagiaStenosis of right carotid arteryAnemia 6 Luis Hutchinson [address], [place], [place], [address] , [place]. tel:[phone] Referring Provider: Jayy Mclean [address], [place], [place], [address]. tel:[phone] OFFICE/OUTPA TIENT VISIT, [facility] [place], [address], [address], [place] tel:[phone] [facility] panic (chief complaint)pa nic1 (chief complaint) Panic attackHeadache 6 Luis Hutchinson [address], [place], [place], [address] , [place]. tel:[phone] Referring Provider: Jayy Mclean [address], [place], [place], [address]. tel:[phone] OFFICE/OUTPA TIENT VISIT, [facility] [place], [address], [address], [place] tel:[phone] [facility] headache1 (chief complaint)an emia1 (chief complaint)lo w D (chief complaint)HT N (chief complaint) HeadacheVitamin D deficiency, unspecifiedAnemia Essential (primary) hypertension 6 Luis Dillon. [address], [place], [address] , [place]. tel:[phone] Referring Provider: Jayy Mclean [address], [place], [place], [address]. tel:[phone] PREV VISIT, EST, AGE 40-64 [facility], [address], [place], [place], [address], [place] tel:[phone] [facility] Physical (chief complaint) Encntr for general adult medical exam w/o abnormal findings 6 Luis Dillon. [address], [place], [place], [address] , [place]. [phone] Referring Provider: Jayy Mclean [address], [place], [place], [address]. tel:[phone] OFFICE/OUTPA TIENT VISIT, [facility] [place], [facility], [address], [place], [place], [address], [place] tel:[phone] [facility] anxiety1 (chief complaint)he adache (chief complaint) HeadacheGeneraliz ed anxiety disorder 6 Luis Dillon. [address], [place], [place], [address] , [place]. tel:[phone] Referring Provider: Jayy Mclean [address], [place], [place], [address]. tel:[phone] OFFICE/OUTPA TIENT VISIT, [facility] [place], [facility], [address], [place], [place], [address], [place] [phone] [facility] flank pain (chief complaint)he adache (chief complaint) Dietary surveillance and counselingFlank painHeadacheHemat uria 5 Luis Dillon. [address], [place], [place], [address] , [place]. tel:[phone] Referring Provider: Jayy Mclean [address], [place], [place], [address]. tel:[phone] OFFICE/OUTPA TIENT VISIT, [facility] [place], [facility], [address], [place], [place], [address], [place] tel:[phone] [facility] Obesity (chief complaint)he adache (chief complaint)he maturia (chief complaint)vi tamin D (chief complaint) Dietary surveillance and counselingOther nonspecific findings on examination of urineHeadacheObes ityVitamin deficiency 5 Luis Dillon. [address], [place], [place], [address] , [place]. [phone] Referring Provider: Jayy Mclean [facility], [place], [place], [address]. tel:[phone] OFFICE/OUTPA TIENT VISIT, [facility] [place], [facility], [address], [place], [place], [address], [place] tel:[phone] [facility] pelvic pain (chief complaint)SHANICE L (chief complaint) Dietary surveillance and counselingUnspeci fied symptom associated with female genital organsOther and unspecified ovarian cystHEMATURIA NOSHypokalemia Jun- 5 Luis Dillon. [address], [place], [place], [address] , [place]. tel:[phone] Referring Provider: Jay[address], [place], [place], [address]. tel:[phone] OFFICE/OUTPA TIENT VISIT, [facility] [place], [facility], [address], [place], [place], [address], [place] tel:[phone] [facility] sick (chief complaint)pn eumonia (chief complaint)an xiety (chief complaint)ch est pain (chief complaint) Dietary surveillance and counselingViral Infection, UnspecifiedChest Pain, UnspecifiedGenera lized anxiety disorder May- 5 Luis Dillon. [address], [place], [place], [address] , [place]. tel:[phone] Referring Provider: [address], [place], [place], [address]. tel:[phone] OFFICE/OUTPA TIENT VISIT, EST [facility], [address], [place], [place], [address], [place] tel:[phone] [facility] low vitamin D (chief complaint)he adache (chief complaint)ob esity (chief complaint)ar m pain (chief complaint) Dietary surveillance and counselingUnspeci fied vitamin d deficiencyObesity HeadachePain in limb 5 Luis Dillon. [address], [place], [place], [address] , [place]. tel:[phone] Referring Provider: Jayy Mlcean [address], [place], [place], [address]. tel:[phone] PREV VISIT, EST, AGE 40-64 [facility], [address], [place], [place], [address], [place] tel:[phone] [facility] hematuria (chief complaint)he adache (chief complaint)ob esity (chief complaint) Dietary surveillance and counselingRoutine Medical ExamRoutine Medical Exam 5 Luis Dillon. [address], [place], [place], [address] , [place]. tel:[phone] Referring Provider: Jayy Mclean [address], [place], [place], [address]. tel:[phone] OFFICE/OUTPA TIENT VISIT, EST [facility], [address], [place], [place], [address], [place] tel:[phone] [facility] arm pain (chief complaint)he adache (chief complaint) Dietary surveillance and counselingHeadach ePain in joint involving shoulder region 4 Luis Hutchinson [address], [place], [place], [address] , [place]. tel:[phone] Referring Provider: Jayy Mclean [address], [place], [place], [address]. tel:[phone] OFFICE/OUTPA TIENT VISIT, EST [facility], [address], [place], [place], [address], [place] tel:[phone] [facility] anemia (chief complaint)he adache (chief complaint)ad renal nodule (chief complaint) AnemiaDietary surveillance and counselingHeadach eOther specified disorders of adrenal glands Nov- 4 Luis Dillon. [address], [place], [place], [address] , [place]. tel:[phone] Referring Provider: Santana Smith, [address], [place], [place], [address]. tel:[phone] OFFICE/OUTPA TIENT VISIT, [facility] [place], [address], [place], [place], [address], [place] tel:[phone] [facility] headache (chief complaint)ad renal nodule (chief complaint)Ashley ng nodule (chief complaint) Dietary surveillance and counselingHeadach eOther specified disorders of adrenal glandsSwelling, mass, or lump in chestHypertension , Unspecified 4 Luis Dillon. [address], [place], [place], [address] , [place]. tel:[phone] Referring Provider: Jayy Mclean [address], [place], [place], [address]. tel:[phone] OFFICE/OUTPA TIENT VISIT, [facility] [place], [facility], [address], [place], [place], [address], [place] tel:[phone] [facility] headache (chief complaint)ch est pain (chief complaint) Dietary surveillance and counselingHeadach eChest Pain, Unspecified 4 Luis Dillon. [address], [place], [place], [address] , [place]. tel:[phone] Referring Provider: Jayy Mclean [address], [place], [place], [address]. tel:[phone] OFFICE/OUTPA TIENT VISIT, [facility] [place], [address], [place], [place], [address], [place] tel:[phone] [facility] headahe (chief complaint)ch est pain (chief complaint) Chest Pain, UnspecifiedPain in joint involving lower legHeadacheDietar y surveillance and counseling 4 Luis Dillon. [address], [place], [place], [address] , [place]. tel:[phone] Referring Provider: [address], [place], [place], [address]. tel:[phone] PREV VISIT, EST, AGE 18-39 [facility], [address], [place], [place], [address], [place] tel:[phone] [facility] gallbladder diseaese (chief complaint)PH ysical (chief complaint) Dietary surveillance and counselingRoutine Medical ExamRoutine Medical Exam 3 Luis Hutchinson [address], [place], [place], [address] , [place]. tel:[phone] Referring Provider: Jayy Mclean [address], [place], [place], [address]. tel:[phone] OFFICE/OUTPA TIENT VISIT, EST [facility], [address], [place], [place], [address], [place] tel:[phone] [facility] abdominal pain (chief complaint)he adache (chief complaint)ea r pain (chief complaint) Dietary surveillance and counselingAbdomin al PainHeadacheOther acute otitis externaHypertensi on, Unspecified 3 Luis Hutchinson [address], [place], [place], [address] , [place]. [phone] Referring Provider: Jayy Mclean [address], [place], [place], [address]. tel:[phone] OFFICE/OUTPA TIENT VISIT, EST [facility], [address], [place], [place], [address], [place] tel:[phone] [facility] headache (chief complaint)ab dominal pain (chief complaint) Dietary surveillance and counselingHeadach eOther acute otitis externaDisturbanc e of skin sensationLump or mass in breast 3 Luis Dillon. [address], [place], [place], [address] , [place]. tel:[phone] Referring Provider: Santana Smith [address], [place], [place], [address]. tel:[phone] OFFICE/OUTPA TIENT VISIT, [facility], [address], [place], [place], [address], [place] tel:[phone] [facility] headache (chief complaint) HeadacheDietary surveillance and counselingDisturb ance of skin sensationSyncope and collapse 3 Luis Dillon. [address], [place], [place], [address] , [place]. tel:[phone] Referring Provider: Santana Smith Jayy Quiro[address] [facility], [place], [place], [address]. tel:[phone] Family History Family Member Type Diagnosis Age At Onset Mother Problem (finding) Hypertension Father Problem (finding) Coronary artery disease 70 Father Problem (finding) Hypertension Payers Payer name Insurance type Covered republican ID Authorshanikaa tiartemio(s) [facility] CI [id number] Social History Type Description Quantity Date Captured Comments Alcohol Use Details Caffeine Use Details Unknown Tobacco Use Status Never smoked tobacco 2024 Smoking Status Never smoker Sex Female Vital Signs Date / Time: Height Weight BMI Pulse Rate Blood Pressure Temperature Respiratory Rate Body Surface Area Head Circumference BMI percentile Pulse Ox Inhaled Ox 9:55 AM 64.00 in 206.80 lbs 35.5 0 kg/m eter (2) 66 /min 130/72 mm[Hg] 97.7 F 16 /min Chief Complaint And Reason For Visit From encounter dated '05/19/2024 09:42'. pain (chief complaint). Description: pt has chronic left knee pain Pt denies any injury Pt c/o intermittent left knee swelling. pt is seeing ortho and she will have left knee replacement. Pt takes pain meds PRN. Pt failed left knee injection and also physical therapy Pt will have left knee replacement next month anxiety1 (chief complaint). Description: Pt has chronic anxiety and insomnia Pt takes ativan qhs PRn and doing ok. Pt denies any depression or any suicidal or homicidal thought Pt denies any crying spells sinus (chief complaint). Description: Pt c/o acute sinus symptoms, sinus congestion with pain, purulent sinus drainage, mild sore throat, mild sinus headache for one week Pt denies any fever ,cough Pt denies any sob .Pt tried and failed OTC meds Plan Of Treatment Date Type Action Status Goal Influenza vaccine. Due on due Goal [...] on due Goal Influenza vaccine. Due on Nj due Goal Lipid panel. Due on due [...] on due Goal Influenza vaccine. Due on Nj due Goal Lipid panel. Due on due Goal Depression screening. Due on due Goal Tdap. Due on due Goal Td vaccine. Due on due Goal Pap/HPV testing. Due on due Goal Influenza vaccine. Due on Nj due Goal Lipid panel. Due on due [...] on due Goal Influenza vaccine. Due on Nj due Goal Td vaccine. Due on due [...] on due Goal Influenza vaccine. Due on Nj due Goal Td vaccine. Due on due Goal Lipid panel. Due on due Goal Tdap. Due on due Goal Depression screening. Due on due Goal Pap/HPV testing. Due on due Goal Influenza vaccine. Due on Nj due Goal Td vaccine. Due on due [...] Td vaccine. Due on 16 due Goal Pap/HPV testing. Due on due Goal Depression screening. Due on due Goal Tdap. Due on due Goal Td vaccine. Due on 16 due Goal Pap/HPV testing. Due on due Goal Tdap. Due on due Goal Depression screening. Due on due Goal Td vaccine. Due on 16 due Goal Pap/HPV testing. Due on due Goal Tdap. Due on due Goal Td vaccine. Due on 16 due Goal Depression screening. Due on due [...] Goal Td vaccine. Due on due Goal Mammogram. Due on 6 due Goal Depression screening. Due on due Goal Td vaccine. Due on 15 due Goal Depression screening. Due on due Goal Tdap. Due on due Goal Mammogram. Due on 5 due Goal Pap/HPV testing. Due on due [...] ordered Referral Referred To: YANNA HADLEY [address], [place], [id number] Ordered: Referrals: Allopathic & Osteopathic Physicians : Orthopaedic Surgery. YANNA HADLEY. Evaluate and treat ordered Referral Ordered: Marcus Person -[facility]opathic Physicians : Plastic Surgery (related to Muscle spasm of back) ordered Referral Referred To: Marcus Person [address] [place], [place], [phone] Ordered: Referrals: Allopathic & Osteopathic Physicians : Plastic Surgery. Marcus Person. Evaluate and treat ordered Referral Ordered: William Key -[facility]opathic Physicians : Plastic Surgery (related to Excessive and redundant skin and subcutaneous tissue) ordered Referral Referred To: William Key [address] [place], [place], [id number] Ordered: Referrals: Allopathic & Osteopathic Physicians : Plastic Surgery. William Key. Evaluate and treat ordered Referral Ordered: Gerard Guajardo -[facility] Physicians : Surgery (related to Abnormal weight loss) ordered Referral Referred To: Gerard Guajardo [address] [place], [place], [id number] Ordered: Referrals: Allopathic & Osteopathic Physicians : Surgery. Gerard Guajardo. Evaluate and treat ordered Referral Ordered: Surgery (related to Abnormal weight gain) ordered Referral Ordered: Referrals: Surgery. Evaluate and treat ordered Referral Ordered: US EXAM, EXTREMITY Right shoulder ordered Referral Referred To: Anil JI, Juarez Medina [address] [place], [place], [id number] Ordered: Referrals: Anil JI, Juarez Medina. Evaluate and treat ordered Referral Referred To: Frankie Kang [address] [place], [phone] Ordered: Referrals: Frankie Kang. Evaluate and treat [...] MORE VIEWS Left ordered Referral Referred To: Farnkie Kang [address] [place], [place] [phone] Ordered: Referrals: Allopathic & Osteopathic Physicians : Orthopaedic Surgery. Frankie Kang. Evaluate and treat ordered Referral Ordered: MAMMOGRAM, ONE BREAST Right ordered Referral Ordered: LUMBAR XRAY AP AND LAT ONLY ordered Referral Ordered: CT ABDOMEN W/DYE ordered Referral Ordered: Carmen Scott (related to Submucous leiomyoma of uterus) ordered Referral Referred To: Carmen Scott [address] [place], [phone] Ordered: Referrals: Carmen Scott. Evaluate and treat ordered Referral Ordered: Urology (related to Kidney infarct) ordered Referral Ordered: Referrals: Urology. Evaluate and treat ordered Referral Ordered: Jose F Watson (related to Dysphagia) ordered Referral Ordered: ESOPHAGRAM (BARIUM SWALLOW) ordered Referral Referred To: Jose F Watson [address] [place], [phone] Ordered: Referrals: Jose F Watson. Evaluate and [...] Pt c/o intermittent left knee swelling. pt is seeing ortho and she will have left knee replacement. Pt takes pain meds PRN. Pt failed left knee injection and also physical therapy Pt will have left knee replacement next month anxiety1 Pt has chronic a nxiety and insomnia Pt takes ativan qhs PRn and doing ok. Pt denies any depression or any suicidal or homicidal thought Pt denies any crying spells sinus Pt c/o acute sin us symptoms, sinus congestion with pain, purulent sinus drainage, mild sore throat, mild sinus headache for one week Pt denies any fever ,cough Pt denies any sob .Pt tried and failed OTC meds pain pt has chronic l eft knee pain Pt denies any injury Pt c/o intermittent left knee swelling. pt is seeing ortho and she will have left knee replacement. Pt takes pain meds PRN. Pt failed left knee injection and also physical therapy Pt will have left knee replacement soon and se needs surgical clearance anxiety1 Pt has chronic a nxiety and [...] pain is preventing her from work efficiency pain pt has chronic l eft knee [...] knee injection but only helped several weeks. anxiety Pt has chronic a nxiety and insomnia [...] knee injection but only helped several weeks. anxiety Pt has chronic a nxiety and insomnia Pt takes ativan qhs PRn and doing ok. Pt denies any depression or any suicidal or homicidal thought Pt denies any crying spells anxiety Pt has chronic a nxiety and insomnia [...] has tonny with ortho in two weeks anxiety1 Pt has chronic a nxiety and insomnia Pt takes ativan qhs PRn and doing ok. Pt denies any depression or any suicidal or homicidal thought Pt denies any crying spells vein1 Pt notices inter mittent dark superficial [...] pain. Pt only was able to pick remover 28 percocet recently due to insurance issue [...] occasional GERD when she eats spicy food. pain Pt has left knee pain due [...] denies any crying spells weight loss1 Pt has been losi ng [...] month which was negative for h pylori HTN Pt has HTN. pt t akes [...] Pt denies any chest pain or headache HTN Pt has HTN .Pt t akes metoprolol and irbesartan Pt denies any chest pain Pt has occasional palpitation Pt is seeing cardiology and she had benign holter per patient and echo. insomnia1 Pt has chronic a nxiety and [...] up at night with headache HTN Pt takes irbesar dalton and metoprolol [...] Pt denies any chest pain or palpitation pain Pt has chronic s tress induced [...] upper extremity numbness or tingling or weakness insomnia1 Pt has chronic a nxiety and [...] or waking up at night with headache COVID1 Pt was diagnosed with COVID on [...] suicidal thought .Pt denies any crying spells weight gain1 pt is morbidly o bese Pt is non-committal to weight loss surgery and she keeps insisting on diet and exercise for the past 5 years but she has been only gaining weight. Pt is sedentary despite stating that she tries to exercise. Pt rarely exercise. headache1 Pt has temporal headache from stress .Pt doing ok with topamax . Pt takes percocet PRn for headache. Pt has headache on average once per week Pt denies any acute headache. Pt denies any worsening headache Pt denies any head injury or waking up at night with headache sleep apnea1 Pt has sleep stake driver ea but she is noncompliant with cpap. [...] mask since the onset of the rash anxiety1 Pt has chronic a nxiety and [...] has more headache since wearing ear phone. anxiety1 Pt has chronic a nxiety and [...] sinus congestion. Pt just came back from [place] with plane ride .Pt denies any sick contact anxiety Pt has chronic a nxiety and [...] or palpitation. Pt denies any other complaints anxiety Pt has chronic a nxiety and insomnia. Pt doing ok with ativan qhs PRn Pt denies any depression or any suicidal thought .Pt denies any crying spells headache1 Pt has temporal headache from stress .Pt doing ok with topamax . Pt takes percocet PRn for headache. Pt has headache on average once per week Pt denies any acute headache. sleep apnea1 Patient has slee p apnea but she failed multiple attempt to try CPAP mammo Pt denies any br east issue Pt needs mammo . sleep apnea1 Pt has sleep stake driver ea pt is noncompliant with cpap anxiety1 Pt has chronic a nxiety and [...] week but mild. Pt needs topamax refill headache1 Pt has temporal headache from stress .Pt doing ok with topamax . Pt takes percocet PRn for headache. Pt has headache on average once per week Pt denies any acute headache. Pt takes percocet PRn for headache. Pt has headache 1-2 per week but mild anxiety1 Pt has insomnia and anxiety and she takes ativan qhs PRN and doing ok ,PT denies any depression or any suicidal or homicidal thought. Pt denies any crying spells . sleep apnea1 Pt has sleep stake driver ea Pt has not been using CPAP Pt states that she is uncomfortable with cpap Pt is noncompliant. Pt does feel fatigue palpitation1 Pt has palpation . Pt recently had acute episode of palpitation and heart racing while in the kitchen and she had some stutter of speech Pt went to ER and her BP was high and she had negative CTA of brain and her BP was high also Pt had negative lab and she was sent home. Pt denies any recurrent symptoms palpitation1 Pt went to see c ardiology for palpitation Pt wakes up in the middle of the night several times due to palpitation .Pt was started on toprol by cardiology and she has not had anymore palpitations. pt had benign cardiac echo recently. pt only has palpitation at night sleep apnea1 Pt has sleep stake driver ea Pt has not been using CPAP [...] for headache sleep apnea1 Pt has sleep stake driver ea. pt has cpap set up soon with [facility]. palpitation1 Pt has intermitt ent palpitation [...] .Pt denies any sob. Pt went to [facility] and had negative EKG and had some scans and lab work and was normal. Pt was sent home with panic attacks. Pt does feel stressed out and she has frequent panic attacks. Pt denies any dizziness. Pt denies any acute palpitation or chest pain. Pt denies any exertional chest pain or palpitation headache1 Pt has temporal headache from stress .Pt doing ok with topamax . Pt takes percocet PRn for headache. Pt has headache on average once per week Pt denies any acute headache. Pt takes percocet PRn for headache anxiety1 Pt has insomnia and anxiety and she takes ativan qhs PRN and doing ok ,PT denies any depression or any suicidal or homicidal thought. Pt denies any crying spells . sleep apnea1 Pt has sleep stake driver ea Pt does snore and she feels [...] or homicidal thought sleep apnea Additional infor barbieion: Pt just had sleep study done yesterday. [...] pain Pt has tonny with ortho at [facility] soon Pt failed injections. Pt does not [...] any GI issue. Anxiety 1 Patient has office machine servicer inocencia anxiety and depression. Her mom just recently. Patient has been having crying spells. Patient has been having anxiety attack. Patient denies any suicidal homicidal thoughts. Patient stated that L[employer]ist has not been working really well for her depression and anxiety. Patient took several leftover Klonopin spell she is out now. headache1 Patient has office machine servicer inocencia nonspecific headache. Patient had normal brain MRI. Patient has stress and tension type headache. Patient failed amitriptyline and Topamax. Patient also failed Imitrex. Patient takes Percocet as needed for headache. Patient has headache 2to 3 times per week. Patient denies any acute headache. anemia1 Pt has history o f anemia. Pt had normal colonoscopy. Pt denies any GI bleeding Pt did have fibroid with heavy period. Pt is s/p hysterectomy recently. anxiety1 Patient has office machine servicer inocencia anxiety and depression. Patient denies any suicidal homicidal thoughts. Patient denies any crying spells. Pt states that lexapro is not helping her symptoms. headache1 Patient has office machine servicer inocencia nonspecific headaches. Patient had normal brain MRI. Patient complained of frequent throbbing headache without nausea or photophobia. Patient states that her headaches are related to stress. Patient has been taking ibuprofen without improvement. Patient denies any head injury or we have at night with headache. Patient denies any acute headache. mammo1 Pt has abnormal mammogram. Pt has [...] Pt takes klonopin PRN and doing ok anxiety1 Pt has chronic a nxiety. Pt denies any depression or any suicidal thought. Pt denies any crying spells. Pt failed SSRI in the past headache1 Pt has tension h eadache. Pt failed prophylactic. Pt failed imitrex. Pt takes percocet PRN for headache. and doing ok. Pt has headache 1-2 per week. Pt denies any head injury. Pt denies waking up at night with headache. Pt denies any worsening headache headache1 Pt has chronic s tress headache. [...] denies waking up at night with headahe polyuria1 Pt states that s he has been having polyuria for one week Pt denies any burning or urgency. Pt denies any flank pain HTN Pt has mild HTn today. Pt deneis any chest pain. Pt has chornic intermitent headache. anxiety1 Pt has chronic a nxiety. Pt denies any depression or any suicidal thought Pt take klonpin PRn. Pt denies any suicidal or homicidal thought. Pt denies any cyring spells. sinus Pt c/o mild sinu s congestion, sore throat, ear pain for 2-3 days. Pt denies any sinus drainage. Pt denies any acute headache. Pt denies any chest pain. Pt feels subjective sob since she has diffiuclty breathing through her nose headache1 Pt has chronic i ntermittent headache. Pt denies any acute headache. Pt had benign brain MRi. Pt failed topamax and propranolol. Pt has headahce 2-3 per month. Pt c/o throbbing headache anxiety1 Pt has chronic a nxiety, Pt denies any depression or any suicidal thought Pt takes klonopin PRN and doing ok. Pt denies any suicidal thought. Pt denies any cyring spells renal lesion Pt had repeat ab dominal [...] Pt has bleeding fibroid Pt just seen CEMENT OR CONCRETE FINISHING SUPERVISOR and she will get IUD soon. Pt [...] has appointment to discuss fibroid with [facility] CONCRETE FINISHING SUPERVISOR in one week. Pt has some heavy [...] she never got a c all from [facility] CONCRETE FINISHING SUPERVISOR fibroid1 Pt has fibroid a nd she needs to have hysterectomy and she was told she needs surgical clearance. Pt does have some excessive bleeding. Pt is mildly anemic. Pt has mild pelvic pain. Pt has pain with intercouse Pt was referred to [facility]ET[facility] FINISHING SUPERVIS[facility] in [facility] but she is not comfortable with it. Pt wants to see doctor somewhere for surgery colitis1 Pt has colitis. Pt took augmentin and flagyl and her abd pain resolved. Pt denies any blood in stool. Pt did not do the c diff toxin yet. Pt still has mild nonbloody diarrhea reanl infarct1 Pt denies any ab d pain or flank pain Pt needs repeat Ct soon. Pt denies any UTI symptoms right flank pain1 Pt c/o right f [...] suicidal thought. pt denies any crying spells headache1 Pt has chronic h eadache. Pt [...] Pt needs endoscopy. Pt may have IBS Anemia1 Pt has mild anem ia. Pt still has not done EGD and colonoscopy yet. Pt has heavy period and she is seeing automobile club travel counselor for it. Pt denies any dizziness. Nov-23-2016 abd pain Pt c/o intermitt ent right [...] suicidal thought. Pt denies any crying spells. EKG Pt denies any ch est pain. Pt seen Dr. Amos and she is started on pravastatin. Pt had another EKG and was ok per pt at cardiology office. Pt told me she went to Dr. Castorena office and was told they dont take her insurance. edema1 Pt has mild LE e julio sometimes. Pt denies any SOB. Pt denies any calf pain anxiety1 Pt has chronic a nxiety Pt denies any deprssion or any suicidal thought. Pt takes buspar and klonpin and doing ok. Pt denies any cyring spells. dysphagia1 Pt denies any GE RD or dysphagia. Pt is off omeprazole. Pt doing ok. Pt is noncompliant with EGD and colonoscpy dysphagia1 pt feels somethi ng around throat [...] denies any UTI symptoms Pt just had CEMENT OR CONCRETE FINISHING SUPERVISOR exam which was ok per patient. Pt [...] with certain movement Pt was evaluated by C[employer] OR CONCRETE FINISHING SUPERVISOR and no ovarian or CEMENT OR CONCRETE FINISHING SUPERVISOR issue. Pt denie any radiation of pain. headache Pertinent negati ves include memory loss or vomiting. Additional information: Pt has intermittent headache, throbbing and sharp pain on top of head for at least several years. Pt has headache 2-3 per week. Pt has photophobia and nauea with headache. No heada injury. Amitriptyline is not working. vitamin D Pt has low vitam in D. Obesity Additional infor mation: Pt is obese. [...] hematuria . Pt denies any UTI symptoms Instructions Date Instruction Additional Infor mation Special diet education Related t o Body [...] management Related to Gen eralized anxiety disorder Weight management Related to Pro teinuria Special diet education Related t o Body mass index (BMI) 45.0-49.9, adult Increase physical activity Relat ed to Proteinuria Special diet education Related t o Body [...] Related to Gen eralized anxiety disorder Prescribed Diet Educ ation/Lifestyle Education Regarding Diet [...] Related to tary surveillance and counseling Prescribed Diet Educ ation/Lifestyle Education Regarding Diet [...] surveillance counseling Assessments Type Assessment Date assessment Acute sinusitis assessment Generalized anxiety disorder May assessment Chronic pain syndrome Mental Status Date Cognitive Assessment Orientation - Worden ed to time, place, person, situation.
--- OUTSIDE RECORDS SUMMARY | 2024-06-01 16:03 | XMS_ITS | Encounter Summary ---
Author Organization [facility] Health Address [address] [place] [address] Care Team Providers Care Learning Designer Name Role Phone Santana Smith MD Primary Care Provider [phone] Reason for Visit * Reason Onset Date Comments Concerns 02/12/2023 Encounter Details Date Type Department Care Team (Late st Contact Info) Description 02/12/2023 Telephone [facility] [address] [id number] Radha Jiménez MD [address] [place] [id number] Concerns Social History Tobacco Use Types [...] and heating? Not hard at all 04/30/2022 [facility] [place] [facility] - Occupational Stress [...] place to sleep or slept in a detention (including now)? No 04/30/2022 Sex and Gender [...] Adela Gongora MD - 02/12/2023 2:09 PM MAINTENANCE MAN agree TENANCE MAN * Telephone Encounter - Agata Lugo RN - 02/12/2023 1:41 PM MAINTENANCE MAN RN called pt. Per pt she has [...] an appt. Pt has [facility] scheduled 03/2023 TENANCE MAN * Telephone Encounter - Danni Acevedo - 02/12/2023 12:48 PM CST Pt states she is wanting to speak with Dr. Jiménez or a nurse about some concerns she is having. She states she used a certain scented body wash and it is not agreeing with her. TENANCE MAN documented in this encounter Plan of Treatment Not on file documented as of this encounter Visit Diagnoses Not on filedocumented in this encounter Care Teams Learning Designer Relationship Specialty Start Date End Date Santana Smith MD [address] [id number] PCP - General 06/21/14 documented as of this encounter
--- OUTSIDE RECORDS SUMMARY | 2024-06-01 16:03 | XMS_ITS | Clinical Summary ---
Author Organization [facility] Address [address] [place] [id number] Care Team Providers Care Four Slide Machine Operator Name Role Phone Unavailable Primary Care Provider [...]
--- OUTSIDE RECORDS SUMMARY | 2024-06-01 16:03 | XMS_ITS | Data Portability ---
Author Organization [facility] Address [address] [place] [address] Assessment Encounter Date Assessment Date Assessment LastModified [...] surgical consult . Appt for Glenn JI 10-06-2014 Not available 08/26/2014 12:52:13 04/25/2016 04/25/2016 Here [...] [facility], [address], [address], [place], [address], 7 20:11:11 different ial, manual, blood 2016 [facility]17 [facility] [address] [place], [address], 7 12:09:18 Referral gynecolog ist referral 2016 017 [email or web address] Not available 7 16:33:11 Procedures None recorded. Surgeries None recorded. Imaging US, pelvis, complete - MUST HAVE FULL BLADDER; NO SMALL CHILDREN, ARRIVE 15MINS PRIOR TO SCHEDULED APPT. TIME; IF NOT CAPABLE OF KEEPING THIS APPT. CALL NUMBER ABOVE TO RESCHEDUL E YOUR ULTRA SOUND APPT. 2016 017 EMILY Not available 7 13:00:34 mammogram , screening 2014 015 EMILY Not available 5 14:17:11 ultrasoun d, pelvic transvagi nal 2014 015 EMILY Not available 5 11:09:32 Medication Orders ibuprofen 800 mg tablet 2014 015 [facility]porter [id number], [address], [place], [place], [id number], 7 12:10:39 Patient TargetsNo targets recorded. Patient Instructions Encounter Date Encounter Id Patient Instructions Last Modified By Organization Details Last Modified Time 05/14/2016 [id number] uterine fibroids: care instructions [email or web address] Not available 05/14/2016 12:51:46 06/04/2016 [id number] uterine fibroids: care instructions [email or web address] Not available 06/11/2016 11:44:22 Reason for Referral Manager Maintenance Referral for Ut erine leiomyoma uterine fibroids- surgical consult Referring Physician: Chloe Ybarra, PHOTOGRAPHIC [employer]ATE [employer]KER, Encounter Date: 05/14/2016 Results Created Date Observation Date Name Description Value Unit Range Abnormal Flag Note LastModifiedBy Organization Detail LastModifiedTime 04/25/19 17 04/25/2016 CBC w/ auto diff WBC 6.3 K/uL 3.4-10 .8 Not Available [facility] (Lab) [address] [place], [address], 04/25/2016 15:10:30 04/25/19 17 04/25/2016 CBC w/ auto diff red blood count 4.5 M/uL 4.2-5. 4 Not Available [facility] (Lab) [address] [place], [address], 04/25/2016 15:10:30 04/25/19 17 04/25/2016 CBC w/ auto diff hemoglobin 11.6 g/dL 11.5-1 5.5 Not Available [facility] (Lab) [address] [place], [address], 04/25/2016 15:10:30 04/25/19 17 04/25/2016 CBC w/ auto diff hematocrit 37.0 % 36.0-4 8.0 Not Available [facility] (Lab) [address] [place], [address], 04/25/2016 15:10:30 04/25/19 17 04/25/2016 CBC w/ auto diff MCV 82 fL 80-95 Not Available [facility] (Lab) [address] [place], [address], 04/25/2016 15:10:30 04/25/19 17 04/25/2016 CBC w/ auto diff MCH 26 pg 27-32 low Not Available [facility] (Lab) [address] [place], [address], 04/25/2016 15:10:30 04/25/19 17 04/25/2016 CBC w/ auto diff MCHC 31 g/dL 32-36 low Not Available [facility] (Lab) [address] [place], [address], 04/25/2016 15:10:30 04/25/19 17 04/25/2016 CBC w/ auto diff platelets 290 K/uL 155-37 9 Not Available [facility] (Lab) [address], [place], [address], 04/25/2016 15:10:30 04/25/19 17 04/25/2016 CBC w/ auto diff RDW 15.5 % 11.5-1 4.5 high Not Available [facility] (Lab) [address] [place], [address], 04/25/2016 15:10:30 04/25/19 17 04/25/2016 CBC w/ auto diff MPV 10.6 fL 8.9-12 .7 Not Available [facility] (Lab) [address] [place], [address], 04/25/2016 15:10:30 04/25/19 17 04/25/2016 CBC w/ auto diff neutrophils absolute 4.7 K/uL 1.4-7. 0 Not Available [facility] (Lab) [address] [place], [address], 04/25/2016 15:10:30 04/25/19 17 04/25/2016 CBC w/ auto diff lymphs (absolute) 1.2 K/uL 0.7-3. 1 Not Available [facility] (Lab) [address] [place], [address], 04/25/2016 15:10:30 04/25/19 17 04/25/2016 CBC w/ auto diff monocytes (absolute) 0.4 K/uL 0.1-0. 9 Not Available [facility] (Lab) [address] [place], [address], 04/25/2016 15:10:30 04/25/19 17 04/25/2016 CBC w/ auto diff eos (absolute) 0.1 K/uL 0.0-0. 4 Not Available [facility] (Lab) [address] [place], [address], 04/25/2016 15:10:30 04/25/19 17 04/25/2016 CBC w/ auto diff baso (absolute) 0.0 K/uL 0.1-0. 3 low Not Available [facility] (Lab) [address] [place], [address], 04/25/2016 15:10:30 04/25/19 17 04/25/2016 CBC w/ auto diff neut % 74.2 % 40.0-7 4.0 high Not Available [facility] (Lab) [address] [place], [address], 04/25/2016 15:10:30 04/25/19 17 04/25/2016 CBC w/ auto diff lymphs % 18.1 % 14.0-4 6.0 Not Available [facility] (Lab) [address] [place], [address], 04/25/2016 15:10:30 04/25/19 17 04/25/2016 CBC w/ auto diff mono % 5.8 % 4.0-12 .0 Not Available [facility] (Lab) [address] [place], [address], 04/25/2016 15:10:30 04/25/19 17 04/25/2016 CBC w/ auto diff eos % 2 % <=5 Not Available [facility] (Lab) [address] [place], [address], 04/25/2016 15:10:30 04/25/19 17 04/25/2016 CBC w/ auto diff baso % 0.2 % 0.1-1. 1 Not Available [facility] (Lab) [address] [place], [address], 04/25/2016 15:10:30 04/25/19 17 04/29/2016 pap, IG + HPV diagnosis: SPRCS NEGAT KIMBERLI FOR INTRA EPITH ELIAL LESIO N AND MALIG YASMIN . Perfo rmed at: WB Not Available [facility] (Lab) [address] [facility], [place], [address], 04/29/2016 20:11:11 04/25/19 17 04/29/2016 pap, IG + HPV specimen adequacy: [facility] Satis facto ry for evalu ation . Endoc ervic al and/o r squam ous metap lasti c cells (endo cervi alonso compo nent) are prese nt. Perfo rmed at: WB Not Available [facility] (Lab) [address] [facility], [place], [address], 04/29/2016 20:11:11 04/25/19 17 04/29/2016 pap, IG + HPV performed by: [facility] Yanna Voss (ASCP ) Perfo rmed at: WB Not Available [facility] (Lab) [address] [facility], [place], [address], 04/29/2016 20:11:11 04/25/19 17 04/29/2016 pap, IG + HPV Pap smear, 1 slide . Perfo rmed at: WB Not Available [facility] (Lab) [address] [facility], [place], [address], 04/29/2016 20:11:11 04/25/19 17 04/29/2016 pap, IG [...] . Perfo rmed at: WB Not Available [facility] (Lab) [address] [facility], [place], [address], 04/29/2016 20:11:11 04/25/19 17 04/29/2016 pap, IG + HPV test methodology: IGLPAP This liqui d based ThinP rep(R ) pap test was keysha awan with the use of an image guide munira sommers. Perfo rmed at: WB Not Available [facility] (Lab) [address] [place], [address], 04/29/2016 20:11:11 04/25/19 17 04/29/2016 pap, IG + HPV HPV, high-risk Negati ve negati ve Perfo rmed at: =G Not Available [facility] (Lab) [address] [place], [address], 04/29/2016 20:11:11 04/25/19 17 04/29/2016 pap, IG + HPV HPV, low-risk Negati ve negati ve These HPV tests detec t thirt een high- risk types (16/1 8/31/ 33/35 / 39/45 /51/5 2/56/ 58/59 /68) and five low-r isk types (08/25 //4 ) witho ut diffe renti ation . . Perfo rmed at: =G Not Available [facility] (Lab) [address] [place], [address], 04/29/2016 20:11:11 08/26/19 15 08/23/2014 ultra sound , pelvi c trans vagin al No observ ation record ed. [facility] (Lab) [address] [place], [address], 08/25/2014 14:39:56 08/26/19 15 08/23/2014 ultra sound , pelvi c trans vagin al No observ ation record ed. [facility] (Lab) [address] [place], [address], 08/26/2014 16:44:47 08/27/19 15 08/23/2014 ultra sound , pelvi c trans vagin al No observ ation record ed. [facility] (Rad) [address] [facility], [place], [address], 08/26/2014 16:44:47 08/27/19 15 08/23/2014 ultra sound , pelvi c trans vagin al No observ ation record ed. [facility] (Rad) [address] [place], [address], 08/26/2014 16:44:47 10/12/19 15 10/04/2014 mammo gram, scree tim No observ ation record ed. [email or web address] [place], [address], 10/12/2014 13:13:10 10/12/19 15 10/04/2014 mammo gram, scree tim No observ ation record ed. [email or web address] (Lab) [address] [place], [address], 10/12/2014 13:13:10 05/08/19 17 05/08/2016 US, pelvi [...] 3.9cm consis tent with myoma. Solid mass clip coater ior aspect of the uterus measur ing up to 4.6cm consis tent with myoma. Endome trial comple x is not well-d efined . Ovarie s are not seen. To better visual ize myomas and endome trium and to attemp t to visual ize the ovarie s transv aginal imagin g was perfor med. Images reveal cervic al cyst. Solid mass clip coater ior aspect of the uterin e body [...] SIGNED BY: LU ENGLISH Date: 2016 11:54 [facility] ([facility]) [address] [place], [address], 05/15/2016 17:17:22 05/08/19 17 05/08/2016 ultra sound [...] 3.9cm consis tent with myoma. Solid mass clip coater ior aspect of the uterus measur ing up to 4.6cm consis tent with myoma. Endome trial comple x is not well-d efined . Ovarie s are not seen. To better visual ize myomas and endome trium and to attemp t to visual ize the ovarie s transv aginal imagin g was perfor med. Images reveal cervic al cyst. Solid mass clip coater ior aspect of the uterin e body [...] SIGNED BY: LU ENGLISH Date: 2016 11:54 [facility] (Rad) [address] [place], [address], 05/15/2016 17:17:22 05/16/19 17 05/08/2016 US, pelvi s, compl ete No observ ation record ed. [email or web address] [facility] (Outpatient Registration & Mamms) [address] [place], [address], 05/16/2016 17:32:39 Result Notes None recorded. Problems Name Problem SNOMED Code Status Onset Date Resolution Date Notes Provider Name and Address Organization Details Recorded Time Cyst of ovary 85753778 Active Chloe gonsalez, [facility] 5 12:00:49 Uterine leiomyoma 75528037 Active Chloe gonsalez, [facility] 5 15:00:10 Problem Notes None recorded. Procedures Surgical History Date Name Laterality Status Provider Name and Address Organization Details Recorded Time 04/25/19 17 Date of Last Pap Smear completed Sydnee Garvin MA [facility] 06/03/2016 17:18:19 10/05/19 15 Most Recent Mammogram completed Sydnee Garvin MA [facility] 06/03/2016 17:20:46 03/17/19 15 Cholecystectomy [address] Romi Elizabeth [facility] 06/04/2016 12:18:05 03/17/18 97 Tubal Ligation completed Sydnee Garvin MA [facility] 06/04/2016 11:44:31 Imaging Results Imaging Date Name Status LastModified by Organization Details LastModified Time 08/23/2014 ultrasound, pelvic transvaginal completed [address] (Lab) [address] [place], [address], 08/25/2014 14:39:56 08/23/2014 ultrasound, pelvic transvaginal completed [address] (Lab) [address] [place], [address], 08/26/2014 16:44:47 08/23/2014 ultrasound, pelvic transvaginal completed [address] (Rad) [address] [place], [address], 08/26/2014 16:44:47 08/23/2014 ultrasound, pelvic transvaginal completed [address] (Rad) [address] [place], [address], 08/26/2014 16:44:47 10/04/2014 mammogram, screening completed [address] [place], [address], 10/12/2014 13:13:10 10/04/2014 mammogram, screening completed [facility] (Lab) [address] [place], [address], 10/12/2014 13:13:10 05/08/2016 US, pelvis, complete completed [facility] (Rad) [address] [place], [address], 05/15/2016 17:17:22 05/08/2016 ultrasound, pelvic transvaginal completed [facility] (Rad) [address] [facility], [place], [address], 05/15/2016 17:17:22 05/08/2016 US, pelvis, complete completed [email or web address] (Outpatient Registration & Mamms) [address] [place], [address], 05/16/2016 17:32:39 Procedure Notes None recorded. Medical Equipment None Reported. Allergies Allergen ID Allergen Name Allergen Category Reaction Reaction Severity Criticality Documentation Date Start Date Code Code System Note Provider Name and Address Organization Details Recorded Time 80828 Levaquin medicatio n hives severe Not available 06/04/20162014 73893 2 RxNorm Not Available Not Available Not [...] Updated DateTime 08/18/2014 162.56 cm 46 kg/m2 739365.7 5516 g 120 mm[Hg] 80 mm[Hg] Stacy Beltre MA [facility] 5 11:27:05 Date Recorded Body weight Systolic blood pressure Diastolic blood pressure Provider Name and Address Organization Details Last Updated DateTime 08/26/2014 797975.347 53 g 130 mm[Hg] 70 mm[Hg] Dania Hankins MA [facility] 08/26/2014 12:31:08 Date Recorded Body height Body weight Body mass index (BMI) Systolic blood pressure Diastolic blood pressure Provider Name and Address Organization Details Last Updated DateTime 04/25/2016 167.64 cm 055500.7 9 g 42.4 kg/m2 110 mm[Hg] 64 mm[Hg] Hugo De Leon MA [facility] 7 10:53:26 Date Recorded Body height Body weight Body mass index (BMI) Systolic blood pressure Diastolic blood pressure Provider Name and Address Organization Details Last Updated DateTime 05/14/2016 167.64 cm 598284.6 4 g 42.4 kg/m2 120 mm[Hg] 80 mm[Hg] Medina Gillette [facility] 7 12:13:32 Date Recorded Body height Body weight Body mass index (BMI) Systolic blood pressure Diastolic blood pressure Provider Name and Address Organization Details Last Updated DateTime 06/04/2016 167.64 cm 093545.6 5 g 41.3 kg/m2 120 mm[Hg] 80 mm[Hg] Sydnee Garvin MA [facility] 7 11:39:26 Social History Question Answer Notes LastModified by Organizat ion Details LastModified Time Tobacco Smoking Status Never Smoker Dania Hankins MA 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 Information not available 06/04/2016 Live Alone Or [...] High Blood Pressure N Breast Cancer N Depression N Blood Clots N Lung Disease N Breast Problem N Anesthesia Complications N Headaches/Migraines N Anxiety Disorder N Muscle, Joint, or Bone Problems N Polyps N Infertility N Acid Reflux (GERD) N Cancer N Endometriosis N High Cholesterol N Liver Disease N Thyroid Problems N Kidney or Bladder Problems N GI Problems N Acne N Eating Disorder N Anemia N Diabetes N Ovarian Cancer N Blood Transfusions N Seizures/Epilepsy N Abuse/Domestic Violence N Asthma N Hepatitis N Heart Disease N Pre-Eclampsia N Osteoporosis [...] SNOMED-CT Code Diagnosis ICD10 Code Diagnosis Note [id number] [facility] (PHOTOGRAPHIC PLATE [employer]KER) [address] [place] [address] 05/10/2014 16:33:01 05/10/2014 17:33:59 Uses contraception 57970875 [id number] [facility] (PHOTOGRAPHIC [employer]ATE [employer]) [address] [place] [address] 08/18/2014 10:56:05 08/18/2014 12:01:34 Cyst of ovary 20698195 Screening mammography 95238546 [id number] Chloe Ybarra [facility] (PHOTOGR[employer]IC [employer]ATE [employer]) [address] [place] [address] 08/26/2014 12:15:55 08/26/2014 12:53:02 Uterine leiomyoma 17728848 [id number] Chloe Tate [facility] (PHOTOGRAPHIC [employer]ATE [employer]ER) [address] [place] [address] 04/25/2016 10:39:23 04/25/2016 13:32:05 Gynecologic examination 29248126 Z01.419 Uterine leiomyoma 681490 05 D25.9 [id number] Chloe Ybarra [facility] (PHOTOGRAPHIC PLATE MAKER) [address] [place] [address] 05/14/2016 12:05:46 05/14/2016 13:04:27 Uterine leiomyoma 64656683 D25.[id number] [address] 06/04/2016 11:07:08 06/11/2016 07:27:38 Uterine leiomyoma 89920670 D25.9 Discussed medical and surgical management . [...] Member ID Guarantor Name 08/18/2014 1 [place] [facility] Apoorva Piero [id number] Apoorva Piero 08/26/2014 1 [place] [facility] Apoorva Piero [id number] Apoorva Piero 04/25/2016 1 [facility] PRIOR TO 09/14/2020 (MEDICAID REPLACEMENT - HMO) Apoorva Piero [id number] Apoorva Piero 05/14/2016 1 [facility] PRIOR TO 09/14/2020 (MEDICAID REPLACEMENT - HMO) Apoorva Piero [id number] Apoorva Piero 06/04/2016 1 [facility] PRIOR TO 09/14/2020 (MEDICAID REPLACEMENT - HMO) Apoorva Piero [id number] Apoorva Piero Notes Date Note Type Note Provider Name [...] course of antibiotics and now has diarrhea. oRmi gonsalez, [place] - S[place] 06/11/2016 07:27:26 OBGyn Episode No OBEpisode recorded.
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
--- OUTSIDE RECORDS SUMMARY | 2024-06-01 16:04 | XMS_ITS | Clinical Summary ---
Author Organization [facility] Address [address] [place] [address] Care Team Providers Care R D Intern Name Role Phone Santana Smith MD Primary Care Provider [phone] Source Comments [facility],non-owned Affiliates and Associated Physician Practices is amultiple site organization consisting of ambulatory clinics and hospital sitesin [place], [place], [place] and [place]. This disclosure is being madepursuant to the Care Everywhere program and may not contain all information available regarding this patient. Last updated 17.[facility] Allergies Active Allergy Reactions Criticality Noted Date [...] and heating? Not hard at all 04/30/2022 [facility] [place] [facility] Occupat ional Health - Occupational Stress [...] 79 06/23/2023 10:06 AM CDT Temperature 36.6 C (97.9 F) 06/23/2023 10:06 AM CDT Respiratory Rate 18 11/01/2022 11:38 AM CDT [...] of 2) 2023 COVID-19 VACCINE (3 - 2023-25 season) 2023 04/23/2021, 03/26/2021 INFLUENZA VACCINE (#1) 2023 DEPRESSION SCREENING 03/17/2024 MAMMOGRAM 10/23/2025 10/24/2023 SCREENING FOR DIABETES 12/04/2025 3, 05/01/2022, 04/30/2022, Additional history exists HIB VACCINE Aged Out No longer eligi ble based on patient's age to complete this topic HPV VACCINE Aged Out No longer eligi ble based on patient's age to complete this topic MENINGOCOCCAL (Group B) VACCINE SHARED DECISION-MAKING Aged Out No longer eligible based on patient's age to complete this topic MENINGOCOCCAL GROUPS A/C/Y/W VACCINE Aged Out No longer eligible based [...] CDT Impressions 10/30/2023 8:52 AM CDT : No mammographic evidence of malignancy. RECOMMENDATION: 1. Screening mammography in one year, pending no interval breast concerns. 2. Consultation in the [facility] Breast [facility] High Risk [facility], given the elevated lifetime risk of developing breast cancer greater than 20%. Should she wish to schedule a consultation, the phone number [phone]. 3. Annual screening breast MRI is recommended, given the elevated lifetime risk of breast cancer of greater than 20%, according to the [place] [employer] guidelines, and can be alternated at 6 month intervals with mammography or performed at the time of screening mammography. This can be managed by the High-Risk Breast Clinic. Patient will receive the examination results by lay letter. OVERALL ASSESSMENT: BI-RADS CATEGORY 1: NEGATIVE. Report dictated by Prieto Tavera M.D. (resident services supervisor) 10/30/2023 7:37 AM Alexei Rosales M.D. and Angle Wisdom M.D. also participated in the interpretation of this study. I, Francesca Martin MD have personally reviewed and interpreted this examination/study. > Interpreting Provider: Francesca Martin MD on 10/30/2023 8:52 AM Narrative 10/30/2023 8:52 AM CDT EXAMINATIONS: BILATERAL DIGITAL SCREENING MAMMOGRAM AND BILATERAL BREAST TOMOSYNTHESIS LOCATION: [facility] EXAM DATE: 10/24/2023 HISTORY: Screening. Family history of breast cancer in her sister and also in her maternal and paternal grandmothers. RISK ASSESSMENT CALCULATION: Patient completed a breast cancer risk assessment during her appointment 10/24/2023. Based upon the information she provided and her mammographic breast density, her lifetime risk of developing breast cancer is 21% (Average Risk <15%; Intermediate / Moderate Risk 15-19%; High Risk > 20%). Given the elevated lifetime risk of breast cancer greater than 20%, consultation in the [facility] Breast Surgery High Risk [facility] is recommended. The phone number is [phone]. The [place] [employer] recommends annual screening breast MRI [...] recommended. COMPARISON: Compare with prior mammograms from [facility] dated 01/08/2018, 06/06/2021 and 09/26/2022. TECHNIQUE: Tomosynthesis (3D) and reconstructed synthetic 2-D images acquired and reviewed in the bilateral craniocaudal and mediolateral oblique projections. A total of 4 images obtained. Transpara AI was utilized in the interpretation. BREAST PARENCHYMAL COMPOSITION: Category B: There are scattered areas of fibroglandular density. FINDINGS: There are no suspicious findings or evidence of malignancy on mammography. There is no significant change from the prior. Marcus Person MD MAMMO ORDERABLES * COMPREHENSIVE METABOLIC PANEL (12/04/2022 12:48 PM CDT) Glucose 76 65 - 99 mg/dL [facility] Comment: Fasting reference interval BUN 14 7 - 25 mg/dL [facility] Creatinine 0.90 0.50 - 0.99 mg/dL [facility] eGFR by Cystatin C 78 > OR = 60 mL/min/1. 73m2 [facility] BUN/Creatinine Ratio SEE NOTE: 6 - 22 (calc) [facility] Comment: Not Reported: BUN and Creatinine are within reference range. Sodium 141 135 - 146 mmol/L [facility] [...] 29 U/L [facility] Comment: Test Performed at: [facility] [address] THALIA ANN MD 12/04/2022 12:4 8 PM CDT 12/04/2022 12:50 PM CDT Carmen Escobar Alex [employer] LEGAL SECRETARY-REGULATORY SERVICES CONSULTANT LAB - [facility] СВЕТЛАНА ORDERABLES [address] [address] from Last 3 Months or Most Recently Relevant to Health Maintenance Advance Directives * Full Code (Latest Code Status on File) Date Activated Date Inactivated Comments 04/30/2022 10:22 AM 05/01/2022 4:11 PM * Full Code Date Activated Date Inactivated Comments 11/25/2017 2:05 PM 11/26/2017 4:53 PM Care Teams R D Intern Relationship Specialty Start Date End Date Santana Smith MD [address] [facility] [address] [place] [phone] PCP - General 06/21/14
[2024-06-01 16:28] LABS: Basophils Percent Auto 0.5 % (0.2-1.2); Eosinophils Absolute Auto 0.1 K/mm3 (0-0.3); Eosinophils Percent Auto 0.9 % (0-4.4); Hematocrit 40.5 % (37.0-47.0); Hemoglobin 12.7 g/dL (12.0-15.0); Immature Granulocyte Absolute 0.01 K/mm3 (0.00-0.031); Immature Granulocyte Percent A 0.2 % (0-0.5); Lymphocytes Absolute Auto 1.95 K/mm3 (0.9-3.2); Lymphocytes Percent Auto 34.4 % (18.3-44.2); Mean Corpuscular HGB Conc 31.4 g/dl (32-36); Mean Corpuscular Hemoglobin 27.9 pg (26-34); Mean Platelet Volume 9.8 fl (7.4-10.4); Monocytes Absolute Auto 0.4 K/mm3 (0.1-0.6); Monocytes Percent Auto 6.7 % (2.6-8.5); Neutrophils Absolute Auto 3.3 K/mm3 (1.3-6.7); Neutrophils Percent Auto 57.3 % (45.5-73.1); Platelet Count Result 239 k/mm3 (150-375); Red Blood Count 4.55 M/mm3 (4.2-5.4); Red Cell Distribution Width 14.2 % (11.5-14.5); White Blood Count 5.7 K/mm3 (4.5-10.0)
[2024-06-01 16:39] LABS: Urine Cotinine NEGATIVE
[2024-06-01 16:42] LABS: INR 0.9; Prothrombin Time 12.5 Seconds (11.1-14.7)
[2024-06-01 16:43] LABS: Partial Thromboplastin Time 25.7 Seconds (22.3-36.8)
[2024-06-01 16:47] LABS: Add Urine Microscopic? YES; Appearance Urine Cloudy (Clear); Bacteria Urine 3+ /hpf; Bilirubin Urine Negative (Negative); Blood Urine Negative (Negative); Color Urine Dark Yellow (Yellow); Glucose Urine UA Negative (Negative); Ketones Urine Trace mg/dL (Negative); Leukocyte Esterase Ur Trace LEU/UL (Negative); Nitrate Urine Negative (Negative); Non Pathogenic Casts 0-2; Protein Urine Negative (Negative); RBC Urine 0-2 /hpf (0-2); Specific Grav Ur 1.027 (1.001-1.035); Squamous Epithelial Cell Urine Moderate /hpf (Few); Urobilinogen Urine 0.2 mg/dL (<2.0); pH Urine 5.5 (5.0-9.0)
[2024-06-01 16:49] LABS: Albumin Level 4.4 g/dL (3.5-5.1); Anion Gap 8 mmol/L (4-12); Blood Urea Nitrogen 14 mg/dL (7-17); Calcium 9.4 mg/dL (8.4-10.2); Carbon Dioxide 29 mmol/L (22-30); Chloride 103 mmol/L (98-107); Estimated Glomerular Filt Rate > 60; Glucose 72 mg/dL (65-110); Potassium 3.6 mmol/L (3.4-5.0); Sodium 140 mmol/L (137-145)
[2024-06-01 17:26] LABS: Hemoglobin A1C 5.2 % (<5.7)
[2024-06-01 17:56] LABS: MRSA (PCR) NOT DETECTED (NOT DETECTE)
== END 2024-06-01 14:14 | disposition home or self-care (01) ==
LOC: ANHSURGERY 14:17
PROVIDERS: PCP Emergency Medicine; Visit Provider Orthopaedic Surgery
DX: M17.12 Unilateral primary osteoarthritis, left knee (principal); Z01.818 Encounter for other preprocedural examination
CPT/HCPCS: 80048; 80307; 81001; 82040; 83036; 85025; 85610; 85730; 87641

== ENCOUNTER 2024-06-15 02:28 | Day surgery (SDC) | payer BC, SELFPAY ==
[2024-06-01 14:28] VITALS: BMI 36.1
[2024-06-01 14:30] VITALS: BP 134/88; PULSE 86; RESP 16; TEMP 36.5; O2SAT 100
--- NOTE | 2024-06-01 14:48 | PC.NURSE ---
Report to the Outpatient Waiting Room, entrance under the green pavilion located off [facility], at time ___6:00AM____ on date ___06/15/24____. Planned Procedure Time: __7:30AM .? Time changes happen often and if your time is changed the preop area will call you the afternoon before. - You and your visitor will be asked to self-screen and do not enter if you have any COVID symptoms. Please call surgeon if you need to reschedule. - A mask is optional within the hospital at this time. Patients may have clear liquids (water, carbonated beverages, clear teas, apple juice) until 3 hours prior to surgery (4:30AM) with a maximum of 20 ounces. - No food from midnight until time of surgery and no smoking, or chewing tobacco (or any form of nicotine). No chewing gum, candy or mints. Take only the following medications with a SIP of water on the morning of surgery: ATIVAN AND OXYCODONE NEEDED DO NOT STOP ANY OF YOUR OTHER PRESCRIPTION MEDICATIONS PRIOR TO SURGERY EXCEPT THE FOLLOWING Hold all vitamins and supplements for 3 days per anesthesiologist.- LAST DOSE 06/11/24 Please no make-up, nail slovak, hairspray, perfume, deodorant, or body powder the day of surgery.? No jewelry (including any body piercings) or valuables the day of surgery, leave them at home.? Please take a shower or bath the night before, or the morning of, surgery with an antibacterial soap.? Wear comfortable, loose fitting clothing.? - Jewelry must be removed prior to entering the operating room.? Rings and piercings that are not removed may be cut off. - The hospital will not accept responsibility for valuables.? - Please leave all valuables, including medications, at home the day of surgery. If you are going home after surgery, a licensed taxi driver supervisor must drive you home.? - NO public transportation without another adult if you receive anesthesia. - We recommend that an adult stay with you for 24 hours following discharge. - We also recommend that you do not drive, make important decision, drink alcoholic beverages, or take any drugs that were not prescribed by your health care provider for at least 24 hours after your discharge time. Follow any additional instructions given to you from your surgeon. Telephone instructions given to ____PATIENT and asked if any additional questions and then verbalized understanding. Patient advised to call surgeon office or pre surgery nurse liaison [phone] if any additional questions.
[2024-06-15] VITALS (15 sets, daily range): BP systolic 118–136; BP diastolic 71–99; PULSE 71–101; RESP 10–24; TEMP 36.1–36.6; O2SAT 95–100; BMI 35.9
--- NOTE | ~2024-06-15 | XR_ITS ---
Left Knee Technique: Portable AP and crosstable lateral views Clinical History: Status post TKR Findings: Patient is status post total knee replacement. Orthopedic hardware alignment appears anatom ic. No hardware complication is evident. Subcutaneous emphysema and swelling is likely postoperative in nature. No acute osseous fracture is seen. Impression: Status post total knee replacement, without evidence of hardware complication. Reviewed, dictated and finalized at location . Impression: Status post total knee replacement, without evidence of hardware complication.
--- OUTSIDE RECORDS SUMMARY | 2024-06-15 02:36 | XMS_ITS | Clinical Summary ---
Author Organization [facility] Address [address] [place] [address] Care Team Providers Care Farmer Cash Grain Name Role Phone Unavailable Primary Care Provider [...] Vaccines (1 of 2) 2023 COVID-19 Vaccine (2023-2 5 season) 2023 Influenza Adult (#1) 2023 [...]
--- OUTSIDE RECORDS SUMMARY | 2024-06-15 02:36 | XMS_ITS | Data Portability ---
Author Organization [facility] Address [address] [facility] [place] [address] Assessment Encounter Date Assessment Date Assessment LastModified [...] [facility], [address], [address], [place], [address], 7 20:11:11 different ial, manual, [facility] 2016 [email or web address] [address] [place], [address], 7 12:09:18 Referral gynecolog ist referral 2016 017 [email or web address] Not available 7 16:33:11 Procedures None recorded. [...] ibuprofen 800 mg tablet 2014 015 [id number], [address] [facility], [place], [place], [id number], 7 12:10:39 Patient TargetsNo targets recorded. Patient Instructions Encounter Date Encounter Id Patient Instructions Last Modified By Organization Details Last Modified Time 05/14/2016 [id number] uterine fibroids: care instructions [email or web address] Not available 05/14/2016 12:51:46 06/04/2016 [id number] uterine fibroids: care instructions [email or web address] Not available 06/11/2016 11:44:22 Reason for Referral Nurse Rn Bsn Referral for Ut erine leiomyoma uterine fibroids- surgical consult Referring Physician: Chloe Ybarra, [employer] [facility], Encounter Date: 05/14/2016 Results Created Date Observation Date Name Description Value Unit Range Abnormal Flag Note LastModifiedBy Organization Detail LastModifiedTime 04/25/19 17 04/25/2016 CBC w/ auto diff WBC 6.3 K/uL 3.4-10 .8 Not Available [facility] (Lab) [address] [place], [address], 04/25/2016 15:10:30 04/25/19 17 04/25/2016 CBC w/ auto diff red blood count 4.5 M/uL 4.2-5. 4 Not Available [facility] (Lab) [address] [place], [address], 04/25/2016 15:10:30 04/25/19 17 04/25/2016 CBC w/ auto diff hemoglobin 11.6 g/dL 11.5-1 5.5 Not Available [facility] (Lab) [address] [place], [address], 04/25/2016 15:10:30 04/25/19 17 04/25/2016 CBC w/ auto diff hematocrit 37.0 % 36.0-4 8.0 Not Available [facility] (Lab) [address] [place], [address], 04/25/2016 15:10:30 04/25/19 17 04/25/2016 CBC w/ auto diff MCV 82 fL 80-95 Not Available [facility] (Lab) [address] [place], [address], 04/25/2016 15:10:30 04/25/19 17 04/25/2016 CBC w/ auto diff MCH 26 pg 27-32 low Not Available [facility] (Lab) [address] [place], [address], 04/25/2016 15:10:30 04/25/19 17 04/25/2016 CBC w/ auto diff MCHC 31 g/dL 32-36 low Not Available [facility] (Lab) [address] [place], [address], 04/25/2016 15:10:30 04/25/19 17 04/25/2016 CBC w/ auto diff platelets 290 K/uL 155-37 9 Not Available [facility] (Lab) [address], [place], [address], 04/25/2016 15:10:30 04/25/19 17 04/25/2016 CBC w/ auto diff RDW 15.5 % 11.5-1 4.5 high Not Available [facility] (Lab) [address] [place], [address], 04/25/2016 15:10:30 04/25/19 17 04/25/2016 CBC w/ auto diff MPV 10.6 fL 8.9-12 .7 Not Available [facility] (Lab) [address] [place], [address], 04/25/2016 15:10:30 04/25/19 17 04/25/2016 CBC w/ auto diff neutrophils absolute 4.7 K/uL 1.4-7. 0 Not Available [facility] (Lab) [address] [place], [address], 04/25/2016 15:10:30 04/25/19 17 04/25/2016 CBC w/ auto diff lymphs (absolute) 1.2 K/uL 0.7-3. 1 Not Available [facility] (Lab) [address] [place], [address], 04/25/2016 15:10:30 04/25/19 17 04/25/2016 CBC w/ auto diff monocytes (absolute) 0.4 K/uL 0.1-0. 9 Not Available [facility] (Lab) [address] [place], [address], 04/25/2016 15:10:30 04/25/19 17 04/25/2016 CBC w/ auto diff eos (absolute) 0.1 K/uL 0.0-0. 4 Not Available [facility] (Lab) [address] [place], [address], 04/25/2016 15:10:30 04/25/19 17 04/25/2016 CBC w/ auto diff baso (absolute) 0.0 K/uL 0.1-0. 3 low Not Available [facility] (Lab) [address] [place], [address], 04/25/2016 15:10:30 04/25/19 17 04/25/2016 CBC w/ auto diff neut % 74.2 % 40.0-7 4.0 high Not Available [facility] (Lab) [address] [place], [address], 04/25/2016 15:10:30 04/25/19 17 04/25/2016 CBC w/ auto diff lymphs % 18.1 % 14.0-4 6.0 Not Available [facility] (Lab) [address] [place], [address], 04/25/2016 15:10:30 04/25/19 17 04/25/2016 CBC w/ auto diff mono % 5.8 % 4.0-12 .0 Not Available [facility] (Lab) [address] [place], [address], 04/25/2016 15:10:30 04/25/19 17 04/25/2016 CBC w/ auto diff eos % 2 % <=5 Not Available [facility] (Lab) [address] [place], [address], 04/25/2016 15:10:30 04/25/19 17 04/25/2016 CBC w/ auto diff baso % 0.2 % 0.1-1. 1 Not Available [facility] (Lab) [address] [place], [address], 04/25/2016 15:10:30 04/25/19 17 04/29/2016 pap, IG + HPV diagnosis: SPRCS NEGAT KIMBERLI FOR INTRA EPITH ELIAL LESIO N AND MALIG YASMIN . Perfo rmed at: WB Not Available [facility] (Lab) [address] [facility], [place], [address], 04/29/2016 20:11:11 04/25/19 17 04/29/2016 pap, IG + HPV specimen adequacy: [facility] Satis facto ry for evalu ation . Endoc ervic al and/o r squam ous metap lasti c cells (endo cervi alonso compo nent) are prese nt. Perfo rmed at: WB Not Available [facility] (Lab) [address] [facility], [place], [address], 04/29/2016 20:11:11 04/25/19 17 04/29/2016 pap, IG + HPV performed by: [facility] Yanna Voss (ASCP ) Perfo rmed at: WB Not Available [facility] (Lab) [address] [facility], [place], [address], 04/29/2016 20:11:11 04/25/19 17 04/29/2016 pap, IG + HPV Pap smear, 1 slide . Perfo rmed at: WB Not Available [facility] (Lab) [address] [facility], [place], [address], 04/29/2016 20:11:11 04/25/19 17 04/29/2016 pap, IG [...] . Perfo rmed at: WB Not Available [facility] (Lab) [address] [facility], [place], [address], 04/29/2016 20:11:11 04/25/19 17 04/29/2016 pap, IG + HPV test methodology: IGLPAP This liqui d based ThinP rep(R ) pap test was keysha awan with the use of an image guide munira sommers. Perfo rmed at: WB Not Available [facility] (Lab) [address] [place], [address], 04/29/2016 20:11:11 04/25/19 17 04/29/2016 pap, IG + HPV HPV, high-risk Negati ve negati ve Perfo rmed at: =G Not Available [facility] (Lab) [address] [place], [address], 04/29/2016 20:11:11 04/25/19 17 04/29/2016 pap, IG + HPV HPV, low-risk Negati ve negati ve These HPV tests detec t thirt een high- risk types (16/1 8/31/ 33/35 / 39/45 /51/5 2/56/ 58/59 /68) and five low-r isk types (08/25 //4 ) witho ut diffe renti ation . . Perfo rmed at: =G Not Available [facility] (Lab) [address] [place], [address], 04/29/2016 20:11:11 08/26/19 15 08/23/2014 ultra sound , pelvi c trans vagin al No observ ation record ed. [facility] (Lab) [address] [place], [address], 08/25/2014 14:39:56 08/26/19 15 08/23/2014 ultra sound , pelvi c trans vagin al No observ ation record ed. [facility] (Lab) [address] [place], [address], 08/26/2014 16:44:47 08/27/19 15 08/23/2014 ultra sound , pelvi c trans vagin al No observ ation record ed. [facility] (Rad) [address] [facility], [place], [address], 08/26/2014 16:44:47 08/27/19 15 08/23/2014 ultra sound , pelvi c trans vagin al No observ ation record ed. [facility] (Rad) [address] [place], [address], 08/26/2014 16:44:47 10/12/19 15 10/04/2014 mammo gram, scree tim No observ ation record ed. [email or web address] [place], [address], 10/12/2014 13:13:10 10/12/19 15 10/04/2014 mammo gram, scree tim No observ ation record ed. [email or web address] (Lab) [address] [place], [address], 10/12/2014 13:13:10 05/08/19 17 05/08/2016 US, pelvi [...] 3.9cm consis tent with myoma. Solid mass supervisor polishing ior aspect of the uterus measur ing up to 4.6cm consis tent with myoma. Endome trial comple x is not well-d efined . Ovarie s are not seen. To better visual ize myomas and endome trium and to attemp t to visual ize the ovarie s transv aginal imagin g was perfor med. Images reveal cervic al cyst. Solid mass supervisor polishing ior aspect of the uterin e body [...] SIGNED BY: LU ENGLISH Date: 2016 11:54 [facility] ([facility]) [address] [place], [address], 05/15/2016 17:17:22 05/08/19 17 05/08/2016 ultra sound [...] 3.9cm consis tent with myoma. Solid mass supervisor polishing ior aspect of the uterus measur ing up to 4.6cm consis tent with myoma. Endome trial comple x is not well-d efined . Ovarie s are not seen. To better visual ize myomas and endome trium and to attemp t to visual ize the ovarie s transv aginal imagin g was perfor med. Images reveal cervic al cyst. Solid mass supervisor polishing ior aspect of the uterin e body [...] SIGNED BY: LU ENGLISH Date: 2016 11:54 [facility] (Rad) [address] [place], [address], 05/15/2016 17:17:22 05/16/19 17 05/08/2016 US, pelvi s, compl ete No observ ation record ed. [facility] (Outpatient Registration & Mam[facility]) [address] [place], [address], 05/16/2016 17:32:39 Result Notes None recorded. Problems Name Problem SNOMED Code Status Onset Date Resolution Date Notes Provider Name and Address Organization Details Recorded Time Cyst of ovary 75862385 Active Chloe gonsalez, [facility] 5 12:00:49 Uterine leiomyoma 93524956 Active Chloe gonsalez, [facility] 5 15:00:10 Problem Notes None recorded. Procedures Surgical History Date Name Laterality Status Provider Name and Address Organization Details Recorded Time 04/25/19 17 Date of Last Pap Smear completed Sydnee Garvin MA [facility] 06/03/2016 17:18:19 10/05/19 15 Most Recent Mammogram completed Sydnee Garvin MA [facility] 06/03/2016 17:20:46 03/17/19 15 Cholecystectomy completed Romi Elizabeth [facility] 06/04/2016 12:18:05 03/17/18 97 Tubal Ligation completed ySdnee Garvin MA [facility] 06/04/2016 11:44:31 Imaging Results Imaging Date Name Status LastModified by Organization Details LastModified Time 08/23/2014 ultrasound, pelvic transvaginal completed [address] (Lab) [address] [place], [address], 08/25/2014 14:39:56 08/23/2014 ultrasound, pelvic transvaginal completed [address] (Lab) [address] [place], [address], 08/26/2014 16:44:47 08/23/2014 ultrasound, pelvic transvaginal completed [address] (Rad) [address] [place], [address], 08/26/2014 16:44:47 08/23/2014 ultrasound, pelvic transvaginal completed [address] (Rad) [address] [place], [address], 08/26/2014 16:44:47 10/04/2014 mammogram, screening completed [address] [place], [address], 10/12/2014 13:13:10 10/04/2014 mammogram, screening completed [facility] (Lab) [address] [place], [address], 10/12/2014 13:13:10 05/08/2016 US, pelvis, complete completed [facility] (Rad) [address] [place], [address], 05/15/2016 17:17:22 05/08/2016 ultrasound, pelvic transvaginal completed [facility] (Rad) [address] [place], [address], 05/15/2016 17:17:22 05/08/2016 US, pelvis, complete completed [email or web address] (Outpatient Registration & Mamms) [address] [place], [address], 05/16/2016 17:32:39 Procedure Notes None recorded. Medical Equipment None Reported. Allergies Allergen ID Allergen Name Allergen Category Reaction Reaction Severity Criticality Documentation Date Start Date Code Code System Note Provider Name and Address Organization Details Recorded Time 15994 Levaquin medicatio n hives severe Not available 06/04/20162014 99161 2 RxNorm Not Available Not Available Not Available Medications Name Sig Start Date Stop Date Status Note LastModified by Organization Details LastModified Time venlafaxine tab 37.5mgvenlafa xine hcl 06/04 completed Not Available Not Available Not Available ibuprofen tab 600mgibuprofe n 06/04 completed Not [...] Updated DateTime 08/18/2014 162.56 cm 46 kg/m2 405513.7 5516 g 120 mm[Hg] 80 mm[Hg] Stacy Beltre MA [facility] 5 11:27:05 Date Recorded Body weight Systolic blood pressure Diastolic blood pressure Provider Name and Address Organization Details Last Updated DateTime 08/26/2014 275545.347 53 g 130 mm[Hg] 70 mm[Hg] Dania Hankins MA [facility] 08/26/2014 12:31:08 Date Recorded Body height Body weight Body mass index (BMI) Systolic blood pressure Diastolic blood pressure Provider Name and Address Organization Details Last Updated DateTime 04/25/2016 167.64 cm 790669.7 9 g 42.4 kg/m2 110 mm[Hg] 64 mm[Hg] Hugo De Leon MA [facility] 7 10:53:26 Date Recorded Body height Body weight Body mass index (BMI) Systolic blood pressure Diastolic blood pressure Provider Name and Address Organization Details Last Updated DateTime 05/14/2016 167.64 cm 678189.6 4 g 42.4 kg/m2 120 mm[Hg] 80 mm[Hg] Medina Gillette [facility] 7 12:13:32 Date Recorded Body height Body weight Body mass index (BMI) Systolic blood pressure Diastolic blood pressure Provider Name and Address Organization Details Last Updated DateTime 06/04/2016 167.64 cm 363080.6 5 g 41.3 kg/m2 120 mm[Hg] 80 mm[Hg] Sydnee Garvin MA [facility] 7 11:39:26 Social History Question Answer Notes LastModified by Organizat ion Details LastModified Time Tobacco Smoking Status Never Smoker Dania Hankins MA [facility], [place] - [place] 05/10/2014 16:59:17 Do You Have [...] not available 06/04/2016 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[employer] Information not available 06/04/2016 Live Alone Or [...] Problems N Kidney or Bladder Problems N Lung Disease N Depression N Blood Clots N GI Problems N Acne N Breast Problem N Eating Disorder N Anemia N Anesthesia Complications N Headaches/Migraines N Ovarian Cancer N Diabetes N Anxiety Disorder N Muscle, Joint, or [...] SNOMED-CT Code Diagnosis ICD10 Code Diagnosis Note [id number] [facility] ([facility]) [address] [place] [address] 05/10/2014 16:33:01 05/10/2014 17:33:59 Uses contraception [id number] [facility] ([facility]) [address] [place] [address] 08/18/2014 10:56:05 08/18/2014 12:01:34 Cyst of ovary 56802405 Screening mammography [id number] [id number] Chloe Ybarra [facility] ([employer]) [address] [place] [address] 08/26/2014 12:15:55 08/26/2014 12:53:02 Uterine leiomyoma 65616419 [id number] Chloe Tate [facility] ([employer]) [address] [place] [address] 04/25/2016 10:39:23 04/25/2016 13:32:05 Gynecologic examination 39263294 Z01.419 Uterine leiomyoma 043831 05 D25.9 [id number] Chloe Ybarra [facility] ([facility]) [address] [place] [address] 05/14/2016 12:05:46 05/14/2016 13:04:27 Uterine leiomyoma 88068717 D25[id number] [address] 06/04/2016 11:07:08 06/11/2016 07:27:38 Uterine leiomyoma 63336752 D25.9 Discussed medical and surgical management . [...] Member ID Guarantor Name 08/18/2014 1 [place] [employer] Apoorva Piero [id number] Apoorva Piero 08/26/2014 1 [place] [employer] Apoorva Piero [id number] Apoorva Piero 04/25/2016 1 [facility] PRIOR TO 09/14/2020 (MEDICAID REPLACEMENT - HMO) Apoorva Piero [id number] Apoorva Piero 05/14/2016 1 [facility] PRIOR TO 09/14/2020 (MEDICAID REPLACEMENT - HMO) Apoorva Piero [id number] Apoorva Piero 06/04/2016 1 [facility] PRIOR TO 09/14/2020 (MEDICAID REPLACEMENT - HMO) Apoorva Piero [id number] Apoorva Piero Notes Date Note Type Note [...] course of antibiotics and now has diarrhea. Romi gonsalez, [place] - [facility] 06/11/2016 07:27:26 OBGyn Episode No OBEpisode recorded.
--- OUTSIDE RECORDS SUMMARY | 2024-06-15 02:36 | XMS_ITS | Data Portability ---
Author Organization [place] [facility], Main Office Address [address] [place] [address] Care Team Providers Care Director Life Insurance Name Role Phone LANI WHITE Primary Care Provider LANI WHITE Referring Provider [phone] Assessment Encounter Date Assessment Date Assessment LastModified by Organization Details LastModified Time 09/16/2023 09/16/2023 48-year-old female presents for evaluation of her left knee. She reports knee pain for about 6 years, getting progressively worse. It is especially bad going up and down stairs. She can only walk short distances, from the parking lot to the door, before her knees bother her. She previously saw her PCP, and received both cortisone injections and gel injections years ago. She has not taken any other medications. She is unable take anti-inflammator ies because of a history of a gastric sleeve. She works from home, sitting at a desk. Review of systems per patient questionnaire Physical exam: Antalgic gait favoring the left side. Slight valgus alignment. Range of motion 0-130. Tenderness palpation over the medial and lateral joint line as well as over the patella. 1A Meagan, stable posterior drawer, stable varus and valgus stress. Sensation intact to light touch. X-rays were reviewed, demonstrating [id number] arthritis of the lateral compartment, with joint space narrowing, sclerosis, osteophytes For her knee arthritis, we will begin with conservative management. We will send her to physical therapy and also have her use Voltaren gel. We discussed that repeat cortisone injection would be another option, but she wants to hold off on that. We will see her back as needed after her course of PT. [email or web address] Not available 09/16/2023 10:02:33 Plan of Treatment Reminders Order Date Submit Date Provider Last Modified By Organization Details Last Modified Time Details Appointments None recorded. Lab None recorded. Referral physical therapist referral - eval and treat 2023 024 [email or web address] Not available 12:39:13 Procedures None recorded. Surgeries None recorded. Imaging XR, knee, 3 view 2023 024 [email or web address] [facility], [address], [place], [address], 12:39:13 Medication Orders None recorded. Patient TargetsNo targets recorded. Patient InstructionsNo instructions recorded. Reason for Referral Physical Therapist Referral for Pain of left knee joint eval and treat Referring Physician: Oskar Dickinson, Orthopedic Surgery, Encounter Date: 09/16/2023 Results Created Date Observation Date Name Description Value Unit Range Abnormal Flag Note LastModifiedBy Organization Detail LastModifiedTime 09/16/19 24 XR, knee, 3 view No observ ation record ed. [email or web address] [facility] [address], [place], [address], 09/16/2023 09:41:24 Result Notes None recorded. Problems Name Problem SNOMED Code Status Onset Date Resolution Date Notes Provider Name and Address Organization Details Recorded Time Pain of left knee joint 280834667095738 Active 2023 CAROLYN Campbell [email or web address] [facility] [employer] [facility] 09:41:10 Problem Notes None recorded. Procedures Surgical History Date Name Laterality Status Provider Name and Address Organization Details Recorded Time Hysterectomy completed CAROLYN Campbell [employer] [facility] 09/16/2023 09:38:54 Gallbladder Surgery completed CAROLYN Campbell [employer] [facility] 09/16/2023 09:39:10 Gastric Bypass completed CAROLYN Briseno [employer] [facility] 09/16/2023 09:40:25 Imaging Results Imaging Date Name Status LastModified by Organiz ation Details LastModified Time 09/16/2023 XR, knee, 3 view completed [email or web address] [facility] [place] [address], [place], [address], 09/16/2023 09:41:24 Procedure Notes None recorded. Medical Equipment None Reported. Allergies Allergen ID Allergen Name Allergen Category Reaction Reaction Severity Criticality Documentation Date Start Date Code Code System Note Provider Name and Address Organization Details Recorded Time 55319 Levaquin medicatio n Not available Not available Not available 05/15/2022 49528 2 RxNorm Not Available [employer] 18:51:30 Medications Name Sig Start Date Stop Date Status Note LastModified by Organization Details LastModified Time celecoxib 200 mg capsule TAKE 1 CAPSULE BY MOUTH ONCE DAILY NEEDED 09/15 completed Not Available Not Available Not Available ibuprofen 800 mg tablet TK 1 T PO Q 6 TO 8 H FOR 10 DAYS 09/08 completed Not Available Not Available Not Available fluconazole 150 mg tablet TAKE ONE TABLET BY MOUTH A ONE-TIME DOSE active Not Available Not Available No t Available sumatriptan 100 mg tablet TK 1 T PO PRF KEEN MAY REPEAT IN 2 HOURS IF NEEDED 05/28 completed Not Available Not Available Not Available Ativan 1 mg tablet Take 1 tablet 3 times a day by oral route. 09/15 completed Not Available Not Available Not Available clonazepam 1 mg tablet TK ONE T PO Q FOUR TO SIX H PRF ANXIETY AND PANIC ATTACKS. 09/08 completed Not Available Not Available Not Available clindamycin HCl 150 mg capsule TK 1 C PO Q 6 H 05/28 completed Not Available Not Available Not Available sumatriptan 50 mg tablet 05/28 completed Not Available Not Available Not Available metronidazo le 500 mg tablet TK 1 T PO TID 09/08 completed Not Available Not Available Not Available propranolol 40 mg tablet TK 1 T PO BID 05/28 completed Not Available Not Available Not Available methocarbam ol 750 mg tablet TK 1 T PO Q 6 H PRN 09/08 completed Not Available Not Available Not Available pravastatin 10 mg tablet TK 1 T PO QD HS 09/08 completed Not Available Not Available Not Available DOK 100 mg capsule TK 1 C PO BID PRF CONSTIPAT ION 09/08 completed Not Available Not Available Not Available oxycodone-a cetaminophe n 10 mg-325 mg tablet TK 1 T PO Q 6 HOURS PRN 09/08 completed Not Available Not Available Not Available omeprazole 20 mg capsule,del ayed release TAKE 1 CAPSULE BY MOUTH ONCE DAILY BEFORE BREAKFAST active Not Available Not Available No t Available oxycodone-a cetaminophe n 7.5 mg-325 mg tablet 05/28 completed Not Available Not Available Not Available ondansetron 4 mg disintegrat ing tablet DIS ONE T PO Q 4 TO 6 H PRN NV 09/08 completed Not Available Not Available Not Available naproxen 500 mg tablet 05/28 completed Not Available Not Available Not Available amoxicillin 500 mg-potassiu m clavulanate 125 mg tablet TAKE 2 TABLETS BY MOUTH EVERY 12 HOURS 06/12 completed Not Available Not Available Not Available Vitals Date Recorded Body height Body mass index (BMI) Body weight Pain severity - 0-10 verbal numeric rating [Score] - Reported Provider Name and Address Organization Details Last Updated DateTime 09/16/2023 162.56 cm 32.3 kg/m2 23517.37 g [address] [facility] [employer] 09/16/2023 09:35:40 Social History Question Answer Notes LastModified by Organizat ion Details LastModified Time Tobacco Smoking Status Never Smoker CAROLYN Campbell [email or web address] [facility] 09/16/2023 09:38:39 What Is Your Level Of Alcohol Consumption? Occasional Information not available 09/16/2023 What Was The Date Of Your Most Recent Tobacco Screening? 09/16/2023 [email or web address] Information not available 09/16/2023 Sex: Unknown Functional Status None recorded. Mental Status None recorded. Family History Relationship Description Onset Age of this Age Resolved Age Notes LastModified by Organization Details LastModified Time Father Heart disease [email or web address] Not available 2023 09:36:37 Father Family history of malignant neoplasm [email or web address] Not available 2023 09:37:17 Brother Diabetes mellitus [email or web address] Not available 2023 09:37:42 Sister Hypertensive disorder [email or web address] Not available 2023 09:37:55 Medical History Condition Response ARTHRITIS Y Gynecological HistoryNo gynecological history recorded. Obstetrics History GPAL:G 0 P 0 0 0 0 Past Encounters Encounter ID Performer Location Encounter Start Date Encounter Closed Date Diagnosis/Indication Diagnosis SNOMED-CT Code Diagnosis ICD10 Code Diagnosis Note [id number] Oskar Dickinson MD [facility] [place] [address] [place] [address] 09/16/2023 09:07:39 09/16/2023 09:59:31 Pain of left knee joint 4527961138 60594 M25.562 Health Concerns Section Related Observation LastModified by Organization Detai ls LastModified Time None Recorded Concern Status LastModified by Organization Details LastModified Time None Recorded Advance Directives Directive None Recorded Payers Encounter Date Sequence Insurance Name Policy Number Policy Peterson Covered Member ID Peterson Member ID Guarantor Name 09/16/2023 1 [place] [id number] Apoorva Harry [id number] Apoorva Harry 09/16/2023 2 [facility] - DOS ON OR AFTER 20 (MEDICAID REPLACEMENT - HMO) Apoorva Harry [id number] Apoorva Harry OBGyn Episode No OBEpisode recorded.
--- OUTSIDE RECORDS SUMMARY | 2024-06-15 02:36 | XMS_ITS | Encounter Summary ---
Author Organization [facility] Address [address] [place] [address] Care Team Providers Care Regional Sales Representative Name Role Phone Santana Smith MD Primary Care Provider [phone] Reason for Visit * Reason Onset Date Comments Concerns 02/12/2023 Encounter Details Date Type Department Care Team (Late st Contact Info) Description 02/12/2023 Telephone [facility] - SAWING AND ASSEMBLY SUPERVISOR [address] [address] Radha Jiménez MD [address] [place] [id number] Concerns Social History Tobacco Use Types [...] heating? Not hard at all 04/30/2022 [facility] [place] of Occupat ional Health - Occupational Stress [...] place to sleep or slept in a chcf (including now)? No 04/30/2022 Sex and Gender [...] Adela Gongora MD - 02/12/2023 2:09 PM RECYCLABLE MATERIALS SORTER agree [employer]ORTER * Telephone Encounter - Agtaa Lugo RN - 02/12/2023 1:41 PM RECYCLABLE MATERIALS SORTER RN called pt. Per pt she has [...] an appt. Pt has wwe scheduled 03/2023 [employer]TER * Telephone Encounter - Danni Acevedo - 02/12/2023 12:48 PM CST Pt states she is wanting to speak with Dr. Jiménez or a nurse about some concerns she is having. She states she used a certain scented body wash and it is not agreeing with her. [employer] documented in this encounter Plan of Treatment Not on file documented as of this encounter Visit Diagnoses Not on filedocumented in this encounter Care Teams Regional Sales Representative Relationship Specialty Start Date End Date Santana Smith MD [address] [address] PCP - General 06/21/14 documented as of this encounter
--- OUTSIDE RECORDS SUMMARY | 2024-06-15 02:36 | XMS_ITS | Encounter Summary ---
Author Organization [facility] Address [address] [place] [address] Care Team Providers Care Roller Coaster Engineer Name Role Phone Santana Smith MD Primary Care Provider [phone] Reason for Visit * Reason Onset Date Comments MEDICATION REFILL 04/01/2023 Encounter Details Date Type Department Care Team (Late st Contact Info) Description 04/01/2023 Refill [facility] - FIRST ASSISTANT MANAGER [address] [facility] [address] [place] [address] Mark Lu MD [address] [facility] [address] [place], [place] [id number] MEDICATION REFILL Social History Tobacco Use Types [...] heating? Not hard at all 04/30/2022 [facility] [place] of Occupat ional Health - Occupational Stress [...] place to sleep or slept in a assisted (including now)? No 04/30/2022 Sex and Gender [...] on filedocumented in this encounter Care Teams Roller Coaster Engineer Relationship Specialty Start Date End Date Santana Smith MD [address] [place] [address] PCP - General 06/21/14 documented as of this encounter
--- OUTSIDE RECORDS SUMMARY | 2024-06-15 02:36 | XMS_ITS | Clinical Summary ---
Author Organization [facility] Address [address] [place] [address] Care Team Providers Care Tobacco Scrap Sifter Name Role Phone Santana Smith MD Primary Care Provider [phone] Source Comments [facility],non-owned Affiliates and Associated Physician Practices is amultiple site organization consisting of ambulatory clinics and hospital sitesin [place], [place], [place] and [place]. This disclosure is being madepursuant to the Care Everywhere program and may not contain all information available regarding this patient. Last updated 17.[facility] Allergies Active Allergy Reactions Criticality Noted Date [...] and heating? Not hard at all 04/30/2022 [facility] [place] of Occupat ional Health - Occupational Stress [...] place to sleep or slept in a care home (including now)? No 04/30/2022 Sex and Gender [...] interval breast concerns. 2. Consultation in the [facility] Breast Surgery High Risk [facility], given the elevated lifetime risk of developing breast cancer greater than 20%. Should she wish to schedule a consultation, the phone number [phone]. 3. Annual screening breast MRI is recommended, given the elevated lifetime risk of breast cancer of greater than 20%, according to the [place] [employer] guidelines, and can be alternated at 6 month intervals with mammography or performed at the time of screening mammography. This can be managed by the High-Risk Breast Clinic. Patient will receive the examination results by lay letter. OVERALL ASSESSMENT: BI-RADS CATEGORY 1: NEGATIVE. Report dictated by Prieto Tavera M.D. (front loader residential driver) 10/30/2023 7:37 AM Alexei Rosales M.D. and Angle Wisdom M.D. also participated in the interpretation of this study. I, Francesca Martin MD have personally reviewed and interpreted this examination/study. > Interpreting Provider: Francesca Martin MD on 10/30/2023 8:52 AM Narrative 10/30/2023 8:52 AM CDT EXAMINATIONS: BILATERAL DIGITAL SCREENING MAMMOGRAM AND BILATERAL BREAST TOMOSYNTHESIS LOCATION: [facility] EXAM DATE: 10/24/2023 HISTORY: Screening. Family history [...] cancer greater than 20%, consultation in the [facility] Breast Surgery High Risk Clinic is recommended. The phone number is [phone]. The [place] [employer] recommends annual screening breast MRI [...] mammograms from [facility] dated 01/08/2018, 06/06/2021 and 09/26/2022. TECHNIQUE: Tomosynthesis [...] 29 U/L QUEST Comment: Test Performed at: [facility] [address] THALIA ANN MD 12/04/2022 12:4 8 PM CDT 12/04/2022 12:50 PM CDT Carmen Escobar Alex SUPERVISOR TUBING-STEAM HAMMER OPERATOR LAB - [facility] ORDERABLES [address] [address] from Last 3 Months or Most Recently Relevant to Health Maintenance Advance Directives * Full Code (Latest Code Status on File) Date Activated Date Inactivated Comments 04/30/2022 10:22 AM 05/01/2022 4:11 PM * Full Code Date Activated Date Inactivated Comments 11/25/2017 2:05 PM 11/26/2017 4:53 PM Care Teams Tobacco Scrap Sifter Relationship Specialty Start Date End Date Santana Smith MD [address] [facility] [address] [place] [id number] PCP - General 06/21/14
--- NOTE | 2024-06-15 07:02 | P.PNAN_ITS ---
Anes - Initial Pre Proc Eval Procedure: Operation Date: 06/15/24 07:30 Proposed Procedures p Left Total Knee Arthroplasty - Frankie Kang MD Date/Time: 06/15/24 07:02 Surgeon: Frankie Kang MD Pre Op Diagnosis: left knee DJD Patient Data Age: 49 Gender: F Height: 1.63 m Weight: 95.4 kg Last Vital Signs Temp 97.7 F 06/01/24 14:30 Pulse 86 06/01/24 14:30 Resp 16 06/01/24 14:30 BP 134/88 06/01/24 14:30 Pulse Ox 100 06/01/24 14:30 O2 Del Method Room Air 06/01/24 14:30 Allergies Allergy/AdvReac Type Severity Reaction Status Date / Time levofloxacin Allergy Unknown RASH Verified 06/10/24 14:08 Home Medications ?Medication ?Instructions ?Recorded ?Confirmed ?Type chlorhexidine gluconate 4 % 1 applic topical DAILY #237 mL 06/01/24 06/15/24 Rx topical liquid (Hibiclens) [id number] 45 mg-folic 1 cap PO DAILY 06/01/24 06/15/24 History acid 800 mcg-vit K 120 mcg capsule (Bariatric Multivitamins) lorazepam 1 mg tablet 1 mg PO DAILY PRN anxiety 06/15/24 06/15/24 History oxycodone-acetaminophen 10 mg-325 1 tablet PO Q6H PRN pain 06/15/24 06/15/24 History mg tablet Patient hx anesthesia problems: none Family hx anesthesia problems: none Results Review: All pre-operative results and documents have been reviewed as part of the pre- operative evaluation. [facility] Past Medical History Medical History Right shoulder pain BMI greater than 40 Left knee DJD Left knee pain History of frequent headaches UTI (urinary tract infection) Surgical History Surgical History History of hysterectomy Hx of tubal ligation Hx of cholecystectomy Family History Family History Father Hypertension Family history of coronary artery disease Family history of cardiovascular disease Cerebrovascular accident Mother Hypertension Sibling Family history of malignant neoplasm of breast in first degree relative Other Family history of arthritis Social History Social History Smoking status: Never smoker Alcohol intake: never Substance use: never Living arrangements: with family Additional living arrangements comments: [place] Gender identity (if verbalized by the patient): Female Spiritual care concerns: No Anes - Eval Final PreProcedure Day of Procedure 06/15/24 07:02 Patient weight: obese Lungs: normal air movement Airway: Mallampati scale class II Neurological: alert and oriented Last oral intake: >/= 8 hours ASA classification: II Emergent: no Anesthetic plan: proceed Anesthesia type and monitoring: general LMA and standard monitoring Results Review: All pre-operative results and documents have been reviewed as part of the pre- operative evaluation. Hx of JEFERSON, no longer on CPAP since wt loss after bariatric sx. Hx anxiety. Stress test 2021 nml. Informed Consent: The patient's anesthetic plan and its attendant risks and benefits were discussed with the patient/family/POA. Questions were solicited and answers provided to the satisfaction of the patient/family/POA.
--- NOTE | 2024-06-15 07:21 | WPDHPUPDATE1 ---
History and Physical Update Update Date/Time: 06/15/24 07:21 History and Physical has been reviewed, including an updated exam of the patient. There are NO changes in the patient's condition. Risks, benefits, and alternatives have been discussed and questions answered. Patient agrees to proceed with procedure.
[2024-06-15] MEDS: TRANEXAMIC ACID 1,000MG/ISO100 1,000 MG/100 ML BAG 200 MG IVPB (07:24)
[2024-06-15] MEDS: ACETAMINOPHEN 500 MG TABLET 1000 MG PO (07:24)
[2024-06-15] MEDS: LACTATED RINGERS 1,000 ML 30 ML IV CONT ×2 (07:24→10:07)
--- NOTE | 2024-06-15 07:35 | WPDANESPNB ---
Anes - Peripheral Nerve Block Date/Time: 06/15/24 07:35 I have discussed with the patient/family/POA the placement of a peripheral nerve block for post-operative pain management, including associated risks, benefits, complications, and side effects. Alternative methods of post-operative analgesia were detailed. Questions were solicited and answers provided to the satisfaction of the patient/family/POA. Time-Out: A pre-procedural Time-Out was completed immediately before starting the procedure and confirmed: Patient Identification, Site, Procedure, Patient Position and the Availability of Requisite Equipment. Clinical Indications: Acute post-operative pain management requested by the operative surgeon. Nerve Block Insertion Note Anes-nerve block: adductor canal left Patient position: supine Skin prep: chlorhexidine Needle: 22 gauge, stimulating, insulated echogenic needle. Needle length: 80 mm Technique: ultrasound Injectate: other (Bupiv 0.5% 15 mls. ) Observations: tolerated well Complications: none Procedure start time:: 724 Procedure end time:: 729
[2024-06-15] MEDS: ceFAZolin 2 GM/D5W 50 ML 2 GM/50 ML BAG IVPB ×3 (07:37→23:17)
[2024-06-15] MEDS: SODIUM CHLORIDE 0.9% IV 37.7 ML, MORPHINE SULFATE INJ (*CRX) 2 MG, ROPivacaine HCL 1% 2... INFILTRATE (08:43)
--- NOTE | 2024-06-15 10:09 | P.OP_ITS ---
Procedure Note - Detailed Date of Procedure 06/15/24 Pre-op Diagnosis left knee DJD Post-op Diagnosis Same Procedure Performed L TKA Surgeon Frankie Kang MD Anesthesia General Description of Procedure THE LEFT KNEE WAS PREPPED AND DRAPED IN THE STERILE FASHION. THERE WAS A VALGUS DEFORMITY. A MIDLINE SKIN INCISION WAS MADE. A MEDIAL PARAPATELLAR ARTHROTOMY WAS MADE. THE PATELLA WAS EVERTED. THERE WAS TRICOMPARTMENT DJD. THERE WAS MINIMAL PATELLA DJD. AN INTRAMEDULLARY HERBIE WAS PLACED IN THE FEMUR. A DISTAL FEMORAL CUT WAS MADE IN 5 DEGREES OF VALGUS REMOVING APPROXIMATELY 8 MM OF BONE FROM THE DISTAL FEMUR. THE FEMUR WAS SIZED TO 3. A 3 FEMORAL CUTTING BLOCK WAS PLACED IN 3 DEGREES OF EXTERNAL ROTATION AND IN ALIGNMENT WITH SAMANTA'S LINE AND THE TRANSEPICONDYLAR AXIS. ANTERIOR POSTERIOR AND CHAMFER CUTS WERE MADE. THE CUTS WERE EXCELLENT. NEXT AN INTRAMEDULLARY CUTTING GUIDE WAS PLACED IN THE TIBIA. A TRANS TIBIAL CUT WAS MADE ALONG THE LONG AXIS OF THE TIBIA. APPROXIMATELY 8 MM OF BONE WAS REMOVED FROM THE HIGH SIDE OF THE TIBIA. THE TIBIA WAS THEN PLANED TO A SMOOTH SURFACE. POSTERIOR FEMORAL OSTEOPHYTES WERE REMOVED FROM THE FEMORAL CONDYLES. A 4 TIBIAL TRIAL WAS PLACED IN ALIGNMENT WITH THE 1/3 MEDIAL ASPECT OF THE TIBIAL TUBERCLE. THEN A 3 FEMORAL TRIAL COMPONENT WAS PLACED. BOTH HAD EXCELLENT FITS. EVENTUALLY A 9 MM CS POLYETHYLENE TRIAL COMPONENT WAS PLACED. THE KNEE WAS TAKEN THROUGH A RANGE OF MOTION. THE KNEE CAME OUT TO FULL EXTENSION. THERE WAS NO ABNORMAL TILT TO THE PATELLA. THERE WAS GOOD A/P AND VARUS/VALGUS STABILITY. THERE WAS NO EXCESSIVE ROLL BACK WITH FLEXION. THE TRIAL COMPONENTS WERE REMOVED. THEN A MARIAELENA 3 FEMORAL COMPONENT AND 4 TIBIAL COMPONENT WITH A 9 CS POLYETHYLENE COMPONENT WERE PRESS FIT INTO PLACE. THE CUT SURFACES WERE FLUSH WITH THE IMPLANTS. THE KNEE WAS TAKEN THROUGH A ROM AGAIN AND FOUND TO BE STABLE WITH NO PATELLA TILT NO EXCESSIVE ROLL BACK WITH FLEXION AND GOOD STABILITY WITH COMPLETE AND FULL EXTENSION. THE KNEE WAS IRRIGATED WITH STERILE BETADINE AND WATER FOR ABOUT 3 MINUTES. THE BLEEDERS WERE CAUTERIZED. THE ARTHROTOMY WAS REPAIRED WITH NUMBER 1 VICRYL. THE SUB CUTANEOUS LAYER WITH 2-0 VICRYL AND THE SKIN WITH 3-0 STRATAFIX AND DERMABOND. THE WOUND WAS WASHED AND A STERILE DRESSING WAS APPLIE D. PATIENT WAS EXTUBATED. Estimated Blood Loss -200 Pathology None sent Complications No immediate complications Condition Stable Disposition PACU
[2024-06-15] MEDS: fentaNYL CITRATE INJ (*CRX) 100 MCG/2 ML VIAL 25 MCG IV PUSH ×8 (10:20→10:50)
[2024-06-15] MEDS: HYDROmorphone HCL INJ (*CRX) 1 MG/ML SYR 0.25 MG IV PUSH ×4 (10:59→11:18)
[2024-06-15] MEDS: HYDROmorphone HCL INJ (*CRX) 1 MG/ML SYR IV PUSH (12:45)
[2024-06-15] MEDS: SODIUM CHLORIDE 0.9% IV 1,000 ML 125 ML IV CONT (12:47)
[2024-06-15] MEDS: MULTIVITAMINS /C LUTEIN (CENTRUM SILVER) TABLET *BKC 1 TAB PO (12:51)
[2024-06-15] MEDS: FAMOTIDINE 20 MG TABLET PO ×2 (12:51→21:04)
[2024-06-15] MEDS: polyethylene glycoL 3350 17 GM POWD.PACK PO (12:51)
[2024-06-15] MEDS: SENNA/DOCUSATE SODIUM TABLET 2 TAB PO ×2 (12:51→15:53)
[2024-06-15] MEDS: HYDROmorphone HCL INJ (*CRX) 1 MG/ML SYR 0.5 MG IV PUSH (15:52)
[2024-06-15] MEDS: oxyCODONE/ACETAMINOPHEN (*CRX) 10-325 MG TABLET 1 TAB PO (21:04)
[2024-06-15] MEDS: oxyCODONE/ACETAMINOPHEN (*CRX) 5-325 MG TABLET 1 TABLET PO (23:17)
[2024-06-16 01:24] VITALS: BP 129/77; PULSE 96; RESP 18; TEMP 36.7; O2SAT 100
[2024-06-16] MEDS: oxyCODONE/ACETAMINOPHEN (*CRX) 10-325 MG TABLET 1 TAB PO ×3 (02:34→15:24)
[2024-06-16 05:24] VITALS: BP 112/63; PULSE 100; RESP 18; TEMP 36.7; O2SAT 99
[2024-06-16] MEDS: oxyCODONE/ACETAMINOPHEN (*CRX) 5-325 MG TABLET 1 TABLET PO (06:18)
[2024-06-16 06:21] LABS: Basophils Percent Auto 0.3 % (0.2-1.2); Eosinophils Percent Auto 0.2 % (0-4.4); Hematocrit 28.4 % (37.0-47.0); Hemoglobin 9.4 g/dL (12.0-15.0); Immature Granulocyte Absolute 0.02 K/mm3 (0.00-0.031); Immature Granulocyte Percent A 0.3 % (0-0.5); Lymphocytes Absolute Auto 1.42 K/mm3 (0.9-3.2); Lymphocytes Percent Auto 21.7 % (18.3-44.2); Mean Corpuscular HGB Conc 33.1 g/dl (32-36); Mean Corpuscular Hemoglobin 28.7 pg (26-34); Mean Corpuscular Volume 86.9 fl (80-100); Mean Platelet Volume 9.5 fl (7.4-10.4); Monocytes Absolute Auto 0.5 K/mm3 (0.1-0.6); Monocytes Percent Auto 8.1 % (2.6-8.5); Neutrophils Absolute Auto 4.5 K/mm3 (1.3-6.7); Neutrophils Percent Auto 69.4 % (45.5-73.1); Platelet Count Result 195 k/mm3 (150-375); Red Blood Count 3.27 M/mm3 (4.2-5.4); Red Cell Distribution Width 14.1 % (11.5-14.5); White Blood Count 6.5 K/mm3 (4.5-10.0)
[2024-06-16 06:31] LABS: Anion Gap 4 mmol/L (4-12); Blood Urea Nitrogen 15 mg/dL (7-17); Calcium 8.9 mg/dL (8.4-10.2); Carbon Dioxide 30 mmol/L (22-30); Chloride 103 mmol/L (98-107); Estimated CRCL calculation 68 ml/min; Estimated Glomerular Filt Rate > 60; Glucose 95 mg/dL (65-110); Potassium 3.9 mmol/L (3.4-5.0); Sodium 137 mmol/L (137-145)
[2024-06-16 09:12] VITALS: BP 110/50; PULSE 103; RESP 16; TEMP 36.8; O2SAT 100
[2024-06-16] MEDS: MULTIVITAMINS /C LUTEIN (CENTRUM SILVER) TABLET *BKC 1 TAB PO (09:16)
[2024-06-16] MEDS: SENNA/DOCUSATE SODIUM TABLET 2 TAB PO (09:16)
[2024-06-16] MEDS: RIVAROXABAN 10 MG TABLET PO (09:16)
[2024-06-16] MEDS: FAMOTIDINE 20 MG TABLET PO (09:16)
[2024-06-16] MEDS: ceFAZolin 2 GM/D5W 50 ML 2 GM/50 ML BAG IVPB (09:17)
[2024-06-16] MEDS: polyethylene glycoL 3350 17 GM POWD.PACK PO (09:17)
[2024-06-16 13:24] VITALS: BP 123/60; PULSE 115; RESP 16; TEMP 36.1; O2SAT 100
--- NOTE | 2024-06-16 15:15 | P.PNOP_ITS ---
Progress Note: A&P Assessment and Plan (1) Left knee DJD: Qualifiers: Osteoarthritis type: primary Qualified Code(s): M17.12 - Unilateral primary osteoarthritis, left knee Code(s): M17.12 - Unilateral primary osteoarthritis, left knee Status: Acute Assessment and Plan: POD 1 DOING WELL. OK TO DC HOME F/U IN 3 WEEKS Subjective Subjective Date/Time Seen: 06/16/24 15:15 Interval history: POD 1 DOING WELL. NO CALF PAIN, GOOD PROGRESS WITH PT Exam Extrem: Other: VSS AFEBRILE DRESSING DRY NV INTACT NEG HOMANS SIGN, CALF SOFT NON TENDER, THIGH SOFT Objective Data Vital Signs Vital Signs: Vital Signs - 24 hr 06/15/24 17:23 06/15/24 17:45 06/15/24 21:24 Temperature 36.2 C L 36.3 C L Pulse Rate 85 71 Respiratory Rate 18 18 Blood Pressure 128/83 118/71 Pulse Oximetry 100 100 Oxygen Delivery Room Air 06/16/24 01:24 06/16/24 05:24 06/16/24 09:12 Temperature 36.7 C 36.7 C 36.8 C Pulse Rate 96 100 103 H Respiratory Rate 18 18 16 Blood Pressure 129/77 112/63 110/50 L Pulse Oximetry 100 99 100 Oxygen Delivery 06/16/24 09:25 06/16/24 13:24 Temperature 36.1 C L Pulse Rate 115 H Respiratory Rate 16 Blood Pressure 123/60 Pulse Oximetry 100 Oxygen Delivery Room Air Intake/Output Intake/Output: Intake & Output 06/13/24 06/14/24 06/15/24 06/16/24 23:59 23:59 23:59 23:59 Intake Total 450 250 Balance 450 250 Meds/Results Medications: Active Medications Generic Name Dose Route Start Last Admin Trade Name Freq PRN Reason Stop Dose Admin Acetaminophen 500 mg 06/15/24 11:39 Acetaminophen 500 Mg Tablet PO Q6H PRN Pain Rated 1-3 Diazepam 5 mg 06/15/24 11:39 Diazepam (*Crx) 5 Mg Tablet PO Q8H PRN Spasms Diphenhydramine HCl 25 mg 06/15/24 11:39 Diphenhydramine Hcl Inj 50 Mg/Ml Vial IV PUSH Q6H PRN Itching Famotidine 20 mg 06/15/24 11:39 06/16/24 09:16 Famotidine 20 Mg Tablet PO 20 mg Q12HR RUBEN Administration Hydromorphone HCl 1 mg 06/15/24 11:39 06/15/24 12:45 Hydromorphone Hcl Inj (*Crx) 1 Mg/Ml Syr IV PUSH 1 mg Q2H PRN Administration Breakthrough Pain Rated 7-10 or NPO Hydromorphone HCl 0.5 mg 06/15/24 11:39 06/15/24 15:52 Hydromorphone Hcl Inj (*Crx) 1 Mg/Ml Syr IV PUSH 0.5 mg Q2H PRN Administration Breakthrough Pain Rated 4-6 or NPO Lorazepam 1 mg 06/15/24 11:39 Lorazepam (*Crx) 1 Mg Tablet PO DAILY PRN anxiety Multivitamins/Minerals 1 tab 06/15/24 11:39 06/16/24 09:16 Multivitamins /C Lutein (Centrum Silver) Tablet *Bkc PO 1 tab DAILY RUBEN Administration Naloxone HCl 0.1 mg 06/15/24 11:39 Naloxone Hcl 0.4 Mg/Ml Vial IV PUSH Q2M PRN Opiate Reversal Ondansetron HCl 4 mg 06/15/24 11:39 Ondansetron Inj 4 Mg/2 Ml Vial IV PUSH Q4H PRN Nausea And Vomiting Oxycodone/Acetaminophen 1 tab 06/15/24 11:39 Oxycodone/Acetaminophen (*Crx) 10-325 Mg Tablet PO Q6H PRN pain Oxycodone/Acetaminophen 1 tablet 06/15/24 11:39 06/16/24 06:18 Oxycodone/Acetaminophen (*Crx) 5-325 Mg Tablet PO 1 tablet Q4H PRN Administration Pain Rated 4-6 Oxycodone/Acetaminophen 1 tab 06/15/24 11:39 06/16/24 09:22 Oxycodone/Acetaminophen (*Crx) 10-325 Mg Tablet PO 1 tab Q6H PRN Administration Pain Rated 7-10 Polyethylene Glycol 17 gm 06/15/24 11:39 06/16/24 09:17 Polyethylene Glycol 3350 17 Gm Powd.Pack PO 17 gm QAM RUBEN Administration Rivaroxaban 10 mg 06/16/24 09:00 06/16/24 09:16 Rivaroxaban 10 Mg Tablet PO 10 mg QAM RUBEN Administration Senna/Docusate Sodium 2 tab 06/15/24 11:39 06/16/24 09:16 Senna/Docusate Sodium Tablet PO 2 tab BID RUBEN Administration Radiology Results: ITS Impressions Knee X-Ray 06/15/24 10:33 Impression: Status post total knee replacement, without evidence of hardware complication. Labs Labs: Laboratory Results - last 24 hr 06/16/24 06:01 WBC 6.5 RBC 3.27 L Hgb 9.4 L D Hct 28.4 L MCV 86.9 MCH 28.7 MCHC 33.1 RDW 14.1 Plt Count 195 MPV 9.5 Immature Gran % (Auto) 0.3 Neut % (Auto) 69.4 Lymph % (Auto) 21.7 [place] % (Auto) 8.1 Eos % (Auto) 0.2 Baso % (Auto) 0.3 Lymph # (Auto) 1.42 [place] # (Auto) 0.5 Eos # (Auto) 0.0 Baso # (Auto) 0.0 Abs Immat Gran (auto) 0.02 Absolute Neuts (auto) 4.5 Absolute Nucleated RBC 0.000 Nucleated RBC % 0.0 Sodium 137 Potassium 3.9 Chloride 103 Carbon Dioxide 30 Anion Gap 4 BUN 15 Creatinine 0.96 Estim Creat Clear Calc 68 Estimated GFR > 60 Glucose 95 Calcium 8.9
== END 2024-06-16 17:11 | disposition home health service (06) ==
LOC: ANHSURGERY 06:07 → ANH3MEDSUR 11:41
PROVIDERS: PCP Emergency Medicine; Visit Provider Orthopaedic Surgery
PROC: (CPT 27447; principal; 2024-06-15 07:30)
DX: M17.12 Unilateral primary osteoarthritis, left knee (principal); M25.762 Osteophyte, left knee; M21.062 Valgus deformity, not elsewhere classified, left knee; G89.18 Other acute postprocedural pain; E66.9 Obesity, unspecified; Z68.35 Body mass index [BMI] 35.0-35.9, adult; Z79.891 Long term (current) use of opiate analgesic; Z98.890 Other specified postprocedural states; Z90.49 Acquired absence of other specified parts of digestive tract; Z98.51 Tubal ligation status; Z80.3 Family history of malignant neoplasm of breast; Z82.49 Family history of ischemic heart disease and other diseases of the circulatory system
CPT/HCPCS: 64447; 27447; 36415; 73560; 80048; 85025; 86850; 86900; 86901; 97110; 97116; 97161; 97165; 97530; 97535; A9270; C1713; C1776; J0171; J0690; J1100; J1171; J1885; J2003; J2250; J2270; J2405; J2704; J2795; J3010; J7030; J7120